=== PATIENT | female | born 1945 | race Caucasian/White ===

== ENCOUNTER 2024-11-11 01:44 | Emergency (ER) | payer MEDICARE, SELFPAY ==
[2024-11-11 01:46] VITALS: BP 103/58; PULSE 92; TEMP 37.1; O2SAT 95; BMI 33.7
--- NOTE | 2024-11-11 01:56 | ED.WOUNDLAC1 ---
HPI - Wound/Laceration General Chief Complaint: Wound/Laceration Stated Complaint: BLEEDING, LOWER EXTREMITY Time Seen by Provider: 11/11/24 01:45 Source: patient Mode of arrival: ambulance History of Present Illness HPI narrative: presents bleeding varicose vein left ankle. She is on eliquis for A. Fiv[employer]. Believes her shoes may have rubbed on the ankle resulting in the bleeding. Not able to recall any other injury. Not able to stop the bleeding at home and came via squad. no associated pain Related Data Home Medications ?Medication ?Instructions ?Recorded ?Confirmed amiodarone 200 mg tablet 200 mg PO BID 11/11/24 11/11/24 anastrozole 1 mg tablet 1 mg PO DAILY 11/11/24 11/11/24 apixaban 5 mg tablet (Eliquis) 5 mg PO BID 11/11/24 11/11/24 dapagliflozin propanediol 10 mg 10 mg PO DAILY 11/11/24 11/11/24 tablet (Farxiga) furosemide 80 mg tablet 80 mg PO QAM 11/11/24 11/11/24 losartan 25 mg tablet (Cozaar) 25 mg PO BID 11/11/24 11/11/24 metoprolol succinate 25 mg 25 mg PO BID 11/11/24 11/11/24 tablet,extended release 24 hr potassium chloride 10 mEq 10 meq PO BID 11/11/24 11/11/24 tablet,extended release (Klor-Con) Allergies Allergy/AdvReac Type Severity Reaction Status Date / Time No Known Drug Allergies Allergy Verified 11/11/24 01:51 Review of Systems ROS Status of ROS 10 or more systems reviewed and unremarkable except as noted in history and below PFSH PFSH Social History Little interest or pleasure in doing things: not at all Feeling down, depressed, or hopeless: not at all Exam Constitutional Vital Signs, click to edit/add: Last Vital Signs Temp 98.7 F 11/11/24 01:46 Pulse 92 H 11/11/24 01:46 Resp 18 11/11/24 02:42 BP 103/58 11/11/24 01:46 Pulse Ox 98 11/11/24 02:42 O2 Del Method Room Air 11/11/24 02:42 Common normals: no apparent distress, average body habitus, oriented x3, no limitations, healthy appearing, alert and well nourished [facility] Common normals: normocephalic and head/scalp atraumatic Eye Common normals: PERRL, EOMs intact bilaterally and conjunctivae normal Respiratory Common normals: normal respiratory effort, no retractions, no use of accessory muscles and clear to auscultation bilaterally Cardio Common normals: S1 normal heart sound and S2 normal heart sound Rhythm: abnormal rhythm Extremity Other: bleeding varicose vein left ankle Neuro Common normals: oriented x3, CN's II-XII intact bilaterally, moves all extremities and no focal motor deficits Psych Appearance: grossly normal Course Vital Signs Vital signs: Vital Signs Temperature 98.7 F 11/11/24 01:46 Pulse Rate 92 H 11/11/24 01:46 Respiratory Rate 16 11/11/24 01:46 Blood Pressure 103/58 11/11/24 01:46 Pulse Oximetry 95 11/11/24 01:46 Oxygen Delivery Method Room Air 11/11/24 01:46 Temperature 98.7 F 11/11/24 01:46 Pulse Rate 92 H 11/11/24 01:46 Respiratory Rate 18 11/11/24 02:42 Blood Pressure 103/58 11/11/24 01:46 Pulse Oximetry 98 11/11/24 02:42 Oxygen Delivery Method Room Air 11/11/24 02:42 MDM - Wound/Laceration MDM Narrative Medical decision making narrative: presents with bleeding varicose vein left ankle. No associated pain. pressure dressing on left ankle that was applied by squad was removed and the site was no longer bleeding. Did locate the site where she did bleed from and used silver nitrate to cauterize the site. Pressure dressing then re applied and patient monitored in the ER Discharge Plan Discharge Chief Complaint: Wound/Laceration Clinical Impression: Bleeding from varicose vein Patient Disposition: Home, Self-Care Prescriptions / Home Meds: No Action anastrozole 1 mg tablet 1 mg PO DAILY furosemide 80 mg tablet 80 mg PO QAM dapagliflozin propanediol [Farxiga] 10 mg tablet 10 mg PO DAILY Eliquis 5 mg tablet 5 mg PO BID metoprolol succinate 25 mg tablet extended release 24 hr 25 mg PO BID potassium chloride [Klor-Con 10] 10 mEq tablet extended release 10 meq PO BID losartan [Cozaar] 25 mg tablet 25 mg PO BID amiodarone 200 mg tablet 200 mg PO BID Print Language: Haitian Instructions: Bleeding Disorders (ED) Additional Instructions: keep dressing on for the next couple of days. followup with your doctor Discharge Date/Time: 11/11/24 02:53
[2024-11-11] MEDS: LIDOCAINE HCL 1%-EPINEPHRINE 1:100,000 20 ML MDV 5 ML INJ (02:26)
[2024-11-11] MEDS: SILVER NITRATE APPLICATOR STICK 10 APPLIC TOPICAL (02:26)
[2024-11-11 02:42] VITALS: O2SAT 98
--- NOTE | 2024-11-11 03:25 | PC.NURSE ---
Pt is D/C'ed, but she states that she wishes to stay in the room until she can get a hold of a ride. Salon Coordinator stated that she is d/c'ed, but allowed for her to stay in room for as long as we do not need it. She verbalized understanding and is resting on stretcher.
--- NOTE | 2024-11-11 06:05 | PC.NURSE ---
At 0555, pt was awakened and escorted out to the lobby to make phone calls for a ride home. She was D/C'ed a few hours ago. She was given a warm blanket and a soda as per her request.
== END 2024-11-11 02:53 | disposition home or self-care (01) ==
PROVIDERS: Emergency Provider Internal Medicine; PCP Internal Medicine
DX: I83.892 Varicose veins of left lower extremity with other complications (principal); Z79.01 Long term (current) use of anticoagulants; I48.91 Unspecified atrial fibrillation
CPT/HCPCS: 99284

== ENCOUNTER 2025-01-29 20:48 | Outpatient (REF) | payer MEDICARE, SELFPAY ==
--- OUTSIDE RECORDS SUMMARY | 2025-01-18 05:30 | XMS_ITS | Encounter Summary ---
Author Organization [facility] Address [address] [place] [address] Phone Care Team Providers Care Mill Worker Name Role Phone Ken Sy MD Primary Care Provider [phone] Lashanda Azar MD Unavailable Reason for Referral * Consultation (Routine) - AuthorizedSpecialtyDiagnoses / ProceduresReferred By ContactReferred To ContactNephrology Diagnoses Hypervolemia, unspecified [place] [address] [facility] Medicine-General Internal [place] [id number] Phone: tel: fax: Referral IDStatusReasonStart DateExpiration DateVisits RequestedVisits [id number] Specialty Services Required * Consultation (Routine) - AuthorizedSpecialtyDiagnoses / ProceduresReferred By ContactReferred To ContactPulmonary Disease / Pulmonology Diagnoses Requires continuous [place] [address] [address] [facility] Medicine-General Internal [place] [id number] Phone: tel: fax: Referral IDStatusReasonStart DateExpiration DateVisits RequestedVisits [id number] Specialty Services Required * Home Health (Routine) - Pending ReviewSpecialtyDiagnoses / ProceduresReferred By ContactReferred To [facility] Diagnoses Congestive heart failure, unspecified HF chronicity, unspecified heart failure type (Multi) [place] [address] [address] [facility] Department of [place] [address] Phone: tel: fax: Referral IDStatusReasonStart DateExpiration DateVisits RequestedVisits [id number] Review Specialty Services Required [id number] * Consultation (Routine) - AuthorizedSpecialtyDiagnoses / ProceduresReferred By ContactReferred To ContactCardiology Diagnoses Other fluid overload Bernabe Laura APRN-CNP [address] [address] Phone: tel: fax: Referral IDStatusReasonStart DateExpiration DateVisits RequestedVisits [id number] Specialty Services Required * Cardiovascular (Routine) - AuthorizedSpecialtyDiagnoses / ProceduresReferred By ContactReferred To ContactCardiology Diagnoses Persistent atrial fibrillation (Multi) Procedures Holter Or Event Cork Floor Installer NV EXTERNAL ECG REC>48HR<7D RECORDING NV XTRNL PT ACTIVATED ECG REC DWNLD 30 DAYS Lizzy Lynn APRN-CNP [address] [address] Phone: tel: fax: Referral IDStatusReasonVowinckel DateExpiration DateVisits RequestedVisits [id number]/ Reason for Visit * Auth/CertSpecialtyDiagnoses / ProceduresReferred By ContactReferred To Contact Diagnoses Persistent atrial fibrillation (Multi) Procedures NV COMPRE EP EVAL ABLTJ ATR FIB PULM VEIN ISOLATION Ablation A-Fib Persistant Lashanda Azar MD [address] [address] Phone: tel: fax: [address] [address] Phone: tel: fax: Referral IDStatusReasonVowinckel DateExpiration DateVisits RequestedVisits [id number] Encounter Details DateTypeDepartmentCare Team (Latest Contact Info)Wsvebylphtn30/17/2025 5:30 AM EST - 01/27/2025 3:58 PM ESTHospital Encounter [facility] Cardiac Int[facility] Care [address] [place] [phone] Lashanda Azar MD [address] [address] [place] [address] [address] [facility] Department of [place] [address] Byron Barnes MD [address] [place] [address] Nader Murrieta MD [address] [place], [place] [id number] [place] [address] [address] Department [place] [address] Persistent atrial fibrillation (Multi) (Primary Dx); Paroxysmal atrial fibrillation (Multi); Shortness of breath; Other fluid overload; Congestive heart failure, unspecified HF chronicity, unspecified heart failure type (Multi); Hypervolemia, unspecified hypervolemia type; MAR (generalized anxiety disorder); Requires continuous at home supplemental oxygen Discharge Disposition: Home Health Care - New Social History Tobacco UseTypesPacks/DayYears UsedDateSmoking Tobacco: NeverSmokeless Tobacco: NeverAlcohol UseStandard Drinks/WeekCommentsNever0 (1 standard drink = 0.6 oz pure alcohol)PHQ-2AnswerDate RecordedPatient Health Questionnaire-2 Score0 01/19/2025Humiliation, Afraid, Rape, and Kick questionnaireAnswerDate Recorded Within the last year, have you been afraid of your partner or ex-partner?No 01/19/2025Within the last year, have you been humiliated or emotionally abused in other ways by your partner or ex-partner?No01/19/2025Within the last year, have you been kicked, hit, slapped, or otherwise physically hurt by your partner or ex-partner?No01/19/2025Within the last year, have you been raped or forced to have any kind of sexual activity by your partner or ex-partner?No01/19/2025 AUDIT-CAnswerDate RecordedQ1: How often do you have a drink containing alcohol? Never01/19/2025Q2: How many drinks containing alcohol do you have on a typical day when you are drinking?Patient does not drink01/19/2025Q3: How often do you have six or more drinks on one occasion?Never01/19/2025Overall Financial Resource Strain (CARDIA)AnswerDate RecordedHow hard is it for you to pay for the very basics like food, housing, medical care, and heating?Not very hard 01/19/2025Hunger Vital SignAnswerDate RecordedWithin the past 12 months, you worried that your food would run out before you got the money to buymore.Never true01/19/2025Within the past 12 months, the food you bought just didn't last and you didn't have money to get more.Never true01/19/2025PRAPARE - TransportationAnswerDate RecordedIn the past 12 months, has lack of transportation kept you from medical appointments or from getting medications?No 01/19/2025In the past 12 months, has lack of transportation kept you from meetings, work, or from getting things needed for daily living?No01/19/2025 Housing Stability Vital SignAnswerDate RecordedIn the last 12 months, was there a time when you were not able to pay the mortgage or rent on time?No01/19/2025 Number of Times Moved in the Last YearNot on file01/19/2025t any time in the past 12 months, were you homeless or living in a half-way (including now)?No 01/19/2025HC UtilitiesAnswerDate RecordedIn the past 12 months has the [place], gas, oil, or water [employer] threatened to shut off services in your home?No01/19/2025CommentsUnknownSex and Gender InformationValueDate RecordedSex Assigned at BirthNot on fileLegal AndWrlopl15/25/2022 7:53 PM EST Gender IdentityNot on fileSexual OrientationNot on filedocumented as of this encounter Last Filed Vital Signs Vital SignReadingTime TakenCommentsBlood Xmgkeorw648/56103/29/2024 10:46 AM EST Julsd979601/27/2025 10:46 AM NPWHtqotddjdor37.7 ??C (98.1 ??F)01/27/2025 10:46 AM ESTRespiratory Rfin941803/29/2024 10:46 AM ESTOxygen Tmnegbbltc20%01/27/2025 12:08 PM ESTInhaled Oxygen Concentration--Wwoamm96 kg (191 lb 11.4 oz)01/27/2025 6:00 AM DMEFsiflw550.5 cm (5' 2 )01/18/2025 6:10 AM ESTBody Mass Index35.0601/18/2025 6:10 AM ESTdocumented in this encounter Functional Status * BPAnswerDate of IdadeyzuubGiwpwl487/56103/29/2024 10:46 AM Regina Miltonimkena Data In * PulseAnswerDate of WorhbatktvOawjcp8077/26/2025 10:46 AM ESTInterface, Masimo Data In * QuestionAnswerDate of AssessmentAuthorHistory of Falling, Immediate or Within 3 Yoaqei179/26/2025 12:00 PM Annabelle Emerson LPNMorse Fall Risk Score35 01/27/2025 12:00 PM Annabelle Emerson LPN * QuestionAnswerDate of AssessmentAuthorBraden Scale Bgict4529/26/2025 12:00 PM Annabelle Emerson LPN * AUDIT-C ScoreAnswerDate of BvvdatpzzhEnmcki074/18/2025 1:37 AM Concetta Sandoval RN * QuestionAnswerDate of AssessmentAuthorQ1: How often do you have a drink containing alcohol?Never01/19/2025 1:37 AM Concetta Sandoval RNQ2: How many drinks containing alcohol do you have on a typical day when you are drinking? Patient does not drink01/19/2025 1:37 AM Concetta Sandoval RNQ3: How often do you have six or more drinks on one occasion?Never01/19/2025 1:37 AM Concetta Sandoval RN * QuestionAnswerDate of AssessmentAuthorMalnutrition Fojep80803/21/2024 1:39 AM Concetta Sandoval RN * QuestionAnswerDate of AssessmentAuthorLittle interest or pleasure in doing thingsNot at all01/19/2025 1:37 AM Concetta Sandoval, RNFeeling down, depressed, or hopelessNot at all01/19/2025 1:37 AM Concetta Sandoval RN * Over the past 2 weeks, how often have you been bothered by any of the following problems?QuestionAnswerDate of AssessmentAuthorPatient Health Questionnaire-2 Dpqcl00103/21/2024 1:37 AM Concetta Sandoval RN * 4. Active Suicidal Ideation with Some Intent to Act, Without Specific Plan (Lifetime)AnswerDate of QcqgqzmfniCrapbeCd17/18/2025 12:19 AM Concetta Sandoval RN * 5. Active Suicidal Ideation with Specific Plan and Intent (Lifetime)AnswerDate of RikzgvounfJrgubdWm02/18/2025 12:19 AM Concetta Sandoval RN * Actual Attempt (Lifetime)AnswerDate of IscybqndvpCwgggmUu62/18/2025 12:19 AM Concetta Sandoval RN * Interrupted Attempts (Lifetime)AnswerDate of NsnjcflqjaJhonanQe08/18/2025 12:19 AM Concetta Sandoval RN * Aborted or Self-Interrupted Attempt (Lifetime)AnswerDate of AssessmentAuthorNo 01/19/2025 12:19 AM Concetta Sandoval RN * Preparatory Acts or Behavior (Lifetime)AnswerDate of AssessmentAuthorNo 01/19/2025 12:19 AM Concetta Sandoval RN * Calculated C-SSRS Risk Score (Lifetime/Recent)AnswerDate of AssessmentAuthorNo Risk Dntjtcdhc15/18/2025 12:19 AM Concetta Sandoval RN * [place] Suicide Severity Rating Scale (Screener/Recent Self-Report)Question AnswerDate of AssessmentAuthor1. Wish to be (Past 1 Month)No01/19/2025 12:19 AM Concetta Sandoval RN2. Non-Specific Active Suicidal Thoughts (Past 1 Month)No01/19/2025 12:19 AM Concetta Sandoval RN6. Suicidal Behavior (Lifetime)No01/19/2025 12:19 AM Concetta Sandoval RN * QuestionAnswerDate of AssessmentAuthorLittle interest or pleasure in doing thingsNot at all01/19/2025 1:37 AM Concetta Sandoval RNFeeling down, depressed, or hopelessNot at all01/19/2025 1:37 AM Concetta Sandoval RN documented as of this encounter Discharge Summaries * Kehinde Eli DO - 01/27/2025 3:03 PM EST Discharge Diagnosis Atrial fibrillation Acute hypoxic respiratory failure HFmrEF w Fluid overload Severe MV and tricuspid valve regurgitation Large PFO ANATOLY on CKD stage IIIb Issues Requiring Follow-Up Nephrology + Pulmonology + cardiology + structural heart follow-ups Discharge Meds Medication List START taking these medications hydrOXYzine HCL 25 mg tablet; Commonly known as: Atarax; Take 1 tablet (25 mg) by mouth every 6 hours if needed for anxiety. Klor-Con M20 20 mEq ER tablet; Generic drug: potassium chloride CR; Take 1 tablet (20 mEq) by mouth 2 times a day. Do not crush or chew.; Replaces: potassium chloride CR 10 mEq ER tablet pantoprazole 40 mg EC tablet; Commonly known as: ProtoNix; Take 1 tablet (40 mg) by mouth 2 times a day before meals. For 6 weeks after ablation then stop taking CHANGE how you take these medications * amiodarone 100 mg tablet; Commonly known as: Pacerone; Take 2 tablets (200 mg) by mouth once daily. For 2 months after ablation then discontinue; What changed: additional instructions * amiodarone 200 mg tablet; Commonly known as: Pacerone; Take 1 tablet (200 mg) by mouth once daily.; Start taking on: January 28, 2025; What changed: You were already taking a medication with the same name, and this prescription was added. Make sure you understand how and when to take each. Eliquis 2.5 mg tablet; Generic drug: apixaban; Take 1 tablet (2.5 mg) by mouth 2 times a day.; What changed: medication strength, how much to take losartan 25 mg tablet; Commonly known as: Cozaar; Take 1 tablet (25 mg) by mouth once daily.; What changed: when to take this torsemide 100 mg tablet; Commonly known as: Demadex; Take 1 tablet (100 mg) by mouth once daily.; Start taking on: January 28, 2025; What changed: medication strength, how much to take * This list has 2 medication(s) that are the same as other medications prescribed for you. Read the directions carefully, and ask your doctor or other care provider to review them with you. CONTINUE taking these medications anastrozole 1 mg tablet; Commonly known as: Arimidex dapagliflozin propanediol 10 mg tablet; Commonly known as: Farxiga; Take 1 tablet (10 mg) by mouth once every 24 hours. metoprolol succinate XL 25 mg 24 hr tablet; Commonly known as: Toprol-XL; Take 1 tablet (25 mg) by mouth once daily. Do not crush or chew. STOP taking these medications potassium chloride CR 10 mEq ER tablet; Commonly known as: Klor-Con; Replaced by: Klor-Con M20 20 mEq ER tablet Test Results Pending At Discharge Pending Labs No current pending labs. Hospital Course Carlos Escobar is a 79 y.o. female with a significant past medical history of Breast cancer s/p radiation & chemotherapy, atrial fibrillation, diastolic heart failure, WIL, HLD, GERD who was initially admitted under EP service for management of atrial fibrillation, transferred to medicine service due to ANATOLY and respiratory failure. 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 Weaned to 3L o2. Walking pulse oximetry on day of discharge revealed that she requires 3L o2 continuously at rest and with exertion. - Continue torsemide 100 mg Will need follow-up with outpatient nephrology in addition to cardiology, pulmonology, and structural heart team due to above listed medical issued addressed during this hospitalization - To continue physical therapy via her chosen [facility] agency > 30min in discharge coordination of care which includes: discharge planning, medication reconciliation, arranging appropriate follow up and discussion of discharge instructions with the patient. Pertinent Physical Exam At Time of Discharge Physical Exam Vitals and nursing note reviewed. Constitutional: General: She is not in acute distress. Appearance: Normal appearance. HENT: Head: Normocephalic and atraumatic. Mouth/Throat: Mouth: Mucous membranes are moist. Eyes: Extraocular Movements: Extraocular movements intact. Conjunctiva/sclera: Conjunctivae normal. Cardiovascular: Rate and Rhythm: Normal rate and regular rhythm. Pulses: Normal pulses. Heart sounds: Normal heart sounds. Pulmonary: Effort: Pulmonary effort is normal. Breath sounds: Normal breath sounds. Comments: On 3L o2 via NC Abdominal: General: Abdomen is flat. Bowel sounds are normal. Palpations: Abdomen is soft. Musculoskeletal: Right lower leg: Edema present. Left lower leg: Edema present. Skin: General: Skin is warm. Neurological: General: No focal deficit present. Mental Status: She is alert and oriented to person, place, and time. Mental status is at baseline. Psychiatric: Mood and Affect: Mood normal. Behavior: Behavior normal. Thought Content: Thought content normal. Outpatient Follow-Up Future Appointments Date Time Provider Department [place] 02/02/2025 2:30 PM Girish Chapman MD [id number] [place] 02/02/2025 2:30 PM Krzysztof Blankenship MD [id number] [place] 02/15/2025 2:00 PM Sarah Jesus PA-C [id number] [place] 04/19/2025 8:30 AM SHAYE [id number] ECG/HOLTER [id number] [place] 05/18/2025 10:15 AM Lashanda Azar MD [id number] [place] Kehinde Eli DO documented in this encounter Discharge Instructions * Discharge Instructions* Lizzy Lynn, BAR MACHINE OPERATOR MULTIPLE SPINDLE-DIVISION ORDER ANALYST - 01/18/2025 10:22 AM EST Images from the original note were not included. INSTRUCTIONS AFTER ATRIAL FIBRILLATION ABLATION PROCEDURE: After the procedure: You should return home and rest for the remainder of the day and evening. DO NOT drive a car, operate machinery or power tools. It is recommended a responsible adult be withyou for the first 24 hours after the procedure. DO NOT make any legal decisions for 24 hours after your procedure. DO NOT drink any alcoholic drinks or take any non-prescriptive medications that contain alcohol forthe first 24 hours. What to expect: Some minor bruising is common at each groin access site with minor soreness as if you had banged the area. Bruising may occasionally be seen to extend down the leg. This is normal as is an occasionalsmall quarter sized bump in the area. If larger swelling or more significant pain occurs at the area, please contact the office or go the nearest Emergency Room. You may have some minor chest pain for the next week or so. The pain will often worsen with a deep breath and be better when leaning forward. This is pericardial chest pain from the ablation and is generally not of concern. It should resolve within a week although it might increase for a day or so after the ablation. Low grade fevers of around 99 degrees are common in the first day or so post- ablation. If you develop unexplained fevers exceeding 100 degrees anytime within the first 3 weeks post-ablation, you needto contact the office. Atrial fibrillation (AFib) can recur in all patients who undergo this ablation for up to 4-8 weeks post-ablation. The ablation itself can cause inflammation (pericarditis) in the atria and this can cause AFib. Some patients will actually experience an increased amount of atrial arrhythmia early after ablation. Approximately 1/3 of patients will have this early recurrence of AFib. Medications should be continued and your heart rate controlled. Nothing else needs be done initially except waiting as in many cases these episodes of AFib will prove self limited. Important Medication Instructions: You will need to continue blood thinner (warfarin, Pradaxa, Xarelto or Eliquis) until instructed otherwise. It is important not to interrupt blood thinner for any reason (other than an emergency) during the first 30 days after ablation. You will be on Pantoprazole (a heartburn medicine) or related medicine for 6 weeks to protect the esophagus as it can become irritated with ablation. It is very important that you take this medication. All other medications will generally remain the same unless you are told otherwise. Resume taking your home medications today (including blood thinner) as listed on the discharge instructions. Activity and Other Restrictions: In the first week post-ablation you should take it easy. No heavy lifting or heavy exercise, no treadmill. You can use the stairs if needed but go slowly and minimize the number of times up and down. Avoid heavy lifting (over 10 pounds), strenuous activity/exercise, squatting or excessive bending for 7 days. This allows for proper healing of the groin. Avoid sexual activity for 24 hours after you arrive home. No driving for 48 hours after procedure. Call 911 if: Severe dizziness, lightheadedness, or feeling faint Severe chest pain Change in mental status or weakness in extremities. If there is a large amount of bleeding or spurting of blood. DO NOT drive yourself to the hospital. Notify Provider if: Breathing faster than normal. Fever of 100.4 F (38 C) or higher or chills. If you develop a large area of bruising or a large lump. It is normal to notice a small bruise around the puncture site and/or a small lump. If groin pain is not relieved with acetaminophen (Tylenol). If you develop tingling, numbness, pain, or coolness in the leg/arm beyond the site where the procedure was performed. If post procedure chest discomfort unrelieved with acetaminophen (Tylenol) Any new concerning symptoms Wound Care: The transparent dressing should be removed from the site 24 hours after the procedure. It is ok to shower after transparent dressing is removed. Gently cleanse the puncture site in your groin with soap and water only. No tub baths, soaking, hot tubs, or swimming for one week. If slight bleeding should occur at groin site, lie down and have someone apply firm pressure just above the puncture site for 15 minutes. If there is a large amount of bleeding or spurting of blood, DO NOT drive yourself to the hospital. Always notify your doctor if bleeding occurs. Keep site clean and dry. Let air dry or pat dry. You may use a simple bandaid. You may experience some tenderness, bruising or minimal inflammation. You may take acetaminophen (Tylenol) as directed for discomfort. If you have any concerns, you may contact Dr. Azar. Avoid lotions, ointments, or powders until fully healed. Follow-up Appointments You will be scheduled for a follow up appointment with your provider in 3-4 months. A heart monitor may be ordered prior to your provider appointment if indicated. Any necessary appointments will be scheduled and appear on your After Visit Summary. Other Instructions: If you need to speak with Dr. Azar for any reason, please call [phone] during business hours. For urgent questions after normal business hours, please call and ask for Cardiac Electrophysiology coverage for Dr. Azar to be paged. For medical emergencies, please call [phone]. documented in this encounter Medications at Time of Discharge MedicationSigDispense QuantityRefillsLast FilledStart DateEnd Date amiodarone (Pacerone) 100 mg tablet Indications:Persistent atrial fibrillation (Multi)Take 2 tablets (200 mg) by mouth once daily. For 2 months after ablation then vamcqakemdr70/17/2025 amiodarone (Pacerone) 200 mg tablet Indications:Congestive heart failure, unspecified HF chronicity, unspecified heart failure type (Multi)Take 1 tablet (200 mg) by mouth once daily. 30 tablet 01/27/2025 12:35 PM EST anastrozole (Arimidex) 1 mg tablet Take 1 tablet (1 mg total) by mouth once daily.01/22/2024 apixaban (Eliquis) 2.5 mg tablet Indications:Other fluid overloadTake 1 tablet (2.5 mg) by mouth 2 times a day. 60 tablet 12:35 PM EST dapagliflozin propanediol (Farxiga) 10 mg tablet Indications:Congestive heart failure, unspecified HF chronicity, unspecified heart failure type (Multi)Take 1 tablet (10 mg) by mouth once every 24 hours. 90 tablet hydrOXYzine HCL (Atarax) 25 mg tablet Indications:MAR (generalized anxiety disorder)Take 1 tablet (25 mg) by mouth every 6 hours if needed for anxiety. 60 tablet 12:35 PM EST01/27/2025 losartan (Cozaar) 25 mg tablet Indications:Other fluid overloadTake 1 tablet (25 mg) by mouth once daily. 30 tablet metoprolol succinate XL (Toprol-XL) 25 mg 24 hr tablet Indications:Persistent atrial fibrillation (Multi),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,High risk medication use,Essential (primary) hypertension, Nonrheumatic tricuspid valve regurgitation,Nonrheumatic mitral valve regurgitation,Nonrheumatic aortic (valve) insufficiency,LVH (left ventricular hypertrophy),Incomplete RBBB,Abnormal EKG,SOB (shortness of breath),Localized edema,Mixed hyperlipidemia,Obstructive sleep apnea,Never smoked cigarettes,BMI 34.0-34.9,adultTake 1 tablet (25 mg) by mouth once daily. Do not crush or chew. pantoprazole (ProtoNix) 40 mg EC tablet Indications:Persistent atrial fibrillation (Multi)Take 1 tablet (40 mg) by mouth 2 times a day before meals. For 6 weeks after ablation then stop taking 84 tablet 01/18/2025 12:46 PM EST potassium chloride CR (Klor-Con M20) 20 mEq ER tablet Indications:Congestive heart failure, unspecified HF chronicity, unspecified heart failure type (Multi)Take 1 tablet (20 mEq) by mouth 2 times a day. Do not crush or chew. 60 tablet 01/27/2025 12:35 PM EST torsemide (Demadex) 100 mg tablet Indications:Congestive heart failure, unspecified HF chronicity, unspecified heart failure type (Multi),Hypervolemia, unspecified hypervolemia typeTake 1 tablet (100 mg) by mouth once daily. 30 tablet 01/27/2025 12:35 PM ESTdocumented as of this encounter Progress Notes * Robinson Garcia RRT - 01/27/2025 1:59 PM EST Images from the original note were not included. Date/Time SpO2 Medical Gas Therapy Medical Gas Delivery Method Oxygen L/min Patient is on During the Study Patient Activity During Study 01/27/25 1200 86 % None (Room air) -- -- At rest 01/27/25 1205 93 % Supplemental oxygen Nasal cannula 3 L/min At rest 01/27/25 1208 90 % Supplemental oxygen Nasal cannula 3 L/min Ambulating Was a Home Oxygen Evaluation Performed? Yes Recommendations: Recommended Oxygen Dose at Rest is 3 L/min Recommended Oxygen Dose with Activity is 3 L/min * Robinson Garcia RRT - 01/27/2025 1:55 PM EST Images from the original note were not included. Date/Time SpO2 Medical Gas Therapy Medical Gas Delivery Method Oxygen L/min Patient is on During the Study Patient Activity During Study 01/27/25 1200 86 % None (Room air) -- -- At rest 01/27/25 1205 93 % Supplemental oxygen Nasal cannula 3 L/min At rest 01/27/25 1208 90 % Supplemental oxygen Nasal cannula 3 L/min Ambulating Was a Home Oxygen Evaluation Performed? Yes Recommendations: Recommended Oxygen Dose at Rest is 3 L/min Recommended Oxygen Dose with Activity is 3 L/min * Juana Borrego MD - 01/27/2025 12:35 PM EST Renal Progress Note Assessment and Plan: 79 y.o. female with history s/f persistent A.fib, breast cancer s/p radiation and chemo, HFpEF, WIL, HLD and GERD who initially presented for elective ablation however due to fluid overload and hypoxia was kept ANATOLY on ?CKD stage IIIb: ? 2/2 hypotension, ?Crs, current baseline Scr 1.4-1.6 w/ eGFR low/mid 30s however was 0.9 in 04/28 and 1.2 in 11/26 (may have non-resolved ANATOLY), now worsening, no contrast administered, has been getting loop diuretics Fluid overload Hypotensive episodes: persists Anemia/thrombocytopenia Persistent A.fib Plan: - continue torsemide 100 mg daily - ok to discharge from renal standpoint Subjective: Admit Date: 01/18/2025 Interval History: BP has been low, Scr slight uptrend, has not voided much Medications: Scheduled Meds:Scheduled Medications[1] Continuous Infusions:Continuous Medications[2] CBC: Lab Results Component Value Date HGB 9.8 (L) 01/26/2025 HGB 9.7 (L) 01/25/2025 WBC 4.3 (L) 01/26/2025 WBC 4.7 01/25/2025 PLT 85 (L) 01/26/2025 PLT 88 (L) 01/25/2025 Anemia: No results found for: FERRITIN , IRON , TIBC BMP: Lab Results Component Value Date NA 135 (L) 01/27/2025 NA 136 01/26/2025 K 4.0 01/27/2025 K 3.9 01/26/2025 CL 100 01/27/2025 CL 99 01/26/2025 CO2 30 01/27/2025 CO2 30 01/26/2025 BUN 24 (H) 01/27/2025 BUN 24 (H) 01/26/2025 CREATININE 1.47 (H) 01/27/2025 CREATININE 1.56 (H) 01/26/2025 Bone disease: Lab Results Component Value Date PHOS 3.4 01/27/2025 Urinalysis: No results found for: CHARO , PROTUR , GLUCOSEU , BLOODU , KETONESU , BILIRUBINU , NITRITEU , LEUKOCYTESU , UTPCR Objective: Vitals: BP 120/56 (BP Location: Left arm, Patient Position: Lying) Pulse 64 Temp 36.7 ??C (98.1??F) (Temporal) Resp 18 Ht 1.575 m (5' 2 ) Wt 87 kg (191 lb 11.4 oz) SpO2 90% BMI 35.06 kg/m?? Wt Readings from Last 3 Encounters: 01/27/25 87 kg (191 lb 11.4 oz) 01/05/25 89.5 kg (197 lb 6.4 oz) 12/30/24 88.5 kg (195 lb) 24HR INTAKE/OUTPUT: Intake/Output Summary (Last 24 hours) at 01/27/2025 1235 Last data filed at 01/27/2025 0936 Gross per 24 hour Intake 240 ml Output 1400 ml Net -1160 ml Admission weight: Weight: 87.5 kg (192 lb 14.4 oz) General: alert, in no apparent distress HEENT: normocephalic, atraumatic, anicteric Lungs: non-labored respirations, clear to auscultation bilaterally Heart: regular rate and rhythm, no murmurs Abdomen: soft, non-tender Ext: + peripheral edema Neuro: alert, follows commands [1] amiodarone, 200 mg, oral, Daily anastrozole, 1 mg, oral, Daily apixaban, 2.5 mg, oral, BID hydrOXYzine HCL, 25 mg, oral, Once ipratropium-albuteroL, 3 mL, nebulization, TID LORazepam, 0.5 mg, oral, Once losartan, 25 mg, oral, Daily metoprolol succinate XL, 25 mg, oral, Daily pantoprazole, 40 mg, oral, BID AC polyethylene glycol, 17 g, oral, BID potassium chloride CR, 20 mEq, oral, BID sennosides-docusate sodium, 1 tablet, oral, Nightly torsemide, 100 mg, oral, Daily [2] * Maritza Narvon, RN - 01/27/2025 12:11 PM EST Met with pt to provide [facility] list , pt chose [facility] , referral built and sent in [facility] for ar home today . [facility] has accepted patient. Orders and F2F have been sent . Pt is aware of acceptance * Nic Church MD - 01/26/2025 10:49 PM EST Images from the original note were not included. Carlos Escobar is a 79 y.o. female on day 7 of admission presenting with Atrial fibrillation (Multi). Expand All Collapse All[]Expand All by Default Carlos Escobar is a 79 y.o. female on day 7 of admission presenting with Atrial fibrillation (Multi). Subjective Reports improvement in shortness of breath Objective Last Recorded Vitals BP 99/54 Pulse 64 Temp 36.4 ??C (97.5 ??F) Resp 20 Wt 87.6 kg (193 lb 2 oz) SpO2 93% Intake/Output last 3 Shifts: Intake/Output Summary (Last 24 hours) at 01/26/2025 1524 Last data filed at 01/26/2025 1242 Gross per 24 hour Intake 540 ml Output 800 ml Net -260 ml Admission Weight Weight: 87.5 kg (192 lb 14.4 oz) (01/18/25 0610) Daily Weight 01/25/25 : 87.6 kg (193 lb 2 oz) Image Results ECG 12 Lead Sinus bradycardia Rightward axis Low voltage QRS ST & T wave abnormality, consider anterior ischemia Abnormal ECG When compared with ECG of 21-JAN-2025 06:31, (unconfirmed) Incomplete right bundle branch block is no longer Present Confirmed by Geoff Elliott ([id number]) on 01/25/2025 8:00:42 AM ECG 12 Lead Normal sinus rhythm Rightward axis ST & T wave abnormality, consider anterior ischemia Abnormal ECG When compared with ECG of 22-JAN-2025 06:40, (unconfirmed) No significant change was found Confirmed by Geoff Elliott ([id number]) on 01/25/2025 7:43:57 AM ECG 12 Lead Sinus bradycardia Incomplete right bundle branch block Right ventricular hypertrophy with repolarization abnormality Nonspecific T wave abnormality Abnormal ECG When compared with ECG of 20-JAN-2025 10:11, Premature atrial complexes are no longer Present Incomplete right bundle branch block is now Present Inverted T waves have replaced nonspecific T wave abnormality in Anterior leads QT has lengthened Confirmed by Geoff Elliott ([id number]) on 01/25/2025 7:36:58 AM Physical Exam Alert oriented x 3 Lungs diminished breath sounds bilaterally Heart regular rhythm Abdomen soft nontender Extremities bilateral leg edema 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 Relevant Results Results for orders placed or performed during the hospital encounter of 01/18/25 (from the past 24 hours) CBC and Auto Differential Result Value Ref Range WBC 4.3 (L) 4.4 - 11.3 x10*3/uL nRBC 0.0 0.0 - 0.0 /100 WBCs RBC 3.16 (L) 4.00 - 5.20 x10*6/uL Hemoglobin 9.8 (L) 12.0 - 16.0 g/dL Hematocrit 30.4 (L) 36.0 - 46.0 % MCV 96 80 - 100 fL MCH 31.0 26.0 - 34.0 pg MCHC 32.2 32.0 - 36.0 g/dL RDW 15.3 (H) 11.5 - 14.5 % Platelets 85 (L) 150 - 450 x10*3/uL Neutrophils % 56.7 40.0 - 80.0 % Immature Granulocytes %, Automated 0.5 0.0 - 0.9 % Lymphocytes % 20.5 13.0 - 44.0 % Monocytes % 16.8 2.0 - 10.0 % Eosinophils % 4.8 0.0 - 6.0 % Basophils % 0.7 0.0 - 2.0 % Neutrophils Absolute 2.46 1.60 - 5.50 x10*3/uL Immature Granulocytes Absolute, Automated 0.02 0.00 - 0.50 x10*3/uL Lymphocytes Absolute 0.89 0.80 - 3.00 x10*3/uL Monocytes Absolute 0.73 0.05 - 0.80 x10*3/uL Eosinophils Absolute 0.21 0.00 - 0.40 x10*3/uL Basophils Absolute 0.03 0.00 - 0.10 x10*3/uL Comprehensive Metabolic Panel Result Value Ref Range Glucose 86 74 - 99 mg/dL Sodium 136 136 - 145 mmol/L Potassium 3.9 3.5 - 5.3 mmol/L Chloride 99 98 - 107 mmol/L Bicarbonate 30 21 - 32 mmol/L Anion Gap 11 10 - 20 mmol/L Urea Nitrogen 24 (H) 6 - 23 mg/dL Creatinine 1.56 (H) 0.50 - 1.05 mg/dL eGFR 33 (L) >60 mL/min/1.73m*2 Calcium 8.7 8.6 - 10.3 mg/dL Albumin 3.4 3.4 - 5.0 g/dL Alkaline Phosphatase 257 (H) 33 - 136 U/L Total Protein 5.9 (L) 6.4 - 8.2 g/dL AST 16 9 - 39 U/L Bilirubin, Total 1.7 (H) 0.0 - 1.2 mg/dL ALT 12 7 - 45 U/L Magnesium Result Value Ref Range Magnesium 2.07 1.60 - 2.40 mg/dL Phosphorus Result Value Ref Range Phosphorus 3.5 2.5 - 4.9 mg/dL Plan: Acute hypoxic respiratory failure HFmrEF w Fluid overload Severe MV and tricuspid valve regurgitation ANATOLY on CKD stage III Hypertension Anemia/thrombocytopenia Persistent A.fib Large PFO Plan: - Nephrology following, continue torsemide 100 mg - Continue to wean oxygen down, currently on 3L -PT OT evaluation and treatment - DVT prophylaxis Disposition: Anticipate discharge tomorrow with home o2 Pulm comments:- OK to discharge Home in AM, if stable. Check for Home O2. F/U with me in 7 days I spent 30 minutes in the professional and overall care of this patient. Nic Church MD * Kehinde Eli DO - 01/26/2025 3:24 PM EST Carlos Escobar is a 79 y.o. female on day 7 of admission presenting with Atrial fibrillation (Multi). Subjective Reports improvement in shortness of breath Objective Last Recorded Vitals BP 99/54 Pulse 64 Temp 36.4 ??C (97.5 ??F) Resp 20 Wt 87.6 kg (193 lb 2 oz) SpO2 93% Intake/Output last 3 Shifts: Intake/Output Summary (Last 24 hours) at 01/26/2025 1524 Last data filed at 01/26/2025 1242 Gross per 24 hour Intake 540 ml Output 800 ml Net -260 ml Admission Weight Weight: 87.5 kg (192 lb 14.4 oz) (01/18/25 0610) Daily Weight 01/25/25 : 87.6 kg (193 lb 2 oz) Image Results ECG 12 Lead Sinus bradycardia Rightward axis Low voltage QRS ST & T wave abnormality, consider anterior ischemia Abnormal ECG When compared with ECG of 21-JAN-2025 06:31, (unconfirmed) Incomplete right bundle branch block is no longer Present Confirmed by Geoff Elliott ([id number]) on 01/25/2025 8:00:42 AM ECG 12 Lead Normal sinus rhythm Rightward axis ST & T wave abnormality, consider anterior ischemia Abnormal ECG When compared with ECG of 22-JAN-2025 06:40, (unconfirmed) No significant change was found Confirmed by Geoff Elliott ([id number]) on 01/25/2025 7:43:57 AM ECG 12 Lead Sinus bradycardia Incomplete right bundle branch block Right ventricular hypertrophy with repolarization abnormality Nonspecific T wave abnormality Abnormal ECG When compared with ECG of 20-JAN-2025 10:11, Premature atrial complexes are no longer Present Incomplete right bundle branch block is now Present Inverted T waves have replaced nonspecific T wave abnormality in Anterior leads QT has lengthened Confirmed by Geoff Elliott ([id number]) on 01/25/2025 7:36:58 AM Physical Exam Alert oriented x 3 Lungs diminished breath sounds bilaterally Heart regular rhythm Abdomen soft nontender Extremities bilateral leg edema 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 Relevant Results Results for orders placed or performed during the hospital encounter of 01/18/25 (from the past 24 hours) CBC and Auto Differential Result Value Ref Range WBC 4.3 (L) 4.4 - 11.3 x10*3/uL nRBC 0.0 0.0 - 0.0 /100 WBCs RBC 3.16 (L) 4.00 - 5.20 x10*6/uL Hemoglobin 9.8 (L) 12.0 - 16.0 g/dL Hematocrit 30.4 (L) 36.0 - 46.0 % MCV 96 80 - 100 fL MCH 31.0 26.0 - 34.0 pg MCHC 32.2 32.0 - 36.0 g/dL RDW 15.3 (H) 11.5 - 14.5 % Platelets 85 (L) 150 - 450 x10*3/uL Neutrophils % 56.7 40.0 - 80.0 % Immature Granulocytes %, Automated 0.5 0.0 - 0.9 % Lymphocytes % 20.5 13.0 - 44.0 % Monocytes % 16.8 2.0 - 10.0 % Eosinophils % 4.8 0.0 - 6.0 % Basophils % 0.7 0.0 - 2.0 % Neutrophils Absolute 2.46 1.60 - 5.50 x10*3/uL Immature Granulocytes Absolute, Automated 0.02 0.00 - 0.50 x10*3/uL Lymphocytes Absolute 0.89 0.80 - 3.00 x10*3/uL Monocytes Absolute 0.73 0.05 - 0.80 x10*3/uL Eosinophils Absolute 0.21 0.00 - 0.40 x10*3/uL Basophils Absolute 0.03 0.00 - 0.10 x10*3/uL Comprehensive Metabolic Panel Result Value Ref Range Glucose 86 74 - 99 mg/dL Sodium 136 136 - 145 mmol/L Potassium 3.9 3.5 - 5.3 mmol/L Chloride 99 98 - 107 mmol/L Bicarbonate 30 21 - 32 mmol/L Anion Gap 11 10 - 20 mmol/L Urea Nitrogen 24 (H) 6 - 23 mg/dL Creatinine 1.56 (H) 0.50 - 1.05 mg/dL eGFR 33 (L) >60 mL/min/1.73m*2 Calcium 8.7 8.6 - 10.3 mg/dL Albumin 3.4 3.4 - 5.0 g/dL Alkaline Phosphatase 257 (H) 33 - 136 U/L Total Protein 5.9 (L) 6.4 - 8.2 g/dL AST 16 9 - 39 U/L Bilirubin, Total 1.7 (H) 0.0 - 1.2 mg/dL ALT 12 7 - 45 U/L Magnesium Result Value Ref Range Magnesium 2.07 1.60 - 2.40 mg/dL Phosphorus Result Value Ref Range Phosphorus 3.5 2.5 - 4.9 mg/dL Plan: Acute hypoxic respiratory failure HFmrEF w Fluid overload Severe MV and tricuspid valve regurgitation ANATOLY on CKD stage III Hypertension Anemia/thrombocytopenia Persistent A.fib Large PFO Plan: - Nephrology following, continue torsemide 100 mg - Continue to wean oxygen down, currently on 3L -PT OT evaluation and treatment - DVT prophylaxis Disposition: Anticipate discharge tomorrow with home o2 Kehinde Eli DO * Diogenes Sanders, PT - 01/26/2025 1:39 PM EST Physical Therapy Physical Therapy Evaluation Patient Name: Carlos Escobar Today's Date: 01/26/2025 Time Calculation Start Time: 1040 Stop Time: 1057 Time Calculation (min): 17 min 807/807-A Assessment/Plan PT Assessment PT Assessment Results: Decreased endurance, Decreased strength, Impaired balance, Decreased mobility Rehab Prognosis: Good Barriers to Discharge Home: No anticipated barriers Evaluation/Treatment Tolerance: Patient limited by fatigue Strengths: Premorbid level of function Barriers to Participation: Comorbidities End of Session Communication: Bedside nurse Assessment Comment: pt with decreased mobility/gait strength balance endurance pt to benefit from skilled PT to address deficits and improve functional mobility . End of Session Patient Position: Up in chair, Alarm off, not on at start of session IP OR SWING BED PT PLAN Inpatient or Swing Bed: Inpatient PT Plan Treatment/Interventions: Bed mobility, Transfer training, Gait training, Stair training, Balance training, Strengthening, Endurance training, Therapeutic exercise, Therapeutic activity PT Plan: Ongoing PT PT Frequency for Current Admission: 2 times per week during this acute inpatient hospitalization PT Discharge Recommendations: Low intensity level of continued care PT Recommended Transfer Status: Assist x1, Stand by assist PT - OK to Discharge: Yes (once medically ready for discharge to next level of care.) Subjective Current Problem: 1. 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 Paroxysmal atrial fibrillation (Multi) Transthoracic Echo Complete Transthoracic Echo Complete 3. Shortness of breath Transthoracic Echo Complete 4. Other fluid overload Transthoracic Echo Complete apixaban (Eliquis) 2.5 mg tablet losartan (Cozaar) 25 mg tablet Referral to Valve and Structural Heart Program Basic metabolic panel Problem List[1] General Visit Information: General Reason for Referral: weakness/ impaired mobility Referred By: Tio OT/PT 01/25 Past Medical History Relevant to Rehab: HLD, WIL, A-fib, GERD, breast cancer s/p chemo/radiation, Rlumpectomy, L mastectomy Family/Caregiver Present: No Co-Treatment: OT Co-Treatment Reason: to maximize pt. safety Prior to Session Communication: Bedside nurse Patient Position Received: Up in chair, Alarm off, not on at start of session General Comment: Pt. is 79 y/o female to [facility] on 01/18 for scheduled ablation for management of A-fib. s/p procedure, pt. developed fluid overload and hypoxia with inability to wean 02 demands. Cardiology following. CXR: Small loculated left pleural effusion with adjacent mild basilar atelectasis. CT chest: left perihilar mass, large pericardial effusion Home Living: Home Living Home Living Comments: Pt. lives alone in split level house. Has 2+1 ROBERTO house. 6 steps up with HR to kitchen, living, bedroom/bathroom level. Has walk in shower with grab bars. Laundry in lower level, 6 steps down from entrance with HRs. Prior Level of Function: Prior Function Per Pt/Caregiver Report Prior Function Comments: No AD use, pt. owns cane and walker. Independent with all ADLs, IADLs. no falls. Drives. 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 (6 liters 02) Objective Pain: Pain Assessment Pain Assessment: 0-10 0-10 (Numeric) Pain Score: 0 - No pain Cognition: Cognition Overall Cognitive Status: Within Functional Limits Orientation Level: Oriented X4 General Assessments: Activity Tolerance Endurance: Decreased tolerance for upright activites Activity Tolerance Comments: needs standing rest break during amb Sensation Sensation Comment: intact BLEs Strength Strength Comments: BLEs 4/5 Coordination Movements are Fluid and Coordinated: Yes Coordination Comment: WFL Static Sitting Balance Static Sitting-Comment/Number of Minutes: good Dynamic Sitting Balance Dynamic Sitting-Comments: good Static Standing Balance Static Standing-Comment/Number of Minutes: fair Dynamic Standing Balance Dynamic Standing-Comments: fair Functional Assessments: Bed Mobility Bed Mobility: No (up in chair) Transfers Transfer: Yes Transfer 1 Technique 1: Sit to stand, Stand to sit Transfer Level of Assistance 1: Close supervision Trials/Comments 1: Supervision no A/D Ambulation/Gait Training Ambulation/Gait Training Performed: Yes Ambulation/Gait Training 1 Surface 1: Level tile Device 1: No device Assistance 1: Close supervision Quality of Gait 1: (slow gait speed) Comments/Distance (ft) 1: 100ft no AD SUP. standing rest break then another 100ft SUP no A/D Extremity/Trunk Assessments: RUE RUE : Within Functional Limits LUE LUE: Within Functional Limits RLE RLE : Within Functional Limits LLE LLE : Within Functional Limits Outcome Measures: [facility] Basic Mobility Turning from your back to your side while in a flat bed without using bedrails: A little Moving from lying on your back to sitting on the side of a flat bed without using bedrails: A little Moving to and from bed to chair (including a wheelchair): A little Standing up from a chair using your arms (e.g. wheelchair or bedside chair): A little To walk in hospital room: A little Climbing 3-5 steps with railing: A lot Basic Mobility - Total Score: 17 Goals: Encounter Problems Encounter Problems (Active) PT Problem Pt will demonstrate IND with bed mobility to edge of bed. (Progressing) Start: 01/26/25 Expected End: 02/09/25 Pt will demonstrate IND with sit to stand/chair transfers with no A/D . (Progressing) Start: 01/26/25 Expected End: 02/09/25 Pt will ambulate 150 feet with IND no A/D . (Progressing) Start: 01/26/25 Expected End: 02/09/25 Pt to demo 6 steps with rails with MOD I (Progressing) Start: 01/26/25 Expected End: 02/09/25 Education Documentation Mobility Training, taught by Diogenes Sanders PT at 01/26/2025 1:37 PM. Learner: Patient Readiness: Acceptance Method: Explanation Response: Verbalizes Understanding Comment: gait energy conservation. Education Comments No comments found. 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 LVH (left ventricular hypertrophy) Hyperlipidemia Irritable bowel syndrome History of malignant neoplasm of breast Anemia associated with nutritional deficiency Family history of ischemic heart disease Nonrheumatic tricuspid valve regurgitation Abnormal EKG Hyperglycemia Snoring Other fatigue Mitral valve regurgitation Tachycardia Abnormal cardiovascular function study Daytime somnolence High risk medication use SOB (shortness of breath) Edema, unspecified Essential (primary) hypertension Obstructive sleep apnea Incomplete RBBB Nonrheumatic aortic (valve) insufficiency Volume overload Paroxysmal atrial fibrillation (Multi) Persistent atrial fibrillation (Multi) * Ariela Leyva, OT - 01/26/2025 12:20 PM EST Occupational Therapy Evaluation Patient Name: Carlos Escobar Department: [facility] Room: [address] [place] [address] Today's Date: 01/26/2025 Time Calculation Start Time: 1041 Stop Time: 1102 Time Calculation (min): 21 min Assessment: OT Assessment: Pt. presents with increased 02 needs/demands, impaired endurance and balance/safety and independence with ADLs. Would benefit from continued OT to address. Prognosis: Good Barriers to Discharge Home: No anticipated barriers Evaluation/Treatment Tolerance: Patient tolerated treatment well End of Session Communication: Bedside nurse End of Session Patient Position: Up in chair, Alarm off, not on at start of session OT Assessment Results: Decreased ADL status, Decreased endurance, Decreased functional mobility, Decreased IADLs, Decreased trunk control for functional activities Prognosis: Good Evaluation/Treatment Tolerance: Patient tolerated treatment well Plan: Treatment Interventions: ADL retraining, Functional transfer training, Endurance training, Compensatory technique education OT Frequency for Current Admission: 2 times per week during this acute inpatient hospitalization OT Discharge Recommendations: Low intensity level of continued care OT - OK to Discharge: Yes (when medically stable/cleared. Refer to MD for discharge.) Subjective Current Problem: 1. 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 Paroxysmal atrial fibrillation (Multi) Transthoracic Echo Complete Transthoracic Echo Complete 3. Shortness of breath Transthoracic Echo Complete 4. Other fluid overload Transthoracic Echo Complete apixaban (Eliquis) 2.5 mg tablet losartan (Cozaar) 25 mg tablet Referral to Valve and Structural Heart Program Basic metabolic panel OT Visit Info: OT Received On: 01/26/25 General: General Reason for Referral: ADL impairment Referred By: Tio OT/PT 01/25 Past Medical History Relevant to Rehab: HLD, WIL, A-fib, GERD, breast cancer s/p chemo/radiation, Rlumpectomy, L mastectomy Family/Caregiver Present: No Co-Treatment: PT Co-Treatment Reason: to maximize pt. safety Prior to Session Communication: Bedside nurse Patient Position Received: Up in chair, Alarm off, not on at start of session General Comment: Pt. is 79 y/o female to [facility] on 01/18 for scheduled ablation for management of A-fib. s/p procedure, pt. developed fluid overload and hypoxia with inability to wean 02 demands. Cardiology following. CXR: Small loculated left pleural effusion with adjacent mild basilar atelectasis. 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 (wearing 6L nasal cannula) Pain: Pain Assessment Pain Assessment: 0-10 0-10 (Numeric) Pain Score: 0 - No pain Objective Cognition: Overall Cognitive Status: Within Functional Limits Orientation Level: Oriented X4 Home Living: Home Living Comments: Pt. lives alone in split level house. Has 2+1 ROBERTO house. 6 steps up with HR to kitchen, living, bedroom/bathroom level. Has walk in shower with grab bars. Laundry in lower level, 6 steps down from entrance with HRs. Prior Function: Prior Function Comments: No AD use, pt. owns cane and walker. Independent with all ADLs, IADLs. no falls. Drives. in 2021 ADL: Eating Assistance: Independent Grooming Assistance: Stand by Bathing Assistance: Stand by UE Dressing Assistance: Independent LE Dressing Assistance: Stand by Toileting Assistance with Device: Stand by Activity Tolerance: Endurance: Decreased tolerance for upright activites Activity Tolerance Comments: Takes rest break while walking. States she has not been able to mobilize other than in her room for the duration of her hospital stay Bed Mobility/Transfers: Bed Mobility Bed Mobility: (Did not assess as pt. was up in chair pre/post evaluation.) Transfers Transfer: (sit to stand/stand to sit, supervision from recliner chair. no AD use.) Functional Mobility: Functional Mobility Functional Mobility Performed: (No AD use, assist to manage 02 tubing. Supervision for safety) Sitting Balance: Static Sitting Balance Static Sitting-Level of Assistance: Independent Standing Balance: Static Standing Balance Static Standing-Level of Assistance: Independent Dynamic Standing Balance Dynamic Standing-Comments: Fair +/ supervision Sensation: Sensation Comment: WNL Strength: Strength Comments: BUEs grossly 4-/5 MMT Coordination: Coordination Comment: WFL Hand Function: Gross Grasp: Functional Extremities: RUE RUE : Within Functional Limits and LUE LUE: Within Functional Limits Outcome Measures:[facility] Daily Activity Putting on and taking off regular lower body clothing: A little Bathing (including washing, rinsing, drying): A little Putting on and taking off regular upper body clothing: None Toileting, which includes using toilet, bedpan or urinal: A little Taking care of personal grooming such as brushing teeth: A little Eating Meals: None Daily Activity - Total Score: 20 Education Documentation Body Mechanics, taught by Ariela Leyva OT at 01/26/2025 12:19 PM. Learner: Patient Readiness: Acceptance Method: Explanation Response: Verbalizes Understanding, Needs Reinforcement ADL Training, taught by Ariela Leyva OT at 01/26/2025 12:19 PM. Learner: Patient Readiness: Acceptance Method: Explanation Response: Verbalizes Understanding, Needs Reinforcement IP EDUCATION: Education Individual(s) Educated: Patient Education Provided: Risk and benefits of OT discussed with patient or other, Fall precautons, POC discussed and agreed upon, Symptom management Care Plan Goals: Encounter Problems Encounter Problems (Active) OT Goals Pt. will complete 10 minutes ADLs without rest break (Progressing) Start: 01/26/25 Expected End: 02/09/25 Pt. will complete simulated IADL task independently (Progressing) Start: 01/26/25 Expected End: 02/09/25 Independent for all functional transfers (Progressing) Start: 01/26/25 Expected End: 02/09/25 Independent for LB dressing tasks (Progressing) Start: 01/26/25 Expected End: 02/09/25 Independent for toileting tasks and clothing mgmt (Progressing) Start: 01/26/25 Expected End: 02/09/25 * Juana Borrego MD - 01/26/2025 11:47 AM EST Renal Progress Note Assessment and Plan: 79 y.o. female with history s/f persistent A.fib, breast cancer s/p radiation and chemo, HFpEF, WIL, HLD and GERD who initially presented for elective ablation however due to fluid overload and hypoxia was kept ANATOLY on ?CKD stage IIIb: ? 2/2 hypotension, ?Crs, current baseline Scr 1.4-1.6 w/ eGFR low/mid 30s however was 0.9 in 04/28 and 1.2 in 11/26 (may have non-resolved ANATOLY), now worsening, no contrast administered, has been getting loop diuretics Fluid overload Hypotensive episodes: persists Anemia/thrombocytopenia Persistent A.fib Plan: - continue torsemide 100 mg daily, strict I/O, ? If still voiding as much with this Subjective: Admit Date: 01/18/2025 Interval History: BP has been low, Scr slight uptrend, has not voided much Medications: Scheduled Meds:Scheduled Medications[1] Continuous Infusions:Continuous Medications[2] CBC: Lab Results Component Value Date HGB 9.8 (L) 01/26/2025 HGB 9.7 (L) 01/25/2025 WBC 4.3 (L) 01/26/2025 WBC 4.7 01/25/2025 PLT 85 (L) 01/26/2025 PLT 88 (L) 01/25/2025 Anemia: No results found for: FERRITIN , IRON , TIBC BMP: Lab Results Component Value Date NA 136 01/26/2025 NA 137 01/25/2025 K 3.9 01/26/2025 K 3.8 01/25/2025 CL 99 01/26/2025 CL 100 01/25/2025 CO2 30 01/26/2025 CO2 29 01/25/2025 BUN 24 (H) 01/26/2025 BUN 24 (H) 01/25/2025 CREATININE 1.56 (H) 01/26/2025 CREATININE 1.30 (H) 01/25/2025 Bone disease: Lab Results Component Value Date PHOS 3.5 01/26/2025 Urinalysis: No results found for: CHARO , PROTUR , GLUCOSEU , BLOODU , KETONESU , BILIRUBINU , NITRITEU , LEUKOCYTESU , UTPCR Objective: Vitals: BP 97/54 (BP Location: Right arm, Patient Position: Sitting) Pulse 58 Temp 36.8 ??C (98.2 ??F) (Temporal) Resp 20 Ht 1.575 m (5' 2 ) Wt 87.6 kg (193 lb 2 oz) SpO2 95% BMI 35.32 kg/m?? Wt Readings from Last 3 Encounters: 01/25/25 87.6 kg (193 lb 2 oz) 01/05/25 89.5 kg (197 lb 6.4 oz) 12/30/24 88.5 kg (195 lb) 24HR INTAKE/OUTPUT: Intake/Output Summary (Last 24 hours) at 01/26/2025 1147 Last data filed at 01/26/2025 1030 Gross per 24 hour Intake 900 ml Output 450 ml Net 450 ml Admission weight: Weight: 87.5 kg (192 lb 14.4 oz) General: alert, in no apparent distress HEENT: normocephalic, atraumatic, anicteric Lungs: non-labored respirations, clear to auscultation bilaterally Heart: regular rate and rhythm, no murmurs Abdomen: soft, non-tender Ext: + peripheral edema Neuro: alert, follows commands [1] amiodarone, 200 mg, oral, Daily anastrozole, 1 mg, oral, Daily apixaban, 2.5 mg, oral, BID hydrOXYzine HCL, 25 mg, oral, Once ipratropium-albuteroL, 3 mL, nebulization, TID LORazepam, 0.5 mg, oral, Once losartan, 25 mg, oral, Daily metoprolol succinate XL, 25 mg, oral, Daily pantoprazole, 40 mg, oral, BID AC polyethylene glycol, 17 g, oral, BID potassium chloride CR, 20 mEq, oral, BID sennosides-docusate sodium, 1 tablet, oral, Nightly torsemide, 100 mg, oral, Daily [2] * Yaz Stroud RDN, LD - 01/26/2025 11:01 AM EST Nutrition Follow-up Note Nutrition Assessment Patient is a 79 y.o. female referred to Nutrition Services for Follow-up. Recent Events: Met with pt who reports appetite has been fine. Pt denies GI symptoms, denies questions regardig diet. Will continue to monitor. Food and Nutrient History: Energy Intake: Fair 50-75 % (63% average intake x 5 documented meals) Pain affecting nutrition status: N/A Anthropometrics: Weight: 87.6 kg (193 lb 2 oz) Height: 1.575 m (5' 2 ) BMI: Body mass index is 35.32 kg/m??. IBW/kg (Dietitian Calculated): 50 kg Percent of IBW: 177 % Anthropometric History: Weight Change: Weight History / % Weight Change: 01/25: 87.6 kg, 01/19: 88.6 kg - 1 kg wt loss since last assessment Significant Weight Loss: No Nutrition Focused Physical Findings: Assessment Status: Defer assessment - completed on initial assessment Subcutaneous Fat Loss: Orbital Fat Pads: Well nourished (slightly bulging fat pads) Buccal Fat Pads: Well nourished (full, rounded cheeks) Muscle Wasting: Temporalis: Well nourished (well-defined muscle) Pectoralis (Clavicular Region): Well nourished (clavicle not visible) Deltoid/Trapezius: Well nourished (rounded appearance at arm, shoulder, neck) Edema: Edema: +1 trace Edema Location: BLE Physical Findings: Skin: Negative Digestive System Findings: No issues Mouth Findings: No issues Teeth Findings: No issues Nutrition Meds/I&O/Pertinent Lab Results Scheduled medications Scheduled Medications[1] Continuous medications Continuous Medications[2] PRN medications PRN Medications[3] Intake/Output Summary (Last 24 hours) at 01/26/2025 1101 Last data filed at 01/26/2025 1030 Gross per 24 hour Intake 900 ml Output 600 ml Net 300 ml Last BM Date: 01/26/25 Stool Appearance: Loose, Soft Current Nutrition/Diet: Dietary Orders (From admission, onward) Start Ordered 01/19/25 0140 May Participate in Room Service ( ROOM SERVICE MAY PARTICIPATE) Once Question: . Answer: Yes 01/19/25 0139 01/18/25 1138 Adult diet Cardiac; 70 gm fat; 2 - 3 grams Sodium Diet effective now Question Answer Comment Diet type Cardiac Fat restriction: 70 gm fat Sodium restriction: 2 - 3 grams Sodium 01/18/25 1137 BMP Trend: Results from last 7 days Lab Units 01/26/25 0546 01/25/25 0540 01/24/25 0533 01/23/25 0544 01/22/25 0607 01/21/25 0447 01/20/25 0557 GLUCOSE mg/dL 86 87 93 90 89 95 95 CALCIUM mg/dL 8.7 8.6 8.7 8.6 8.9 8.8 8.9 SODIUM mmol/L 136 137 139 138 138 136 136 POTASSIUM mmol/L 3.9 3.8 4.1 3.7 3.6 3.6 4.0 CO2 mmol/L 30 29 29 28 28 26 28 CHLORIDE mmol/L 99 100 101 103 101 100 99 BUN mg/dL 24* 24* 26* 31* 37* 46* 45* CREATININE mg/dL 1.56* 1.30* 1.37* 1.42* 1.68* 2.14* 2.25* A1C: No results found for: HGBA1C BG POCT Trend: Estimated Energy Needs: Total Energy Needs 1500 kCal/24 hrs Method for Estimating Needs: 30 kcal/kg IBW Estimated Protein Needs: Total Protein Needs 60 g/24 hrs Method for Estimating Needs: 1.2 g/kg IBW Estimated Fluid Needs: Total Fluid Needs 1500 mL/24 hrs Method for Estimating Needs: 1 ml/kcal or per MD Patient on Ordered Fluid Restriction: No Nutrition Diagnosis Malnutrition Diagnosis - No Nutrition Diagnosis - Decreased nutrient needs Status of the nutrition diagnosis is Active. Decreased nutrient needs related to cardiac dysfunction as evidenced by need for therapeutic diet. Nutrition Interventions/Recommendations Nutrition Prescription: Nutrition prescription for oral nutrition Individualized Nutrition Prescription Provided for: Continue Cardiac diet Meals & Snacks: Fat-modified diet, Mineral-modified diet Goal: Consumes 3 meals per day Education Documentation No documentation found. Pt denies questions regarding diet restrictions at this time Nutrition Monitoring and Evaluation Food & Nutrient Related History Monitoring: Estimated Energy Intake: - Energy intake greater or equal to 75% of estimated energy needs Intake/Amount of Food: - Consumes at least 75% or more of meals/snacks/supplements and Meets > 75% estimated energy needs Anthropometric Measurements Monitoring: Body Weight: - Body weight - Maintain stable weight Biochemical Data, Medical Tests & Procedures Monitoring: Electrolyte & Renal Panel: - Electrolytes within normal limits Glucose/Endocrine Profile: - Glucose within normal limits (80-180 mg/dL) Nutritional Goal Status: Some progress toward goal(s) Follow Up: Time spent this visit was 30 minutes. Yaz Stroud RDN, LD [1] amiodarone, 200 mg, oral, Daily anastrozole, 1 mg, oral, Daily apixaban, 2.5 mg, oral, BID hydrOXYzine HCL, 25 mg, oral, Once ipratropium-albuteroL, 3 mL, nebulization, TID LORazepam, 0.5 mg, oral, Once losartan, 25 mg, oral, Daily metoprolol succinate XL, 25 mg, oral, Daily pantoprazole, 40 mg, oral, BID AC polyethylene glycol, 17 g, oral, BID potassium chloride CR, 20 mEq, oral, BID sennosides-docusate sodium, 1 tablet, oral, Nightly torsemide, 100 mg, oral, Daily [2] [3] PRN medications: acetaminophen, benzocaine-menthol, hydrOXYzine HCL, ipratropium-albuteroL, ondansetron OR ondansetron, oxygen * Nic Church MD - 01/25/2025 7:50 PM EST Carlos Escobar is a 79 y.o. female on day 6 of admission presenting with Atrial fibrillation (Multi). Subjective On 5 L NC Subjective Reports improvement in shortness of breath Continues to have bilateral leg swelling, although improved Objective Last Recorded Vitals BP 109/56 (BP Location: Right arm, Patient Position: Sitting) Pulse 57 Temp 36.8 ??C (98.2 ??F)(Temporal) Resp 18 Wt 87.6 kg (193 lb 2 oz) SpO2 91% Intake/Output last 3 Shifts: Intake/Output Summary (Last 24 hours) at 01/25/2025 1159 Last data filed at 01/25/2025 1116 Gross per 24 hour Intake 120 ml Output 2200 ml Net -2080 ml Admission Weight Weight: 87.5 kg (192 lb 14.4 oz) (01/18/25 0610) Daily Weight 01/25/25 : 87.6 kg (193 lb 2 oz) Image Results ECG 12 Lead Sinus bradycardia Rightward axis Low voltage QRS ST & T wave abnormality, consider anterior ischemia Abnormal ECG When compared with ECG of 21-JAN-2025 06:31, (unconfirmed) Incomplete right bundle branch block is no longer Present Confirmed by Geoff Elliott ([id number]) on 01/25/2025 8:00:42 AM ECG 12 Lead Normal sinus rhythm Rightward axis ST & T wave abnormality, consider anterior ischemia Abnormal ECG When compared with ECG of 22-JAN-2025 06:40, (unconfirmed) No significant change was found Confirmed by Geoff Elliott ([id number]) on 01/25/2025 7:43:57 AM ECG 12 Lead Sinus bradycardia Incomplete right bundle branch block Right ventricular hypertrophy with repolarization abnormality Nonspecific T wave abnormality Abnormal ECG When compared with ECG of 20-JAN-2025 10:11, Premature atrial complexes are no longer Present Incomplete right bundle branch block is now Present Inverted T waves have replaced nonspecific T wave abnormality in Anterior leads QT has lengthened Confirmed by Geoff Elliott ([id number]) on 01/25/2025 7:36:58 AM Physical Exam Alert oriented x 3 Lungs diminished breath sounds bilaterally Heart regular rhythm Abdomen soft nontender Extremities bilateral leg edema 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 Relevant Results Results for orders placed or performed during the hospital encounter of 01/18/25 (from the past 24 hours) CBC and Auto Differential Result Value Ref Range WBC 4.7 4.4 - 11.3 x10*3/uL nRBC 0.0 0.0 - 0.0 /100 WBCs RBC 3.11 (L) 4.00 - 5.20 x10*6/uL Hemoglobin 9.7 (L) 12.0 - 16.0 g/dL Hematocrit 30.1 (L) 36.0 - 46.0 % MCV 97 80 - 100 fL MCH 31.2 26.0 - 34.0 pg MCHC 32.2 32.0 - 36.0 g/dL RDW 15.4 (H) 11.5 - 14.5 % Platelets 88 (L) 150 - 450 x10*3/uL Neutrophils % 59.7 40.0 - 80.0 % Immature Granulocytes %, Automated 0.4 0.0 - 0.9 % Lymphocytes % 17.3 13.0 - 44.0 % Monocytes % 16.3 2.0 - 10.0 % Eosinophils % 5.4 0.0 - 6.0 % Basophils % 0.9 0.0 - 2.0 % Neutrophils Absolute 2.79 1.60 - 5.50 x10*3/uL Immature Granulocytes Absolute, Automated 0.02 0.00 - 0.50 x10*3/uL Lymphocytes Absolute 0.81 0.80 - 3.00 x10*3/uL Monocytes Absolute 0.76 0.05 - 0.80 x10*3/uL Eosinophils Absolute 0.25 0.00 - 0.40 x10*3/uL Basophils Absolute 0.04 0.00 - 0.10 x10*3/uL Comprehensive Metabolic Panel Result Value Ref Range Glucose 87 74 - 99 mg/dL Sodium 137 136 - 145 mmol/L Potassium 3.8 3.5 - 5.3 mmol/L Chloride 100 98 - 107 mmol/L Bicarbonate 29 21 - 32 mmol/L Anion Gap 12 10 - 20 mmol/L Urea Nitrogen 24 (H) 6 - 23 mg/dL Creatinine 1.30 (H) 0.50 - 1.05 mg/dL eGFR 41 (L) >60 mL/min/1.73m*2 Calcium 8.6 8.6 - 10.3 mg/dL Albumin 3.4 3.4 - 5.0 g/dL Alkaline Phosphatase 250 (H) 33 - 136 U/L Total Protein 6.0 (L) 6.4 - 8.2 g/dL AST 15 9 - 39 U/L Bilirubin, Total 1.9 (H) 0.0 - 1.2 mg/dL ALT 12 7 - 45 U/L Magnesium Result Value Ref Range Magnesium 1.96 1.60 - 2.40 mg/dL Phosphorus Result Value Ref Range Phosphorus 3.3 2.5 - 4.9 mg/dL Plan: Acute hypoxic respiratory failure HFmrEF w Fluid overload Severe MV and tricuspid valve regurgitation ANATOLY on CKD stage III Hypertension Anemia/thrombocytopenia Persistent A.fib Large PFO Plan: - changed iv lasix drip to 100 mg PO torsemide. Was on 60 mg on admission - weight slightly down last couple days -Please for discharge. Nephrology - Continue to wean oxygen down, currently on 7 L -PT OT evaluation and treatment - DVT prophylaxis I spent 30 minutes in the professional and overall care of this patient. Nic Church MD * Juana Borrego MD - 01/25/2025 3:57 PM EST Renal Progress Note Assessment and Plan: 79 y.o. female with history s/f persistent A.fib, breast cancer s/p radiation and chemo, HFpEF, WIL, HLD and GERD who initially presented for elective ablation however due to fluid overload and hypoxia was kept ANATOLY on ?CKD stage IIIb: ? 2/2 hypotension, ?Crs, current baseline Scr 1.4-1.6 w/ eGFR low/mid 30s however was 0.9 in 04/28 and 1.2 in 11/26 (may have non-resolved ANATOLY), now worsening, no contrast administered, has been getting loop diuretics Fluid overload Hypotensive episodes Anemia/thrombocytopenia Persistent A.fib Plan: - continue torsemide 100 mg daily - ok for dc at any point from renal standpoint Subjective: Admit Date: 01/18/2025 Interval History: now on Po torsemide, no acute overnight events Medications: Scheduled Meds:Scheduled Medications[1] Continuous Infusions:Continuous Medications[2] CBC: Lab Results Component Value Date HGB 9.7 (L) 01/25/2025 HGB 10.4 (L) 01/24/2025 WBC 4.7 01/25/2025 WBC 5.0 01/24/2025 PLT 88 (L) 01/25/2025 PLT 86 (L) 01/24/2025 Anemia: No results found for: FERRITIN , IRON , TIBC BMP: Lab Results Component Value Date NA 137 01/25/2025 NA 139 01/24/2025 K 3.8 01/25/2025 K 4.1 01/24/2025 CL 100 01/25/2025 CL 101 01/24/2025 CO2 29 01/25/2025 CO2 29 01/24/2025 BUN 24 (H) 01/25/2025 BUN 26 (H) 01/24/2025 CREATININE 1.30 (H) 01/25/2025 CREATININE 1.37 (H) 01/24/2025 Bone disease: Lab Results Component Value Date PHOS 3.3 01/25/2025 Urinalysis: No results found for: CHARO , PROTUR , GLUCOSEU , BLOODU , KETONESU , BILIRUBINU , NITRITEU , LEUKOCYTESU , UTPCR Objective: Vitals: BP 105/55 (Patient Position: Sitting) Pulse 57 Temp 36.6 ??C (97.9 ??F) Resp 16 Ht 1.575 m (5' 2 ) Wt 87.6 kg (193 lb 2 oz) SpO2 93% BMI 35.32 kg/m?? Wt Readings from Last 3 Encounters: 01/25/25 87.6 kg (193 lb 2 oz) 01/05/25 89.5 kg (197 lb 6.4 oz) 12/30/24 88.5 kg (195 lb) 24HR INTAKE/OUTPUT: Intake/Output Summary (Last 24 hours) at 01/25/2025 1557 Last data filed at 01/25/2025 1300 Gross per 24 hour Intake 480 ml Output 1250 ml Net -770 ml Admission weight: Weight: 87.5 kg (192 lb 14.4 oz) General: alert, in no apparent distress HEENT: normocephalic, atraumatic, anicteric Lungs: non-labored respirations, clear to auscultation bilaterally Heart: regular rate and rhythm, no murmurs Abdomen: soft, non-tender Ext: + peripheral edema Neuro: alert, follows commands [1] amiodarone, 200 mg, oral, Daily anastrozole, 1 mg, oral, Daily apixaban, 2.5 mg, oral, BID hydrOXYzine HCL, 25 mg, oral, Once ipratropium-albuteroL, 3 mL, nebulization, TID LORazepam, 0.5 mg, oral, Once losartan, 25 mg, oral, Daily metoprolol succinate XL, 25 mg, oral, Daily pantoprazole, 40 mg, oral, BID AC polyethylene glycol, 17 g, oral, BID potassium chloride CR, 20 mEq, oral, BID sennosides-docusate sodium, 1 tablet, oral, Nightly torsemide, 100 mg, oral, Daily [2] * Maritza Jin RN - 01/25/2025 2:53 PM EST Care transitions follow up : Visited pt at bedside for follow up to dc planning needs. Pt O2 has been weaned this a.m. from 7 liters to 5 Liters NC. Pt does NOT have home oxygen however she is established with [facility] for her CPAP machine. Requested therapy evaluations to assist with dc planning needs. Pt is now open to [facility] ifadvised by therapy. Will continue to follow . ADOD 2-3 days * Jese Kinsey MD - 01/25/2025 11:59 AM EST Carlos Escobar is a 79 y.o. female on day 6 of admission presenting with Atrial fibrillation (Multi). Subjective Reports improvement in shortness of breath Continues to have bilateral leg swelling, although improved Objective Last Recorded Vitals BP 109/56 (BP Location: Right arm, Patient Position: Sitting) Pulse 57 Temp 36.8 ??C (98.2 ??F)(Temporal) Resp 18 Wt 87.6 kg (193 lb 2 oz) SpO2 91% Intake/Output last 3 Shifts: Intake/Output Summary (Last 24 hours) at 01/25/2025 1159 Last data filed at 01/25/2025 1116 Gross per 24 hour Intake 120 ml Output 2200 ml Net -2080 ml Admission Weight Weight: 87.5 kg (192 lb 14.4 oz) (01/18/25 0610) Daily Weight 01/25/25 : 87.6 kg (193 lb 2 oz) Image Results ECG 12 Lead Sinus bradycardia Rightward axis Low voltage QRS ST & T wave abnormality, consider anterior ischemia Abnormal ECG When compared with ECG of 21-JAN-2025 06:31, (unconfirmed) Incomplete right bundle branch block is no longer Present Confirmed by Geoff Elliott ([id number]) on 01/25/2025 8:00:42 AM ECG 12 Lead Normal sinus rhythm Rightward axis ST & T wave abnormality, consider anterior ischemia Abnormal ECG When compared with ECG of 22-JAN-2025 06:40, (unconfirmed) No significant change was found Confirmed by Geoff Elliott ([id number]) on 01/25/2025 7:43:57 AM ECG 12 Lead Sinus bradycardia Incomplete right bundle branch block Right ventricular hypertrophy with repolarization abnormality Nonspecific T wave abnormality Abnormal ECG When compared with ECG of 20-JAN-2025 10:11, Premature atrial complexes are no longer Present Incomplete right bundle branch block is now Present Inverted T waves have replaced nonspecific T wave abnormality in Anterior leads QT has lengthened Confirmed by Geoff Elliott ([id number]) on 01/25/2025 7:36:58 AM Physical Exam Alert oriented x 3 Lungs diminished breath sounds bilaterally Heart regular rhythm Abdomen soft nontender Extremities bilateral leg edema 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 Relevant Results Results for orders placed or performed during the hospital encounter of 01/18/25 (from the past 24 hours) CBC and Auto Differential Result Value Ref Range WBC 4.7 4.4 - 11.3 x10*3/uL nRBC 0.0 0.0 - 0.0 /100 WBCs RBC 3.11 (L) 4.00 - 5.20 x10*6/uL Hemoglobin 9.7 (L) 12.0 - 16.0 g/dL Hematocrit 30.1 (L) 36.0 - 46.0 % MCV 97 80 - 100 fL MCH 31.2 26.0 - 34.0 pg MCHC 32.2 32.0 - 36.0 g/dL RDW 15.4 (H) 11.5 - 14.5 % Platelets 88 (L) 150 - 450 x10*3/uL Neutrophils % 59.7 40.0 - 80.0 % Immature Granulocytes %, Automated 0.4 0.0 - 0.9 % Lymphocytes % 17.3 13.0 - 44.0 % Monocytes % 16.3 2.0 - 10.0 % Eosinophils % 5.4 0.0 - 6.0 % Basophils % 0.9 0.0 - 2.0 % Neutrophils Absolute 2.79 1.60 - 5.50 x10*3/uL Immature Granulocytes Absolute, Automated 0.02 0.00 - 0.50 x10*3/uL Lymphocytes Absolute 0.81 0.80 - 3.00 x10*3/uL Monocytes Absolute 0.76 0.05 - 0.80 x10*3/uL Eosinophils Absolute 0.25 0.00 - 0.40 x10*3/uL Basophils Absolute 0.04 0.00 - 0.10 x10*3/uL Comprehensive Metabolic Panel Result Value Ref Range Glucose 87 74 - 99 mg/dL Sodium 137 136 - 145 mmol/L Potassium 3.8 3.5 - 5.3 mmol/L Chloride 100 98 - 107 mmol/L Bicarbonate 29 21 - 32 mmol/L Anion Gap 12 10 - 20 mmol/L Urea Nitrogen 24 (H) 6 - 23 mg/dL Creatinine 1.30 (H) 0.50 - 1.05 mg/dL eGFR 41 (L) >60 mL/min/1.73m*2 Calcium 8.6 8.6 - 10.3 mg/dL Albumin 3.4 3.4 - 5.0 g/dL Alkaline Phosphatase 250 (H) 33 - 136 U/L Total Protein 6.0 (L) 6.4 - 8.2 g/dL AST 15 9 - 39 U/L Bilirubin, Total 1.9 (H) 0.0 - 1.2 mg/dL ALT 12 7 - 45 U/L Magnesium Result Value Ref Range Magnesium 1.96 1.60 - 2.40 mg/dL Phosphorus Result Value Ref Range Phosphorus 3.3 2.5 - 4.9 mg/dL Plan: Acute hypoxic respiratory failure HFmrEF w Fluid overload Severe 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 Was on 60 mg on admission - weight slightly down last couple days -Please for discharge. Nephrology - Continue to wean oxygen down, currently on 7 L -PT OT evaluation and treatment - DVT prophylaxis Jese Kinsey MD * yT Sweet MD - 01/24/2025 10:39 AM EST Renal Progress Note Assessment and Plan: 79 y.o. female with history s/f persistent A.fib, breast cancer s/p radiation and chemo, HFpEF, WIL, HLD and GERD who initially presented for elective ablation however due to fluid overload and hypoxia was kept ANATOLY on ?CKD stage IIIb: ? 2/2 hypotension, ?Crs, current baseline Scr 1.4-1.6 w/ eGFR low/mid 30s however was 0.9 in 04/28 and 1.2 in 11/26 (may have non-resolved ANATOLY), now worsening, no contrast administered, has been getting loop diuretics Fluid overload Hypotensive episodes Anemia/thrombocytopenia Persistent A.fib Plan: - changde iv lasix drip to 100 mg torsemide. Was on 60 mg on admission - weight slightly down last couple days - ok for dc at any point from renal standpoint Subjective: Admit Date: 01/18/2025 Interval History: pt still requiring oxygen. UO over 2 liters on torsemide 100 mg Medications: Scheduled Meds:Scheduled Medications[1] Continuous Infusions:Continuous Medications[2] CBC: Lab Results Component Value Date HGB 10.4 (L) 01/24/2025 HGB 10.1 (L) 01/23/2025 WBC 5.0 01/24/2025 WBC 4.7 01/23/2025 PLT 86 (L) 01/24/2025 PLT 72 (L) 01/23/2025 Anemia: No results found for: FERRITIN , IRON , TIBC BMP: Lab Results Component Value Date NA 139 01/24/2025 NA 138 01/23/2025 K 4.1 01/24/2025 K 3.7 01/23/2025 CL 101 01/24/2025 CL 103 01/23/2025 CO2 29 01/24/2025 CO2 28 01/23/2025 BUN 26 (H) 01/24/2025 BUN 31 (H) 01/23/2025 CREATININE 1.37 (H) 01/24/2025 CREATININE 1.42 (H) 01/23/2025 Bone disease: Lab Results Component Value Date PHOS 3.1 01/24/2025 Urinalysis: No results found for: CHARO , PROTUR , GLUCOSEU , BLOODU , KETONESU , BILIRUBINU , NITRITEU , LEUKOCYTESU , UTPCR Objective: Vitals: BP 109/54 (BP Location: Right arm, Patient Position: Lying) Pulse 63 Temp 36.8 ??C (98.2 ??F) (Temporal) Resp 20 Ht 1.575 m (5' 2 ) Wt 87.9 kg (193 lb 12.6 oz) SpO2 91% BMI 35.44 kg/m?? Wt Readings from Last 3 Encounters: 01/24/25 87.9 kg (193 lb 12.6 oz) 01/05/25 89.5 kg (197 lb 6.4 oz) 12/30/24 88.5 kg (195 lb) 24HR INTAKE/OUTPUT: Intake/Output Summary (Last 24 hours) at 01/24/2025 1039 Last data filed at 01/24/2025 0531 Gross per 24 hour Intake 662.58 ml Output 2024 ml Net -1362.42 ml Admission weight: Weight: 87.5 kg (192 lb 14.4 oz) Constitutional: Alert, awake, no apparent distress Skin:normal, no rash HEENT:sclera anicteric. Head atraumatic normocephalic Neck:supple with no thyromegally Cardiovascular: S1, S2 without m/r/g Respiratory: CTA B without w/r/r Abdomen: +bs, soft, nt Ext: 1+LE edema Musculoskeletal:Intact Neuro:Alert and oriented with no deficit [1] amiodarone, 200 mg, oral, Daily anastrozole, 1 mg, oral, Daily apixaban, 2.5 mg, oral, BID hydrOXYzine HCL, 25 mg, oral, Once ipratropium-albuteroL, 3 mL, nebulization, TID LORazepam, 0.5 mg, oral, Once losartan, 25 mg, oral, Daily metoprolol succinate XL, 25 mg, oral, Daily pantoprazole, 40 mg, oral, BID AC polyethylene glycol, 17 g, oral, BID potassium chloride CR, 20 mEq, oral, BID sennosides-docusate sodium, 1 tablet, oral, Nightly torsemide, 100 mg, oral, Daily [2] * Byron Barnes MD - 01/24/2025 8:44 AM EST ADMISSION DATE: 01/18/2025 HOSPITAL DAY: 5 SUBJECTIVE: Patient was seen at bedside. Uneventful night. Supplemental oxygen is at 8 L now. Yesterday it was 11 L/min. OBJECTIVE: Vitals: 01/24/25 0755 01/24/25 1119 01/24/25 1258 01/24/25 1517 BP: 109/54 106/53 109/52 BP Location: Right arm Patient Position: Lying Pulse: 63 59 57 Resp: Temp: 36.8 ??C (98.2 ??F) 36.7 ??C (98.1 ??F) (!) 29.3 ??C (84.7 ??F) TempSrc: Temporal SpO2: 91% 91% 92% 95% Weight: Height: Intake/Output Summary (Last 24 hours) at 01/24/2025 1844 Last data filed at 01/24/2025 1552 Gross per 24 hour Intake 240 ml Output 2050 ml Net -1810 ml Wt Readings from Last 10 Encounters: 01/24/25 87.9 kg (193 lb 12.6 oz) 01/05/25 89.5 kg (197 lb 6.4 oz) 12/30/24 88.5 kg (195 lb) 12/10/24 85.4 kg (188 lb 3.2 oz) 11/23/24 87.7 kg (193 lb 5.5 oz) 11/03/24 86.6 kg (191 lb) 10/29/24 86.4 kg (190 lb 6.4 oz) 10/01/24 82.1 kg (181 lb) 09/03/24 85.7 kg (189 lb) 08/06/24 85.7 kg (189 lb) PHYSICAL EXAM: Gen: Alert, awake, Oriented X 3. Not in any acute distress HEENT: Atraumatic, PERRL. Conjunctivae clear. Moist nasal mucous membranes. oropharynx non erythematous, Neck: Supple without thyromegaly or lymphadenopathy. Lungs: Decreased air entry, coarse breath sounds, prolonged expiration, scattered rhonchi. Heart: RRR, S1, S2, without M. Abdomen: Soft, non tender, no organ enlargement, bruit. Bowel sounds present . No CVA tenderness. Extremities: No edema. No calf swelling or tenderness. Skin: No rash, ecchymosis or erythema. CURRENT ACTIVE MEDS: Scheduled Medications[1] LAB RESULTS: CBC: Results from last 7 days Lab Units 01/24/25 0501/23/25 0544 01/22/25 0607 WBC AUTO x10*3/uL 5.0 4.7 5.0 RBC AUTO x10*6/uL 3.30* 3.26* 3.37* HEMOGLOBIN g/dL 10.4* 10.1* 10.6* HEMATOCRIT % 32.1* 31.4* 32.4* MCV fL 97 96 96 MCH pg 31.5 31.0 31.5 MCHC g/dL 32.4 32.2 32.7 RDW % 15.4* 15.6* 15.7* PLATELETS AUTO x10*3/uL 86* 72* 69* CMP: Results from last 7 days Lab Units 01/24/25 0501/23/25 0544 01/22/25 0607 01/19/25 0533 01/18/25 1651 SODIUM mmol/L 139 138 138 < > 135* POTASSIUM mmol/L 4.1 3.7 3.6 < > 3.7 CHLORIDE mmol/L 101 103 101 < > 98 CO2 mmol/L 29 28 28 < > 28 BUN mg/dL 26* 31* 37* < > 32* CREATININE mg/dL 1.37* 1.42* 1.68* < > 1.45* GLUCOSE mg/dL 93 90 89 < > 132* PROTEIN TOTAL g/dL 6.4 -- -- -- 7.2 CALCIUM mg/dL 8.7 8.6 8.9 < > 9.0 BILIRUBIN TOTAL mg/dL 2.0* -- -- -- 2.0* ALK PHOS U/L 265* -- -- -- 318* AST U/L 17 -- -- -- 27 ALT U/L 12 -- -- -- 17 < > = values in this interval not displayed. BMP: Results from last 7 days Lab Units 01/24/25 0501/23/25 0544 01/22/25 06 SODIUM mmol/L 139 138 138 POTASSIUM mmol/L 4.1 3.7 3.6 CHLORIDE mmol/L 101 103 101 CO2 mmol/L 29 28 28 BUN mg/dL 26* 31* 37* CREATININE mg/dL 1.37* 1.42* 1.68* CALCIUM mg/dL 8.7 8.6 8.9 GLUCOSE mg/dL 93 90 89 Magnesium: Results from last 7 days Lab Units 01/24/25 0533 01/23/25 0544 01/22/25 0607 MAGNESIUM mg/dL 2.10 2.14 2.18 Results from last 7 days Lab Units 01/21/25 0447 01/20/25 0557 BNP pg/mL 596* 380* Lab Results Component Value Date CREATININE 1.37 (H) 01/24/2025 Lab Results Component Value Date INR 1.9 (H) 01/18/2025 INR 1.9 (H) 11/23/2024 PROTIME 21.5 (H) 01/18/2025 PROTIME 20.9 (H) 11/23/2024 CULTURES & SUSCEPTIBILITIES: No results found for the last 90 days. IMAGING STUDIES: I have reviewed following imaging studies. I agree with the impression and incorporated those results into my MDM === 01/18/25 === XR CHEST 1 VIEW Stable cardiomegaly with small-moderate left and small right pleural effusions and bibasilar opacities/atelectasis, similar to prior. === 01/18/25 === CT CHEST WO IV CONTRAST CT confirms perceived left perihilar mass from radiograph earlier today was an artifact due to a normal structures; specifically, the left lower lobe pulmonary artery branch point, probably more visible compared to the other side due to the differences in the chest wall (left mastectomy). No lung nodule or mass to workup or follow. Moderate cardiomegaly with at least right atrial if not biatrial Dilation At least moderate if not large pericardial effusion. Small free-flowing bilateral pleural effusions with adjacent Atelectasis. No other acute disease in the chest, only some minimal atelectasis. No sign of active infection. No interstitial or alveolar edema. No pneumothorax or pneumomediastinum LAST EKG Encounter Date: 01/18/25 ECG 12 Lead Result Value Ventricular Rate 60 Atrial Rate 60 NV Interval 158 QRS Duration 84 QT Interval 472 QTC Calculation(Bazett) 472 P Jadwin 51 R Jadwin 99 T Jadwin 141 QRS Count 10 Q Onset 224 P Onset 145 P Offset 207 T Offset 460 QTC Fredericia 472 Transthoracic Echo Complete: 01/18/2025 1. The left ventricular systolic function is low normal with a visually estimated ejection fractionof 55%. 2. No regional wall motion abnormalities. 3. Spectral Doppler shows a Grade II (pseudonormal pattern) of left ventricular diastolic filling with an elevated left atrial pressure. 4. Right ventricular volume and pressure overload. 5. There is severely reduced right ventricular systolic function. 6. The findings are consistent with pulmonary hypertension. 7. Severely enlarged right ventricle. 8. The left atrial size is moderately dilated. 9. The right atrial size is severely dilated. 10. Small pericardial effusion. 11. There is no evidence of mitral valve stenosis. 12. Moderate to severe mitral valve regurgitation. 13. Severe tricuspid regurgitation. 14. The Doppler estimated RVSP is within normal limits at 28 mmHg. 15. Aortic valve sclerosis. The peak and mean gradients are 9 mmHg and 4 mmHg respectively. 16. Mild to moderate aortic valve regurgitation. 17. The pulmonary artery is not well visualized. 18. The inferior vena cava appears severely dilated, IVC inspiratory collapse is absent. 19. Large patent foramen ovale. 20. A bubble study using agitated saline was performed. Bubble study is positive. A large PFO (>20 bubbles) was demonstrated. 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 She has been on anticoagulation for atrial fibrillation as well as amiodarone. She does not have history of pulmonary embolism or amiodarone toxicity. She has been requiring high supplemental oxygen up to 8 L/min today. Last night she was requiring 11 L/min to maintain her SpO2 above 92%. She does have right heart failure diastolic type, with preserved ejection fraction. She has been evaluated by nephrology and up until today was on Lasix drip. She is about 1800 negative on fluid volume. She does not have any infectious etiology for shortness of br eath. At this point I am thinking of bringing daycare provider to help us guide about her shortness ofbreath, hypoxia. This probably could be some form of interstitial lung disease versus amiodarone toxicity. However before ablation patient did not require any supplemental oxygen at home. Patient will continue with physical therapy and Occupational Therapy. Rest of the medical therapy to be continued as per admission orders. P.S: This note was completed using [employer] voice recognition technology and may include unintended errors with respect to translation of words, typographical errors or grammar errors which may not have been identified while finalizing the chart. [1] amiodarone, 200 mg, oral, Daily anastrozole, 1 mg, oral, Daily apixaban, 2.5 mg, oral, BID hydrOXYzine HCL, 25 mg, oral, Once ipratropium-albuteroL, 3 mL, nebulization, TID LORazepam, 0.5 mg, oral, Once losartan, 25 mg, oral, Daily metoprolol succinate XL, 25 mg, oral, Daily pantoprazole, 40 mg, oral, BID AC polyethylene glycol, 17 g, oral, BID potassium chloride CR, 20 mEq, oral, BID sennosides-docusate sodium, 1 tablet, oral, Nightly torsemide, 100 mg, oral, Daily * Ty Sweet MD - 01/23/2025 1:15 PM EST Renal Progress Note Assessment and Plan: 79 y.o. female with history s/f persistent A.fib, breast cancer s/p radiation and chemo, HFpEF, WIL, HLD and GERD who initially presented for elective ablation however due to fluid overload and hypoxia was kept ANATOLY on ?CKD stage IIIb: ? 2/2 hypotension, ?Crs, current baseline Scr 1.4-1.6 w/ eGFR low/mid 30s however was 0.9 in 04/28 and 1.2 in 11/26 (may have non-resolved ANATOLY), now worsening, no contrast administered, has been getting loop diuretics Fluid overload Hypotensive episodes Anemia/thrombocytopenia Persistent A.fib Plan: - change iv lasix drip to 100 mg torsemide. Was on 60 mg on admission Subjective: Admit Date: 01/18/2025 Interval History: pt still requiring oxygen. Says she is sob. Has been on lasix drip. Good uo last couple days. Medications: Scheduled Meds:Scheduled Medications[1] Continuous Infusions:Continuous Medications[2] CBC: Lab Results Component Value Date HGB 10.1 (L) 01/23/2025 HGB 10.6 (L) 01/22/2025 WBC 4.7 01/23/2025 WBC 5.0 01/22/2025 PLT 72 (L) 01/23/2025 PLT 69 (L) 01/22/2025 Anemia: No results found for: FERRITIN , IRON , TIBC BMP: Lab Results Component Value Date NA 138 01/23/2025 NA 138 01/22/2025 K 3.7 01/23/2025 K 3.6 01/22/2025 CL 103 01/23/2025 CL 101 01/22/2025 CO2 28 01/23/2025 CO2 28 01/22/2025 BUN 31 (H) 01/23/2025 BUN 37 (H) 01/22/2025 CREATININE 1.42 (H) 01/23/2025 CREATININE 1.68 (H) 01/22/2025 Bone disease: Lab Results Component Value Date PHOS 3.1 01/23/2025 Urinalysis: No results found for: CHARO , PROTUR , GLUCOSEU , BLOODU , KETONESU , BILIRUBINU , NITRITEU , LEUKOCYTESU , UTPCR Objective: Vitals: BP 107/52 (BP Location: Right arm, Patient Position: Sitting) Pulse 60 Temp 36.8 ??C (98.2 ??F) (Temporal) Resp 17 Ht 1.575 m (5' 2 ) Wt 88.2 kg (194 lb 7.1 oz) SpO2 94% BMI 35.56 kg/m?? Wt Readings from Last 3 Encounters: 01/23/25 88.2 kg (194 lb 7.1 oz) 01/05/25 89.5 kg (197 lb 6.4 oz) 12/30/24 88.5 kg (195 lb) 24HR INTAKE/OUTPUT: Intake/Output Summary (Last 24 hours) at 01/23/2025 1315 Last data filed at 01/23/2025 1119 Gross per 24 hour Intake 200 ml Output 1750 ml Net -1550 ml Admission weight: Weight: 87.5 kg (192 lb 14.4 oz) Constitutional: Alert, awake, no apparent distress Skin:normal, no rash HEENT:sclera anicteric. Head atraumatic normocephalic Neck:supple with no thyromegally Cardiovascular: S1, S2 without m/r/g Respiratory: CTA B without w/r/r Abdomen: +bs, soft, nt Ext: 1+LE edema Musculoskeletal:Intact Neuro:Alert and oriented with no deficit [1] amiodarone, 200 mg, oral, Daily anastrozole, 1 mg, oral, Daily apixaban, 2.5 mg, oral, BID hydrOXYzine HCL, 25 mg, oral, Once ipratropium-albuteroL, 3 mL, nebulization, TID LORazepam, 0.5 mg, oral, Once losartan, 25 mg, oral, Daily metoprolol succinate XL, 25 mg, oral, Daily pantoprazole, 40 mg, oral, BID AC polyethylene glycol, 17 g, oral, BID potassium chloride CR, 20 mEq, oral, BID sennosides-docusate sodium, 1 tablet, oral, Nightly [2] furosemide, 5 mg/hr, Last Rate: 5 mg/hr (01/21/251754) * Byron Barnes MD - 01/23/2025 10:52 AM EST ADMISSION DATE: 01/18/2025 HOSPITAL DAY: 5 SUBJECTIVE: Patient was seen at bedside. Uneventful night. Supplemental oxygen is at 11L/min now. OBJECTIVE: Vitals: 01/24/25 0755 01/24/25 1119 01/24/25 1258 01/24/25 1517 BP: 109/54 106/53 109/52 BP Location: Right arm Patient Position: Lying Pulse: 63 59 57 Resp: Temp: 36.8 ??C (98.2 ??F) 36.7 ??C (98.1 ??F) (!) 29.3 ??C (84.7 ??F) TempSrc: Temporal SpO2: 91% 91% 92% 95% Weight: Height: Intake/Output Summary (Last 24 hours) at 01/24/2025 1852 Last data filed at 01/24/2025 1552 Gross per 24 hour Intake 240 ml Output 2050 ml Net -1810 ml Wt Readings from Last 10 Encounters: 01/24/25 87.9 kg (193 lb 12.6 oz) 01/05/25 89.5 kg (197 lb 6.4 oz) 12/30/24 88.5 kg (195 lb) 12/10/24 85.4 kg (188 lb 3.2 oz) 11/23/24 87.7 kg (193 lb 5.5 oz) 11/03/24 86.6 kg (191 lb) 10/29/24 86.4 kg (190 lb 6.4 oz) 10/01/24 82.1 kg (181 lb) 09/03/24 85.7 kg (189 lb) 08/06/24 85.7 kg (189 lb) PHYSICAL EXAM: Gen: Alert, awake, Oriented X 3. Not in any acute distress HEENT: Atraumatic, PERRL. Conjunctivae clear. Moist nasal mucous membranes. oropharynx non erythematous, Neck: Supple without thyromegaly or lymphadenopathy. Lungs: Decreased air entry, coarse breath sounds, prolonged expiration, scattered rhonchi. Heart: RRR, S1, S2, without M. Abdomen: Soft, non tender, no organ enlargement, bruit. Bowel sounds present . No CVA tenderness. Extremities: No edema. No calf swelling or tenderness. Skin: No rash, ecchymosis or erythema. CURRENT ACTIVE MEDS: Scheduled Medications[1] LAB RESULTS: CBC: Results from last 7 days Lab Units 01/24/25 0533 01/23/25 0544 01/22/25 0607 WBC AUTO x10*3/uL 5.0 4.7 5.0 RBC AUTO x10*6/uL 3.30* 3.26* 3.37* HEMOGLOBIN g/dL 10.4* 10.1* 10.6* HEMATOCRIT % 32.1* 31.4* 32.4* MCV fL 97 96 96 MCH pg 31.5 31.0 31.5 MCHC g/dL 32.4 32.2 32.7 RDW % 15.4* 15.6* 15.7* PLATELETS AUTO x10*3/uL 86* 72* 69* CMP: Results from last 7 days Lab Units 01/24/25 0533 01/23/25 0544 01/22/25 0607 01/19/25 0533 01/18/25 1651 SODIUM mmol/L 139 138 138 < > 135* POTASSIUM mmol/L 4.1 3.7 3.6 < > 3.7 CHLORIDE mmol/L 101 103 101 < > 98 CO2 mmol/L 29 28 28 < > 28 BUN mg/dL 26* 31* 37* < > 32* CREATININE mg/dL 1.37* 1.42* 1.68* < > 1.45* GLUCOSE mg/dL 93 90 89 < > 132* PROTEIN TOTAL g/dL 6.4 -- -- -- 7.2 CALCIUM mg/dL 8.7 8.6 8.9 < > 9.0 BILIRUBIN TOTAL mg/dL 2.0* -- -- -- 2.0* ALK PHOS U/L 265* -- -- -- 318* AST U/L 17 -- -- -- 27 ALT U/L 12 -- -- -- 17 < > = values in this interval not displayed. BMP: Results from last 7 days Lab Units 01/24/25 0533 01/23/25 0544 01/22/25 0607 SODIUM mmol/L 139 138 138 POTASSIUM mmol/L 4.1 3.7 3.6 CHLORIDE mmol/L 101 103 101 CO2 mmol/L 29 28 28 BUN mg/dL 26* 31* 37* CREATININE mg/dL 1.37* 1.42* 1.68* CALCIUM mg/dL 8.7 8.6 8.9 GLUCOSE mg/dL 93 90 89 Magnesium: Results from last 7 days Lab Units 01/24/25 0533 01/23/25 0544 01/22/25 0607 MAGNESIUM mg/dL 2.10 2.14 2.18 Results from last 7 days Lab Units 01/21/25 0447 01/20/25 0557 BNP pg/mL 596* 380* Lab Results Component Value Date CREATININE 1.37 (H) 01/24/2025 Lab Results Component Value Date INR 1.9 (H) 01/18/2025 INR 1.9 (H) 11/23/2024 PROTIME 21.5 (H) 01/18/2025 PROTIME 20.9 (H) 11/23/2024 CULTURES & SUSCEPTIBILITIES: No results found for the last 90 days. IMAGING STUDIES: I have reviewed following imaging studies. I agree with the impression and incorporated those results into my MDM === 01/18/25 === XR CHEST 1 VIEW Stable cardiomegaly with small-moderate left and small right pleural effusions and bibasilar opacities/atelectasis, similar to prior. === 01/18/25 === CT CHEST WO IV CONTRAST CT confirms perceived left perihilar mass from radiograph earlier today was an artifact due to a normal structures; specifically, the left lower lobe pulmonary artery branch point, probably more visible compared to the other side due to the differences in the chest wall (left mastectomy). No lung nodule or mass to workup or follow. Moderate cardiomegaly with at least right atrial if not biatrial Dilation At least moderate if not large pericardial effusion. Small free-flowing bilateral pleural effusions with adjacent Atelectasis. No other acute disease in the chest, only some minimal atelectasis. No sign of active infection. No interstitial or alveolar edema. No pneumothorax or pneumomediastinum LAST EKG Encounter Date: 01/18/25 ECG 12 Lead Result Value Ventricular Rate 60 Atrial Rate 60 NV Interval 158 QRS Duration 84 QT Interval 472 QTC Calculation(Bazett) 472 P Jadwin 51 R Jadwin 99 T Jadwin 141 QRS Count 10 Q Onset 224 P Onset 145 P Offset 207 T Offset 460 QTC Fredericia 472 Transthoracic Echo Complete: 01/18/2025 1. The left ventricular systolic function is low normal with a visually estimated ejection fractionof 55%. 2. No regional wall motion abnormalities. 3. Spectral Doppler shows a Grade II (pseudonormal pattern) of left ventricular diastolic filling with an elevated left atrial pressure. 4. Right ventricular volume and pressure overload. 5. There is severely reduced right ventricular systolic function. 6. The findings are consistent with pulmonary hypertension. 7. Severely enlarged right ventricle. 8. The left atrial size is moderately dilated. 9. The right atrial size is severely dilated. 10. Small pericardial effusion. 11. There is no evidence of mitral valve stenosis. 12. Moderate to severe mitral valve regurgitation. 13. Severe tricuspid regurgitation. 14. The Doppler estimated RVSP is within normal limits at 28 mmHg. 15. Aortic valve sclerosis. The peak and mean gradients are 9 mmHg and 4 mmHg respectively. 16. Mild to moderate aortic valve regurgitation. 17. The pulmonary artery is not well visualized. 18. The inferior vena cava appears severely dilated, IVC inspiratory collapse is absent. 19. Large patent foramen ovale. 20. A bubble study using agitated saline was performed. Bubble study is positive. A large PFO (>20 bubbles) was demonstrated. 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 She has been on anticoagulation for atrial fibrillation as well as amiodarone. She does not have history of pulmonary embolism or amiodarone toxicity. She has been requiring high supplemental oxygen up to 8 L/min today. Last night she was requiring 11 L/min to maintain her SpO2 above 92%. She does have right heart failure diastolic type, with preserved ejection fraction. She has been evaluated by nephrology and up until today was on Lasix drip. She is about 1800 negative on fluid volume. She does not have any infectious etiology for shortness of br eath. This probably could be some form of interstitial lung disease versus amiodarone toxicity. However before ablation patient did not require any supplemental oxygen at home. Patient will continue with physical therapy and Occupational Therapy. Rest of the medical therapy to be continued as per ad mission orders. P.S: This note was completed using [employer] voice recognition technology and may include unintended errors with respect to translation of words, typographical errors or grammar errors which may not have been identified while finalizing the chart. [1] amiodarone, 200 mg, oral, Daily anastrozole, 1 mg, oral, Daily apixaban, 2.5 mg, oral, BID hydrOXYzine HCL, 25 mg, oral, Once ipratropium-albuteroL, 3 mL, nebulization, TID LORazepam, 0.5 mg, oral, Once losartan, 25 mg, oral, Daily metoprolol succinate XL, 25 mg, oral, Daily pantoprazole, 40 mg, oral, BID AC polyethylene glycol, 17 g, oral, BID potassium chloride CR, 20 mEq, oral, BID sennosides-docusate sodium, 1 tablet, oral, Nightly torsemide, 100 mg, oral, Daily * Maritza Jin RN - 01/22/2025 4:20 PM EST Care transitions follow up : pt continues to require 5 liter o2 per NC. lasix drip at 5 mg/hr nephrology following. Pt still prefers home at discharge, will need therapy evaluations to assist with dcplanning. Pt likely to at least require HHC and home o2 evaluation. Will continue to follow for dc needs. * Kehinde Eli DO - 01/22/2025 3:15 PM EST Images from the original note were not included. Medical Group Progress Note ASSESSMENT & PLAN: Carlos Escobar is a 79 y.o. female admitted to [facility] for management of: HFmrEF Atrial Fibrillation pHTN, right heart failure Severe MV + Tricuspid valve regurgitation Large PFO Acute hypoxic respiratory failure 2/ above Plan: - Currently on intermittent BiPAP to help with preload and afterload reduction. She responded well and spo2 improved to >96%. Continue as tolerated and at night. - TTE 01/19/25 revealed low normal LV systolic function, EF 50-55%. Right ventricular volume & pressure overload,severely reduced RV systolic function, severely enlarged RV, bilateral atrial dilation, positive bubble study - CT chest due to concern for left perihilar mass on CXR, CT confirmed this was an artifact. Moderate cardiomegaly, moderate to large pericardial effusion - Continue Toprolol-XL, amiodarone - EP team following Acute Renal Failure: Etiology of ARF is likely prerenal azotemia, as evidenced by diuretic use.. Plan: - Avoid NSAIDS/nephrotoxic agents and renally dose medications - Monitor Ins/Outs, volume status, and electrolytes - sCr improving, now 1.68, baseline ~ 0.8 (05/01/23) - Nephrology following, losartan held. IV Lasix 20 mg q12h stopped and Lasix gtt started today Chronic Medical Conditions Breast cancer s/p radiation & chemotherapy, WIL, HLD, GERD - Resume home medications VTE Prophylaxis: Eliquis Disposition: ADOD 2-3 days Level of MDM: High Risk: High Data Reviewed and/or Analyzed: Included: Prior external notes from at least 1 unique source, Results, including laboratory findings and imaging reports, listed above, Orders and notes from all consultants involved, and Notes for this encounter. I personally reviewed the tests referenced above. The patient/family had opportunity to ask questions. All questions were answered to the best of my ability. Kehinde Eli, [facility] SUBJECTIVE Patient continues to feel short of breath. She is happy that her legs appear less swollen OBJECTIVE: Last Recorded Vitals: Vitals: 01/22/25 0738 01/22/25 0800 01/22/25 1115 01/22/25 1300 BP: 141/65 103/52 BP Location: Right arm Right arm Patient Position: Lying Sitting Pulse: 64 58 Resp: 20 20 Temp: 37.1 ??C (98.8 ??F) 36.1 ??C (97 ??F) TempSrc: Temporal Temporal SpO2: 95% 94% 90% 95% Weight: Height: Last I/O: I/O last 3 completed shifts: In: 990 (10.9 mL/kg) [P.O.:990] Out: 2600 (28.5 mL/kg) [Urine:2600 (0.8 mL/kg/hr)] Weight: 91.1 kg Physical Exam Vitals and nursing note reviewed. Constitutional: General: She is not in acute distress. HENT: Mouth/Throat: Mouth: Mucous membranes are moist. Eyes: Extraocular Movements: Extraocular movements intact. Conjunctiva/sclera: Conjunctivae normal. Cardiovascular: Rate and Rhythm: Normal rate. Rhythm irregular. Pulses: Normal pulses. Heart sounds: Normal heart sounds. Pulmonary: Effort: Pulmonary effort is normal. No tachypnea, accessory muscle usage, prolonged expiration or respiratory distress. Breath sounds: Normal breath sounds. Comments: On 5L Abdominal: General: Abdomen is flat. Bowel sounds are normal. Palpations: Abdomen is soft. Musculoskeletal: Right lower leg: Edema present. Left lower leg: Edema present. Skin: General: Skin is warm. Neurological: General: No focal deficit present. Mental Status: She is alert and oriented to person, place, and time. Mental status is at baseline. Psychiatric: Mood and Affect: Mood normal. Inpatient Medications: Scheduled Medications[1]PRN Medications PRN Medications[2] Continuous Medications: Continuous Medications[3] LABS AND IMAGING: Labs: Results from last 7 days Lab Units 01/22/2560601/21/2544601/20/25 0557 WBC AUTO x10*3/uL 5.0 5.6 6.3 RBC AUTO x10*6/uL 3.37* 3.31* 3.39* HEMOGLOBIN g/dL 10.6* 10.1* 10.4* HEMATOCRIT % 32.4* 32.1* 33.4* MCV fL 96 97 99 MCH pg 31.5 30.5 30.7 MCHC g/dL 32.7 31.5* 31.1* RDW % 15.7* 15.5* 15.5* PLATELETS AUTO x10*3/uL 69* 72* 87* Results from last 7 days Lab Units 01/22/2560601/21/2544601/20/25 0557 01/19/25 0533 01/18/25 1651 SODIUM mmol/L 138 136 136 < > 135* POTASSIUM mmol/L 3.6 3.6 4.0 < > 3.7 CHLORIDE mmol/L 101 100 99 < > 98 CO2 mmol/L 28 26 28 < > 28 BUN mg/dL 37* 46* 45* < > 32* CREATININE mg/dL 1.68* 2.14* 2.25* < > 1.45* GLUCOSE mg/dL 89 95 95 < > 132* PROTEIN TOTAL g/dL -- -- -- -- 7.2 CALCIUM mg/dL 8.9 8.8 8.9 < > 9.0 BILIRUBIN TOTAL mg/dL -- -- -- -- 2.0* ALK PHOS U/L -- -- -- -- 318* AST U/L -- -- -- -- 27 ALT U/L -- -- -- -- 17 < > = values in this interval not displayed. Results from last 7 days Lab Units 01/22/2560601/21/2544601/20/25 0557 MAGNESIUM mg/dL 2.18 2.13 2.21 Imaging: ECG 12 Lead Sinus bradycardia Rightward axis Low voltage QRS ST & T wave abnormality, consider anterior ischemia Abnormal ECG When compared with ECG of 21-JAN-2025 06:31, (unconfirmed) Incomplete right bundle branch block is no longer Present [1] amiodarone, 200 mg, oral, Daily anastrozole, 1 mg, oral, Daily apixaban, 2.5 mg, oral, BID hydrOXYzine HCL, 25 mg, oral, Once ipratropium-albuteroL, 3 mL, nebulization, TID LORazepam, 0.5 mg, oral, Once [START ON 01/23/2025] losartan, 25 mg, oral, Daily metoprolol succinate XL, 25 mg, oral, Daily pantoprazole, 40 mg, oral, BID AC polyethylene glycol, 17 g, oral, BID potassium chloride CR, 20 mEq, oral, BID sennosides-docusate sodium, 1 tablet, oral, Nightly [2] PRN medications: acetaminophen, benzocaine-menthol, hydrOXYzine HCL, ipratropium-albuteroL, ondansetron OR ondansetron, oxygen, oxygen [3] furosemide, 5 mg/hr, Last Rate: 5 mg/hr (01/21/25 1755) * Ty Sweet MD - 01/22/2025 1:11 PM EST Renal Progress Note Assessment and Plan: 79 y.o. female with history s/f persistent A.fib, breast cancer s/p radiation and chemo, HFpEF, WIL, HLD and GERD who initially presented for elective ablation however due to fluid overload and hypoxia was kept ANATOLY on ?CKD stage IIIb: ? 2/2 hypotension, ?Crs, current baseline Scr 1.4-1.6 w/ eGFR low/mid 30s however was 0.9 in 04/28 and 1.2 in 11/26 (may have non-resolved ANATOLY), now worsening, no contrast administered, has been getting loop diuretics Fluid overload Hypotensive episodes Anemia/thrombocytopenia Persistent A.fib Plan: - difficult situation. Will try lasix drip at 5 mg/hr and kdur 20 bid. Gfr is stable but is still sob with signs of fluid overload. Getting neg fluid balance on 5 mg/hr. Keep for now Subjective: Admit Date: 01/18/2025 Interval History: pt still requiring a lot of oxygen. Says she is sob. C/o sig swelling. Not urinating all that much. Medications: Scheduled Meds:Scheduled Medications[1] Continuous Infusions:Continuous Medications[2] CBC: Lab Results Component Value Date HGB 10.6 (L) 01/22/2025 HGB 10.1 (L) 01/21/2025 WBC 5.0 01/22/2025 WBC 5.6 01/21/2025 PLT 69 (L) 01/22/2025 PLT 72 (L) 01/21/2025 Anemia: No results found for: FERRITIN , IRON , TIBC BMP: Lab Results Component Value Date NA 138 01/22/2025 NA 136 01/21/2025 K 3.6 01/22/2025 K 3.6 01/21/2025 CL 101 01/22/2025 CL 100 01/21/2025 CO2 28 01/22/2025 CO2 26 01/21/2025 BUN 37 (H) 01/22/2025 BUN 46 (H) 01/21/2025 CREATININE 1.68 (H) 01/22/2025 CREATININE 2.14 (H) 01/21/2025 Bone disease: Lab Results Component Value Date PHOS 3.1 01/22/2025 Urinalysis: No results found for: CHARO , PROTUR , GLUCOSEU , BLOODU , KETONESU , BILIRUBINU , NITRITEU , LEUKOCYTESU , UTPCR Objective: Vitals: BP 103/52 (BP Location: Right arm, Patient Position: Sitting) Pulse 58 Temp 36.1 ??C (97 ??F) (Temporal) Resp 20 Ht 1.575 m (5' 2 ) Wt 91.1 kg (200 lb 13.4 oz) SpO2 95% BMI 36.73 kg/m?? Wt Readings from Last 3 Encounters: 01/21/25 91.1 kg (200 lb 13.4 oz) 01/05/25 89.5 kg (197 lb 6.4 oz) 12/30/24 88.5 kg (195 lb) 24HR INTAKE/OUTPUT: Intake/Output Summary (Last 24 hours) at 01/22/2025 1311 Last data filed at 01/22/2025 1200 Gross per 24 hour Intake 840 ml Output 2600 ml Net -1760 ml Admission weight: Weight: 87.5 kg (192 lb 14.4 oz) Constitutional: Alert, awake, no apparent distress Skin:normal, no rash HEENT:sclera anicteric. Head atraumatic normocephalic Neck:supple with no thyromegally Cardiovascular: S1, S2 without m/r/g Respiratory: CTA B without w/r/r Abdomen: +bs, soft, nt Ext: 1+LE edema Musculoskeletal:Intact Neuro:Alert and oriented with no deficit [1] amiodarone, 200 mg, oral, Daily anastrozole, 1 mg, oral, Daily apixaban, 2.5 mg, oral, BID hydrOXYzine HCL, 25 mg, oral, Once ipratropium-albuteroL, 3 mL, nebulization, TID LORazepam, 0.5 mg, oral, Once [START ON 01/23/2025] losartan, 25 mg, oral, Daily metoprolol succinate XL, 25 mg, oral, Daily pantoprazole, 40 mg, oral, BID AC polyethylene glycol, 17 g, oral, BID potassium chloride CR, 20 mEq, oral, BID sennosides-docusate sodium, 1 tablet, oral, Nightly [2] furosemide, 5 mg/hr, Last Rate: 5 mg/hr (01/21/251754) * CHANEL Lezama - 01/22/2025 8:27 AM EST [facility] Heart Progress Note Rounding DIANA/Supply Chain Program Manager: CHANEL Lezama, Dr. Pedro Giron Primary Supply Chain Program Manager: Dr. Balaji Arreola Date: 01/22/2025 Patient: Carlos Escobar Date of : 1945 Admit Date: 01/18/2025 SUBJECTIVE: 01/22/25 Patient is awake and alert resting quietly spoke to her at length today in regards to her mitral and tricuspid valve that we will refer to structural heart as an outpatient. They are still slowly weaning down her oxygen EKG sinus bradycardia 01/21/25 Patient is awake and alert currently on CPAP at this present time. Her edema is much improved she was seen by renal currently resting quietly at this time and ABG was done this morning. EKG sinus bradycardia no acute changes Strict intake and output Daily weights CONCLUSIONS: 01/19/25 echo 1. The left ventricular systolic function is low normal with a visually estimated ejection fractionof 55%. 2. No regional wall motion abnormalities. 3. Spectral Doppler shows a Grade II (pseudonormal pattern) of left ventricular diastolic filling with an elevated left atrial pressure. 4. Right ventricular volume and pressure overload. 5. There is severely reduced right ventricular systolic function. 6. The findings are consistent with pulmonary hypertension. 7. Severely enlarged right ventricle. 8. The left atrial size is moderately dilated. 9. The right atrial size is severely dilated. 10. Small pericardial effusion. 11. There is no evidence of mitral valve stenosis. 12. Moderate to severe mitral valve regurgitation. 13. Severe tricuspid regurgitation. 14. The Doppler estimated RVSP is within normal limits at 28 mmHg. 15. Aortic valve sclerosis. The peak and mean gradients are 9 mmHg and 4 mmHg respectively. 16. Mild to moderate aortic valve regurgitation. 17. The pulmonary artery is not well visualized. 18. The inferior vena cava appears severely dilated, IVC inspiratory collapse is absent. 19. Large patent foramen ovale. 20. A bubble study using agitated saline was performed. Bubble study is positive. A large PFO (>20 bubbles) was demonstrated. 07/26 stress test IMPRESSION: Negative Lexiscan Myoview cardiac perfusion stress test. No evidence of significant ischemia or myocardial infarction by perfusion imaging. Small predominantly fixed anterior apical perfusion defect only. Near normal left ventricular systolic function visually, LV ejection [id number]%. Probable LV function artificially lower % due to underlying atrial fibrillation. No significant change from previous study. Clinical correlation is advised.. VITALS: Vitals: 01/22/25 0421 01/22/25 0441 01/22/25 0658 01/22/25 0738 BP: 147/67 141/65 BP Location: Right arm Right arm Patient Position: Lying Lying Pulse: 58 64 Resp: Temp: 37.2 ??C (99 ??F) 37.1 ??C (98.8 ??F) TempSrc: Temporal Temporal SpO2: 95% 95% 92% 95% Weight: Height: Intake/Output Summary (Last 24 hours) at 01/22/2025 0827 Last data filed at 01/22/2025 0700 Gross per 24 hour Intake 400 ml Output 2000 ml Net -1600 ml Wt Readings from Last 4 Encounters: 01/21/25 91.1 kg (200 lb 13.4 oz) 01/05/25 89.5 kg (197 lb 6.4 oz) 12/30/24 88.5 kg (195 lb) 12/10/24 85.4 kg (188 lb 3.2 oz) CURRENT HOSPITAL MEDICATIONS: Scheduled Medications[1] Continuous Medications[2] Current Outpatient Medications Medication Instructions amiodarone (PACERONE) 200 mg, oral, Daily, For 2 months after ablation then discontinue anastrozole (ARIMIDEX) 1 mg, Daily apixaban (ELIQUIS) 5 mg, oral, 2 times daily dapagliflozin propanediol (FARXIGA) 10 mg, oral, Every 24 hours losartan (COZAAR) 25 mg, oral, 2 times daily metoprolol succinate XL (TOPROL-XL) 25 mg, oral, Daily, Do not crush or chew. pantoprazole (PROTONIX) 40 mg, oral, 2 times daily before meals, For 6 weeks after ablation then stop taking potassium chloride CR (Klor-Con) 10 mEq ER tablet 10 mEq, oral, 2 times daily, Do not crush, chew, or split. torsemide (DEMADEX) 60 mg, oral, Daily PHYSICAL EXAMINATION: GENERAL APPEARANCE: Well developed, well nourished, in no acute distress. CHEST: Symmetric and non-tender. INTEGUMENT: Skin warm and dry, without gross excoriationis or lesions. HEENT: No gross abnormalities of conjunctiva, teeth, gums, oral mucosa NECK: Supple, no JVD, no bruit. Thyroid not palpable. Carotid upstrokes normal. NEURO/PSHCY: Alert and oriented x3; appropriate behavior and responses and responses, grossly normal cerebellar function with normal balance and coordination LUNGS: Diminished with scattered Rales HEART: S1, S2 regular with 1 out of 6 systolic murmur ABDOMEN: Soft, nontender, no palpable hepatosplenomegaly, no mases, no bruits. Abdominal aorta not noted to be enlarged. EXTREMITIES: Warm with good color, no clubbing or cyanois. Trace edema PERIPHERAL VASCULAR: Pulses present and equally palpable; 1+ throughout. No femoral bruits. LAB DATA: CBC: Results from last 7 days Lab Units 01/22/2560601/21/2544601/20/25 0557 WBC AUTO x10*3/uL 5.0 5.6 6.3 RBC AUTO x10*6/uL 3.37* 3.31* 3.39* HEMOGLOBIN g/dL 10.6* 10.1* 10.4* HEMATOCRIT % 32.4* 32.1* 33.4* MCV fL 96 97 99 MCH pg 31.5 30.5 30.7 MCHC g/dL 32.7 31.5* 31.1* RDW % 15.7* 15.5* 15.5* PLATELETS AUTO x10*3/uL 69* 72* 87* CMP: Results from last 7 days Lab Units 01/22/2560601/21/2544601/20/25 0557 01/19/25 0533 01/18/25 1651 SODIUM mmol/L 138 136 136 < > 135* POTASSIUM mmol/L 3.6 3.6 4.0 < > 3.7 CHLORIDE mmol/L 101 100 99 < > 98 CO2 mmol/L 28 26 28 < > 28 BUN mg/dL 37* 46* 45* < > 32* CREATININE mg/dL 1.68* 2.14* 2.25* < > 1.45* GLUCOSE mg/dL 89 95 95 < > 132* PROTEIN TOTAL g/dL -- -- -- -- 7.2 CALCIUM mg/dL 8.9 8.8 8.9 < > 9.0 BILIRUBIN TOTAL mg/dL -- -- -- -- 2.0* ALK PHOS U/L -- -- -- -- 318* AST U/L -- -- -- -- 27 ALT U/L -- -- -- -- 17 < > = values in this interval not displayed. BMP: Results from last 7 days Lab Units 01/22/2560601/21/2544601/20/25 0557 SODIUM mmol/L 138 136 136 POTASSIUM mmol/L 3.6 3.6 4.0 CHLORIDE mmol/L 101 100 99 CO2 mmol/L 28 26 28 BUN mg/dL 37* 46* 45* CREATININE mg/dL 1.68* 2.14* 2.25* CALCIUM mg/dL 8.9 8.8 8.9 GLUCOSE mg/dL 89 95 95 Magnesium: Results from last 7 days Lab Units 01/22/25 0607 01/21/25 0447 01/20/25 0557 MAGNESIUM mg/dL 2.18 2.13 2.21 Troponin: BNP: Results from last 7 days Lab Units 01/21/25 0447 01/20/25 0557 BNP pg/mL 596* 380* DIAGNOSTIC TESTING: XR chest 1 view Final Result Stable cardiomegaly with small-moderate left and small right pleural effusions and bibasilar opacities/atelectasis, similar to prior. MACRO: None Signed by: Acosta Bo 01/21/2025 8:52 AM Dictation workstation: [id number] CT chest wo IV contrast Final Result CT confirms perceived left perihilar mass from radiograph earlier today was an artifact due to a normal structures; specifically, the left lower lobe pulmonary artery branch point, probably more visible compared to the other side due to the differences in the chest wall (left mastectomy). No lung nodule or mass to workup or follow Moderate cardiomegaly with at least right atrial if not biatrial dilation At least moderate if not large pericardial effusion Small free-flowing bilateral pleural effusions with adjacent atelectasis No other acute disease in the chest, only some minimal atelectasis. No sign of active infection. No interstitial or alveolar edema. No pneumothorax or pneumomediastinum MACRO: None Signed by: Cory Carrero 01/19/2025 2:34 PM Dictation workstation: [id number] Transthoracic Echo Complete Final Result CONCLUSIONS: 1. The left ventricular systolic function is low normal with a visually estimated ejection fractionof 55%. 2. No regional wall motion abnormalities. 3. Spectral Doppler shows a Grade II (pseudonormal pattern) of left ventricular diastolic filling with an elevated left atrial pressure. 4. Right ventricular volume and pressure overload. 5. There is severely reduced right ventricular systolic function. 6. The findings are consistent with pulmonary hypertension. 7. Severely enlarged right ventricle. 8. The left atrial size is moderately dilated. 9. The right atrial size is severely dilated. 10. Small pericardial effusion. 11. There is no evidence of mitral valve stenosis. 12. Moderate to severe mitral valve regurgitation. 13. Severe tricuspid regurgitation. 14. The Doppler estimated RVSP is within normal limits at 28 mmHg. 15. Aortic valve sclerosis. The peak and mean gradients are 9 mmHg and 4 mmHg respectively. 16. Mild to moderate aortic valve regurgitation. 17. The pulmonary artery is not well visualized. 18. The inferior vena cava appears severely dilated, IVC inspiratory collapse is absent. 19. Large patent foramen ovale. 20. A bubble study using agitated saline was performed. Bubble study is positive. A large PFO (>20 bubbles) was demonstrated. XR chest 2 views Final Result Small loculated left pleural effusion with adjacent mild basilar atelectasis Follow with chest CT (with IV contrast if possible) to evaluate for possible left perihilar nodule or nodules MACRO: None Signed by: Cory Carrero 01/19/2025 8:57 AM Dictation workstation: [id number] Electrophysiology procedure Final Result Holter Or Event [employer] Floor [employer] (Results Pending) RADIOLOGY: XR chest 1 view Final Result Stable cardiomegaly with small-moderate left and small right pleural effusions and bibasilar opacities/atelectasis, similar to prior. MACRO: None Signed by: Acosta Bo 01/21/2025 8:52 AM Dictation workstation: [id number] CT chest wo IV contrast Final Result CT confirms perceived left perihilar mass from radiograph earlier today was an artifact due to a normal structures; specifically, the left lower lobe pulmonary artery branch point, probably more visible compared to the other side due to the differences in the chest wall (left mastectomy). No lung nodule or mass to workup or follow Moderate cardiomegaly with at least right atrial if not biatrial dilation At least moderate if not large pericardial effusion Small free-flowing bilateral pleural effusions with adjacent atelectasis No other acute disease in the chest, only some minimal atelectasis. No sign of active infection. No interstitial or alveolar edema. No pneumothorax or pneumomediastinum MACRO: None Signed by: Cory Carrero 01/19/2025 2:34 PM Dictation workstation: [id number] Transthoracic Echo Complete Final Result CONCLUSIONS: 1. The left ventricular systolic function is low normal with a visually estimated ejection fractionof 55%. 2. No regional wall motion abnormalities. 3. Spectral Doppler shows a Grade II (pseudonormal pattern) of left ventricular diastolic filling with an elevated left atrial pressure. 4. Right ventricular volume and pressure overload. 5. There is severely reduced right ventricular systolic function. 6. The findings are consistent with pulmonary hypertension. 7. Severely enlarged right ventricle. 8. The left atrial size is moderately dilated. 9. The right atrial size is severely dilated. 10. Small pericardial effusion. 11. There is no evidence of mitral valve stenosis. 12. Moderate to severe mitral valve regurgitation. 13. Severe tricuspid regurgitation. 14. The Doppler estimated RVSP is within normal limits at 28 mmHg. 15. Aortic valve sclerosis. The peak and mean gradients are 9 mmHg and 4 mmHg respectively. 16. Mild to moderate aortic valve regurgitation. 17. The pulmonary artery is not well visualized. 18. The inferior vena cava appears severely dilated, IVC inspiratory collapse is absent. 19. Large patent foramen ovale. 20. A bubble study using agitated saline was performed. Bubble study is positive. A large PFO (>20 bubbles) was demonstrated. XR chest 2 views Final Result Small loculated left pleural effusion with adjacent mild basilar atelectasis Follow with chest CT (with IV contrast if possible) to evaluate for possible left perihilar nodule or nodules MACRO: None Signed by: Cory Carrero 01/19/2025 8:57 AM Dictation workstation: [id number] Electrophysiology procedure Final Result Holter Or Event [employer] Floor [employer] (Results Pending) PROBLEM LIST Problem List[3] ASSESSMENT: PAF status post PVI and CTI pod 4 PAF currently normal sinus rhythm Acute on chronic diastolic heart failure NYHA class II EF 55% CKD stage III Hypertension Large PFO Severe tricuspid regurg Moderate to severe mitral regurg PLAN: Tele monitoring Serial enzymes 2d echo done EF 55% Daily EKG's Renal input thank you Albumin 25 g every 12 hours for 3 doses Lasix 20 mg IV push every 12 if okay with renal Amiodarone 200 mg daily Eliquis 5 mg p.o. twice daily Cozaar on hold due to CKD Toprol XL 25 mg daily Intake and output Daily weights Keep magnesium greater than 2.0 Ki Laura CNP [facility] Of note, this documentation is completed using the [email or web address] system (voice recognition software). There may be spelling and/or grammatical errors that were not corrected prior to final submission. I have personally interviewed and examined the patient. I have personally and independently reviewed labs and diagnostic testing. I have personally verified the elements of the history and physical listed above and changes, if any, are noted. I have personally reviewed the assessment and plan as documented by Bernabe Laura, BHAVIN, KM and concur. In summary, Mrs. Carlos Escobar has a history of persistent symptomatic atrial fibrillation initially diagnosed earlier this year. No history of atherosclerotic heart or valvular heart disease. Shehas a history of severe sleep apnea for which she was recently started on CPAP. She has a history of breast carcinoma for she underwent radiation therapy and chemotherapy. A Lexiscan myocardial perfusion study July 2024 was negative for ischemia. Small fixed anteroapical perfusion defect. CalculatedLV ejection fraction 43%. Underlying atrial fibrillation likely interfered with gating. She underwent cardioversion in [place] in August 2024. She had recurrent atrial fibrillation and wasinitiated on flecainide and subsequently underwent repeat cardioversion. While in atrial fibrillation the patient noted multiple symptoms including fatigue, palpitations, shortness of breath, abdominal bloating, edema, and weight gain. She was seen in follow-up by Dr. Balaji Arreola and referralwas made to Dr. Lashanda Azar. She was seen by him on November 03, 2024 and initiated on amiodarone. She had repeat cardioversion after 1 month of amiodarone loading, however, she developed recurrentatrial fibrillation associated with similar worsening symptoms. On January 18, 2025 she underwent C TI/PVI by Dr. Azar. Following the procedure the patient complained of shortness of breath and wasnoted to have some hypoxia. It was noted that her weight was increased approximately 12 pounds frombaseline. She was noted to have increased bilateral peripheral edema. She was initiated on intravenous diuretics and admitted to telemetry. She had approxi-1 L negative fluid balance. She was subsequently changed back to her home dose of Demadex 60 mg daily. This has since been changed to furosemide 20 mg IV twice daily. She was noted this morning to have a mild increase in her creatinine. Lab studies show a hemoglobin 10.4 with WBC 6.3. Normal basic metabolic profile with exception of BUN 45 and creatinine 2.25. Baseline creatinine approximately 1.4. Echocardiogram on January 20, 2025 showed normal LV function with estimated LV ejection recta 55%.Moderate left atrial enlargement. A large PFO was demonstrated. There is severe enlargement of the right ventricle and severely impaired RV systolic function. 2+ aortic regurgitation, 3+ mitral regurgitation, and 3-4+ tricuspid regurgitation. Estimated RVSP 28 mmHg. She currently is resting comfortably. She is lying nearly flat in bed. She notes she feels somewhatless short of breath. She currently has acute on chronic diastolic failure as well as right heart failure. Exacerbated by recent atrial fibrillation. Recent 12 pound weight gain. Agree with continuedIV diuretics. Await further nephrology recommendations. Consider eventual evaluation by the structural heart team in light of significant mitral and tricuspid regurgitation. Further recommendations to follow. 01/21/25 Tele monitoring Renal input thank you Amiodarone 200 mg daily Eliquis 5 mg p.o. twice daily Lasix 20 mg IV push every 12 Cozaar 25 mg p.o. twice daily currently on hold Toprol XL 25 mg daily Will plan for outpatient structural heart referral 01/22/25 Tele monitoring Outpatient structural heart referral Amiodarone 200 mg daily Toprol xl 25 mg daily Diuretics per renal Cozaar 25 mg daily starting tomorrow No Aldactone due to CKD Poor Jardiance candidate due to urinary incontinence Cardiology will sign off case follow from a distance Ki Laura CNP [facility] Of note, this documentation is completed using the [email or web address] system (voice recognition software). There may be spelling and/or grammatical errors that were not corrected prior to final submission. Please do not hesitate to call with questions. [1] amiodarone, 200 mg, oral, Daily anastrozole, 1 mg, oral, Daily apixaban, 5 mg, oral, BID hydrOXYzine HCL, 25 mg, oral, Once ipratropium-albuteroL, 3 mL, nebulization, TID LORazepam, 0.5 mg, oral, Once [Held by provider] losartan, 25 mg, oral, Daily metoprolol succinate XL, 25 mg, oral, Daily pantoprazole, 40 mg, oral, BID AC polyethylene glycol, 17 g, oral, BID potassium chloride CR, 20 mEq, oral, BID sennosides-docusate sodium, 1 tablet, oral, Nightly [2] furosemide, 5 mg/hr, Last Rate: 5 mg/hr (01/21/25 1755) [3] Patient Active Problem List Diagnosis Never smoked cigarettes BMI 33.0-33.9,adult Hospital discharge follow-up Atrial fibrillation (Multi) care home current use of anticoagulant therapy LVH (left ventricular hypertrophy) Hyperlipidemia Irritable bowel syndrome History of malignant neoplasm of breast Anemia associated with nutritional deficiency Family history of ischemic heart disease Nonrheumatic tricuspid valve regurgitation Abnormal EKG Hyperglycemia Snoring Other fatigue Mitral valve regurgitation Tachycardia Abnormal cardiovascular function study Daytime somnolence High risk medication use SOB (shortness of breath) Edema, unspecified Essential (primary) hypertension Obstructive sleep apnea Incomplete RBBB Nonrheumatic aortic (valve) insufficiency Volume overload Paroxysmal atrial fibrillation (Multi) Persistent atrial fibrillation (Multi) * Ty Sweet MD - 01/21/2025 3:55 PM EST Renal Progress Note Assessment and Plan: 79 y.o. female with history s/f persistent A.fib, breast cancer s/p radiation and chemo, HFpEF, WIL, HLD and GERD who initially presented for elective ablation however due to fluid overload and hypoxia was kept ANATOLY on ?CKD stage IIIb: ? 2/2 hypotension, ?Crs, current baseline Scr 1.4-1.6 w/ eGFR low/mid 30s however was 0.9 in 04/28 and 1.2 in 11/26 (may have non-resolved ANATOLY), now worsening, no contrast administered, has been getting loop diuretics Fluid overload Hypotensive episodes Anemia/thrombocytopenia Persistent A.fib Plan: - difficult situation. Will try lasix drip at 5 mg/hr and kdur 20 bid. Gfr is stable but is still sob with signs of fluid overload Subjective: Admit Date: 01/18/2025 Interval History: pt still requiring a lot of oxygen. Says she is sob. C/o sig swelling. Not urinating all that much. Medications: Scheduled Meds:Scheduled Medications[1] Continuous Infusions:Continuous Medications[2] CBC: Lab Results Component Value Date HGB 10.1 (L) 01/21/2025 HGB 10.4 (L) 01/20/2025 WBC 5.6 01/21/2025 WBC 6.3 01/20/2025 PLT 72 (L) 01/21/2025 PLT 87 (L) 01/20/2025 Anemia: No results found for: FERRITIN , IRON , TIBC BMP: Lab Results Component Value Date NA 136 01/21/2025 NA 136 01/20/2025 K 3.6 01/21/2025 K 4.0 01/20/2025 CL 100 01/21/2025 CL 99 01/20/2025 CO2 26 01/21/2025 CO2 28 01/20/2025 BUN 46 (H) 01/21/2025 BUN 45 (H) 01/20/2025 CREATININE 2.14 (H) 01/21/2025 CREATININE 2.25 (H) 01/20/2025 Bone disease: Lab Results Component Value Date PHOS 3.8 01/21/2025 Urinalysis: No results found for: CHARO , PROTUR , GLUCOSEU , BLOODU , KETONESU , BILIRUBINU , NITRITEU , LEUKOCYTESU , UTPCR Objective: Vitals: BP 109/52 Pulse 60 Temp 35.6 ??C (96.1 ??F) Resp (!) 27 Ht 1.575 m (5' 2 ) Wt 91.1 kg (200 lb 13.4 oz) SpO2 94% BMI 36.73 kg/m?? Wt Readings from Last 3 Encounters: 01/21/25 91.1 kg (200 lb 13.4 oz) 01/05/25 89.5 kg (197 lb 6.4 oz) 12/30/24 88.5 kg (195 lb) 24HR INTAKE/OUTPUT: Intake/Output Summary (Last 24 hours) at 01/21/2025 1555 Last data filed at 01/21/2025 1356 Gross per 24 hour Intake 710 ml Output 1400 ml Net -690 ml Admission weight: Weight: 87.5 kg (192 lb 14.4 oz) Constitutional: Alert, awake, no apparent distress Skin:normal, no rash HEENT:sclera anicteric. Head atraumatic normocephalic Neck:supple with no thyromegally Cardiovascular: S1, S2 without m/r/g Respiratory: CTA B without w/r/r Abdomen: +bs, soft, nt Ext: 1+LE edema Musculoskeletal:Intact Neuro:Alert and oriented with no deficit [1] amiodarone, 200 mg, oral, Daily anastrozole, 1 mg, oral, Daily apixaban, 5 mg, oral, BID furosemide, 20 mg, intravenous, q12h hydrOXYzine HCL, 25 mg, oral, Once ipratropium-albuteroL, 3 mL, nebulization, TID LORazepam, 0.5 mg, oral, Once [Held by provider] losartan, 25 mg, oral, BID metoprolol succinate XL, 25 mg, oral, Daily pantoprazole, 40 mg, oral, BID AC polyethylene glycol, 17 g, oral, BID sennosides-docusate sodium, 1 tablet, oral, Nightly [2] * Kehinde Eli DO - 01/21/2025 2:44 PM EST Images from the original note were not included. Medical Group Progress Note ASSESSMENT & PLAN: Carlos Escobar is a 79 y.o. female admitted to [facility] for management of: HFmrEF Atrial Fibrillation pHTN, right heart failure Severe MV + Tricuspid valve regurgitation Large PFO Acute hypoxic respiratory failure 2/2 above Plan: - Currently on intermittent BiPAP to help with preload and afterload reduction. She responded well and spo2 improved to >96%. Continue as tolerated and at night. - TTE 01/19/25 revealed low normal LV systolic function, EF 50-55%. Right ventricular volume & pressure overload,severely reduced RV systolic function, severely enlarged RV, bilateral atrial dilation, positive bubble study - CT chest due to concern for left perihilar mass on CXR, CT confirmed this was an artifact. Moderate cardiomegaly, moderate to large pericardial effusion - Continue Toprolol-XL, amiodarone - EP team following Acute Renal Failure: Etiology of ARF is likely prerenal azotemia, as evidenced by diuretic use.. Plan: - Avoid NSAIDS/nephrotoxic agents and renally dose medications - Monitor Ins/Outs, volume status, and electrolytes - sCr 2.14, baseline ~ 0.8 (05/01/23) - Nephrology following, losartan held. IV Lasix 20 mg q12h continued Chronic Medical Conditions Breast cancer s/p radiation & chemotherapy, WIL, HLD, GERD - Resume home medications VTE Prophylaxis: Eliquis Disposition: ADOD 2-3 days Level of MDM: High Risk: High Data Reviewed and/or Analyzed: Included: Prior external notes from at least 1 unique source, Results, including laboratory findings and imaging reports, listed above, Orders and notes from all consultants involved, and Notes for this encounter. I personally reviewed the tests referenced above. The patient/family had opportunity to ask questions. All questions were answered to the best of my ability. Kehinde Eli, DO Hospital Medicine SUBJECTIVE Patient continues to feel short of breath. [place] better while on BiPAP OBJECTIVE: Last Recorded Vitals: Vitals: 01/21/25 1010 01/21/25 1112 01/21/25 1241 01/21/25 1356 BP: 114/56 BP Location: Patient Position: Pulse: 60 Resp: Temp: 36.1 ??C (97 ??F) TempSrc: SpO2: 95% 93% 96% 94% Weight: Height: Last I/O: I/O last 3 completed shifts: In: 960 (10.5 mL/kg) [P.O.:960] Out: 980 (10.8 mL/kg) [Urine:980 (0.3 mL/kg/hr)] Weight: 91.1 kg Physical Exam Vitals and nursing note reviewed. Constitutional: General: She is not in acute distress. HENT: Mouth/Throat: Mouth: Mucous membranes are moist. Eyes: Extraocular Movements: Extraocular movements intact. Conjunctiva/sclera: Conjunctivae normal. Cardiovascular: Rate and Rhythm: Normal rate. Rhythm irregular. Pulses: Normal pulses. Heart sounds: Normal heart sounds. Pulmonary: Effort: Pulmonary effort is normal. No tachypnea, accessory muscle usage, prolonged expiration or respiratory distress. Breath sounds: Normal breath sounds. Comments: On 5L Abdominal: General: Abdomen is flat. Bowel sounds are normal. Palpations: Abdomen is soft. Musculoskeletal: Right lower leg: Edema present. Left lower leg: Edema present. Skin: General: Skin is warm. Neurological: General: No focal deficit present. Mental Status: She is alert and oriented to person, place, and time. Mental status is at baseline. Psychiatric: Mood and Affect: Mood normal. Inpatient Medications: Scheduled Medications[1]PRN Medications PRN Medications[2] Continuous Medications: Continuous Medications[3] LABS AND IMAGING: Labs: Results from last 7 days Lab Units 01/21/2544601/20/25 0557 WBC AUTO x10*3/uL 5.6 6.3 RBC AUTO x10*6/uL 3.31* 3.39* HEMOGLOBIN g/dL 10.1* 10.4* HEMATOCRIT % 32.1* 33.4* MCV fL 97 99 MCH pg 30.5 30.7 MCHC g/dL 31.5* 31.1* RDW % 15.5* 15.5* PLATELETS AUTO x10*3/uL 72* 87* Results from last 7 days Lab Units 01/21/2544601/20/25 0557 01/19/25 0533 01/18/25 1651 SODIUM mmol/L 136 136 137 135* POTASSIUM mmol/L 3.6 4.0 4.0 3.7 CHLORIDE mmol/L 100 99 101 98 CO2 mmol/L 26 28 27 28 BUN mg/dL 46* 45* 34* 32* CREATININE mg/dL 2.14* 2.25* 1.56* 1.45* GLUCOSE mg/dL 95 95 118* 132* PROTEIN TOTAL g/dL -- -- -- 7.2 CALCIUM mg/dL 8.8 8.9 8.8 9.0 BILIRUBIN TOTAL mg/dL -- -- -- 2.0* ALK PHOS U/L -- -- -- 318* AST U/L -- -- -- 27 ALT U/L -- -- -- 17 Results from last 7 days Lab Units 01/21/2544601/20/25 0557 01/18/25 1651 MAGNESIUM mg/dL 2.13 2.21 2.17 Imaging: XR chest 1 view Narrative: Interpreted By: Acosta Bo, STUDY: XR CHEST 1 VIEW; 01/21/2025 8:26 am INDICATION: Signs/Symptoms:worsening respiratory failure. COMPARISON: XR chest and CT chest 01/19/2025 ACCESSION NUMBER(S): [id number] ORDERING CLINICIAN: KEHINDE ELI FINDINGS: CARDIOMEDIASTINAL SILHOUETTE: Cardiomediastinal silhouette is enlarged but unchanged, corresponding to cardiomegaly, biatrial dilatation, and moderate to large pericardial effusion visualized on recent CT chest. Calcified atherosclerosis of the thoracic aorta. LUNGS: Low lung volumes with small-moderate left and small right pleural effusions with bibasilar opacities/atelectasis, similar to prior and better characterized on recent CT chest. No new focal consolidation. No pneumothorax. ABDOMEN: No remarkable upper abdominal findings. BONES: No acute osseous changes. Impression: Stable cardiomegaly with small-moderate left and small right pleural effusions and bibasilar opacities/atelectasis, similar to prior. MACRO: None Signed by: Acosta Bo 01/21/2025 8:52 AM Dictation workstation: [id number] ECG 12 Lead Sinus bradycardia Incomplete right bundle branch block Right ventricular hypertrophy with repolarization abnormality Nonspecific T wave abnormality Abnormal ECG When compared with ECG of 20-JAN-2025 10:11, Premature atrial complexes are no longer Present Incomplete right bundle branch block is now Present Inverted T waves have replaced nonspecific T wave abnormality in Anterior leads QT has lengthened [1] amiodarone, 200 mg, oral, Daily anastrozole, 1 mg, oral, Daily apixaban, 5 mg, oral, BID furosemide, 20 mg, intravenous, q12h hydrOXYzine HCL, 25 mg, oral, Once ipratropium-albuteroL, 3 mL, nebulization, TID LORazepam, 0.5 mg, oral, Once [Held by provider] losartan, 25 mg, oral, BID metoprolol succinate XL, 25 mg, oral, Daily pantoprazole, 40 mg, oral, BID AC polyethylene glycol, 17 g, oral, BID sennosides-docusate sodium, 1 tablet, oral, Nightly [2] PRN medications: acetaminophen, benzocaine-menthol, ipratropium-albuteroL, ondansetron OR ondansetron, oxygen, oxygen [3] * Bernabe Laura APRN-KM - 01/21/2025 8:57 AM EST [facility] Heart Progress Note Rounding DIANA/Supply Chain Program Manager: Bernabe Laura, CHERY-KM, Dr. Pedro Giron Primary Supply Chain Program Manager: Dr. Balaji Arreola Date: 01/21/2025 Patient: Carlos Escobar Date of : 1945 Admit Date: 01/18/2025 SUBJECTIVE: 01/21/25 Patient is awake and alert currently on CPAP at this present time. Her edema is much improved she was seen by renal currently resting quietly at this time and ABG was done this morning. EKG sinus bradycardia no acute changes Strict intake and output Daily weights CONCLUSIONS: 01/19/25 echo 1. The left ventricular systolic function is low normal with a visually estimated ejection fractionof 55%. 2. No regional wall motion abnormalities. 3. Spectral Doppler shows a Grade II (pseudonormal pattern) of left ventricular diastolic filling with an elevated left atrial pressure. 4. Right ventricular volume and pressure overload. 5. There is severely reduced right ventricular systolic function. 6. The findings are consistent with pulmonary hypertension. 7. Severely enlarged right ventricle. 8. The left atrial size is moderately dilated. 9. The right atrial size is severely dilated. 10. Small pericardial effusion. 11. There is no evidence of mitral valve stenosis. 12. Moderate to severe mitral valve regurgitation. 13. Severe tricuspid regurgitation. 14. The Doppler estimated RVSP is within normal limits at 28 mmHg. 15. Aortic valve sclerosis. The peak and mean gradients are 9 mmHg and 4 mmHg respectively. 16. Mild to moderate aortic valve regurgitation. 17. The pulmonary artery is not well visualized. 18. The inferior vena cava appears severely dilated, IVC inspiratory collapse is absent. 19. Large patent foramen ovale. 20. A bubble study using agitated saline was performed. Bubble study is positive. A large PFO (>20 bubbles) was demonstrated. 07/26 stress test IMPRESSION: Negative Lexiscan Myoview cardiac perfusion stress test. No evidence of significant ischemia or myocardial infarction by perfusion imaging. Small predominantly fixed anterior apical perfusion defect only. Near normal left ventricular systolic function visually, LV ejection [id number]%. Probable LV function artificially lower % due to underlying atrial fibrillation. No significant change from previous study. Clinical correlation is advised.. VITALS: Vitals: 01/21/25 0717 01/21/25 0814 01/21/25 0833 01/21/25 0836 BP: 127/59 BP Location: Right arm Patient Position: Sitting Pulse: 74 Resp: 21 23 Temp: 36 ??C (96.8 ??F) TempSrc: Temporal SpO2: 90% 91% 96% 96% Weight: Height: Intake/Output Summary (Last 24 hours) at 01/21/2025 0857 Last data filed at 01/21/2025 0814 Gross per 24 hour Intake 710 ml Output 1050 ml Net -340 ml Wt Readings from Last 4 Encounters: 01/21/25 91.1 kg (200 lb 13.4 oz) 01/05/25 89.5 kg (197 lb 6.4 oz) 12/30/24 88.5 kg (195 lb) 12/10/24 85.4 kg (188 lb 3.2 oz) CURRENT HOSPITAL MEDICATIONS: Scheduled Medications[1] Continuous Medications[2] Current Outpatient Medications Medication Instructions amiodarone (PACERONE) 200 mg, oral, Daily, For 2 months after ablation then discontinue anastrozole (ARIMIDEX) 1 mg, Daily apixaban (ELIQUIS) 5 mg, oral, 2 times daily dapagliflozin propanediol (FARXIGA) 10 mg, oral, Every 24 hours losartan (COZAAR) 25 mg, oral, 2 times daily metoprolol succinate XL (TOPROL-XL) 25 mg, oral, Daily, Do not crush or chew. pantoprazole (PROTONIX) 40 mg, oral, 2 times daily before meals, For 6 weeks after ablation then stop taking potassium chloride CR (Klor-Con) 10 mEq ER tablet 10 mEq, oral, 2 times daily, Do not crush, chew, or split. torsemide (DEMADEX) 60 mg, oral, Daily PHYSICAL EXAMINATION: GENERAL APPEARANCE: Well developed, well nourished, in no acute distress. CHEST: Symmetric and non-tender. INTEGUMENT: Skin warm and dry, without gross excoriationis or lesions. HEENT: No gross abnormalities of conjunctiva, teeth, gums, oral mucosa NECK: Supple, no JVD, no bruit. Thyroid not palpable. Carotid upstrokes normal. NEURO/PSHCY: Alert and oriented x3; appropriate behavior and responses and responses, grossly normal cerebellar function with normal balance and coordination LUNGS: Diminished with scattered Rales HEART: S1, S2 regular with 1 out of 6 systolic murmur ABDOMEN: Soft, nontender, no palpable hepatosplenomegaly, no mases, no bruits. Abdominal aorta not noted to be enlarged. EXTREMITIES: Warm with good color, no clubbing or cyanois. 2+ edema PERIPHERAL VASCULAR: Pulses present and equally palpable; 1+ throughout. No femoral bruits. LAB DATA: CBC: Results from last 7 days Lab Units 01/21/2544601/20/25556 WBC AUTO x10*3/uL 5.6 6.3 RBC AUTO x10*6/uL 3.31* 3.39* HEMOGLOBIN g/dL 10.1* 10.4* HEMATOCRIT % 32.1* 33.4* MCV fL 97 99 MCH pg 30.5 30.7 MCHC g/dL 31.5* 31.1* RDW % 15.5* 15.5* PLATELETS AUTO x10*3/uL 72* 87* CMP: Results from last 7 days Lab Units 01/21/2544601/20/2555601/19/2553201/18/25 1651 SODIUM mmol/L 136 136 137 135* POTASSIUM mmol/L 3.6 4.0 4.0 3.7 CHLORIDE mmol/L 100 99 101 98 CO2 mmol/L 26 28 27 28 BUN mg/dL 46* 45* 34* 32* CREATININE mg/dL 2.14* 2.25* 1.56* 1.45* GLUCOSE mg/dL 95 95 118* 132* PROTEIN TOTAL g/dL -- -- -- 7.2 CALCIUM mg/dL 8.8 8.9 8.8 9.0 BILIRUBIN TOTAL mg/dL -- -- -- 2.0* ALK PHOS U/L -- -- -- 318* AST U/L -- -- -- 27 ALT U/L -- -- -- 17 BMP: Results from last 7 days Lab Units 01/21/2544601/20/2555601/19/25532 SODIUM mmol/L 136 136 137 POTASSIUM mmol/L 3.6 4.0 4.0 CHLORIDE mmol/L 100 99 101 CO2 mmol/L 26 28 27 BUN mg/dL 46* 45* 34* CREATININE mg/dL 2.14* 2.25* 1.56* CALCIUM mg/dL 8.8 8.9 8.8 GLUCOSE mg/dL 95 95 118* Magnesium: Results from last 7 days Lab Units 01/21/25 0447 01/20/25 0557 01/18/25 1651 MAGNESIUM mg/dL 2.13 2.21 2.17 Troponin: BNP: Results from last 7 days Lab Units 01/20/25 0557 BNP pg/mL 380* DIAGNOSTIC TESTING: CT chest wo IV contrast Final Result CT confirms perceived left perihilar mass from radiograph earlier today was an artifact due to a normal structures; specifically, the left lower lobe pulmonary artery branch point, probably more visible compared to the other side due to the differences in the chest wall (left mastectomy). No lung nodule or mass to workup or follow Moderate cardiomegaly with at least right atrial if not biatrial dilation At least moderate if not large pericardial effusion Small free-flowing bilateral pleural effusions with adjacent atelectasis No other acute disease in the chest, only some minimal atelectasis. No sign of active infection. No interstitial or alveolar edema. No pneumothorax or pneumomediastinum MACRO: None Signed by: Cory Carrero 01/19/2025 2:34 PM Dictation workstation: [id number] Transthoracic Echo Complete Final Result CONCLUSIONS: 1. The left ventricular systolic function is low normal with a visually estimated ejection fractionof 55%. 2. No regional wall motion abnormalities. 3. Spectral Doppler shows a Grade II (pseudonormal pattern) of left ventricular diastolic filling with an elevated left atrial pressure. 4. Right ventricular volume and pressure overload. 5. There is severely reduced right ventricular systolic function. 6. The findings are consistent with pulmonary hypertension. 7. Severely enlarged right ventricle. 8. The left atrial size is moderately dilated. 9. The right atrial size is severely dilated. 10. Small pericardial effusion. 11. There is no evidence of mitral valve stenosis. 12. Moderate to severe mitral valve regurgitation. 13. Severe tricuspid regurgitation. 14. The Doppler estimated RVSP is within normal limits at 28 mmHg. 15. Aortic valve sclerosis. The peak and mean gradients are 9 mmHg and 4 mmHg respectively. 16. Mild to moderate aortic valve regurgitation. 17. The pulmonary artery is not well visualized. 18. The inferior vena cava appears severely dilated, IVC inspiratory collapse is absent. 19. Large patent foramen ovale. 20. A bubble study using agitated saline was performed. Bubble study is positive. A large PFO (>20 bubbles) was demonstrated. XR chest 2 views Final Result Small loculated left pleural effusion with adjacent mild basilar atelectasis Follow with chest CT (with IV contrast if possible) to evaluate for possible left perihilar nodule or nodules MACRO: None Signed by: Cory Carrero 01/19/2025 8:57 AM Dictation workstation: [id number] Electrophysiology procedure Final Result Holter Or Event [employer] (Results Pending) XR chest 1 view (Results Pending) RADIOLOGY: CT chest wo IV contrast Final Result CT confirms perceived left perihilar mass from radiograph earlier today was an artifact due to a normal structures; specifically, the left lower lobe pulmonary artery branch point, probably more visible compared to the other side due to the differences in the chest wall (left mastectomy). No lung nodule or mass to workup or follow Moderate cardiomegaly with at least right atrial if not biatrial dilation At least moderate if not large pericardial effusion Small free-flowing bilateral pleural effusions with adjacent atelectasis No other acute disease in the chest, only some minimal atelectasis. No sign of active infection. No interstitial or alveolar edema. No pneumothorax or pneumomediastinum MACRO: None Signed by: Cory Carrero 01/19/2025 2:34 PM Dictation workstation: [id number] Transthoracic Echo Complete Final Result CONCLUSIONS: 1. The left ventricular systolic function is low normal with a visually estimated ejection fractionof 55%. 2. No regional wall motion abnormalities. 3. Spectral Doppler shows a Grade II (pseudonormal pattern) of left ventricular diastolic filling with an elevated left atrial pressure. 4. Right ventricular volume and pressure overload. 5. There is severely reduced right ventricular systolic function. 6. The findings are consistent with pulmonary hypertension. 7. Severely enlarged right ventricle. 8. The left atrial size is moderately dilated. 9. The right atrial size is severely dilated. 10. Small pericardial effusion. 11. There is no evidence of mitral valve stenosis. 12. Moderate to severe mitral valve regurgitation. 13. Severe tricuspid regurgitation. 14. The Doppler estimated RVSP is within normal limits at 28 mmHg. 15. Aortic valve sclerosis. The peak and mean gradients are 9 mmHg and 4 mmHg respectively. 16. Mild to moderate aortic valve regurgitation. 17. The pulmonary artery is not well visualized. 18. The inferior vena cava appears severely dilated, IVC inspiratory collapse is absent. 19. Large patent foramen ovale. 20. A bubble study using agitated saline was performed. Bubble study is positive. A large PFO (>20 bubbles) was demonstrated. XR chest 2 views Final Result Small loculated left pleural effusion with adjacent mild basilar atelectasis Follow with chest CT (with IV contrast if possible) to evaluate for possible left perihilar nodule or nodules MACRO: None Signed by: Cory Carrero 01/19/2025 8:57 AM Dictation workstation: [id number] Electrophysiology procedure Final Result Holter Or Event [employer] (Results Pending) XR chest 1 view (Results Pending) PROBLEM LIST Problem List[3] ASSESSMENT: PAF status post PVI and CTI pod 2 PAF currently normal sinus rhythm Acute on chronic diastolic heart failure NYHA class II EF 55% CKD stage III Hypertension Large PFO Severe tricuspid regurg Moderate to severe mitral regurg PLAN: Tele monitoring Serial enzymes 2d echo done EF 55% Daily EKG's Renal input thank you Albumin 25 g every 12 hours for 3 doses Lasix 20 mg IV push every 12 if okay with renal Amiodarone 200 mg daily Eliquis 5 mg p.o. twice daily Cozaar on hold due to CKD Toprol XL 25 mg daily Intake and output Daily weights Keep magnesium greater than 2.0 Ki Laura CNP [facility] Of note, this documentation is completed using the [email or web address] system (voice recognition software). There may be spelling and/or grammatical errors that were not corrected prior to final submission. I have personally interviewed and examined the patient. I have personally and independently reviewed labs and diagnostic testing. I have personally verified the elements of the history and physical listed above and changes, if any, are noted. I have personally reviewed the assessment and plan as documented by BHAVIN Valencia, KM and concur. In summary, Mrs. Carlos Escobar has a history of persistent symptomatic atrial fibrillation initially diagnosed earlier this year. No history of atherosclerotic heart or valvular heart disease. She has a history of severe sleep apnea for which she was recently started on CPAP. She has a history of breast carcinoma for she underwent radiation therapy and chemotherapy. A Lexiscan myocardial perfusion study July 2024 was negative for ischemia. Small fixed anteroapical perfusion defect. Calculated LV ejection fraction 43%. Underlying atrial fibrillation likely interfered with gating. She underwent cardioversion in [place] in August 2024. She had recurrent atrial fibrillation and wasinitiated on flecainide and subsequently underwent repeat cardioversion. While in atrial fibrillation the patient noted multiple symptoms including fatigue, palpitations, shortness of breath, abdominal bloating, edema, and weight gain. She was seen in follow-up by Dr. Balaji Arreola and referralwas made to Dr. Lashanda Azar. She was seen by him on November 03, 2024 and initiated on amiodarone. She had repeat cardioversion after 1 month of amiodarone loading, however, she developed recurrentatrial fibrillation associated with similar worsening symptoms. On January 18, 2025 she underwent C TI/PVI by Dr. Azar. Following the procedure the patient complained of shortness of breath and wasnoted to have some hypoxia. It was noted that her weight was increased approximately 12 pounds frombaseline. She was noted to have increased bilateral peripheral edema. She was initiated on intravenous diuretics and admitted to telemetry. She had approxi-1 L negative fluid balance. She was subsequently changed back to her home dose of Demadex 60 mg daily. This has since been changed to furosemide 20 mg IV twice daily. She was noted this morning to have a mild increase in her creatinine. Lab studies show a hemoglobin 10.4 with WBC 6.3. Normal basic metabolic profile with exception of BUN 45 and creatinine 2.25. Baseline creatinine approximately 1.4. Echocardiogram on January 20, 2025 showed normal LV function with estimated LV ejection recta 55%.Moderate left atrial enlargement. A large PFO was demonstrated. There is severe enlargement of the right ventricle and severely impaired RV systolic function. 2+ aortic regurgitation, 3+ mitral regurgitation, and 3-4+ tricuspid regurgitation. Estimated RVSP 28 mmHg. She currently is resting comfortably. She is lying nearly flat in bed. She notes she feels somewhatless short of breath. She currently has acute on chronic diastolic failure as well as right heart failure. Exacerbated by recent atrial fibrillation. Recent 12 pound weight gain. Agree with continuedIV diuretics. Await further nephrology recommendations. Consider eventual evaluation by the structural heart team in light of significant mitral and tricuspid regurgitation. Further recommendations to follow. 01/21/25 Tele monitoring Renal input thank you Amiodarone 200 mg daily Eliquis 5 mg p.o. twice daily Lasix 20 mg IV push every 12 Cozaar 25 mg p.o. twice daily currently on hold Toprol XL 25 mg daily Will plan for outpatient structural heart referral Ki Laura CNP [facility] Of note, this documentation is completed using the [email or web address] system (voice recognition software). There may be spelling and/or grammatical errors that were not corrected prior to final submission. Please do not hesitate to call with questions. [1] albumin human, 25 g, intravenous, q12h amiodarone, 200 mg, oral, Daily anastrozole, 1 mg, oral, Daily apixaban, 5 mg, oral, BID furosemide, 20 mg, intravenous, q12h hydrOXYzine HCL, 25 mg, oral, Once ipratropium-albuteroL, 3 mL, nebulization, TID LORazepam, 0.5 mg, oral, Once [Held by provider] losartan, 25 mg, oral, BID metoprolol succinate XL, 25 mg, oral, Daily pantoprazole, 40 mg, oral, BID AC polyethylene glycol, 17 g, oral, BID sennosides-docusate sodium, 1 tablet, oral, Nightly [2] [3] Patient Active Problem List Diagnosis Never smoked cigarettes BMI 33.0-33.9,adult Hospital discharge follow-up Atrial fibrillation (Multi) care home current use of anticoagulant therapy LVH (left ventricular hypertrophy) Hyperlipidemia Irritable bowel syndrome History of malignant neoplasm of breast Anemia associated with nutritional deficiency Family history of ischemic heart disease Nonrheumatic tricuspid valve regurgitation Abnormal EKG Hyperglycemia Snoring Other fatigue Mitral valve regurgitation Tachycardia Abnormal cardiovascular function study Daytime somnolence High risk medication use SOB (shortness of breath) Edema, unspecified Essential (primary) hypertension Obstructive sleep apnea Incomplete RBBB Nonrheumatic aortic (valve) insufficiency Volume overload Paroxysmal atrial fibrillation (Multi) Persistent atrial fibrillation (Multi) * Kehinde Eli DO - 01/20/2025 6:17 PM EST Images from the original note were not included. Medical Group Progress Note ASSESSMENT & PLAN: Carlos Escobar is a 79 y.o. female admitted to [facility] for management of: HFmrEF Atrial Fibrillation pHTN, right heart failure Severe MV + Tricuspid valve regurgitation Large PFO Acute hypoxic respiratory failure / above Plan: - Currently on 5L o2, wean as tolerated, prn and scheduled Duonebs ordered - TTE 01/19/25 revealed low normal LV systolic function, EF 50-55%. Right ventricular volume & pressure overload,severely reduced RV systolic function, severely enlarged RV, bilateral atrial dilation, positive bubble study - CT chest due to concern for left perihilar mass on CXR, CT confirmed this was an artifact. Moderate cardiomegaly, moderate to large pericardial effusion - Continue Toprolol-XL, amiodarone - EP team following Acute Renal Failure: Etiology of ARF is likely prerenal azotemia, as evidenced by diuretic use.. Plan: - Avoid NSAIDS/nephrotoxic agents and renally dose medications - Monitor Ins/Outs, volume status, and electrolytes - sCr 2.25, baseline ~ 0.8 (05/01/23) - Nephrology following, losartan held. IV Lasix 20 mg q12h continued Chronic Medical Conditions Breast cancer s/p radiation & chemotherapy, WIL, HLD, GERD - Resume home medications VTE Prophylaxis: Eliquis Disposition: ADOD 2-3 days Level of MDM: High Risk: High Data Reviewed and/or Analyzed: Included: Prior external notes from at least 1 unique source, Results, including laboratory findings and imaging reports, listed above, Orders and notes from all consultants involved, and Notes for this encounter. I personally reviewed the tests referenced above. The patient/family had opportunity to ask questions. All questions were answered to the best of my ability. Kehinde Eli DO Hospital Medicine SUBJECTIVE Patient continues to feel short of breath. OBJECTIVE: Last Recorded Vitals: Vitals: 01/20/25 0809 01/20/25 1106 01/20/25 1329 01/20/25 1514 BP: 119/59 98/53 (!) 92/47 BP Location: Right arm Left arm Patient Position: Lying Lying Pulse: 61 56 58 Resp: 18 18 Temp: 36.3 ??C (97.3 ??F) 36.1 ??C (97 ??F) 37 ??C (98.6 ??F) TempSrc: Temporal Temporal SpO2: (!) 84% (!) 89% 90% 90% Weight: Height: Last I/O: I/O last 3 completed shifts: In: 590 (6.7 mL/kg) [P.O.:590] Out: 1380 (15.6 mL/kg) [Urine:1380 (0.4 mL/kg/hr)] Weight: 88.6 kg Physical Exam Vitals and nursing note reviewed. Constitutional: General: She is not in acute distress. HENT: Mouth/Throat: Mouth: Mucous membranes are moist. Eyes: Extraocular Movements: Extraocular movements intact. Conjunctiva/sclera: Conjunctivae normal. Cardiovascular: Rate and Rhythm: Normal rate. Rhythm irregular. Pulses: Normal pulses. Heart sounds: Normal heart sounds. Pulmonary: Effort: Pulmonary effort is normal. No tachypnea, accessory muscle usage, prolonged expiration or respiratory distress. Breath sounds: Normal breath sounds. Comments: On 5L Abdominal: General: Abdomen is flat. Bowel sounds are normal. Palpations: Abdomen is soft. Musculoskeletal: Right lower leg: Edema present. Left lower leg: Edema present. Skin: General: Skin is warm. Neurological: General: No focal deficit present. Mental Status: She is alert and oriented to person, place, and time. Mental status is at baseline. Psychiatric: Mood and Affect: Mood normal. Inpatient Medications: Scheduled Medications[1]PRN Medications PRN Medications[2] Continuous Medications: Continuous Medications[3] LABS AND IMAGING: Labs: Results from last 7 days Lab Units 01/20/25 0557 WBC AUTO x10*3/uL 6.3 RBC AUTO x10*6/uL 3.39* HEMOGLOBIN g/dL 10.4* HEMATOCRIT % 33.4* MCV fL 99 MCH pg 30.7 MCHC g/dL 31.1* RDW % 15.5* PLATELETS AUTO x10*3/uL 87* Results from last 7 days Lab Units 01/20/25 0557 01/19/25 0533 01/18/25 1651 SODIUM mmol/L 136 137 135* POTASSIUM mmol/L 4.0 4.0 3.7 CHLORIDE mmol/L 99 101 98 CO2 mmol/L 28 27 28 BUN mg/dL 45* 34* 32* CREATININE mg/dL 2.25* 1.56* 1.45* GLUCOSE mg/dL 95 118* 132* PROTEIN TOTAL g/dL -- -- 7.2 CALCIUM mg/dL 8.9 8.8 9.0 BILIRUBIN TOTAL mg/dL -- -- 2.0* ALK PHOS U/L -- -- 318* AST U/L -- -- 27 ALT U/L -- -- 17 Results from last 7 days Lab Units 01/20/25 0557 01/18/25 1651 MAGNESIUM mg/dL 2.21 2.17 Imaging: Electrocardiogram - Post Ablation Sinus bradycardia with Premature supraventricular complexes Possible Right ventricular hypertrophy Nonspecific ST and T wave abnormality Prolonged QT Abnormal ECG When compared with ECG of 18-JAN-2025 06:40, (unconfirmed) Sinus rhythm has replaced Atrial fibrillation Nonspecific T wave abnormality, improved in Inferior leads Confirmed by Geoff Elliott ([id number]) on 01/20/2025 3:30:46 PM ECG 12 lead STAT Atrial fibrillation Rightward axis Low voltage QRS Nonspecific ST and T wave abnormality Abnormal ECG When compared with ECG of 23-NOV-2024 15:30, Atrial fibrillation has replaced Sinus rhythm QRS axis Shifted left Borderline criteria for Inferior infarct are no longer Present Nonspecific T wave abnormality, worse in Lateral leads Confirmed by Geoff Elliott ([id number]) on 01/20/2025 3:25:39 PM ECG 12 Lead Sinus bradycardia with Premature atrial complexes Rightward axis Nonspecific ST and T wave abnormality Abnormal ECG When compared with ECG of 18-JAN-2025 11:44, (unconfirmed) Nonspecific T wave abnormality, worse in Inferior leads Nonspecific T wave abnormality has replaced inverted T waves in Lateral leads QT has shortened Confirmed by Geoff Elliott ([id number]) on 01/20/2025 3:21:41 PM [1] albumin human, 25 g, intravenous, q12h amiodarone, 200 mg, oral, Daily anastrozole, 1 mg, oral, Daily apixaban, 5 mg, oral, BID furosemide, 20 mg, intravenous, q12h hydrOXYzine HCL, 25 mg, oral, Once ipratropium-albuteroL, 3 mL, nebulization, TID LORazepam, 0.5 mg, oral, Once [Held by provider] losartan, 25 mg, oral, BID metoprolol succinate XL, 25 mg, oral, Daily pantoprazole, 40 mg, oral, BID AC polyethylene glycol, 17 g, oral, BID sennosides-docusate sodium, 1 tablet, oral, Nightly [2] PRN medications: acetaminophen, benzocaine-menthol, ipratropium-albuteroL, ondansetron OR ondansetron, oxygen [3] * CHANEL Cameron - 01/20/2025 2:50 PM EST [facility]iology [facility] Date of : 1945 Acct: [id number] Admitting Diagnosis: Persistent atrial fibrillation (Multi) [I48.19] Paroxysmal atrial fibrillation (Multi) [I48.0] Date: 01/18/2025 Hospital Day: 1 Attending: Kehinde Eli DO Rounding DIANA/Supply Chain Program Manager: CHANEL Cameron, Primary Supply Chain Program Manager: Dr Azar Complaint: No chief complaint on file. SUBJECTIVE Patient sitting up in chair. Still with c/o shortness of breath Telemetry shows SB/SR with HR 50-60's VITALS Visit Vitals BP 98/53 (BP Location: Left arm, Patient Position: Lying) Pulse 56 Temp 36.1 ??C (97 ??F) (Temporal) Resp 18 I/O: Intake/Output Summary (Last 24 hours) at 01/20/2025 1450 Last data filed at 01/20/2025 0809 Gross per 24 hour Intake 490 ml Output 780 ml Net -290 ml Allergies: RX Allergies[1] PHYSICAL EXAM Physical Exam Constitutional: Appearance: Normal appearance. HENT: Head: Normocephalic. Eyes: Conjunctiva/sclera: Conjunctivae normal. Cardiovascular: Rate and Rhythm: Normal rate and regular rhythm. Pulses: Normal pulses. Heart sounds: Normal heart sounds. Pulmonary: Effort: Pulmonary effort is normal. Breath sounds: Normal breath sounds. Musculoskeletal: General: Normal range of motion. Right lower leg: Edema present. Left lower leg: Edema present. Skin: General: Skin is warm and dry. Neurological: General: No focal deficit present. Mental Status: She is alert and oriented to person, place, and time. Psychiatric: Mood and Affect: Mood normal. Behavior: Behavior normal. LABS Results for orders placed or performed during the hospital encounter of 01/18/25 (from the past 24 hours) CBC Result Value Ref Range WBC 6.3 4.4 - 11.3 x10*3/uL nRBC 0.0 0.0 - 0.0 /100 WBCs RBC 3.39 (L) 4.00 - 5.20 x10*6/uL Hemoglobin 10.4 (L) 12.0 - 16.0 g/dL Hematocrit 33.4 (L) 36.0 - 46.0 % MCV 99 80 - 100 fL MCH 30.7 26.0 - 34.0 pg MCHC 31.1 (L) 32.0 - 36.0 g/dL RDW 15.5 (H) 11.5 - 14.5 % Platelets 87 (L) 150 - 450 x10*3/uL Renal Function Panel Result Value Ref Range Glucose 95 74 - 99 mg/dL Sodium 136 136 - 145 mmol/L Potassium 4.0 3.5 - 5.3 mmol/L Chloride 99 98 - 107 mmol/L Bicarbonate 28 21 - 32 mmol/L Anion Gap 13 10 - 20 mmol/L Urea Nitrogen 45 (H) 6 - 23 mg/dL Creatinine 2.25 (H) 0.50 - 1.05 mg/dL eGFR 21 (L) >60 mL/min/1.73m*2 Calcium 8.9 8.6 - 10.3 mg/dL Phosphorus 4.1 2.5 - 4.9 mg/dL Albumin 3.4 3.4 - 5.0 g/dL Magnesium Result Value Ref Range Magnesium 2.21 1.60 - 2.40 mg/dL B-type natriuretic peptide Result Value Ref Range BNP 380 (H) 0 - 99 pg/mL ECG 12 Lead Result Value Ref Range Ventricular Rate 59 BPM Atrial Rate 59 BPM NV Interval 168 ms QRS Duration 96 ms QT Interval 208 ms QTC Calculation(Bazett) 205 ms P Jadwin 54 degrees R Jadwin 92 degrees T Jadwin 0 degrees QRS Count 10 beats Q Onset 222 ms P Onset 138 ms P Offset 200 ms T Offset 326 ms QTC Fredericia 206 ms Scheduled medications Scheduled Medications[2] Continuous medications Continuous Medications[3] PRN medications PRN Medications[4] Imaging Transthoracic Echo Complete Result Date: 01/19/2025 CONCLUSIONS: 1. The left ventricular systolic function is low normal with a visually estimated ejection fraction of 55%. 2. No regional wall motion abnormalities. 3. Spectral Doppler shows a Grade II(pseudonormal pattern) of left ventricular diastolic filling with an elevated left atrial pressure.4. Right ventricular volume and pressure overload. 5. There is severely reduced right ventricular systolic function. 6. The findings are consistent with pulmonary hypertension. 7. Severely enlarged right ventricle. 8. The left atrial size is moderately dilated. 9. The right atrial size is severely dilated. 10. Small pericardial effusion. 11. There is no evidence of mitral valve stenosis. 12. Moderate to severe mitral valve regurgitation. 13. Severe tricuspid regurgitation. 14. The Doppler estimated RVSP is within normal limits at 28 mmHg. 15. Aortic valve sclerosis. The peak and mean gradients are 9 mmHg and 4 mmHg respectively. 16. Mild to moderate aortic valve regurgitation. 17. The pulmonary artery is not well visualized. 18. The inferior vena cava appears severely dilated, IVC inspiratory collapse is absent. 19. Large patent foramen ovale. 20. A bubble study using agitated saline was performed. Bubble study is positive. A large PFO (> 20 bubbles) was demonstrated. CT chest wo IV contrast Result Date: 01/19/2025 CT confirms perceived left perihilar mass from radiograph earlier today was an artifact due to a normal structures; specifically, the left lower lobe pulmonary artery branch point, probably more visible compared to the other side due to the differences in the chest wall (left mastectomy). No lung nodule or mass to workup or follow Moderate cardiomegaly with at least right atrial if not biatrial dilation At least moderate if not large pericardial effusion Small free-flowing bilateral pleural effusions with adjacent atelectasis No other acute disease in the chest, only some minimal atelectasis.No sign of active infection. No interstitial or alveolar edema. No pneumothorax or pneumomediastinum MACRO: None Signed by: Cory Carrero 01/19/2025 2:34 PM Dictation workstation: [id number] XR chest 2 views Result Date: 01/19/2025 Small loculated left pleural effusion with adjacent mild basilar atelectasis Follow with chest CT (with IV contrast if possible) to evaluate for possible left perihilar nodule or nodules MACRO: None Signed by: Cory Carrero 01/19/2025 8:57 AM Dictation workstation: [id number] Electrophysiology procedure Addendum Date: 01/18/2025 Successful pulmonary vein isolation by radiofrequency ablation with demonstrated entrance block andexit block. Successful cavotricuspid isthmus ablation (aka CTI line) via RF ablation with block across the CTI. Successful DCCV back to NSR Persistent Atrial Fibrillation Ablation Procedures Pulmonary Vein Isolation (57805), LA Pacing and recording (79578), 3D Mapping (56405), Transeptal Catheterization (61118), His Bundle Recording (98559), Ultrasound Guided vascular access (08288), IntracardiacEchocardiogram (38168), Additional SVT Ablation (88080) and Direct current cardioversion (18297) Patient history: Please see attached H&P Procedure narrative: The risks, benefits, and alternatives to the procedure were explained to the patient and informed consent was obtained. After informed written consent was obtained the patient was transported to the electrophysiology laboratory in the post absorptive, non- sedated state. The team verification process was completed prior to the start of the procedure. Written consent and a completed procedural sedation form were confirmed. Allergies/Adverse reactions were noted and patient teaching was performed. The patient was positioned on table and bilateral arm supports with soft cushions and all pressure points were padded. A large diameter grounding pad was applied to the patient's thigh. ECG electrodes and a set of hands-free defibrillator pads were applied to the patient. A MCL/12 lead ECG was continuously monitored throughout the procedure. Noninvasive blood pressure, oxygen saturation, and capnography were monitored throughout theprocedure. Supplemental oxygen was delivered via nasal cannula or facemask. General anesthesia was administered throughout the procedure by our staff anesthesiology service. Please see their notations for intubation and sedation. Throughout the procedure the patient's comfort (pain scale) and levelof sedation (sedation scale) were noted every 5 minutes. VENOUS ACCESS: After general anesthesia, fe moral access was achieved utilizing the Seldinger technique with a cook needle under ultrasound guidance. One 8 FR sheath and one 9Fr sheath were placed in the right femoral veins. Via the right femoral vein 9Fr short sheath an ICE catheter was advanced into the mid RA for continuous ultrasound guidance and into the RVOT to evaluate for an effusion (upimm-ps-fwetoify circumferential effusion). After access was obtained, a bolus injection of weight based heparin 150 units/kg was administered. The Activated Clotting Time maintained between 350-400 secs with additional boluses q 30 minutes as necessary. TRANSSEPTAL ACCESS: A transseptal atrial puncture was performed using intracardiac ultrasoun d guidance. A long J-tip wire was passed through the superior right femoral vein 8 Fr sheath into the SVC, the 8Fr sheath was subsequently removed. A Vizigo sheath was advanced over wire into the SVC. The wire was removed and the BRK needle was advanced into the sheath. The Vizigo with the BRK needle were dragged from the SVC along the septum until engagement of the Fossa Ovalis was confirmed by interatrial tenting seen under intracardiac ultrasound guidance. The BRK needle was advanced into the left atrium the needle position confirmed with ICE. A SafeSept wire was advanced into the LSPV. The sheath with dilator were advanced carefully over the needle into the body of the left atrium. Once the Vizigo sheath was confirmed in the left atrium via intracardiac ultrasound, the wire and dilator were removed. The sheath was attached to pressure tubing and a 25cc/hr drip of heparinized saline maintained. The ICE catheter was exchanged for a decapolar CS catheter if needed for pacing during the case. MAPPING: Prior to transseptal, a right atrial shell was reconstructed using ablation catheter FAM. The His, phrenic nerve, and CS were identified using the ablation catheter on FAM. The ICE catheter was advanced into the RVOT. The epicardial space of the heart, including around the RV and LV, was evaluated and no effusion was noted. After transseptal access, an Octaray catheter was advanced into the left atrium through the Vizigo sheath. Patient was cardioverted to NSR with a 360J synchronized shock. A 3-D shell representing the left atrium and pulmonary veins was constructed by use of the [employer] Sound mapping system and catheter manipulation in the LA. The electroanatomic map revealed predominantly normal voltage indicating normal healthy myocardium in the left atrium. The mappingsystem was utilized to facilitate fluoroless manipulation of all catheters. PULMONARY VEIN ISOLATION: Left atrial ablation was performed in the pulmonary vein antrum to encircle the right and left sided PVs. Wide area encirclement was performed. After the PVI ablation was completed, both pulmonary veins were assessed for block with the ablation catheter. Both right and left pulmonary veins were found to have entrance and exit block. Radiofrequency energy was applied with maximal power of 50W and target force of 10 grams or greater. Over the posterior wall radiofrequency energy was applied with maximal power of 50W with target force of 10 grams. Ablation was continued until a CARTO SurePointindex between 400-500 was achieved. Along the posterior wall a Carto SurePoint index between 300-350 was targeted. Esophageal temperature probe was taped to a quad catheter (4Fr [employer]) so it could be visualized on CARTO, and it was maintained as close as possible to the lesion sites on the posterior wall and RF was terminated for any temperature rise greater than 1??C. Baseline temperature was 36.4C at the start of the case and increased to a peak temperature of 37.7C . In addition, phrenicnerve location (using high output pacing) was tagged and localized on Carto over the right and leftatrium (RSPV). No ablation was performed at the vicinity of the phrenic nerve. First pass isolationwas achieved in both sets of veins. Both entrance and exit block were demonstrated in the PV's. PROVOCATION POST-PULMONARY VEIN ISOLATION: After re-confirming entrance and exit block from both pulmonary veins, rapid atrial pacing was performed from the left atrial posterior wall. No sustained atrial arrhythmia was induced. CAVOTRICUSPID ISTHMUS ABLATION: The ablation catheter and Vizigo sheath were pulled back into the right atrium. Using the Carto Mapping System the cavotricsupid isthmus (CTI)was identified and a line of RF lesions were placed from the earliest atrial signal on the tricuspid annulus to the inferior vena cava. Radiofrequency energy was applied with target power of up to 40W as well as a contact force > 10 grams if possible. Local sites were targeted until the local electrograms displayed morphology characteristics of a transmural lesion and were associated with a 10 ohms or more impedance decrease. Bidirectional block across the CTI was proven through differential pacing between proximal CS and the mapping catheter, which was lateral to CTI line. Differential pacing between the proximal CS to the mapping catheter, placed on the RA lateral wall, showed a shorter stim to mapping catheter time than at the CTI line. Pacing from the ablation catheter showed longer conduction times to the proximal CS close to the CTI than the lateral RA wall, further illustrating block across the CTI. POST-ABLATION: The ICE catheter was maneuvered into the RVOT. The epicardial space of the heart, including around the RV and LV, was evaluated and a stable [id number]-ip-[id number] ci rcumferential effusion was visualized. Sheaths were removed and hemostasis was obtained at the right femoral venous access sites with Perclose. Five minutes of manual compression was applied to maintain hemostasis. Complications: No complications occurred Summary: - Successful pulmonary vein isolation by radiofrequency ablation with demonstrated entrance block and exit block. - Successful cavotricuspid isthmus ablation (aka CTI line) via RF ablation with block across the CTI. - Successful DCCV back to NSR Discharge: The patient left the EP laboratory in stable condition. If pt doing well, groin access sites without issues pt can be discharged later today Follow up: Resume AC Apixaban 5mg BID, Please DO NOT hold blood thinner unless emergency without asking your doctor. PPI BID x 6 weeks Bedrest for 2 hours post sheath removal No driving, alcohol or making legal decisions for 24 hours. Remove band-aid/tegaderm in 1 day. No heavy lifting, strenuous exercise for 1 week Please call our office if you notice any groin discharge or swelling or fever. For cardiology electrophysiology emergencies (such as severe heart racing, bleeding, severe groin pain/swelling, high fever, wound discharge, stroke symptoms, or recent severe chest pain) call the office See complete procedural log and parameters. ATTESTATION As the responsible attending physician, I was present and directly participating in all critical portions of the procedure and immediately available during the non-critical portions. Cardiology, Vascular, and Other Imaging ECG 12 Lead Result Date: 01/20/2025 Sinus bradycardia with Premature atrial complexes Rightward axis Nonspecific ST and T wave abnormality Abnormal ECG When compared with ECG of 18-JAN-2025 11:44, (unconfirmed) Nonspecific T wave abnormality, worse in Inferior leads Nonspecific T wave abnormality has replaced inverted T waves in Lateral leads QT has shortened Transthoracic Echo Complete Result Date: 01/19/2025 [place] [address] TRANSTHORACIC ECHOCARDIOGRAM REPORT Patient Name: CARLOS ESCOBAR Reading Physician: [id number] Geoff Elliott DO Study Date: 01/19/2025 Ordering Provider: [id number] LYNN MRN/PID: [id number] Fellow: Nurse: Date of /Age: 7 1945 Case Assembler: Asia hillman GAVI Gender Assigned at F Additional Staff: : Height: 157.48 cm Admit Date: 01/18/2025 Weight: 88.45 kg Admission Status: Inpatient - Routine BSA / BMI: 1.89 m2 / 35.67 Department Location: [place] [address] Echo Lab Blood Pressure: 100 /52 mmHg Study Type: TRANSTHORACIC ECHO (TTE) COMPLETE Diagnosis /ICD: Shortness of breath-R06.02; Other fluid overload-E87.79 Indication: Shortness of Breath, Fluid Overload CPT Codes: Echo Complete w Full Doppler- 00428 Patient History: Pertinent History: Cardiomyopathy and Lung Nodule, A.Fib, Heart Failure - unspecified, Dyspnea, LE Edema. Study Detail: The following Echo studies were performed: 2D, M-Mode, Doppler and color flow. Technically challenging study due to patient lying in supine position. Agitated saline used as a contrast agent for intraseptalflow evaluation. PHYSICIAN INTERPRETATION: Left Ventricle: The left ventricular systolic function is low normal with a visually estimated ejection fraction of 55%. There are no regional wall motion abnormalities. The left ventricular cavity size is normal. There is normal septal and mildly increased posterior left ventricular wall thickness. The interventricular septum is flattened in systole anddiastole, consistent with right ventricular pressure and volume overload. Spectral Doppler shows a Grade II (pseudonormal pattern) of left ventricular diastolic filling with an elevated left atrial pressure. Left Atrium: The left atrial size is moderately dilated. There is a large patent foramen ovale. The patent foramen ovale was visualized using color doppler and agitated saline contrast. A bubble study using agitated saline was performed. Bubble study is positive. A large PFO (> 20 bubbles) was demonstrated. Right Ventricle: The right ventricle is severely enlarged. There is severely reduced right ventricular systolic function. The findings are consistent with pulmonary hypertension. Right Atrium: The right atrial size is severely dilated. Aortic Valve: The aortic valve is trileaflet. The aortic valve area by VTI is 1.86 cm? with a peak velocity of 1.49 m/s. The peak and mean gradients are 9 mmHg and 4 mmHg, respectively, with a dimensionless index of 0.59. There is mild to moderate aortic valve cusp calcification. There is evidence of mildly elevated transaortic gradients consistent with sclerosis of the aortic valve. There is mild to moderate aortic valve regurgitation.Mitral Valve: The mitral valve is normal in structure. There is no evidence of mitral valve stenosis. There is mild mitral annular calcification. There is moderate to severe mitral valve regurgitation. The E Vmax is 0.80 m/s. The mitral regurgitant orifice area is 31 mm2. The mitral regurgitant volume is 43.01 ml. Tricuspid Valve: The tricuspid valve is abnormal. There is severe tricuspid regurgitation. The Doppler estimated right ventricular systolic pressure (RVSP) is within normal limits at 28 mmHg. Pulmonic Valve: The pulmonic valve is not well visualized. There is no indication of pulmonic valve regurgitation. Pericardium: Small pericardial effusion. The effusion is circumferential. Aorta: The aortic root is normal. Pulmonary Artery: The pulmonary artery is not well visualized. Systemic Veins: The inferior vena cava appears severely dilated, IVC inspiratory collapse is absent. In comparison to the previous echocardiogram(s): There are no prior studies on this patient for comparison purposes. CONCLUSIONS: 1. The left ventricular systolic function is low normal with a visually estimated ejection fraction of 55%. 2. No regional wall motion abnormalities. 3. Spectral Doppler shows a Grade II (pseudonormal pattern) of left ventricular diastolic filling with an elevated left atrial pressure. 4. Right ventricular volume and pressure overload. 5. There is severely reduced right ventricular systolic function. 6. The findings are consistent with pulmonary hypertension. 7. Severely enlarged right ventricle. 8. The left atrial size is moderately dilated. 9. The right atrial sizeis severely dilated. 10. Small pericardial effusion. 11. There is no evidence of mitral valve stenosis. 12. Moderate to severe mitral valve regurgitation. 13. Severe tricuspid regurgitation. 14. The Doppler estimated RVSP is within normal limits at 28 mmHg. 15. Aortic valve sclerosis. The peak and mean gradients are 9 mmHg and 4 mmHg respectively. 16. Mild to moderate aortic valve regurgitation. 17. The pulmonary artery is not well visualized. 18. The inferior vena cava appears severely dilated, IVC inspiratory collapse is absent. 19. Large patent foramen ovale. 20. A bubble study using agitated saline was performed. Bubble study is positive. A large PFO (> 20 bubbles) was demonstrated. QUANTITATIVE DATA SUMMARY: 2D MEASUREMENTS: Normal Ranges: Ao Root d: 2.60 cm (2.0-3.7cm) LAs: 4.80 cm (2.7-4.0cm) IVSd: 0.90 cm (0.6-1.1cm) LVPWd: 1.00 cm (0.6-1.1cm) LVIDd: 4.80 cm (3.9-5.9cm) LVIDs: 2.80 cm LV Mass Index: 84.0 g/m2 LVEDV Index: 38.16 ml/m2 LV % FS 41.7 % AORTA MEASUREMENTS: Normal Ranges: Asc Ao, d: 3.10 cm (2.1- 3.4cm) LV SYSTOLIC FUNCTION: Normal Ranges: EF-A4C View: 59 % (>=55%) EF-A2C View: 63 % EF-Biplane: 61 % EF-Visual: 55 % LV EF Reported: 55 % LV DIASTOLIC FUNCTION: Normal Ranges: MV Peak E: 0.80 m/s (0.7-1.2 m/s) MV Peak A: 0.37 m/s (0.42-0.7 m/s) E/A Ratio: 2.17 (1.0-2.2) MV e' 0.116 m/s (>8.0) MV lateral e' 0.16 m/s MV medial e' 0.08 m/s E/e' Ratio: 6.85 (<8.0) MITRAL VALVE: Normal Ranges: MV DT: 222 msec (150-240msec) MITRAL INSUFFICIENCY: Normal Ranges: PISA Radius: 0.8 cm MR VTI: 140.00 cm MR Vmax: 459.00 cm/s MR Alias Pollo: 39.9 cm/s MR Volume: 43.01 ml MR Flow Rt: 141.02 ml/s MR EROA: 31 mm2 AORTIC VALVE: Normal Ranges: AoV Vmax: 1.49 m/s (<=1.7m/s) AoV Peak P.9 mmHg (<20mmHg) AoV Mean P.0 mmHg (1.7-11.5mmHg) LVOT Max Pollo: 0.85 m/s (<=1.1m/s) AoV VTI: 27.30 cm (18-25cm) LVOT VTI: 16.20 cm LVOT Diameter: 2.00 cm (1.8-2.4cm) AoV Area, VTI: 1.86 cm2 (2.5-5.5cm2) AoV Area,Vmax: 1.79 cm2 (2.5-4.5cm2) AoV Dimensionless Index:0.59 AORTIC INSUFFICIENCY: AI Vmax: 3.48 m/s AI Half-time: 524 msec AI Decel Rate: 195.00 cm/s2 RIGHT VENTRICLE: RV Basal 4.50 cm RV Mid 3.40 cm RV Major 5.1 cm TAPSE: 11.9 mm RV s' 0.08 m/s TRICUSPID VALVE/RVSP: Normal Ranges: Peak TR Velocity: 1.81 m/s Est. RA Pressure: 15 mmHg RV Syst Pressure: 28 mmHg (< 30mmHg) IVC Diam: 3.70 cm PULMONIC VALVE: Normal Ranges: PV Accel Time: 151 msec (>120ms) PV Max Pollo: 0.7 m/s (0.6-0.9m/s) PV Max P.9 mmHg Latha Elliott DO Electronically signed on 01/19/2025 at 2:38:31 PM Final CONCLUSIONS: 1. The left ventricular systolic function is low normal with a visually estimated ejection fraction of 55%. 2. No regional wall motion abnormalities. 3. Spectral Doppler shows a Grade II(pseudonormal pattern) of left ventricular diastolic filling with an elevated left atrial pressure.4. Right ventricular volume and pressure overload. 5. There is severely reduced right ventricular systolic function. 6. The findings are consistent with pulmonary hypertension. 7. Severely enlarged right ventricle. 8. The left atrial size is moderately dilated. 9. The right atrial size is severely dilated. 10. Small pericardial effusion. 11. There is no evidence of mitral valve stenosis. 12. Moderate to severe mitral valve regurgitation. 13. Severe tricuspid regurgitation. 14. The Doppler estimated RVSP is within normal limits at 28 mmHg. 15. Aortic valve sclerosis. The peak and mean gradients are 9 mmHg and 4 mmHg respectively. 16. Mild to moderate aortic valve regurgitation. 17. The pulmonary artery is not well visualized. 18. The inferior vena cava appears severely dilated, IVC inspiratory collapse is absent. 19. Large patent foramen ovale. 20. A bubble study using agitated saline was performed. Bubble study is positive. A large PFO (> 20 bubbles) was demonstrated. Electrocardiogram - Post Ablation Result Date: 01/18/2025 Sinus bradycardia with Premature supraventricular complexes Possible Right ventricular hypertrophy Nonspecific ST and T wave abnormality Prolonged QT Abnormal ECG When compared with ECG of 18-JAN-2025 06:40, (unconfirmed) Sinus rhythm has replaced Atrial fibrillation Nonspecific T wave abnormality,improved in Inferior leads ECG 12 lead STAT Result Date: 01/18/2025 Atrial fibrillation Rightward axis Low voltage QRS Nonspecific ST and T wave abnormality Abnormal ECG When compared with ECG of 23-NOV-2024 15:30, Atrial fibrillation has replaced Sinus rhythm QRS axis Shifted left Borderline criteria for Inferior infarct are no longer Present Nonspecific T wave abnormality, worse in Lateral leads Encounter Date: 01/18/25 ECG 12 Lead Result Value Ventricular Rate 59 Atrial Rate 59 NV Interval 168 QRS Duration 96 QT Interval 208 QTC Calculation(Bazett) 205 P Jadwin 54 R Jadwin 92 T Jadwin 0 QRS Count 10 Q Onset 222 P Onset 138 P Offset 200 T Offset 326 QTC Fredericia 206 Narrative Sinus bradycardia with Premature atrial complexes Rightward axis Nonspecific ST and T wave abnormality Abnormal ECG When compared with ECG of 18-JAN-2025 11:44, (unconfirmed) Nonspecific T wave abnormality, worse in Inferior leads Nonspecific T wave abnormality has replaced inverted T waves in Lateral leads QT has shortened Tele Monitoring: Sinus bradycardia/sinus rhythm with heart rate 50s to 60s Assessment Problem List[5] Clinical impression: Clinical impression: 1. Shortness of breath with hypoxemia 2. Acute on chronic diastolic heart failure 3. Paroxysmal atrial fibrillation s/p PVI and CTI 4. LVEF 55% by echocardiogram 01/19/2025 5. Biatrial enlargement, RV volume and pressure overload, severely reduced RV systolic function, severely enlarged RV, moderate to severe MR, severe TR, mild to moderate AR, large patent foramen ovale, pulmonary artery hypertension and small pericardial effusion per echocardiogram performed 01/19/2025 6. Negative Lexiscan Myoview stress test with no ischemia 07/23/2024 7. Obesity type II 8. ANATOLY 9. History of breast cancer with left breast mastectomy and right breast lumpectomy and ductal carcinoma -as seen on chest x-ray and left lung was noted to be artifact on CT scan of the chest Plan: Discussed with Dr. Azar Will consult general cardiology regarding abnormal echocardiogram results with severe TR and right ventricular volume overload, large patent foramen ovale - appreciate input Continue metoprolol and amiodarone as ordered Outpatient follow up with EP as scheduled. Call if any further EP issues. [1] No Known Allergies [2] albumin human, 25 g, intravenous, q12h amiodarone, 200 mg, oral, Daily anastrozole, 1 mg, oral, Daily apixaban, 5 mg, oral, BID furosemide, 20 mg, intravenous, q12h hydrOXYzine HCL, 25 mg, oral, Once ipratropium-albuteroL, 3 mL, nebulization, TID LORazepam, 0.5 mg, oral, Once [Held by provider] losartan, 25 mg, oral, BID metoprolol succinate XL, 25 mg, oral, Daily pantoprazole, 40 mg, oral, BID AC polyethylene glycol, 17 g, oral, BID sennosides-docusate sodium, 1 tablet, oral, Nightly [3] [4] PRN medications: acetaminophen, benzocaine-menthol, ipratropium-albuteroL, ondansetron OR ondansetron, oxygen [5] Patient Active Problem List Diagnosis Never smoked cigarettes BMI 33.0-33.9,adult Hospital discharge follow-up 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 LVH (left ventricular hypertrophy) Hyperlipidemia Irritable bowel syndrome History of malignant neoplasm of breast Anemia associated with nutritional deficiency Family history of ischemic heart disease Nonrheumatic tricuspid valve regurgitation Abnormal EKG Hyperglycemia Snoring Other fatigue Mitral valve regurgitation Tachycardia Abnormal cardiovascular function study Daytime somnolence High risk medication use SOB (shortness of breath) Edema, unspecified Essential (primary) hypertension Obstructive sleep apnea Incomplete RBBB Nonrheumatic aortic (valve) insufficiency Volume overload Paroxysmal atrial fibrillation (Multi) Persistent atrial fibrillation (Multi) * Maritza Jin RN - 01/19/2025 3:05 PM EST 01/19/25 1504 Discharge Planning Living Arrangements Alone Support Systems Family members;Children Assistance Needed TBD Type of Residence Private residence Number of Stairs to Enter Residence 3 Number of Stairs Within Residence 5 (pt resides in a split level home.) Do you have animals or pets at home? No Who is requesting discharge planning? Provider Home or Post Acute Services In home services Type of Home Care Services DME or oxygen Expected Discharge Disposition Home Does the patient need discharge transport arranged? No Financial Resource Strain How hard is it for you to pay for the very basics like food, housing, medical care, and heating? Not very Housing Stability In the last 12 months, was there a time when you were not able to pay the mortgage or rent on time?N At any time in the past 12 months, were you homeless or living in a half-way (including now)? N Transportation Needs In the past 12 months, has lack of transportation kept you from medical appointments or from getting medications? no In the past 12 months, has lack of transportation kept you from meetings, work, or from getting things needed for daily living? No Patient Choice Patient / Family choosing to utilize agency / facility established prior to hospitalization No Stroke Family Assessment Stroke Family Assessment Needed No Intensity of Service Intensity of Service 0-30 min Pt admitted from home, currently under extended recovery status. Introduced self and role to discuss dc planning needs and concerns. Pt resides at home alone. Her daughter resides in [place] and hasown current health issues. Pt has multiple siblings that reside in area to which she states she cancall if needed. Pt states she resides home alone, is independent. Uses no home o2 - currently requiring O2 per [place]. Denies needs for assistive devices, drives. Pt follows with PCP Dr Ken Gomes. She recently started wearing CPAP at home and states she is worried she may need home o2.Pt to have CT chest today. Plan is home at time of discharge. Will continue to follow if needs arise. * CHANEL Cameron - 01/19/2025 1:28 PM EST Cardiology Progress Note Patient: Carlos Escobar Unit/Bed: 807/807-A Date of : 1945 Acct: [id number] Admitting Diagnosis: Persistent atrial fibrillation (Multi) [I48.19] Paroxysmal atrial fibrillation (Multi) [I48.0] Date: 01/18/2025 Hospital Day: 0 Attending: Kehinde Eli DO Rounding DIANA/Supply Chain Program Manager: Lizzy Lynn, CHANEL, Primary Supply Chain Program Manager: Dr Ca Azar Complaint: No chief complaint on file. SUBJECTIVE Still with complaints of shortness of breath. Episodes of hypoxia overnight Telemetry shows patient in sinus rhythm heart rate 60s to 70s. VITALS Visit Vitals BP 109/58 Pulse 63 Temp 36.6 ??C (97.9 ??F) Resp 20 I/O: Intake/Output Summary (Last 24 hours) at 01/19/2025 1328 Last data filed at 01/19/2025 0830 Gross per 24 hour Intake 540 ml Output 1750 ml Net -1210 ml Allergies: RX Allergies[1] PHYSICAL EXAM Physical Exam Constitutional: Appearance: Normal appearance. HENT: Head: Normocephalic. Eyes: Conjunctiva/sclera: Conjunctivae normal. Cardiovascular: Rate and Rhythm: Normal rate and regular rhythm. Pulses: Normal pulses. Heart sounds: Normal heart sounds. Comments: Right femoral vein site dressing dry and intact without hematoma or bleeding Pulmonary: Effort: Pulmonary effort is normal. Breath sounds: Normal breath sounds. Musculoskeletal: General: Normal range of motion. Skin: General: Skin is warm and dry. Neurological: General: No focal deficit present. Mental Status: She is alert and oriented to person, place, and time. Psychiatric: Mood and Affect: Mood normal. Behavior: Behavior normal. LABS Results for orders placed or performed during the hospital encounter of 01/18/25 (from the past 24 hours) Comprehensive Metabolic Panel Result Value Ref Range Glucose 132 (H) 74 - 99 mg/dL Sodium 135 (L) 136 - 145 mmol/L Potassium 3.7 3.5 - 5.3 mmol/L Chloride 98 98 - 107 mmol/L Bicarbonate 28 21 - 32 mmol/L Anion Gap 13 10 - 20 mmol/L Urea Nitrogen 32 (H) 6 - 23 mg/dL Creatinine 1.45 (H) 0.50 - 1.05 mg/dL eGFR 36 (L) >60 mL/min/1.73m*2 Calcium 9.0 8.6 - 10.3 mg/dL Albumin 3.9 3.4 - 5.0 g/dL Alkaline Phosphatase 318 (H) 33 - 136 U/L Total Protein 7.2 6.4 - 8.2 g/dL AST 27 9 - 39 U/L Bilirubin, Total 2.0 (H) 0.0 - 1.2 mg/dL ALT 17 7 - 45 U/L Magnesium Result Value Ref Range Magnesium 2.17 1.60 - 2.40 mg/dL Basic Metabolic Panel Result Value Ref Range Glucose 118 (H) 74 - 99 mg/dL Sodium 137 136 - 145 mmol/L Potassium 4.0 3.5 - 5.3 mmol/L Chloride 101 98 - 107 mmol/L Bicarbonate 27 21 - 32 mmol/L Anion Gap 13 10 - 20 mmol/L Urea Nitrogen 34 (H) 6 - 23 mg/dL Creatinine 1.56 (H) 0.50 - 1.05 mg/dL eGFR 33 (L) >60 mL/min/1.73m*2 Calcium 8.8 8.6 - 10.3 mg/dL Lavender Top Result Value Ref Range Extra Tube Hold for add-ons. Transthoracic Echo Complete Result Value Ref Range BSA 1.97 m2 Scheduled medications Scheduled Medications[2] Continuous medications Continuous Medications[3] PRN medications PRN Medications[4] Imaging XR chest 2 views Result Date: 01/19/2025 Small loculated left pleural effusion with adjacent mild basilar atelectasis Follow with chest CT (with IV contrast if possible) to evaluate for possible left perihilar nodule or nodules MACRO: None Signed by: Cory Carrero 01/19/2025 8:57 AM Dictation workstation: [id number] Electrophysiology procedure Addendum Date: 01/18/2025 Successful pulmonary vein isolation by radiofrequency ablation with demonstrated entrance block andexit block. Successful cavotricuspid isthmus ablation (aka CTI line) via RF ablation with block across the CTI. Successful DCCV back to NSR Persistent Atrial Fibrillation Ablation Procedures Pulmonary Vein Isolation (37229), LA Pacing and recording (43860), 3D Mapping (46873), Transeptal Catheterization (31818), His Bundle Recording (66066), Ultrasound Guided vascular access (15699), IntracardiacEchocardiogram (80766), Additional SVT Ablation (47747) and Direct current cardioversion (20499) Patient history: Please see attached H&P Procedure narrative: The risks, benefits, and alternatives to the procedure were explained to the patient and informed consent was obtained. After informed written consent was obtained the patient was transported to the electrophysiology laboratory in the post absorptive, non- sedated state. The team verification process was completed prior to the start of the procedure. Written consent and a completed procedural sedation form were confirmed. Allergies/Adverse reactions were noted and patient teaching was performed. The patient was positioned on table and bilateral arm supports with soft cushions and all pressure points were padded. A large diameter grounding pad was applied to the patient's thigh. ECG electrodes and a set of hands-free defibrillator pads were applied to the patient. A MCL/12 lead ECG was continuously monitored throughout the procedure. Noninvasive blood pressure, oxygen saturation, and capnography were monitored throughout theprocedure. Supplemental oxygen was delivered via nasal cannula or facemask. General anesthesia was administered throughout the procedure by our staff anesthesiology service. Please see their notations for intubation and sedation. Throughout the procedure the patient's comfort (pain scale) and levelof sedation (sedation scale) were noted every 5 minutes. VENOUS ACCESS: After general anesthesia, fe moral access was achieved utilizing the Seldinger technique with a cook needle under ultrasound guidance. One 8 FR sheath and one 9Fr sheath were placed in the right femoral veins. Via the right femoral vein 9Fr short sheath an ICE catheter was advanced into the mid RA for continuous ultrasound guidance and into the RVOT to evaluate for an effusion ([id number]-esamalkl circumferential effusion). After access was obtained, a bolus injection of weight based heparin 150 units/kg was administered. The Activated Clotting Time maintained between 350-400 secs with additional boluses q 30 minutes as necessary. TRANSSEPTAL ACCESS: A transseptal atrial puncture was performed using intracardiac ultrasoun d guidance. A long J-tip wire was passed through the superior right femoral vein 8 Fr sheath into the SVC, the 8Fr sheath was subsequently removed. A Vizigo sheath was advanced over wire into the SVC. The wire was removed and the BRK needle was advanced into the sheath. The Vizigo with the BRK needle were dragged from the SVC along the septum until engagement of the Fossa Ovalis was confirmed by interatrial tenting seen under intracardiac ultrasound guidance. The BRK needle was advanced into the left atrium the needle position confirmed with ICE. A SafeSept wire was advanced into the LSPV. The sheath with dilator were advanced carefully over the needle into the body of the left atrium. Once the Vizigo sheath was confirmed in the left atrium via intracardiac ultrasound, the wire and dilator were removed. The sheath was attached to pressure tubing and a 25cc/hr drip of heparinized saline maintained. The ICE catheter was exchanged for a decapolar CS catheter if needed for pacing during the case. MAPPING: Prior to transseptal, a right atrial shell was reconstructed using ablation catheter FAM. The His, phrenic nerve, and CS were identified using the ablation catheter on FAM. The ICE catheter was advanced into the RVOT. The epicardial space of the heart, including around the RV and LV, was evaluated and no effusion was noted. After transseptal access, an Octaray catheter was advanced into the left atrium through the Vizigo sheath. Patient was cardioverted to NSR with a 360J synchronized shock. A 3-D shell representing the left atrium and pulmonary veins was constructed by use of the Cloud[employer] Sound mapping system and catheter manipulation in the LA. The electroanatomic map revealed predominantly normal voltage indicating normal healthy myocardium in the left atrium. The mappingsystem was utilized to facilitate fluoroless manipulation of all catheters. PULMONARY VEIN ISOLATION: Left atrial ablation was performed in the pulmonary vein antrum to encircle the right and left sided PVs. Wide area encirclement was performed. After the PVI ablation was completed, both pulmonary veins were assessed for block with the ablation catheter. Both right and left pulmonary veins were found to have entrance and exit block. Radiofrequency energy was applied with maximal power of 50W and target force of 10 grams or greater. Over the posterior wall radiofrequency energy was applied with maximal power of 50W with target force of 10 grams. Ablation was continued until a CARTO SurePointindex between 400-500 was achieved. Along the posterior wall a Carto SurePoint index between 300-350 was targeted. Esophageal temperature probe was taped to a quad catheter (4Fr Maciej) so it could be visualized on CARTO, and it was maintained as close as possible to the lesion sites on the posterior wall and RF was terminated for any temperature rise greater than 1??C. Baseline temperature was 36.4C at the start of the case and increased to a peak temperature of 37.7C . In addition, phrenicnerve location (using high output pacing) was tagged and localized on Carto over the right and leftatrium (RSPV). No ablation was performed at the vicinity of the phrenic nerve. First pass isolationwas achieved in both sets of veins. Both entrance and exit block were demonstrated in the PV's. PROV[employer]ATION POST-PULMONARY VEIN ISOLATION: After re-confirming entrance and exit block from both pulmonary veins, rapid atrial pacing was performed from the left atrial posterior wall. No sustained atrial arrhythmia was induced. CAVOTRICUSPID ISTHMUS ABLATION: The ablation catheter and Vizigo sheath were pulled back into the right atrium. Using the Carto Mapping System the cavotricsupid isthmus (CTI)was identified and a line of RF lesions were placed from the earliest atrial signal on the tricuspid annulus to the inferior vena cava. Radiofrequency energy was applied with target power of up to 40W as well as a contact force > 10 grams if possible. Local sites were targeted until the local electrograms displayed morphology characteristics of a transmural lesion and were associated with a 10 ohms or more impedance decrease. Bidirectional block across the CTI was proven through differential pacing between proximal CS and the mapping catheter, which was lateral to CTI line. Differential pacing between the proximal CS to the mapping catheter, placed on the RA lateral wall, showed a shorter stim to mapping catheter time than at the CTI line. Pacing from the ablation catheter showed longer conduction times to the proximal CS close to the CTI than the lateral RA wall, further illustrating block across the CTI. POST-ABLATION: The ICE catheter was maneuvered into the RVOT. The epicardial space of the heart, including around the RV and LV, was evaluated and a stable [id number] ci rcumferential effusion was visualized. Sheaths were removed and hemostasis was obtained at the right femoral venous access sites with Perclose. Five minutes of manual compression was applied to maintain hemostasis. Complications: No complications occurred Summary: - Successful pulmonary vein isolation by radiofrequency ablation with demonstrated entrance block and exit block. - Successful cavotricuspid isthmus ablation (aka CTI line) via RF ablation with block across the CTI. - Successful DCCV back to NSR Discharge: The patient left the EP laboratory in stable condition. If pt doing well, groin access sites without issues pt can be discharged later today Follow up: Resume AC Apixaban 5mg BID, Please DO NOT hold blood thinner unless emergency without asking your doctor. PPI BID x 6 weeks Bedrest for 2 hours post sheath removal No driving, alcohol or making legal decisions for 24 hours. Remove band-aid/tegaderm in 1 day. No heavy lifting, strenuous exercise for 1 week Please call our office if you notice any groin discharge or swelling or fever. For cardiology electrophysiology emergencies (such as severe heart racing, bleeding, severe groin pain/swelling, high fever, wound discharge, stroke symptoms, or recent severe chest pain) call the office See complete procedural log and parameters. ATTESTATION As the responsible attending physician, I was present and directly participating in all critical portions of the procedure and immediately available during the non-critical portions. Cardiology, Vascular, and Other Imaging Electrocardiogram - Post Ablation Result Date: 01/18/2025 Sinus bradycardia with Premature supraventricular complexes Possible Right ventricular hypertrophy Nonspecific ST and T wave abnormality Prolonged QT Abnormal ECG When compared with ECG of 18-JAN-2025 06:40, (unconfirmed) Sinus rhythm has replaced Atrial fibrillation Nonspecific T wave abnormality,improved in Inferior leads ECG 12 lead STAT Result Date: 01/18/2025 Atrial fibrillation Rightward axis Low voltage QRS Nonspecific ST and T wave abnormality Abnormal ECG When compared with ECG of 23-NOV-2024 15:30, Atrial fibrillation has replaced Sinus rhythm QRS axis Shifted left Borderline criteria for Inferior infarct are no longer Present Nonspecific T wave abnormality, worse in Lateral leads Encounter Date: 01/18/25 Electrocardiogram - Post Ablation Result Value Ventricular Rate 59 Atrial Rate 59 NV Interval 150 QRS Duration 88 QT Interval 510 QTC Calculation(Bazett) 504 P Jadwin 49 R Jadwin 117 T Jadwin 124 QRS Count 10 Q Onset 222 P Onset 147 P Offset 199 T Offset 477 QTC Fredericia 507 Narrative Sinus bradycardia with Premature supraventricular complexes Possible Right ventricular hypertrophy Nonspecific ST and T wave abnormality Prolonged QT Abnormal ECG When compared with ECG of 18-JAN-2025 06:40, (unconfirmed) Sinus rhythm has replaced Atrial fibrillation Nonspecific T wave abnormality, improved in Inferior leads Tele Monitoring: Sinus rhythm 60s to 70s Assessment Problem List[5] Clinical impression: 1. Shortness of breath with hypoxemia 2. Acute on chronic diastolic heart failure 3. Paroxysmal atrial fibrillation s/p PVI and CTI 4. LVEF 50 to 55% per echocardiogram 06/28/2024 5. Biatrial enlargement and valvular heart disease with mild AR, mild MR, moderate-severe TR and elevated right ventricular systolic pressure 30 to 40 mmHg. 6. Negative Lexiscan Myoview stress test with no ischemia 07/23/2024 7. Obesity type II 8. ANATOLY 9. History of breast cancer with left breast mastectomy and right breast lumpectomy and ductal carcinoma Plan: Continue current medications Obtain 2 view CXR Transfer service for admission to hospitalist Echocardiogram Discussed case with Dr Eli [1] No Known Allergies [2] amiodarone, 200 mg, oral, Daily anastrozole, 1 mg, oral, Daily apixaban, 5 mg, oral, BID hydrOXYzine HCL, 25 mg, oral, Once losartan, 25 mg, oral, BID metoprolol succinate XL, 25 mg, oral, Daily pantoprazole, 40 mg, oral, BID AC torsemide, 60 mg, oral, Daily [3] [4] PRN medications: acetaminophen, benzocaine-menthol, ondansetron OR ondansetron [5] Patient Active Problem List Diagnosis Never smoked cigarettes BMI 33.0-33.9,adult Hospital discharge follow-up Atrial fibrillation (Multi) care home current use of anticoagulant therapy LVH (left ventricular hypertrophy) Hyperlipidemia Irritable bowel syndrome History of malignant neoplasm of breast Anemia associated with nutritional deficiency Family history of ischemic heart disease Nonrheumatic tricuspid valve regurgitation Abnormal EKG Hyperglycemia Snoring Other fatigue Mitral valve regurgitation Tachycardia Abnormal cardiovascular function study Daytime somnolence High risk medication use SOB (shortness of breath) Edema, unspecified Essential (primary) hypertension Obstructive sleep apnea Incomplete RBBB Nonrheumatic aortic (valve) insufficiency Volume overload Paroxysmal atrial fibrillation (Multi) documented in this encounter H&P Notes * Kehinde Eli, - 01/19/2025 3:19 PM EST Images from the original note were not included. Medical Group History and Physical ASSESSMENT & PLAN: Carlos Escobar is a 79 y.o. female admitted to [facility] for management of: HFmrEF Atrial Fibrillation pHTN, right heart failure Severe MV + Tricuspid valve regurgitation Large PFO Acute hypoxic respiratory failure / above Plan: - Currently on 5L o2, wean as tolerated, prn and scheduled Duonebs ordered - TTE 01/19/25 revealed low normal LV systolic function, EF 50-55%. Right ventricular volume & pressure overload,severely reduced RV systolic function, severely enlarged RV, bilateral atrial dilation, positive bubble study - CT chest due to concern for left perihilar mass on CXR, CT confirmed this was an artifact. Moderate cardiomegaly, moderate to large pericardial effusion - Continue Toprolol-XL, amiodarone - EP team following Acute Renal Failure: Etiology of ARF is likely prerenal azotemia, as evidenced by diuretic use.. Plan: - Avoid NSAIDS/nephrotoxic agents and renally dose medications - Monitor Ins/Outs, volume status, and electrolytes - sCr 1.56, baseline ~ 0.8 (05/01/23) - Consider holding losartan and torsemide if renal function declines further - Nephrology consulted, appreciate recommendations Chronic Medical Conditions Breast cancer s/p radiation & chemotherapy, WIL, HLD, GERD - Resume home medications VTE Prophylaxis: Eliquis Disposition: Anticipate LOS > 2 midnights Level of MDM: High Risk: High Data Reviewed and/or Analyzed: Included: Prior external notes from at least 1 unique source, Results, including laboratory findings and imaging reports, listed above, Orders and notes from all consultants involved, and Notes for this encounter. I personally reviewed the tests referenced above. The patient/family had opportunity to ask questions. All questions were answered to the best of my ability. Kehinde Eli, [facility] HISTORY OF PRESENT ILLNESS: History Of Present Illness: Carlos Escobar is a 79 y.o. female with a significant past medical history of Breast cancer s/p radiation & chemotherapy, atrial fibrillation, diastolic heart failure, WIL, HLD, GERD who was initially admitted under EP service for management of atrial fibrillation, transferred to medicine service due to ANATOLY and respiratory failure. Patient has persistent a-fib despite DCCV x2 and flecainide. Flecainide was stopped and she was started on amiodarone. Patient developed worsening heart failure symptoms (SOB, fatigue, leg edema, weight gain), all of which did not improve despite diuretics. Patient reports she continues to feel extremely short of breath and unimproved. She has not had issues with chest pain and denies palpitations. SOB worsens when she attempts to sleep flat on her back.She states to be very compliant with all of her medication regimens. Review of systems: 10 point review of systems is otherwise negative except as mentioned above. PAST HISTORIES: Past Medical History: She has a past medical history of Arrhythmia (June 28 2024), Atrial fibrillation (Multi), Cancer (Multi) (1994 L. mastectomy; May 2023 lumpectomy), Chronic kidney disease, GERD (gastroesophageal reflux disease), Hyperlipidemia (Not sure; good lipid values cancelled out other values.), Hypertension, and Sleep apnea. Past Surgical History: She has a past surgical history that includes Breast lumpectomy (Right); Mastectomy (Left); Colonoscopy; Esophagogastroduodenoscopy; Cardioversion (08/28/2024); Cardioversion (11/23/2024); and Cardiac electrophysiology procedure (N/A, 01/18/2025). Social History: She reports that she has never smoked. She has never used smokeless tobacco. She reports that she does not drink alcohol and does not use drugs. Family History: Family History[1] Allergies: Patient has no known allergies. OBJECTIVE: Last Recorded Vitals: Vitals: 01/19/25 0745 01/19/25 0811 01/19/25 1216 01/19/25 1426 BP: 100/52 109/58 110/56 BP Location: Patient Position: Pulse: 63 61 Resp: Temp: 36.7 ??C (98.1 ??F) 36.6 ??C (97.9 ??F) 36 ??C (96.8 ??F) TempSrc: SpO2: 92% 92% 92% Weight: 88.6 kg (195 lb 6.4 oz) Height: Last I/O: I/O last 3 completed shifts: In: 3240 (37 mL/kg) [P.O.:740; I.V.:1800 (20.6 mL/kg); IV Piggyback:700] Out: 1150 (13.1 mL/kg) [Urine:1150 (0.4 mL/kg/hr)] Weight: 87.5 kg Physical Exam Vitals and nursing note reviewed. Constitutional: General: She is not in acute distress. HENT: Mouth/Throat: Mouth: Mucous membranes are moist. Eyes: Extraocular Movements: Extraocular movements intact. Conjunctiva/sclera: Conjunctivae normal. Cardiovascular: Rate and Rhythm: Normal rate. Rhythm irregular. Pulses: Normal pulses. Heart sounds: Normal heart sounds. Pulmonary: Effort: Pulmonary effort is normal. No tachypnea, accessory muscle usage, prolonged expiration or respiratory distress. Breath sounds: Normal breath sounds. Comments: On 5L Abdominal: General: Abdomen is flat. Bowel sounds are normal. Palpations: Abdomen is soft. Musculoskeletal: Right lower leg: Edema present. Left lower leg: Edema present. Skin: General: Skin is warm. Neurological: General: No focal deficit present. Mental Status: She is alert and oriented to person, place, and time. Mental status is at baseline. Psychiatric: Mood and Affect: Mood normal. Scheduled Medications Scheduled Medications[2] PRN Medications PRN Medications[3] Continuous Medications Continuous Medications[4] Outpatient Medications: Prior to Admission medications Medication Sig Start Date End Date Taking? Authorizing Provider anastrozole (Arimidex) 1 mg tablet Take 1 tablet (1 mg total) by mouth once daily. 01/22/24 Yes Historical Provider, apixaban (Eliquis) 5 mg tablet Take 1 tablet (5 mg) by mouth 2 times a day. 07/23/24 07/23/25 Yes Balaji Arreola MD losartan (Cozaar) 25 mg tablet Take 1 tablet (25 mg) by mouth 2 times a day. 09/03/24 09/03/25 Yes Balaji Arreola MD metoprolol succinate XL (Toprol-XL) 25 mg 24 hr tablet Take 1 tablet (25 mg) by mouth once daily. Do not crush or chew. 12/10/24 12/10/25 Yes Balaji Arreola MD potassium chloride CR (Klor-Con) 10 mEq ER tablet Take 1 tablet (10 mEq) by mouth 2 times a day. Donot crush, chew, or split. 07/30/24 07/30/25 Yes CHANEL Ballard torsemide (Demadex) 20 mg tablet Take 3 tablets (60 mg) by mouth once daily. 01/05/25 Yes CHANEL Ballard amiodarone (Pacerone) 100 mg tablet Take 2 tablets (200 mg) by mouth once daily. 01/18/25 Yes Theresa Samano MD amiodarone (Pacerone) 100 mg tablet Take 2 tablets (200 mg) by mouth once daily. For 2 months afterablation then discontinue 01/18/25 CHANEL Cameron dapagliflozin propanediol (Farxiga) 10 mg tablet Take 1 tablet (10 mg) by mouth once every 24 hours. 07/23/24 07/23/25 Balaji Arreola MD pantoprazole (ProtoNix) 40 mg EC tablet Take 1 tablet (40 mg) by mouth 2 times a day before meals. For 6 weeks after ablation then stop taking 01/18/25 03/01/25 CHANEL Cameron LABS AND IMAGING: Labs: Results from last 7 days Lab Units 01/13/25 1325 WBC AUTO x10*3/uL 4.0* RBC AUTO x10*6/uL 3.81* HEMOGLOBIN g/dL 11.9* HEMATOCRIT % 37.3 MCV fL 98 MCH pg 31.2 MCHC g/dL 31.9* RDW % 15.2* PLATELETS AUTO x10*3/uL 133* Results from last 7 days Lab Units 01/19/25 0533 01/18/25 1651 01/18/25 0557 01/13/25 1325 SODIUM mmol/L 137 135* 137 139 POTASSIUM mmol/L 4.0 3.7 4.2 3.6 CHLORIDE mmol/L 101 98 99 99 CO2 mmol/L 27 28 30 31 BUN mg/dL 34* 32* 35* 26* CREATININE mg/dL 1.56* 1.45* 1.65* 1.51* GLUCOSE mg/dL 118* 132* 92 86 PROTEIN TOTAL g/dL -- 7.2 -- 6.7 CALCIUM mg/dL 8.8 9.0 9.3 8.9 BILIRUBIN TOTAL mg/dL -- 2.0* -- 1.6* ALK PHOS U/L -- 318* -- 290* AST U/L -- 27 -- 22 ALT U/L -- 17 -- 16 Results from last 7 days Lab Units 01/18/25 1651 MAGNESIUM mg/dL 2.17 Imaging: Transthoracic Echo Complete Narrative: [place] [address] TRANSTHORACIC ECHOCARDIOGRAM REPORT Patient Name: CARLOS Aparicio CLIFTON Reading Physician: [id number] Geoff Elliott DO Study Date: 01/19/2025 Ordering Provider: [id number] LYNN MRN/PID: [id number] Fellow: Nurse: Date of /Age: 9 1945 Case Assembler: Asia hillman RDCS Gender Assigned at F Additional Staff: : Height: 157.48 cm Admit Date: 01/18/2025 Weight: 88.45 kg Admission Status: Inpatient - Routine BSA / BMI: 1.89 m2 / 35.67 Department Location: [place] [address] Echo Lab Blood Pressure: 100 /52 mmHg Study Type: TRANSTHORACIC ECHO (TTE) COMPLETE Diagnosis/ICD: Shortness of breath-R06.02; Other fluid overload-E87.79 Indication: Shortness of Breath, Fluid Overload CPT Codes: Echo Complete w Full Doppler-21380 Patient History: Pertinent History: Cardiomyopathy and Lung Nodule, A.Fib, Heart Failure - unspecified, Dyspnea, LE Edema. Study Detail: The following Echo studies were performed: 2D, M-Mode, Doppler and color flow. Technically challenging study due to patient lying in supine position. Agitated saline used as a contrast agent for intraseptal flow evaluation. PHYSICIAN INTERPRETATION: Left Ventricle: The left ventricular systolic function is low normal with a visually estimated ejection fraction of 55%. There are no regional wall motion abnormalities. The left ventricular cavity size is normal. There is normal septal and mildly increased posterior left ventricular wall thickness. The interventricular septum is flattened in systole and diastole, consistent with right ventricular pressure and volume overload. Spectral Doppler shows a Grade II (pseudonormal pattern) of left ventricular diastolic filling with an elevated left atrial pressure. Left Atrium: The left atrial size is moderately dilated. There is a large patent foramen ovale. Thepatent foramen ovale was visualized using color doppler and agitated saline contrast. A bubble study using agitated saline was performed. Bubble study is positive. A large PFO (> 20 bubbles) was demonstrated. Right Ventricle: The right ventricle is severely enlarged. There is severely reduced right ventricular systolic function. The findings are consistent with pulmonary hypertension. Right Atrium: The right atrial size is severely dilated. Aortic Valve: The aortic valve is trileaflet. The aortic valve area by VTI is 1.86 cm? with a peak velocity of 1.49 m/s. The peak and mean gradients are 9 mmHg and 4 mmHg, respectively, with a dimensionless index of 0.59. There is mild to moderate aortic valve cusp calcification. There is evidence of mildly elevated transaortic gradients consistent with sclerosis of the aortic valve. There is mild to moderate aortic valve regurgitation. Mitral Valve: The mitral valve is normal in structure. There is no evidence of mitral valve stenosis. There is mild mitral annular calcification. There is moderate to severe mitral valve regurgitation. The E Vmax is 0.80 m/s. The mitral regurgitant orifice area is 31 mm2. The mitral regurgitant volume is 43.01 ml. Tricuspid Valve: The tricuspid valve is abnormal. There is severe tricuspid regurgitation. The Doppler estimated right ventricular systolic pressure (RVSP) is within normal limits at 28 mmHg. Pulmonic Valve: The pulmonic valve is not well visualized. There is no indication of pulmonic valveregurgitation. Pericardium: Small pericardial effusion. The effusion is circumferential. Aorta: The aortic root is normal. Pulmonary Artery: The pulmonary artery is not well visualized. Systemic Veins: The inferior vena cava appears severely dilated, IVC inspiratory collapse is absent. In comparison to the previous echocardiogram(s): There are no prior studies on this patient for comparison purposes. CONCLUSIONS: 1. The left ventricular systolic function is low normal with a visually estimated ejection fractionof 55%. 2. No regional wall motion abnormalities. 3. Spectral Doppler shows a Grade II (pseudonormal pattern) of left ventricular diastolic filling with an elevated left atrial pressure. 4. Right ventricular volume and pressure overload. 5. There is severely reduced right ventricular systolic function. 6. The findings are consistent with pulmonary hypertension. 7. Severely enlarged right ventricle. 8. The left atrial size is moderately dilated. 9. The right atrial size is severely dilated. 10. Small pericardial effusion. 11. There is no evidence of mitral valve stenosis. 12. Moderate to severe mitral valve regurgitation. 13. Severe tricuspid regurgitation. 14. The Doppler estimated RVSP is within normal limits at 28 mmHg. 15. Aortic valve sclerosis. The peak and mean gradients are 9 mmHg and 4 mmHg respectively. 16. Mild to moderate aortic valve regurgitation. 17. The pulmonary artery is not well visualized. 18. The inferior vena cava appears severely dilated, IVC inspiratory collapse is absent. 19. Large patent foramen ovale. 20. A bubble study using agitated saline was performed. Bubble study is positive. A large PFO (>20 bubbles) was demonstrated. QUANTITATIVE DATA SUMMARY: 2D MEASUREMENTS: Normal Ranges: Ao Root d: 2.60 cm (2.0-3.7cm) LAs: 4.80 cm (2.7-4.0cm) IVSd: 0.90 cm (0.6-1.1cm) LVPWd: 1.00 cm (0.6-1.1cm) LVIDd: 4.80 cm (3.9-5.9cm) LVIDs: 2.80 cm LV Mass Index: 84.0 g/m2 LVEDV Index: 38.16 ml/m2 LV % FS 41.7 % AORTA MEASUREMENTS: Normal Ranges: Asc Ao, d: 3.10 cm (2.1-3.4cm) LV SYSTOLIC FUNCTION: Normal Ranges: EF-A4C View: 59 % (>=55%) EF-A2C View: 63 % EF-Biplane: 61 % EF-Visual: 55 % LV EF Reported: 55 % LV DIASTOLIC FUNCTION: Normal Ranges: MV Peak E: 0.80 m/s (0.7-1.2 m/s) MV Peak A: 0.37 m/s (0.42-0.7 m/s) E/A Ratio: 2.17 (1.0-2.2) MV e' 0.116 m/s (>8.0) MV lateral e' 0.16 m/s MV medial e' 0.08 m/s E/e' Ratio: 6.85 (<8.0) MITRAL VALVE: Normal Ranges: MV DT: 222 msec (150-240msec) MITRAL INSUFFICIENCY: Normal Ranges: PISA Radius: 0.8 cm MR VTI: 140.00 cm MR Vmax: 459.00 cm/s MR Alias Pollo: 39.9 cm/s MR Volume: 43.01 ml MR Flow Rt: 141.02 ml/s MR EROA: 31 mm2 AORTIC VALVE: Normal Ranges: AoV Vmax: 1.49 m/s (<=1.7m/s) AoV Peak P.9 mmHg (<20mmHg) AoV Mean P.0 mmHg (1.7-11.5mmHg) LVOT Max Pollo: 0.85 m/s (<=1.1m/s) AoV VTI: 27.30 cm (18-25cm) LVOT VTI: 16.20 cm LVOT Diameter: 2.00 cm (1.8-2.4cm) AoV Area, VTI: 1.86 cm2 (2.5-5.5cm2) AoV Area,Vmax: 1.79 cm2 (2.5-4.5cm2) AoV Dimensionless Index: 0.59 AORTIC INSUFFICIENCY: AI Vmax: 3.48 m/s AI Half-time: 524 msec AI Decel Rate: 195.00 cm/s2 RIGHT VENTRICLE: RV Basal 4.50 cm RV Mid 3.40 cm RV Major 5.1 cm TAPSE: 11.9 mm RV s' 0.08 m/s TRICUSPID VALVE/RVSP: Normal Ranges: Peak TR Velocity: 1.81 m/s Est. RA Pressure: 15 mmHg RV Syst Pressure: 28 mmHg (< 30mmHg) IVC Diam: 3.70 cm PULMONIC VALVE: Normal Ranges: PV Accel Time: 151 msec (>120ms) PV Max Pollo: 0.7 m/s (0.6-0.9m/s) PV Max P.9 mmHg [id number] Geoff Elilott DO Electronically signed on 01/19/2025 at 2:38:31 PM Final Impression: CONCLUSIONS: 1. The left ventricular systolic function is low normal with a visually estimated ejection fractionof 55%. 2. No regional wall motion abnormalities. 3. Spectral Doppler shows a Grade II (pseudonormal pattern) of left ventricular diastolic filling with an elevated left atrial pressure. 4. Right ventricular volume and pressure overload. 5. There is severely reduced right ventricular systolic function. 6. The findings are consistent with pulmonary hypertension. 7. Severely enlarged right ventricle. 8. The left atrial size is moderately dilated. 9. The right atrial size is severely dilated. 10. Small pericardial effusion. 11. There is no evidence of mitral valve stenosis. 12. Moderate to severe mitral valve regurgitation. 13. Severe tricuspid regurgitation. 14. The Doppler estimated RVSP is within normal limits at 28 mmHg. 15. Aortic valve sclerosis. The peak and mean gradients are 9 mmHg and 4 mmHg respectively. 16. Mild to moderate aortic valve regurgitation. 17. The pulmonary artery is not well visualized. 18. The inferior vena cava appears severely dilated, IVC inspiratory collapse is absent. 19. Large patent foramen ovale. 20. A bubble study using agitated saline was performed. Bubble study is positive. A large PFO (>20 bubbles) was demonstrated. CT chest wo IV contrast Narrative: Interpreted By: Cory Carrero, STUDY: CT CHEST WO IV CONTRAST; 01/19/2025 1:50 pm INDICATION: Signs/Symptoms:chest mass on cxr. COMPARISON: Two views of the chest, earlier same day 19 January 2025 ACCESSION NUMBER(S): [id number] ORDERING CLINICIAN: KEHINDE ELI TECHNIQUE: Helical CT chest from thoracic inlet through the hemidiaphragms without intravenous contrast FINDINGS: LUNGS / AIRSPACES / AIRWAYS: LARGE AIRWAYS Filling defect: Negative Wall thickening: Negative Bronchiectasis: Negative Other: N/A AIRSPACES Fibrosis: Negative Emphysema: Negative Consolidation: Negative Ground glass airspace disease: Negative Edema: Negative Nodule / Mass: Negative. It is the branch point of the left lower lobe pulmonary artery counting for the lobular masslike appearance on radiograph earlier today. No true nodule Other: Atelectasis dependently and in the medial basal segment right lower lobe PLEURA: Effusion: Small free-flowing bilateral Pneumothorax: Both sides negative Other: n/a CARDIOVASCULAR: Heart size: Mildly enlarged Pericardial effusion: Moderate Thoracic aortic aneurysm: Negative Pulmonary arteries: No ectasia Heart failure change: Negative. No sign of interstitial or alveolar edema. Other: n/a NONVASCULAR MEDIASTINUM: Esophagus: Grossly normal by CT Mediastinal Mass: Negative Hiatal hernia: None Other: n/a LYMPH NODES: No thoracic adenopathy CHEST WALL: Soft tissues of the chest wall are unremarkable SKELETON: No acute or contributory abnormality UPPER ABDOMEN: Included subdiaphragmatic structures have no acute or contributory abnormality Impression: CT confirms perceived left perihilar mass from radiograph earlier today was an artifact due to a normal structures; specifically, the left lower lobe pulmonary artery branch point, probably more visible compared to the other side due to the differences in the chest wall (left mastectomy). No lung nodule or mass to workup or follow Moderate cardiomegaly with at least right atrial if not biatrial dilation At least moderate if not large pericardial effusion Small free-flowing bilateral pleural effusions with adjacent atelectasis No other acute disease in the chest, only some minimal atelectasis. No sign of active infection. No interstitial or alveolar edema. No pneumothorax or pneumomediastinum MACRO: None Signed by: Cory Carrero 01/19/2025 2:34 PM Dictation workstation: [id number] Electrophysiology procedure Addendum: Successful pulmonary vein isolation by radiofrequency ablation with demonstrated entranceblock and exit block. Successful cavotricuspid isthmus ablation (aka CTI line) via RF ablation with block across the CTI. Successful DCCV back to NSR Persistent Atrial Fibrillation Ablation Procedures Pulmonary Vein Isolation (85437), LA Pacing and recording (01479), 3D Mapping (45414), Transeptal Catheterization (28102), His Bundle Recording (12640), Ultrasound Guided vascular access (39121), Intracardiac Echocardiogram (54745), Additional SVT Ablation (36107) and Direct current cardioversion (95984) Patient history: Please see attached H&P Procedure narrative: The risks, benefits, and alternatives to the procedure were explained to the patient and informed consent was obtained. After informed written consent was obtained the patient was transported to the electrophysiology laboratory in the post absorptive, non-sedated state. The team verification process was completed prior to the start of the procedure. Written consent and a completed procedural sedation form were confirmed. Allergies/Adverse reactions were noted and patient teaching was performed.The patient was positioned on table and bilateral arm supports with soft cushions and all pressure points were padded. A large diameter grounding pad was applied to the patient's thigh. ECG electrodes and a set of hands-free defibrillator pads were applied to the patient. A MCL/12 lead ECG was continuously monitored throughout the procedure. Noninvasive blood pressure, oxygen saturation, and capnography were monitored throughout the procedure. Supplemental oxygen was delivered via nasal cannulaor facemask. General anesthesia was administered throughout the procedure by our staff anesthesiology service. Please see their notations for intubation and sedation. Throughout the procedure the patient's comfort (pain scale) and level of sedation (sedation scale) were noted every 5 minutes. VENOUS ACCESS: After general anesthesia, femoral access was achieved utilizing the Seldinger technique with a cook needle under ultrasound guidance. One 8 FR sheath and one 9Fr sheath were placed in the right femoral veins. Via the right femoral vein 9Fr short sheath an ICE catheter was advanced into the mid RA for continuous ultrasound guidance and into the RVOT to evaluate for an effusion (heygd-jo-ayrvinln circumferential effusion). After access was obtained, a bolus injection of weight based heparin 150 units/kg was administered. The Activated Clotting Time maintained between 350-400 secswith additional boluses q 30 minutes as necessary. TRANSSEPTAL ACCESS: A transseptal atrial puncture was performed using intracardiac ultrasound guidance. A long J-tip wire was passed through the superior right femoral vein 8 Fr sheath into the SVC, the 8Fr sheath was subsequently removed. A Vizigo sheath was advanced over wire into the SVC. The wire was removed and the BRK needle was advanced into the sheath. The Vizigo with the BRK needle were dragged from the SVC along the septum until engagement of the Fossa Ovalis was confirmed by interatrial tenting seen under intracardiac ultrasound guidance. The BRK needle was advanced into the left atrium the needle position confirmed with ICE. A SafeSept wire was advanced into the LSPV. The sheathwith dilator were advanced carefully over the needle into the body of the left atrium. Once the Vizigo sheath was confirmed in the left atrium via intracardiac ultrasound, the wire and dilator were removed. The sheath was attached to pressure tubing and a 25cc/hr drip of heparinized saline maintained. The ICE catheter was exchanged for a decapolar CS catheter if needed for pacing during the case. MAPPING: Prior to transseptal, a right atrial shell was reconstructed using ablation catheter FAM. The His, phrenic nerve, and CS were identified using the ablation catheter on FAM. The ICE catheter was advanced into the RVOT. The epicardial space of the heart, including around the RV and LV, was evaluated and no effusion was noted. After transseptal access, an Octaray catheter was advanced into the left atrium through the Vizigo sheath. Patient was cardioverted to NSR with a 360J synchronized shock. A 3-D shell representing the left atrium and pulmonary veins was constructed by use of the CARTO Sound mapping system and catheter manipulation in the LA. The electroanatomic map revealed predominantly normal voltage indicating normal healthy myocardium in the left atrium. The mapping system was utilized to facilitate fluoroless manipulation of all catheters. PULMONARY VEIN ISOLATION: Left atrial ablation was performed in the pulmonary vein antrum to encircle the right and left sided PVs. Wide area encirclement was performed. After the PVI ablation was completed, both pulmonary veins were assessed for block with the ablation catheter. Both right and left pulmonary veins were found to have entrance and exit block. Radiofrequency energy was applied withmaximal power of 50W and target force of 10 grams or greater. Over the posterior wall radiofrequency energy was applied with maximal power of 50W with target force of 10 grams. Ablation was continueduntil a CARTO SurePoint index between 400-500 was achieved. Along the posterior wall a Carto SurePoint index between 300-350 was targeted. Esophageal temperature probe was taped to a quad catheter (4Fr Maciej) so it could be visualized on CARTO, and it was maintained as close as possible to the lesion sites on the posterior wall and RF was terminated for any temperature rise greater than 1??C.Baseline temperature was 36.4C at the start of the case and increased to a peak temperature of 37.7C . In addition, phrenic nerve location (using high output pacing) was tagged and localized on Cartoover the right and left atrium (RSPV). No ablation was performed at the vicinity of the phrenic nerve. First pass isolation was achieved in both sets of veins. Both entrance and exit block were demonstrated in the PV's. PROVOCATION POST-PULMONARY VEIN ISOLATION: After re-confirming entrance and exit block from both pulmonary veins, rapid atrial pacing was performed from the left atrial posterior wall. No sustained atrial arrhythmia was induced. CAVOTRICUSPID ISTHMUS ABLATION: The ablation catheter and Vizigo sheath were pulled back into the right atrium. Using the Carto Mapping System the cavotricsupid isthmus (CTI) was identified and a line of RF lesions were placed from the earliest atrial signal on the tricuspid annulus to the inferiorvena cava. Radiofrequency energy was applied with target power of up to 40 W as well as a contact force > 10 grams if possible. Local sites were targeted until the local electrograms displayed morphology characteristics of a transmural lesion and were associated with a 10 ohms or more impedance decrease. Bidirectional block across the CTI was proven through differential pacing between proximalCS and the mapping catheter, which was lateral to CTI line. Differential pacing between the proximal CS to the mapping catheter, placed on the RA lateral wall, showed a shorter stim to mapping catheter time than at the CTI line. Pacing from the ablation catheter showed longer conduction times to the proximal CS close to the CTI than the lateral RA wall, further illustrating block across the CTI. POST-ABLATION: The ICE catheter was maneuvered into the RVOT. The epicardial space of the heart, including around the RV and LV, was evaluated and a stable lpnhp-gb-zcivrloh circumferential effusion was visualized. Sheaths were removed and hemostasis was obtained at the right femoral venous access sites with Perclose. Five minutes of manual compression was applied to maintain hemostasis. Complications: No complications occurred Summary: - Successful pulmonary vein isolation by radiofrequency ablation with demonstrated entrance block and exit block. - Successful cavotricuspid isthmus ablation (aka CTI line) via RF ablation with block across the CTI. - Successful DCCV back to NSR Discharge: The patient left the EP laboratory in stable condition. If pt doing well, groin access sites without issues pt can be discharged later today Follow up: Resume AC Apixaban 5mg BID, Please DO NOT hold blood thinner unless emergency without asking your doctor. PPI BID x 6 weeks Bedrest for 2 hours post sheath removal No driving, alcohol or making legal decisions for 24 hours. Remove band-aid/tegaderm in 1 day. No heavy lifting, strenuous exercise for 1 week Please call our office if you notice any groin discharge or swelling or fever. For cardiology electrophysiology emergencies (such as severe heart racing, bleeding, severe groin pain/swelling, high fever, wound discharge, stroke symptoms, or recent severe chest pain) call the office See complete procedural log and parameters. ATTESTATION As the responsible attending physician, I was present and directly participating in all critical portions of the procedure and immediately available during the non-critical portions. Narrative: Images from the original result were not included. Successful pulmonary vein isolation by radiofrequency ablation with demonstrated entrance block and exit block. Successful cavotricuspid isthmus ablation (aka CTI line) via RF ablation with block across the CTI. Successful DCCV back to NSR Persistent Atrial Fibrillation Ablation Procedures Pulmonary Vein Isolation (63441), LA Pacing and recording (05233), 3D Mapping (47283), Transeptal Catheterization (90384), His Bundle Recording (67929), Ultrasound Guided vascular access (80622), Intracardiac Echocardiogram (78414), Additional SVT Ablation (11078) and Direct current cardioversion (13390) Patient history: Please see attached H&P Procedure narrative: The risks, benefits, and alternatives to the procedure were explained to the patient and informed consent was obtained. After informed written consent was obtained the patient was transported to the electrophysiology laboratory in the post absorptive, non-sedated state. The team verification process was completed prior to the start of the procedure. Written consent and a completed procedural sedation form were confirmed. Allergies/Adverse reactions were noted and patient teaching was performed. The patient was positioned on table and bilateral arm supports with soft cushions and all pressure points were padded. A large diameter grounding pad was applied to the patient's thigh. ECG electrodes and a set of hands-free defibrillator pads were applied to the patient. A MCL/12 lead ECG was continuously monitored throughout the procedure. Noninvasive blood pressure, oxygen saturation, and capnography were monitored throughout the procedure. Supplemental oxygen was delivered via nasal cannula or facemask. General anesthesia was administered throughout the procedure by our staff anesthesiology service. Please see their notations for intubation and sedation. Throughout the procedure the patient's comfort (pain scale) and level of sedation (sedation scale) were noted every 5 minutes. VENOUS ACCESS: After general anesthesia, femoral access was achieved utilizing the Seldinger technique with a cook needle under ultrasound guidance. One 8 FR sheath and one 9Fr sheath were placed in the right femoral veins. Via the right femoral vein 9Fr short sheath an ICE catheter was advanced into the mid RA for continuous ultrasound guidance and into the RVOT to evaluate for an effusion. After access was obtained, a bolus injection of weight based heparin 150 units/kg was administered. The Activated Clotting Time maintained between 350-400 secs with additional boluses q 30 minutes as necessary. TRANSSEPTAL ACCESS: A transseptal atrial puncture was performed using intracardiac ultrasound guidance. A long J-tip wire was passed through the superior right femoral vein 8 Fr sheath into the SVC, the 8Fr sheath was subsequently removed. A Vizigo sheath was advanced over wire into the SVC. The wire was removed and the BRK needle was advanced into the sheath. The Vizigo with the BRK needle were dragged from the SVC along the septum until engagement of the Fossa Ovalis was confirmed by interatrial tenting seen under intracardiac ultrasound guidance. The BRK needle was advanced into the left atrium the needle position confirmed with ICE. A SafeSept wire was advanced into the LSPV. The sheath with dilator were advanced carefully over the needle into the body of the left atrium. Once the Vizigo sheath was confirmed in the left atrium via intracardiac ultrasound, the wire and dilator were removed. The sheath was attached to pressure tubing and a 25cc/hr drip of heparinized saline maintained. The ICE catheter was exchanged for a decapolar CS catheter if needed for pacing during the case. MAPPING: Prior to transseptal, a right atrial shell was reconstructed using ablation catheter FAM. The His, phrenic nerve, and CS were identified using the ablation catheter on FAM. The ICE catheter was advanced into the RVOT. The epicardial space of the heart, including around the RV and LV, was evaluated and no effusion was noted. After transseptal access, an Octaray catheter was advanced into the left atrium through the Vizigo sheath. Patient was cardioverted to NSR with a 360J synchronized shock. A 3-D shell representing the left atrium and pulmonary veins was constructed by use of the [employer] Sound mapping system and catheter manipulation in the LA. The electroanatomic map revealed predominantly normal voltage indicating normal healthy myocardium in the left atrium. The mapping system was utilized to facilitate fluoroless manipulation of all catheters. PULMONARY VEIN ISOLATION: Left atrial ablation was performed in the pulmonary vein antrum to encircle the right and left sided PVs. Wide area encirclement was performed. After the PVI ablation was completed, both pulmonary veins were assessed for block with the ablation catheter. Both right and left pulmonary veins were found to have entrance and exit block. Radiofrequency energy was applied with maximal power of 50W and target force of 10 grams or greater. Over the posterior wall radiofrequency energy was applied with maximal power of 50W with target force of 10 grams. Ablation was continued until a CARTO SurePoint index between 400-500 was achieved. Along the posterior wall a Carto SurePoint index between 300-350 was targeted. Esophageal temperature probe was taped to a quad catheter (4Fr Maciej) so it could be visualized on CARTO, and it was maintained as close as possible to the lesion sites on the posterior wall and RF was terminated for any temperature rise greater than 1??C. Baseline temperature was 36.4C at the start of the case and increased to a peak temperature of 37.7C . In addition, phrenic nerve location (using high output pacing) was tagged and localized on Carto over the right and left atrium (RSPV). No ablation was performed at the vicinity of the phrenic nerve. First pass isolation was achieved in both sets of veins. Both entrance and exit block were demonstrated in the PV's. PROVOCATION POST-PULMONARY VEIN ISOLATION: After re-confirming entrance and exit block from both pulmonary veins, rapid atrial pacing was performed from the left atrial posterior wall. No sustained atrial arrhythmia was induced. CAVOTRICUSPID ISTHMUS ABLATION: The ablation catheter and Vizigo sheath were pulled back into the right atrium. Using the Carto Mapping System the cavotricsupid isthmus (CTI) was identified and a line of RF lesions were placed from the earliest atrial signal on the tricuspid annulus to the inferior vena cava. Radiofrequency energy was applied with target power of up to 40 W as well as a contact force > 10 grams if possible. Local sites were targeted until the local electrograms displayed morphology characteristics of a transmural lesion and were associated with a 10 ohms or more impedance decrease. Bidirectional block across the CTI was proven through differential pacing between proximal CS and the mapping catheter, which was lateral to CTI line. Differential pacing between the proximal CS to the mapping catheter, placed on the RA lateral wall, showed a shorter stim to mapping catheter time than at the CTI line. Pacing from the ablation catheter showed longer conduction times to the proximal CS close to the CTI than the lateral RA wall, further illustrating block across the CTI. POST-ABLATION: The ICE catheter was maneuvered into the RVOT. The epicardial space of the heart, including around the RV and LV, was evaluated and no effusion was visualized. Sheaths were removed and hemostasis was obtained at the right femoral venous access sites with Perclose. Five minutes of manual compression was applied to maintain hemostasis. Complications: No complications occurred Summary: - Successful pulmonary vein isolation by radiofrequency ablation with demonstrated entrance block and exit block. - Successful cavotricuspid isthmus ablation (aka CTI line) via RF ablation with block across the CTI. - Successful DCCV back to NSR Discharge: The patient left the EP laboratory in stable condition. If pt doing well, groin access sites without issues pt can be discharged later today Follow up: Resume AC Apixaban 5mg BID, Please DO NOT hold blood thinner unless emergency without asking your doctor. PPI BID x 6 weeks Bedrest for 2 hours post sheath removal No driving, alcohol or making legal decisions for 24 hours. Remove band-aid/tegaderm in 1 day. No heavy lifting, strenuous exercise for 1 week Please call our office if you notice any groin discharge or swelling or fever. For cardiology electrophysiology emergencies (such as severe heart racing, bleeding, severe groin pain/swelling, high fever, wound discharge, stroke symptoms, or recent severe chest pain) call the office See complete procedural log and parameters. ATTESTATION As the responsible attending physician, I was present and directly participating in all critical portions of the procedure and immediately available during the non-critical portions. XR chest 2 views Narrative: Interpreted By: Cory Carrero, STUDY: XR CHEST 2 VIEWS; 01/19/2025 8:43 am INDICATION: Signs/Symptoms:shortness of breath. COMPARISON: None ACCESSION NUMBER(S): [id number] ORDERING CLINICIAN: LIZZY LYNN TECHNIQUE: Frontal and lateral views of the chest FINDINGS: LINES AND TUBES: n/a HEART AND MEDIASTINUM: Cardiac silhouette size: Moderate cardiomegaly Thoracic aorta: Calcified at the arch and perhaps mildly ectatic but no acute findings [place] and nonvascular: within normal limits Other: n/a PULMONARY VESSELS: Within normal limits; no sign of edema LUNGS AND AIRWAYS: Left basilar atelectasis. Substantial size left perihilar nodule or nodules PLEURA: Effusion: Small loculated left; right negative Pneumothorax: Both sides negative Other: n/a BONES: No acute findings Impression: Small loculated left pleural effusion with adjacent mild basilar atelectasis Follow with chest CT (with IV contrast if possible) to evaluate for possible left perihilar nodule or nodules MACRO: None Signed by: Cory Carrero 01/19/2025 8:57 AM Dictation workstation: [id number] [1] Family History Problem Relation Name Age of Onset Melanoma Father Skin cancer Sister Diabetes Sister Heart attack Brother Coronary artery disease Brother Other (PTCA) Brother Cancer Brother [2] amiodarone, 200 mg, oral, Daily anastrozole, 1 mg, oral, Daily apixaban, 5 mg, oral, BID hydrOXYzine HCL, 25 mg, oral, Once losartan, 25 mg, oral, BID metoprolol succinate XL, 25 mg, oral, Daily pantoprazole, 40 mg, oral, BID AC torsemide, 60 mg, oral, Daily [3] PRN medications: acetaminophen, benzocaine-menthol, ondansetron OR ondansetron [4] * Lashanda Azar MD - 01/18/2025 7:52 AM EST H&P reviewed. The patient was examined and there are no changes to the H&P. Source Note - Lashanda Azar MD - 12/30/2024 9:15 AM EDT Images from the original note were not included. Referring Provider: No ref. provider found Reason for Consult: Atrial fibrillation History of Present Illness: Carlos Escobar is a 79 y.o. year old female patient with a history significant for persistent atrial fibrillation on flecainide and Eliquis, incomplete right bundle branch block, obstructive sleepapnea severe, hyperlipidemia, GERD, breast cancer status post radiation and chemotherapy who is referred by Dr. Randhawa for atrial fibrillation management. Patient was diagnosed with atrial fibrillation earlier this year. She had a cardioversion done in August 2024. She then had had recurrence of atrial fibrillation within a week. She was started on flecainide, but has had recurrence of atrial fibrillation despite the flecainide. She has also noted weight gain, which she thinks may be related to fluid overload, since she has been in atrial fibrillation. She endorses dyspnea on exertion, fatigue, lightheadedness, palpitations as symptoms of her atrial fibrillation. Since last visit, we stopped flecainide, started her on amiodarone, and then proceeded with cardioversion after 1 month of amiodarone loading. After this, she unfortunately went back into atrial fibrillation. Once in atrial fibrillation, she has had worsening heart failure symptoms, leg swelling. Her diuretics have been increased as an outpatient. She feels much worse in atrial fibrillation due to the heart failure symptoms. Her shortness of breath is with exertion. She also feels very fatigued. She is also complaining of lower extremity swelling. Focused Cardiovascular Problem List: Persistent atrial fibrillation on amiodarone and Eliquis, status post DCCV x 2 with early recurrence of atrial fibrillation Obstructive sleep apnea, severe Hyperlipidemia GERD Breast cancer status post radiation and chemotherapy Past Medical and Surgical History: Ms. Escobar has a past medical history of Arrhythmia, Atrial fibrillation (Multi), Cancer (Multi), GERD (gastroesophageal reflux disease), Hyperlipidemia, and Sleep apnea. has a past surgical history that includes Breast lumpectomy (Right); Mastectomy (Left); Colonoscopy; Esophagogastroduodenoscopy; Cardioversion (08/28/2024); and Cardioversion (11/23/2024). Social History: Social History Tobacco Use Smoking status: Never Smokeless tobacco: Never Substance Use Topics Alcohol use: Never Relevant Family History: Family History[1] No relevant family history Allergies: RX Allergies[2] Medications: Current Outpatient Medications Medication Instructions amiodarone (Pacerone) 200 mg tablet Take 1 tablet (200 mg) by mouth 2 times a day for 30 days, THEN1 tablet (200 mg) once daily. anastrozole (ARIMIDEX) 1 mg, Daily apixaban (ELIQUIS) 5 mg, oral, 2 times daily dapagliflozin propanediol (FARXIGA) 10 mg, oral, Every 24 hours furosemide (LASIX) 80 mg, oral, See admin instructions, Take 1 tablet in the morning and extra halfa tablet in the afternoon on Saturday, Saturday, and Saturday furosemide (LASIX) 80 mg, Daily furosemide (LASIX) 20 mg, Daily losartan (COZAAR) 25 mg, oral, 2 times daily metoprolol succinate XL (TOPROL-XL) 25 mg, oral, Daily, Do not crush or chew. potassium chloride CR (Klor-Con) 10 mEq ER tablet 10 mEq, oral, 2 times daily, Do not crush, chew, or split. Objective Physical Exam: Last Recorded Vitals: 09/03/2024 10:18 AM 10/01/2024 9:28 AM 10/29/2024 9:29 AM 11/03/2024 3:07 PM 11/23/2024 10:40 AM 11/23/2024 2:45 PM 12/10/2024 2:55 PM Vitals Systolic 146 100 110 110 108 116 104 Diastolic 84 58 70 62 66 67 70 BP Location Left arm Left arm Left arm Right arm Right arm Heart Rate 93 88 107 70 58 84 Temp 36.6 ??C (97.9 ??F) Resp 18 18 Height 1.575 m (5' 2 ) 1.575 m (5' 2 ) 1.575 m (5' 2 ) 1.575 m (5' 2 ) Weight (lb) 181 190.4 191 193.34 188.2 BMI 33.11 kg/m2 34.82 kg/m2 34.93 kg/m2 35.36 kg/m2 34.42 kg/m2 BSA (m2) 1.9 m2 1.94 m2 1.95 m2 1.96 m2 1.93 m2 Visit Report Report Report Report Report Report Visit Vitals Smoking Status Never Gen: NAD, sitting comfortably HEENT: NC/AT Card: Irregularly irregular Pulm: Clear to auscultation bilaterally Ext: No LE edema Neuro: No focal deficits Diagnostic Results My Independent nterpretation of Reviewed Study(s): Prior ECGs (reviewed and my interpretation): 12/30/2024: Atrial fibrillation with controlled ventricular response, incomplete right bundle branch block, heart rate 92 bpm 10/29/2024: Atrial fibrillation, incomplete right bundle branch block, ST and T wave abnormalities, heart rate 88 bpm Echocardiography: 06/28/2024: LVEF 50 to 55%, severely dilated left atrium, severely dilated right atrium, moderate tosevere tricuspid regurgitation Stress Test: 07/23/2024: Negative cardiac perfusion test, no ischemia Relevant Labs: Lab Results Component Value Date CREATININE 1.43 (H) 11/23/2024 K 3.7 11/23/2024 INR 1.9 (H) 11/23/2024 Assessment/Plan Assessment and Plan: Carlos Escobar is a 79 y.o. year old female patient who is referred for management and evaluation of persistent atrial fibrillation. Unfortunately she has had a early recurrence of atrial fibrillation twice now after cardioversion, with the most recent time happening while on amiodarone. Given recurrent symptomatic atrial fibrillation while on amiodarone, would recommend moving forward with catheter ablation. Given the severe dilation in both atrial chambers, I do suspect she will likely still need to be on long-term antiarrhythmic drug therapy, possibly with amiodarone, to maintain normal sinus rhythm. We discussed the potential benefits of AF ablation including freedom from AF without any medical therapy or, in some cases, a significant improvement in AF burden on medical therapy. We also discussed that AF ablation has been shown to be the most effective way to maintain a normal rhythm. Normal rhythm is associated with less heart failure hospitalizations, development of congestive heart failure, major adverse cardiac events, and cognitive dysfunction. We also discussed that ablation procedure is not indicated for the purpose of discontinuing oral anticoagulation, and the success rate for catheter ablation for AF, meaning no recurrence of any atrial fibrillation, is currently approximately 60-70% for persistent atrial fibrillation. A minority of patients may require an additional touch-up procedure. However, it is highly successful at reducing overall A-fib burden as well as symptomatic recurrences. The risks of the procedure were also extensively discussed, including but not limited to infection, blood vessel damage, heart injury or perforation necessitating emergency cardiac surgery, heart attack or stroke, atrial-esophageal fistula, pulmonary vein stenosis, phrenic nerve injury, even . Finally, the risk of stroke associated with atrial fibrillation was discussed - as the patient has a [id number] score of 3, the patient will be maintained on apixaban for CVA prevention. After extensive discussion, Ms. Escobar wishes to proceed with atrial fibrillation ablation. I wouldlike to do it with pulsed field ablation. # Persistent atrial fibrillation - Stop flecainide 50 mg twice daily - Start amiodarone 200 mg twice daily for 1 month, followed by 200 mg daily - Continue apixaban 5 mg twice daily - If recurrent atrial fibrillation despite amiodarone, or side effects of amiodarone, consider catheter ablation for atrial fibrillation Name: Carlos Escobar Attending: Lashanda Azar MD Procedure: Atrial fibrillation ablation Date desired: 01/18/2025 Diagnosis: Persistent atrial fibrillation Vendor if applicable: Kandace Gasca pulse Expected anesthesia: General Isolation/precautions?: None Other comments/med instructions: Hold Farxiga for 3 days prior to the procedure. Continue apixaban uninterrupted including on the morning of the procedure. Hold all other medications on the morning of the procedure. Return to Clinic: Patient should return to the EP Clinic after ablation Thank you very much for allowing me to participate in the care of this patient. Please do not hesitate to contact me with any further questions or concerns. Lashanda Azar MD Clinical Cardiac Social Media Strategist, [facility] [place] Information Writerlicensed insurance sales agent, [facility] Director of Atrial Fibrillation Ablation, [facility] Consultant of Ventricular Arrhythmias Research, [facility] Office [1] Family History Problem Relation Name Age of Onset Melanoma Father Skin cancer Sister Diabetes Sister Heart attack Brother Coronary artery disease Brother Other (PTCA) Brother Cancer Brother [2] No Known Allergies documented in this encounter Consult Notes * Nic Church MD - 01/24/2025 4:47 PM ESTAssociated Order(s): IP CONSULT TO PULMONOLOGY Reason For Consult Evaluation of persistent hypoxia acute respiratory failure pleural effusion and sleep apnea Consulting daycare provider-Dr. Nic Church Referring hospitalist:-Dr. Barnes Primary Supply Chain Program Manager: Dr. Balaji Azar Atrial fibrillation (Multi) Admitting reason:-Atrial fibrillation ablation [place]:- Carlos Escobar is a 79 y.o. female patient who is being at the request of Dr. Barnes for inpatient consultation of Acute hypoxemic respiratory failure, pleural effusion, sleep apnea andother pulmonary/sleep related issues. She was admitted on 01/18/2025. Previous [facility] recordshave been reviewed in detail. Patient with a history of PAF, hypertension, CKD, moderate mitral regurg, moderate to severe tricuspid regurg, LVH negative stress test in 07/26, moderate pulmonary hypertension, PAF status post PVI and CTI Has no prior history of smoking cigarettes, bronchial asthma or COPD. She has history of severe sleep apnea for which she has been on CPAP through a sleep clinic in [facility]. She has been battling atrial fibrillation for a while and previously appeared to have undergone treatment with flecainide, cardioversion. She was evaluated by Dr. Azar and electric motor fitter in early November and put on amiodarone 200 p.o. twice daily for a month and then reduce to 200 daily. Since amiodarone did not work, patient was electively admitted here for atrial fibrillation ablation. After the above said ablation, patient was requiring a lot of oxygen which is new for her. However patient was also noted to have fluid overloaded last couple of months and her weight recently had been 12 pounds above her baseline weight of 185 pounds. Patient was put back on diuretics which created a bump in her creatinine hence nephrology service was consulted. Patient had extensive workup by cardiology service onthis admission which has been reviewed. She did have moderate to severe mitral and tricuspid valve regurgitation along with reduced LV ejection fraction of 40%. She was also noted to have increasing shortness of breath peripheral edema and felt to be fluid overloaded. An echocardiogram on 1117 which is reported below was reviewed which was remarkable for severely enlarged right ventricle RVSP 28 mm LVEF of 55% and a large patent foramen ovale with bubble study being positive. CT chest with PE protocol done on 1117 did show a small left pleural effusion and no evidence of underlying COPD and no evidence of pulmonary embolism. CONCLUSIONS: 01/19/25 echo 1. The left ventricular systolic function is low normal with a visually estimated ejection fractionof 55%. 2. No regional wall motion abnormalities. 3. Spectral Doppler shows a Grade II (pseudonormal pattern) of left ventricular diastolic filling with an elevated left atrial pressure. 4. Right ventricular volume and pressure overload. 5. There is severely reduced right ventricular systolic function. 6. The findings are consistent with pulmonary hypertension. 7. Severely enlarged right ventricle. 8. The left atrial size is moderately dilated. 9. The right atrial size is severely dilated. 10. Small pericardial effusion. 11. There is no evidence of mitral valve stenosis. 12. Moderate to severe mitral valve regurgitation. 13. Severe tricuspid regurgitation. 14. The Doppler estimated RVSP is within normal limits at 28 mmHg. 15. Aortic valve sclerosis. The peak and mean gradients are 9 mmHg and 4 mmHg respectively. 16. Mild to moderate aortic valve regurgitation. 17. The pulmonary artery is not well visualized. 18. The inferior vena cava appears severely dilated, IVC inspiratory collapse is absent. 19. Large patent foramen ovale. 20. A bubble study using agitated saline was performed. Bubble study is positive. A large PFO (>20 bubbles) was demonstrated. 07/26 stress test IMPRESSION: Negative Lexiscan Myoview cardiac perfusion stress test. No evidence of significant ischemia or myocardial infarction by perfusion imaging. Small predominantly fixed anterior apical perfusion defect only. Near normal left ventricular systolic function visually, LV ejection [id number]%. Probable LV function artificially lower % due to underlying atrial fibrillation. No significant change from previous study. Clinical correlation is advised.. Allergies No Known Allergies [Medical History] Past Medical History Diagnosis Date Arrhythmia June 28 2024 Atrial fibrillation (Multi) Cancer (Multi) 1994 L. mastectomy; May 2023 lumpectomy Chronic kidney disease GERD (gastroesophageal reflux disease) Hyperlipidemia Not sure; good lipid values cancelled out other values. Hypertension Sleep apnea Past surgical history Procedure Laterality Date BREAST LUMPECTOMY Right CARDIAC ELECTROPHYSIOLOGY PROCEDURE N/A 01/18/2025 Procedure: Ablation A-Fib Persistant; Surgeon: Lashanda Azar MD; Location: [facility] Cardiac Watch Case Polisher; Service: Electrophysiology; Laterality: N/A; Hold Farxiga for 3 days prior to the procedure. CARDIOVERSION 08/28/2024 CARDIOVERSION 11/23/2024 COLONOSCOPY ESOPHAGOGASTRODUODENOSCOPY MASTECTOMY Left Family History Problem Relation Name Age of Onset Melanoma Father Skin cancer Sister Diabetes Sister Heart attack Brother Coronary artery disease Brother Other (PTCA) Brother Cancer Brother social history Tobacco Use Smoking status: Never Smokeless tobacco: Never Vaping Use Vaping status: Never Used Substance Use Topics Alcohol use: Never Drug use: Never [Scheduled Medications] amiodarone, 200 mg, oral, Daily anastrozole, 1 mg, oral, Daily apixaban, 5 mg, oral, BID hydrOXYzine HCL, 25 mg, oral, Once ipratropium-albuteroL, 3 mL, nebulization, TID LORazepam, 0.5 mg, oral, Once losartan, 25 mg, oral, BID metoprolol succinate XL, 25 mg, oral, Daily pantoprazole, 40 mg, oral, BID AC polyethylene glycol, 17 g, oral, BID sennosides-docusate sodium, 1 tablet, oral, Nightly torsemide, 60 mg, oral, Daily [Continuous Medications] [Continuous Medications] Current Outpatient Medications Medication Instructions amiodarone (PACERONE) 200 mg, oral, Daily, For 2 months after ablation then discontinue anastrozole (ARIMIDEX) 1 mg, Daily apixaban (ELIQUIS) 5 mg, oral, 2 times daily dapagliflozin propanediol (FARXIGA) 10 mg, oral, Every 24 hours losartan (COZAAR) 25 mg, oral, 2 times daily metoprolol succinate XL (TOPROL-XL) 25 mg, oral, Daily, Do not crush or chew. pantoprazole (PROTONIX) 40 mg, oral, 2 times daily before meals, For 6 weeks after ablation then stop taking potassium chloride CR (Klor-Con) 10 mEq ER tablet 10 mEq, oral, 2 times daily, Do not crush, chew, or split. torsemide (DEMADEX) 60 mg, oral, Daily ROS 12 point review of systems was obtained in detail and is negative other than that detailed above. Vitals: 01/20/25 0439 01/20/25 0701 01/20/25 0731 01/20/25 0809 BP: 110/52 119/59 BP Location: Right arm Right arm Patient Position: Lying Lying Pulse: 56 61 Resp: 20 18 Temp: 35.9 ??C (96.6 ??F) 36.3 ??C (97.3 ??F) TempSrc: Temporal Temporal SpO2: (!) 89% 90% (!) 84% Weight: 89.4 kg (197 lb 1.5 oz) Height: Intake/Output Summary (Last 24 hours) at 01/20/2025 0939 Last data filed at 01/20/2025 0809 Gross per 24 hour Intake 490 ml Output 880 ml Net -390 ml Wt Readings from Last 4 Encounters: 01/20/25 89.4 kg (197 lb 1.5 oz) 01/05/25 89.5 kg (197 lb 6.4 oz) 12/30/24 88.5 kg (195 lb) 12/10/24 85.4 kg (188 lb 3.2 oz) EXAM: GENERAL APPEARANCE: Well developed, well nourished, in no acute distress. CHEST: Symmetric and non-tender. INTEGUMENT: Skin warm and dry, without gross excoriationis or lesions. HEENT: No gross abnormalities of conjunctiva, teeth, gums, oral mucosa NECK: Supple, no JVD, no bruit. Thyroid not palpable. Carotid upstrokes normal. NEURO/PSHCY: Alert and oriented x3; appropriate behavior and responses and responses, grossly normal cerebellar function with normal balance and coordination LUNGS: Diminished with scattered Rales HEART: S1, S2 regular with 1 out of 6 systolic murmur ABDOMEN: Soft, nontender, no palpable hepatosplenomegaly, no mases, no bruits. Abdominal aorta not noted to be enlarged. EXTREMITIES: Warm with good color, no clubbing or cyanois. 2+ edema PERIPHERAL VASCULAR: Pulses present and equally palpable; 1+ throughout. No femoral bruits. LAB CBC: Results from last 7 days Lab Units 01/20/25 0557 01/13/25 1325 WBC AUTO x10*3/uL 6.3 4.0* RBC AUTO x10*6/uL 3.39* 3.81* HEMOGLOBIN g/dL 10.4* 11.9* HEMATOCRIT % 33.4* 37.3 MCV fL 99 98 MCH pg 30.7 31.2 MCHC g/dL 31.1* 31.9* RDW % 15.5* 15.2* PLATELETS AUTO x10*3/uL 87* 133* CMP: Results from last 7 days Lab Units 01/20/25 0557 01/19/25 0533 01/18/25 1651 01/18/25 0557 01/13/25 1325 SODIUM mmol/L 136 137 135* < > 139 POTASSIUM mmol/L 4.0 4.0 3.7 < > 3.6 CHLORIDE mmol/L 99 101 98 < > 99 CO2 mmol/L 28 27 28 < > 31 BUN mg/dL 45* 34* 32* < > 26* CREATININE mg/dL 2.25* 1.56* 1.45* < > 1.51* GLUCOSE mg/dL 95 118* 132* < > 86 PROTEIN TOTAL g/dL -- -- 7.2 -- 6.7 CALCIUM mg/dL 8.9 8.8 9.0 < > 8.9 BILIRUBIN TOTAL mg/dL -- -- 2.0* -- 1.6* ALK PHOS U/L -- -- 318* -- 290* AST U/L -- -- 27 -- 22 ALT U/L -- -- 17 -- 16 < > = values in this interval not displayed. BMP: Results from last 7 days Lab Units 01/20/25 0557 01/19/25 0533 01/18/25 1651 SODIUM mmol/L 136 137 135* POTASSIUM mmol/L 4.0 4.0 3.7 CHLORIDE mmol/L 99 101 98 CO2 mmol/L 28 27 28 BUN mg/dL 45* 34* 32* CREATININE mg/dL 2.25* 1.56* 1.45* CALCIUM mg/dL 8.9 8.8 9.0 GLUCOSE mg/dL 95 118* 132* Magnesium: Results from last 7 days Lab Units 01/20/25 0557 01/18/25 1651 MAGNESIUM mg/dL 2.21 2.17 Troponin: BNP: Results from last 7 days Lab Units 01/20/25 0557 BNP pg/mL 380* Radiology CT chest wo IV contrast Final Result CT confirms perceived left perihilar mass from radiograph earlier today was an artifact due to a normal structures; specifically, the left lower lobe pulmonary artery branch point, probably more visible compared to the other side due to the differences in the chest wall (left mastectomy). No lung nodule or mass to workup or follow Moderate cardiomegaly with at least right atrial if not biatrial dilation At least moderate if not large pericardial effusion Small free-flowing bilateral pleural effusions with adjacent atelectasis No other acute disease in the chest, only some minimal atelectasis. No sign of active infection. No interstitial or alveolar edema. No pneumothorax or pneumomediastinum MACRO: None Signed by: Cory Carrero 01/19/2025 2:34 PM Dictation workstation: [id number] Transthoracic Echo Complete Final Result CONCLUSIONS: 1. The left ventricular systolic function is low normal with a visually estimated ejection fractionof 55%. 2. No regional wall motion abnormalities. 3. Spectral Doppler shows a Grade II (pseudonormal pattern) of left ventricular diastolic filling with an elevated left atrial pressure. 4. Right ventricular volume and pressure overload. 5. There is severely reduced right ventricular systolic function. 6. The findings are consistent with pulmonary hypertension. 7. Severely enlarged right ventricle. 8. The left atrial size is moderately dilated. 9. The right atrial size is severely dilated. 10. Small pericardial effusion. 11. There is no evidence of mitral valve stenosis. 12. Moderate to severe mitral valve regurgitation. 13. Severe tricuspid regurgitation. 14. The Doppler estimated RVSP is within normal limits at 28 mmHg. 15. Aortic valve sclerosis. The peak and mean gradients are 9 mmHg and 4 mmHg respectively. 16. Mild to moderate aortic valve regurgitation. 17. The pulmonary artery is not well visualized. 18. The inferior vena cava appears severely dilated, IVC inspiratory collapse is absent. 19. Large patent foramen ovale. 20. A bubble study using agitated saline was performed. Bubble study is positive. A large PFO (>20 bubbles) was demonstrated. 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 Pending) Problem List: [P Diagnosis Never smoked cigarettes BMI 33.0-33.9,adult Hospital discharge follow-up Atrial fibrillation (Multi) care home current use of anticoagulant therapy LVH (left ventricular hypertrophy) Hyperlipidemia Irritable bowel syndrome History of malignant neoplasm of breast Anemia associated with nutritional deficiency Family history of ischemic heart disease Nonrheumatic tricuspid valve regurgitation Abnormal EKG Hyperglycemia Snoring Other fatigue Mitral valve regurgitation Tachycardia Abnormal cardiovascular function study Daytime somnolence High risk medication use SOB (shortness of breath) Edema, unspecified Essential (primary) hypertension Obstructive sleep apnea Incomplete RBBB Nonrheumatic aortic (valve) insufficiency Volume overload Paroxysmal atrial fibrillation (Multi) Persistent atrial fibrillation (Multi) Assessment: Acute hypoxemic respiratory failure PAF status post PVI and CTI pod 2 PAF currently normal sinus rhythm Acute on chronic diastolic heart failure NYHA class II EF 55% CKD stage III Hypertension Large PFO Severe tricuspid regurg Moderate to severe mitral regurg Pulmonary comments:-Patient with no known background lung disease, no history of prior smoking, history of normal pulse ox of during previous recent procedures who undergoes atrial fibrillation ablation about a week ago and has been hypoxic ever since. She has been chronically anticoagulated for her atrial fibrillation and there was no evidence of pulmonary embolism by CT chest on 01/19/2025. She had a small left pleural effusion and no evidence of pneumonia or any other underlying lung diseasesuch as ILD. She has no evidence of amiodarone lung toxicity. I believe her hypoxia is mainly driven by fluid overload which is being corrected. She does have a large PFO which should not cause hypoxia unless there is a reversal in shunting. There is no evidence of pulmonary hypertension. At this point she continues to be hypoxic requiring O2 8 L by Oxymizer. I doubt that left pleural effusion contributing significantly to hypoxia and in any case it is too small to tap. Would continue with generic DuoNebs every 4 as needed for presumptive reactive airways. Continue aggressive diuresis as being done by renal service. At this point patient is on too much oxygen to be discharged either to homeor to a rehab facility. She will be continued on BiPAP 16/ with back up rate 16 nightly as ordered. Will continue to monitor this patient on a regular basis while here. Plan of care discussed extensively with patient and her daughter and son-in-law okay to continue amiodarone at this point. Will eventually need a outpatient PFT to evaluate lung results I shall continue to monitor this patient with you and I thank you for the referral. I spent 55 minutes in the professional and overall care of this patient. Nic Church MD * Juana Borrego MD - 01/20/2025 11:24 AM ESTAssociated Order(s): IP CONSULT TO NEPHROLOGY [facility] Nephrology Consult Note Reason for Consult: ANATOLY, volume overload Requesting Physician: Dr. Eli Chief Complaint: elective ablation History Obtained From: patient, electronic medical record History of Present Ilness: 79 y.o. female with history s/f persistent A.fib, breast cancer s/p radiation and chemo, HFpEF, WIL, HLD and GERD who initially presented for elective ablation however due to fluid overload and hypoxia was kept overnight and given multiple doses of loop diuretics including lasix, torsemide and bumex. Note that the A.fib persisted even w/ DCCV x2 and flecainide. Transitioned to amiodarone. ? Baseline Scr ~1.4-1.6 w/ eGFR low/mid 30s, notably Scr 0.9 in 04/28 and up to 1.2 in 11/26 (up to 1.4 same month). Scr was at baseline on presentation however now w/ worsening function, currently up to 2.2 this AM. Was getting torsemide 60 mg daily now changed to lasix 20 mg IV BID Past Medical History: Past Medical History: Diagnosis Date Arrhythmia June 28 2024 Atrial fibrillation (Multi) Cancer (Multi) 1994 L. mastectomy; May 2023 lumpectomy Chronic kidney disease GERD (gastroesophageal reflux disease) Hyperlipidemia Not sure; good lipid values cancelled out other values. Hypertension Sleep apnea Past Surgical History: Past Surgical History: Procedure Laterality Date BREAST LUMPECTOMY Right CARDIAC ELECTROPHYSIOLOGY PROCEDURE N/A 01/18/2025 Procedure: Ablation A-Fib Persistant; Surgeon: Lashanda Azar MD; Location: [facility] Cardiac Watch Case Polisher; Service: Electrophysiology; Laterality: N/A; Hold Farxiga for 3 days prior to the procedure. CARDIOVERSION 08/28/2024 CARDIOVERSION 11/23/2024 COLONOSCOPY ESOPHAGOGASTRODUODENOSCOPY MASTECTOMY Left Home Medications: Medications Ordered Prior to Encounter[1] Allergies: Patient has no known allergies. Social History: Social History Socioeconomic History Marital status: Spouse name: Not on file Number of children: Not on file Years of education: Not on file Highest education level: Not on file Occupational History Not on file Tobacco Use Smoking status: Never Smokeless tobacco: Never Vaping Use Vaping status: Never Used Substance and Sexual Activity Alcohol use: Never Drug use: Never Sexual activity: Not Currently Partners: Choose not to disclose control/protection: None, Post-menopausal Comment: Prefer not to answer Other Topics Concern Not on file Social History Narrative Not on file Social Drivers of Health Financial Resource Strain: Low Risk (01/19/2025) Overall Financial Resource Strain (CARDIA) Difficulty of Paying Living Expenses: Not very hard Food Insecurity: No Food Insecurity (01/19/2025) Hunger Vital Sign Worried About Running Out of Food in the Last Year: Never true Ran Out of Food in the Last Year: Never true Transportation Needs: No Transportation Needs (01/19/2025) PRAPARE - Transportation Lack of Transportation (Medical): No Lack of Transportation (Non-Medical): No Physical Activity: Not on file Stress: Not on file Social Connections: Not on file Intimate Partner Violence: Not At Risk (01/19/2025) Humiliation, Afraid, Rape, and Kick questionnaire Fear of Current or Ex-Partner: No Emotionally Abused: No Physically Abused: No Sexually Abused: No Housing Stability: Unknown (01/19/2025) Housing Stability Vital Sign Unable to Pay for Housing in the Last Year: No Number of Times Moved in the Last Year: Not on file Homeless in the Last Year: No Family History: Family History[2] Review of Systems: Positives in bold Constitutional: fever, chills, fatigue, malaise, weight gain HENT: rhinorrhea, sinus pain, sore throat, epistaxis Eyes: photophobia, visual disturbance, eye redness Respiratory: shortness of breath, cough, hemoptysis Cardiovascular: chest pain, palpitations, orthopnea, leg swelling Gastrointestinal: abdominal pain, nausea, vomiting, diarrhea, constipation Endocrine: polydipsia, polyphagia, cold intolerance, heat intolerance Genitourinary: dysuria, flank pain, frequency, urgency Hematologic: easy bruising, easy bleeding Musculoskeletal: back pain, neck pain, myalgias, arthalgias Neurological: syncope, lightheadedness, dizziness, seizures, tremors, weakness Psychiatric/Behavioral: anxiety, depression, hallucinations Skin: rash, itching Physical exam: Constitutional: VITALS: BP 98/53 Pulse 56 Temp 36.1 ??C (97 ??F) Resp 18 Ht 1.575 m (5' 2 ) Wt 89.4 kg (197 lb 1.5 oz) SpO2 (!) 89% BMI 36.05 kg/m?? General: alert, in no apparent distress HEENT: normocephalic, atraumatic, anicteric Lungs: non-labored respirations, clear to auscultation bilaterally Heart: irregular rhythm, no murmurs Abdomen: soft, non-tender Ext: no peripheral edema Neuro: alert, follows commands Data/ CBC: Lab Results Component Value Date WBC 6.3 01/20/2025 RBC 3.39 (L) 01/20/2025 HGB 10.4 (L) 01/20/2025 HCT 33.4 (L) 01/20/2025 MCV 99 01/20/2025 MCH 30.7 01/20/2025 MCHC 31.1 (L) 01/20/2025 RDW 15.5 (H) 01/20/2025 PLT 87 (L) 01/20/2025 BMP: Lab Results Component Value Date NA 136 01/20/2025 K 4.0 01/20/2025 CL 99 01/20/2025 CO2 28 01/20/2025 BUN 45 (H) 01/20/2025 CREATININE 2.25 (H) 01/20/2025 CALCIUM 8.9 01/20/2025 GLUCOSE 95 01/20/2025 Assessment: 79 y.o. female with history s/f persistent A.fib, breast cancer s/p radiation and chemo, HFpEF, WIL, HLD and GERD who initially presented for elective ablation however due to fluid overload and hypoxia was kept ANATOLY on ?CKD stage IIIb: ? 2/2 hypotension, ?Crs, current baseline Scr 1.4-1.6 w/ eGFR low/mid 30s however was 0.9 in 04/28 and 1.2 in 11/26 (may have non-resolved ANATOLY), now worsening, no contrast administered, has been getting loop diuretics Fluid overload Hypotensive episodes Anemia/thrombocytopenia Persistent A.fib Plan: - continue lasix 20 mg IV BID for now - monitor BP, may need to hold anti-hypertensives - strict I/O - advised PO hydration Thank you for the consultation. Will continue to follow Please do not hesitate to call with questions. Juana Borrego MD [1] No current facility-administered medications on file prior to encounter. Current Outpatient Medications on File Prior to Encounter Medication Sig Dispense Refill anastrozole (Arimidex) 1 mg tablet Take 1 tablet (1 mg total) by mouth once daily. apixaban (Eliquis) 5 mg tablet Take 1 tablet (5 mg) by mouth 2 times a day. 180 tablet 3 losartan (Cozaar) 25 mg tablet Take 1 tablet (25 mg) by mouth 2 times a day. 180 tablet 3 metoprolol succinate XL (Toprol-XL) 25 mg 24 hr tablet Take 1 tablet (25 mg) by mouth once daily. Do not crush or chew. potassium chloride CR (Klor-Con) 10 mEq ER tablet Take 1 tablet (10 mEq) by mouth 2 times a day. Donot crush, chew, or split. 60 tablet 11 dapagliflozin propanediol (Farxiga) 10 mg tablet Take 1 tablet (10 mg) by mouth once every 24 hours. 90 tablet 3 [2] Family History Problem Relation Name Age of Onset Melanoma Father Skin cancer Sister Diabetes Sister Heart attack Brother Coronary artery disease Brother Other (PTCA) Brother Cancer Brother * Pedro Giron MD - 01/20/2025 9:39 AM ESTAssociated Order(s): IP CONSULT TO CARDIOLOGY Cardiology Consult Note Date: 01/20/2025 Patient name: Carlos Escobar Date of admission: 01/18/2025 5:30 AM Date of : 1945 Time of Consult: 9:39 AM Consulting Supply Chain Program Manager: Dr. Pedro Laura, CHERY, DIVISION ORDER ANALYST Primary Supply Chain Program Manager: Dr. Balaji Azar Referring Provider: Dr Eli Admission Diagnosis: Atrial fibrillation (Multi) History of Present Illness: Carlos Escobar is a 79 y.o. female patient who is being at the request of Dr. Eli for inpatient consultation of CHF. She was admitted on 01/18/2025. Previous [facility] and [facility] records have been reviewed in detail. Patient with a history of PAF, hypertension, CKD, moderate mitral regurg, moderate to severe tricuspid regurg, LVH negative stress test in 07/26, moderate pulmonary hypertension, PAF status post PVI and CTI Patient came in on Saturday for an ablation by Dr. Azar. After the procedure she was requiring oxygen which is very different for her normally at home she does not require any oxygen. She states thatshe has been having more times with her legs being swollen she is in the last couple months she states that that she normally weighs about 185 pounds and she is 12 pounds over her normal weight. She states that she sees Dr. Randhawa as an outpatient normally she has been doing pretty well but lately since all this came on with this PAF going in and out of sinus rhythm and with the A-fib she came in and had this ablation done and cardioversion she is currently in normal sinus rhythm she did have an elevation in her creatinine. They put her back on her home medications include Demadex 60 mg daily she had a bump in her creatinine so they are we are waiting for renal to stop by and see the patient. I spoke to her at length I did answer all of her questions regarding her moderate to severe mitral and tricuspid regurg. Positive for shortness of breath, fatigue, peripheral edema Denies chest pain, fever, chills, orthopnea Telemetry is normal sinus rhythm BNP 380 Magnesium 2.21 Sodium 136 Potassium 4.0 BUN 45 Creatinine 2.25 Albumin 3.4 CONCLUSIONS: 01/19/25 echo 1. The left ventricular systolic function is low normal with a visually estimated ejection fractionof 55%. 2. No regional wall motion abnormalities. 3. Spectral Doppler shows a Grade II (pseudonormal pattern) of left ventricular diastolic filling with an elevated left atrial pressure. 4. Right ventricular volume and pressure overload. 5. There is severely reduced right ventricular systolic function. 6. The findings are consistent with pulmonary hypertension. 7. Severely enlarged right ventricle. 8. The left atrial size is moderately dilated. 9. The right atrial size is severely dilated. 10. Small pericardial effusion. 11. There is no evidence of mitral valve stenosis. 12. Moderate to severe mitral valve regurgitation. 13. Severe tricuspid regurgitation. 14. The Doppler estimated RVSP is within normal limits at 28 mmHg. 15. Aortic valve sclerosis. The peak and mean gradients are 9 mmHg and 4 mmHg respectively. 16. Mild to moderate aortic valve regurgitation. 17. The pulmonary artery is not well visualized. 18. The inferior vena cava appears severely dilated, IVC inspiratory collapse is absent. 19. Large patent foramen ovale. 20. A bubble study using agitated saline was performed. Bubble study is positive. A large PFO (>20 bubbles) was demonstrated. 07/26 stress test IMPRESSION: Negative Lexiscan Myoview cardiac perfusion stress test. No evidence of significant ischemia or myocardial infarction by perfusion imaging. Small predominantly fixed anterior apical perfusion defect only. Near normal left ventricular systolic function visually, LV ejection [id number]%. Probable LV function artificially lower % due to underlying atrial fibrillation. No significant change from previous study. Clinical correlation is advised.. Allergies: Allergies[1] Past Medical History: Medical History[2] Past Surgical History: Surgical History[3] Family History: Family History[4] Social History: Social History[5] CURRENT INPATIENT MEDICATIONS Scheduled Medications[6] Continuous Medications[7] Current Outpatient Medications Medication Instructions amiodarone (PACERONE) 200 mg, oral, Daily, For 2 months after ablation then discontinue anastrozole (ARIMIDEX) 1 mg, Daily apixaban (ELIQUIS) 5 mg, oral, 2 times daily dapagliflozin propanediol (FARXIGA) 10 mg, oral, Every 24 hours losartan (COZAAR) 25 mg, oral, 2 times daily metoprolol succinate XL (TOPROL-XL) 25 mg, oral, Daily, Do not crush or chew. pantoprazole (PROTONIX) 40 mg, oral, 2 times daily before meals, For 6 weeks after ablation then stop taking potassium chloride CR (Klor-Con) 10 mEq ER tablet 10 mEq, oral, 2 times daily, Do not crush, chew, or split. torsemide (DEMADEX) 60 mg, oral, Daily Review of Systems: 12 point review of systems was obtained in detail and is negative other than that detailed above. Vital Signs: Vitals: 01/20/25 0439 01/20/25 0701 01/20/25 0731 01/20/25 0809 BP: 110/52 119/59 BP Location: Right arm Right arm Patient Position: Lying Lying Pulse: 56 61 Resp: 20 18 Temp: 35.9 ??C (96.6 ??F) 36.3 ??C (97.3 ??F) TempSrc: Temporal Temporal SpO2: (!) 89% 90% (!) 84% Weight: 89.4 kg (197 lb 1.5 oz) Height: Intake/Output Summary (Last 24 hours) at 01/20/2025 0939 Last data filed at 01/20/2025 0809 Gross per 24 hour Intake 490 ml Output 880 ml Net -390 ml Wt Readings from Last 4 Encounters: 01/20/25 89.4 kg (197 lb 1.5 oz) 01/05/25 89.5 kg (197 lb 6.4 oz) 12/30/24 88.5 kg (195 lb) 12/10/24 85.4 kg (188 lb 3.2 oz) Physical Examination: GENERAL APPEARANCE: Well developed, well nourished, in no acute distress. CHEST: Symmetric and non-tender. INTEGUMENT: Skin warm and dry, without gross excoriationis or lesions. HEENT: No gross abnormalities of conjunctiva, teeth, gums, oral mucosa NECK: Supple, no JVD, no bruit. Thyroid not palpable. Carotid upstrokes normal. NEURO/PSHCY: Alert and oriented x3; appropriate behavior and responses and responses, grossly normal cerebellar function with normal balance and coordination LUNGS: Diminished with scattered Rales HEART: S1, S2 regular with 1 out of 6 systolic murmur ABDOMEN: Soft, nontender, no palpable hepatosplenomegaly, no mases, no bruits. Abdominal aorta not noted to be enlarged. EXTREMITIES: Warm with good color, no clubbing or cyanois. 2+ edema PERIPHERAL VASCULAR: Pulses present and equally palpable; 1+ throughout. No femoral bruits. Lab: CBC: Results from last 7 days Lab Units 01/20/25 0557 01/13/25 1325 WBC AUTO x10*3/uL 6.3 4.0* RBC AUTO x10*6/uL 3.39* 3.81* HEMOGLOBIN g/dL 10.4* 11.9* HEMATOCRIT % 33.4* 37.3 MCV fL 99 98 MCH pg 30.7 31.2 MCHC g/dL 31.1* 31.9* RDW % 15.5* 15.2* PLATELETS AUTO x10*3/uL 87* 133* CMP: Results from last 7 days Lab Units 01/20/25 0557 01/19/25 0533 01/18/25 1651 01/18/25 0557 01/13/25 1325 SODIUM mmol/L 136 137 135* < > 139 POTASSIUM mmol/L 4.0 4.0 3.7 < > 3.6 CHLORIDE mmol/L 99 101 98 < > 99 CO2 mmol/L 28 27 28 < > 31 BUN mg/dL 45* 34* 32* < > 26* CREATININE mg/dL 2.25* 1.56* 1.45* < > 1.51* GLUCOSE mg/dL 95 118* 132* < > 86 PROTEIN TOTAL g/dL -- -- 7.2 -- 6.7 CALCIUM mg/dL 8.9 8.8 9.0 < > 8.9 BILIRUBIN TOTAL mg/dL -- -- 2.0* -- 1.6* ALK PHOS U/L -- -- 318* -- 290* AST U/L -- -- 27 -- 22 ALT U/L -- -- 17 -- 16 < > = values in this interval not displayed. BMP: Results from last 7 days Lab Units 01/20/25 0557 01/19/25 0533 01/18/25 1651 SODIUM mmol/L 136 137 135* POTASSIUM mmol/L 4.0 4.0 3.7 CHLORIDE mmol/L 99 101 98 CO2 mmol/L 28 27 28 BUN mg/dL 45* 34* 32* CREATININE mg/dL 2.25* 1.56* 1.45* CALCIUM mg/dL 8.9 8.8 9.0 GLUCOSE mg/dL 95 118* 132* Magnesium: Results from last 7 days Lab Units 01/20/25 0557 01/18/25 1651 MAGNESIUM mg/dL 2.21 2.17 Troponin: BNP: Results from last 7 days Lab Units 01/20/25 0557 BNP pg/mL 380* Radiology: CT chest wo IV contrast Final Result CT confirms perceived left perihilar mass from radiograph earlier today was an artifact due to a normal structures; specifically, the left lower lobe pulmonary artery branch point, probably more visible compared to the other side due to the differences in the chest wall (left mastectomy). No lung nodule or mass to workup or follow Moderate cardiomegaly with at least right atrial if not biatrial dilation At least moderate if not large pericardial effusion Small free-flowing bilateral pleural effusions with adjacent atelectasis No other acute disease in the chest, only some minimal atelectasis. No sign of active infection. No interstitial or alveolar edema. No pneumothorax or pneumomediastinum MACRO: None Signed by: Cory Carrero 01/19/2025 2:34 PM Dictation workstation: [id number] Transthoracic Echo Complete Final Result CONCLUSIONS: 1. The left ventricular systolic function is low normal with a visually estimated ejection fractionof 55%. 2. No regional wall motion abnormalities. 3. Spectral Doppler shows a Grade II (pseudonormal pattern) of left ventricular diastolic filling with an elevated left atrial pressure. 4. Right ventricular volume and pressure overload. 5. There is severely reduced right ventricular systolic function. 6. The findings are consistent with pulmonary hypertension. 7. Severely enlarged right ventricle. 8. The left atrial size is moderately dilated. 9. The right atrial size is severely dilated. 10. Small pericardial effusion. 11. There is no evidence of mitral valve stenosis. 12. Moderate to severe mitral valve regurgitation. 13. Severe tricuspid regurgitation. 14. The Doppler estimated RVSP is within normal limits at 28 mmHg. 15. Aortic valve sclerosis. The peak and mean gradients are 9 mmHg and 4 mmHg respectively. 16. Mild to moderate aortic valve regurgitation. 17. The pulmonary artery is not well visualized. 18. The inferior vena cava appears severely dilated, IVC inspiratory collapse is absent. 19. Large patent foramen ovale. 20. A bubble study using agitated saline was performed. Bubble study is positive. A large PFO (>20 bubbles) was demonstrated. 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 twice daily Cozaar on hold due to CKD Toprol XL 25 mg daily Intake and output Daily weights Keep magnesium greater than 2.0 Ki Laura CNP [facility] Of note, this documentation is completed using the [email or web address] system (voice recognition software). There may be spelling and/or grammatical errors that were not corrected prior to final submission. I have personally interviewed and examined the patient. I have personally and independently reviewed labs and diagnostic testing. I have personally verified the elements of the history and physical listed above and changes, if any, are noted. I have personally reviewed the assessment and plan as documented by BHAVIN Valencia, KM and concur. In summary, Mrs. Carlos Escobar has a history of persistent symptomatic atrial fibrillation initially diagnosed earlier this year. No history of atherosclerotic heart or valvular heart disease. She has a history of severe sleep apnea for which she was recently started on CPAP. She has a history of breast carcinoma for she underwent radiation therapy and chemotherapy. A Lexiscan myocardial perfusion study July 2024 was negative for ischemia. Small fixed anteroapical perfusion defect. Calculated LV ejection fraction 43%. Underlying atrial fibrillation likely interfered with gating. She underwent cardioversion in [place] in August 2024. She had recurrent atrial fibrillation and wasinitiated on flecainide and subsequently underwent repeat cardioversion. While in atrial fibrillation the patient noted multiple symptoms including fatigue, palpitations, shortness of breath, abdominal bloating, edema, and weight gain. She was seen in follow-up by Dr. Balaji Arreola and referralwas made to Dr. Lashanda Azar. She was seen by him on November 03, 2024 and initiated on amiodarone. She had repeat cardioversion after 1 month of amiodarone loading, however, she developed recurrentatrial fibrillation associated with similar worsening symptoms. On January 18, 2025 she underwent C TI/PVI by Dr. Azar. Following the procedure the patient complained of shortness of breath and wasnoted to have some hypoxia. It was noted that her weight was increased approximately 12 pounds frombaseline. She was noted to have increased bilateral peripheral edema. She was initiated on intravenous diuretics and admitted to telemetry. She had approxi-1 L negative fluid balance. She was subsequently changed back to her home dose of Demadex 60 mg daily. This has since been changed to furosemide 20 mg IV twice daily. She was noted this morning to have a mild increase in her creatinine. Lab studies show a hemoglobin 10.4 with WBC 6.3. Normal basic metabolic profile with exception of BUN 45 and creatinine 2.25. Baseline creatinine approximately 1.4. Echocardiogram on January 20, 2025 showed normal LV function with estimated LV ejection recta 55%.Moderate left atrial enlargement. A large PFO was demonstrated. There is severe enlargement of the right ventricle and severely impaired RV systolic function. 2+ aortic regurgitation, 3+ mitral regurgitation, and 3-4+ tricuspid regurgitation. Estimated RVSP 28 mmHg. She currently is resting comfortably. She is lying nearly flat in bed. She notes she feels somewhatless short of breath. She currently has acute on chronic diastolic failure as well as right heart failure. Exacerbated by recent atrial fibrillation. Recent 12 pound weight gain. Agree with continuedIV diuretics. Await further nephrology recommendations. Consider eventual evaluation by the structural heart team in light of significant mitral and tricuspid regurgitation. Further recommendations to follow. [1] No Known Allergies [2] Past Medical History: Diagnosis Date Arrhythmia June 28 2024 Atrial fibrillation (Multi) Cancer (Multi) 1994 L. mastectomy; May 2023 lumpectomy Chronic kidney disease GERD (gastroesophageal reflux disease) Hyperlipidemia Not sure; good lipid values cancelled out other values. Hypertension Sleep apnea [3] Past Surgical History: Procedure Laterality Date BREAST LUMPECTOMY Right CARDIAC ELECTROPHYSIOLOGY PROCEDURE N/A 01/18/2025 Procedure: Ablation A-Fib Persistant; Surgeon: Lashanda Azar MD; Location: [facility]; Service: Electrophysiology; Laterality: N/A; Hold Farxiga for 3 days prior to the procedure. CARDIOVERSION 08/28/2024 CARDIOVERSION 11/23/2024 COLONOSCOPY ESOPHAGOGASTRODUODENOSCOPY MASTECTOMY Left [4] Family History Problem Relation Name Age of Onset Melanoma Father Skin cancer Sister Diabetes Sister Heart attack Brother Coronary artery disease Brother Other (PTCA) Brother Cancer Brother [5] Social History Tobacco Use Smoking status: Never Smokeless tobacco: Never Vaping Use Vaping status: Never Used Substance Use Topics Alcohol use: Never Drug use: Never [6] amiodarone, 200 mg, oral, Daily anastrozole, 1 mg, oral, Daily apixaban, 5 mg, oral, BID hydrOXYzine HCL, 25 mg, oral, Once ipratropium-albuteroL, 3 mL, nebulization, TID LORazepam, 0.5 mg, oral, Once losartan, 25 mg, oral, BID metoprolol succinate XL, 25 mg, oral, Daily pantoprazole, 40 mg, oral, BID AC polyethylene glycol, 17 g, oral, BID sennosides-docusate sodium, 1 tablet, oral, Nightly torsemide, 60 mg, oral, Daily [7] [8] Patient Active Problem List Diagnosis Never smoked cigarettes BMI 33.0-33.9,adult Hospital discharge follow-up Atrial fibrillation (Multi) care home current use of anticoagulant therapy LVH (left ventricular hypertrophy) Hyperlipidemia Irritable bowel syndrome History of malignant neoplasm of breast Anemia associated with nutritional deficiency Family history of ischemic heart disease Nonrheumatic tricuspid valve regurgitation Abnormal EKG Hyperglycemia Snoring Other fatigue Mitral valve regurgitation Tachycardia Abnormal cardiovascular function study Daytime somnolence High risk medication use SOB (shortness of breath) Edema, unspecified Essential (primary) hypertension Obstructive sleep apnea Incomplete RBBB Nonrheumatic aortic (valve) insufficiency Volume overload Paroxysmal atrial fibrillation (Multi) Persistent atrial fibrillation (Multi) * Yaz Stroud RDN, LD - 01/19/2025 1:43 PM ESTAssociated Order(s): IP CONSULT TO NUTRITION SERVICES Nutrition Initial Assessment Note Nutrition Assessment Patient is a 79 y.o. female referred to Nutrition Services for Admission nursing screening (MST score of 2). Recent Events: Pt with past medical history of persistent atrial fibrillation on flecainide and Eliquis, incomplete right bundle branch block, obstructive sleep apnea severe, hyperlipidemia, GERD, breast cancer status post radiation and chemotherapy. Food and Nutrient History: Energy Intake: (no meal intakes recorded at this time) Pain affecting nutrition status: N/A Food and Nutrient History: Met with pt who reports wt gain in the past 3 months due to fluid retention, states UBW 185 lbs. Pt states appetite has been low for the past 1-2 weeks due to feeling full quickly. Pt denies following diet restrictions at home, denies use of ONS. Pt denies GI symptoms, nochewing or swallowing difficulty. Pt states she does not feel appetite is low enough to need ONS. Discussed rational for Cardiac diet. Will continue to monitor. Vitamin/Herbal Supplement Use: klor-con per home med list Anthropometrics: Weight: 88.6 kg (195 lb 6.4 oz) Height: 1.575 m (5' 2 ) BMI: Body mass index is 35.74 kg/m??. IBW/kg (Dietitian Calculated): 50 kg Percent of IBW: 177 % Anthropometric History: Weight Change: Weight History / % Weight Change: 01/19: 88.6 kg - 3.2 kg wt gain in 1 month; 2.9 kg wt gain in 6 months Significant Weight Loss: No Wt Readings from Last 10 Encounters: 01/19/25 88.6 kg (195 lb 6.4 oz) 01/05/25 89.5 kg (197 lb 6.4 oz) 12/30/24 88.5 kg (195 lb) 12/10/24 85.4 kg (188 lb 3.2 oz) 11/23/24 87.7 kg (193 lb 5.5 oz) 11/03/24 86.6 kg (191 lb) 10/29/24 86.4 kg (190 lb 6.4 oz) 10/01/24 82.1 kg (181 lb) 09/03/24 85.7 kg (189 lb) 08/06/24 85.7 kg (189 lb) Nutrition Focused Physical Findings: Assessment Status: Initial assessment Subcutaneous Fat Loss: Orbital Fat Pads: Well nourished (slightly bulging fat pads) Buccal Fat Pads: Well nourished (full, rounded cheeks) Muscle Wasting: Temporalis: Well nourished (well-defined muscle) Pectoralis (Clavicular Region): Well nourished (clavicle not visible) Deltoid/Trapezius: Well nourished (rounded appearance at arm, shoulder, neck) Edema: Edema: +1 trace Edema Location: BLE Physical Findings: Skin: Negative (for PI) Digestive System Findings: No issues Mouth Findings: No issues Teeth Findings: No issues Nutrition Meds/I&O/Pertinent Lab Results Scheduled medications Scheduled Medications[1] Continuous medications Continuous Medications[2] PRN medications PRN Medications[3] Intake/Output Summary (Last 24 hours) at 01/19/2025 1343 Last data filed at 01/19/2025 0830 Gross per 24 hour Intake 540 ml Output 1750 ml Net -1210 ml Stool Appearance: Formed Current Nutrition/Diet: Dietary Orders (From admission, onward) Start Ordered 01/19/25 0140 May Participate in Room Service ( ROOM SERVICE MAY PARTICIPATE) Once Question: . Answer: Yes 01/19/25 0139 01/18/25 1138 Adult diet Cardiac; 70 gm fat; 2 - 3 grams Sodium Diet effective now Question Answer Comment Diet type Cardiac Fat restriction: 70 gm fat Sodium restriction: 2 - 3 grams Sodium 01/18/25 1137 BMP Trend: Results from last 7 days Lab Units 01/19/25 0533 01/18/25 1651 01/18/25 0557 01/13/25 1325 GLUCOSE mg/dL 118* 132* 92 86 CALCIUM mg/dL 8.8 9.0 9.3 8.9 SODIUM mmol/L 137 135* 137 139 POTASSIUM mmol/L 4.0 3.7 4.2 3.6 CO2 mmol/L 27 28 30 31 CHLORIDE mmol/L 101 98 99 99 BUN mg/dL 34* 32* 35* 26* CREATININE mg/dL 1.56* 1.45* 1.65* 1.51* A1C: No results found for: HGBA1C BG POCT Trend: Estimated Energy Needs: Total Energy Needs 1500 kCal/24 hrs Method for Estimating Needs: 30 kcal/kg IBW Estimated Protein Needs: Total Protein Needs 60 g/24 hrs Method for Estimating Needs: 1.2 g/kg IBW Estimated Fluid Needs: Total Fluid Needs 1500 mL/24 hrs Method for Estimating Needs: 1 ml/kcal or per MD Patient on Ordered Fluid Restriction: No Nutrition Diagnosis Malnutrition Diagnosis - No Nutrition Diagnosis - Decreased nutrient needs Status of the nutrition diagnosis is New. Decreased nutrient needs related to cardiac dysfunction as evidenced by need for therapeutic diet. Nutrition Interventions/Recommendations Nutrition Prescription: Nutrition prescription for oral nutrition Individualized Nutrition Prescription Provided for: Continue Cardiac diet, monitor need for ONS Meals & Snacks: Fat-modified diet, Mineral-modified diet Goal: Consumes 3 meals per day Education Documentation No documentation found. Pt denies questions regarding diet restrictions at this time Nutrition Monitoring and Evaluation Food & Nutrient Related History Monitoring: Estimated Energy Intake: - Energy intake greater or equal to 75% of estimated energy needs Intake/Amount of Food: - Consumes at least 75% or more of meals/snacks/supplements and Meets > 75% estimated energy needs Anthropometric Measurements Monitoring: Body Weight: - Body weight - Maintain stable weight Biochemical Data, Medical Tests & Procedures Monitoring: Electrolyte & Renal Panel: - Electrolytes within normal limits Glucose/Endocrine Profile: - Glucose within normal limits (80-180 mg/dL) Follow Up: Time spent this visit was 45 minutes. Yaz Stroud RDN, LD [1] amiodarone, 200 mg, oral, Daily anastrozole, 1 mg, oral, Daily apixaban, 5 mg, oral, BID hydrOXYzine HCL, 25 mg, oral, Once losartan, 25 mg, oral, BID metoprolol succinate XL, 25 mg, oral, Daily pantoprazole, 40 mg, oral, BID AC torsemide, 60 mg, oral, Daily [2] [3] PRN medications: acetaminophen, benzocaine-menthol, ondansetron OR ondansetron documented in this encounter Nursing Notes * Rebekah Mccarthy RN - 01/20/2025 5:04 AM EST The Pts night was uneventful however she did present with attention seeking behavior at times and was intermittently anxious. She was offered anxiolytics which she refused to take [facility] Pt continues to self remove oxygen , she has been advised and is more agreeable to continue O2 therapy. Will ctm throughout shift. * Kaylin Lee RN - 01/18/2025 6:55 PM EST Pt arrived to unit without oxygen, O2 sats 82-84%, placed on 4LNC up to 95%, decreased to 3LNC 90-92% * Michelle Cee RN - 01/18/2025 6:30 PM EST Patient transferred to the 8th floor with all belongings. * Deidra Olivo RN - 01/18/2025 2:30 PM EST Unable to wean pt off oxygen, pulse ox 83 - 86 on room air, up to 91 on three liters, plan to keep pt overnight, pt aware documented in this encounter Miscellaneous Notes * Care Plan - Cat Bello RN - 01/27/2025 12:19 PM EST The clinical goals for the shift include Pt sp02 remain above 92% Over the shift, the patient did not make progress toward the following goals. Barriers to progression include none. * Care Plan - Concetta Limon RN - 01/26/2025 9:44 PM EST Problem: Pain - Adult Goal: Verbalizes/displays adequate comfort level or baseline comfort level Outcome: Progressing Problem: Safety - Adult Goal: Free from fall injury Outcome: Progressing Problem: Discharge Planning Goal: Discharge to home or other facility with appropriate resources Outcome: Progressing Problem: Chronic Conditions and Co-morbidities Goal: Patient's chronic conditions and co-morbidity symptoms are monitored and maintained or improved Outcome: Progressing Problem: Nutrition Goal: Nutrient intake appropriate for maintaining nutritional needs Outcome: Progressing Problem: Fall/Injury Goal: Not fall by end of shift Outcome: Progressing Goal: Be free from injury by end of the shift Outcome: Progressing Goal: Verbalize understanding of personal risk factors for fall in the hospital Outcome: Progressing Goal: Verbalize understanding of risk factor reduction measures to prevent injury from fall in the home Outcome: Progressing Goal: Use assistive devices by end of the shift Outcome: Progressing Goal: Pace activities to prevent fatigue by end of the shift Outcome: Progressing Problem: Skin Goal: Participates in plan/prevention/treatment measures Outcome: Progressing Goal: Prevent/manage excess moisture Outcome: Progressing Goal: Prevent/minimize sheer/friction injuries Outcome: Progressing Goal: Promote/optimize nutrition Outcome: Progressing Goal: Promote skin healing Outcome: Progressing * Care Plan - Yaz Ivory RN - 01/25/2025 10:37 PM EST The patient's goals for the shift include The clinical goals for the shift include Patient will have pulse oximetry reading of 92% or greaterwith supplemental oxygen throughout shift Over the shift, the patient did not make progress toward the following goals. Barriers to progression include none. Recommendations to address these barriers include none. * Care Plan - Mary Grace Denton RN - 01/25/2025 1:12 PM EST The patient's goals for the shift include The clinical goals for the shift include Labs WNL Problem: Pain - Adult Goal: Verbalizes/displays adequate comfort level or baseline comfort level Outcome: Progressing Problem: Safety - Adult Goal: Free from fall injury Outcome: Progressing Problem: Discharge Planning Goal: Discharge to home or other facility with appropriate resources Outcome: Progressing Problem: Chronic Conditions and Co-morbidities Goal: Patient's chronic conditions and co-morbidity symptoms are monitored and maintained or improved Outcome: Progressing Problem: Nutrition Goal: Nutrient intake appropriate for maintaining nutritional needs Outcome: Progressing Problem: Fall/Injury Goal: Not fall by end of shift Outcome: Progressing Goal: Be free from injury by end of the shift Outcome: Progressing Goal: Verbalize understanding of personal risk factors for fall in the hospital Outcome: Progressing Goal: Verbalize understanding of risk factor reduction measures to prevent injury from fall in the home Outcome: Progressing Goal: Use assistive devices by end of the shift Outcome: Progressing Goal: Pace activities to prevent fatigue by end of the shift Outcome: Progressing Problem: Skin Goal: Participates in plan/prevention/treatment measures 01/25/2025 1312 by Mary Grace Denton RN Outcome: Progressing 01/25/2025 1136 by Mary Grace Denton RN Flowsheets (Taken 01/25/2025 1136) Participates in plan/prevention/treatment measures: Discuss with provider PT/OT consult Increase activity/out of bed for meals Elevate heels Goal: Prevent/manage excess moisture 01/25/2025 1312 by Mary Grace Denton RN Outcome: Progressing 01/25/2025 1136 by Mary Grace Denton RN Flowsheets (Taken 01/25/2025 1136) Prevent/manage excess moisture: Use wicking fabric (obtain order) Moisturize dry skin Cleanse incontinence/protect with barrier cream Monitor for/manage infection if present Follow provider orders for dressing changes Goal: Prevent/minimize sheer/friction injuries 01/25/2025 1312 by Mary Grace Denton RN Outcome: Progressing 01/25/2025 1136 by Mary Grace Denton RN Flowsheets (Taken 01/25/2025 1136) Prevent/minimize sheer/friction injuries: Utilize specialty bed per algorithm Use pull sheet Turn/reposition every 2 hours/use positioning/transfer devices Increase activity/out of bed for meals HOB 30 degrees or less Complete micro-shifts as needed if patient unable. Adjust patient position to relieve pressure points, not a full turn Goal: Promote/optimize nutrition 01/25/2025 1312 by Mary Grace Denton RN Outcome: Progressing 01/25/2025 1136 by Mary Grace Denton RN Flowsheets (Taken 01/25/2025 1136) Promote/optimize nutrition: Offer water/supplements/favorite foods Discuss with provider if NPO > 2 days Assist with feeding Reassess MST if buyers' agent not consulted Monitor/record intake including meals Consume > 50% meals/supplements Goal: Promote skin healing 01/25/2025 1312 by Mary Grace Denton RN Outcome: Progressing 01/25/2025 1136 by Mary Grace Denton RN Flowsheets (Taken 01/25/2025 1136) Promote skin healing: Turn/reposition every 2 hours/use positioning/transfer devices Rotate device position/do not position patient on device Protective dressings over bony prominences Ensure correct size (line/device) and apply per geotechnical engineering technician instructions Assess skin/pad under line(s)/device(s) * Care Plan - Dave Gale RN - 01/25/2025 1:00 AM EST The patient's goals for the shift include The clinical goals for the shift include Pt will wear her Bipap throughout the night Problem: Pain - Adult Goal: Verbalizes/displays adequate comfort level or baseline comfort level Outcome: Progressing Problem: Safety - Adult Goal: Free from fall injury Outcome: Progressing Problem: Discharge Planning Goal: Discharge to home or other facility with appropriate resources Outcome: Progressing * Care Plan - Denny Garrison RN - 01/24/2025 2:13 AM EST The patient's goals for the shift include The clinical goals for the shift include Patient SpO2 will remain above 92 through end of shift Problem: Pain - Adult Goal: Verbalizes/displays adequate comfort level or baseline comfort level Outcome: Progressing Problem: Safety - Adult Goal: Free from fall injury Outcome: Progressing Problem: Discharge Planning Goal: Discharge to home or other facility with appropriate resources Outcome: Progressing Problem: Chronic Conditions and Co-morbidities Goal: Patient's chronic conditions and co-morbidity symptoms are monitored and maintained or improved Outcome: Progressing Problem: Nutrition Goal: Nutrient intake appropriate for maintaining nutritional needs Outcome: Progressing Problem: Fall/Injury Goal: Not fall by end of shift Outcome: Progressing Goal: Be free from injury by end of the shift Outcome: Progressing Goal: Verbalize understanding of personal risk factors for fall in the hospital Outcome: Progressing Goal: Verbalize understanding of risk factor reduction measures to prevent injury from fall in the home Outcome: Progressing Goal: Use assistive devices by end of the shift Outcome: Progressing Goal: Pace activities to prevent fatigue by end of the shift Outcome: Progressing * Care Plan - Maribel Marcus RN - 01/23/2025 5:56 PM EST The clinical goals for the shift include Patient SpO2 will remain above 92% through end of shift Problem: Pain - Adult Goal: Verbalizes/displays adequate comfort level or baseline comfort level Outcome: Progressing Problem: Safety - Adult Goal: Free from fall injury Outcome: Progressing Problem: Chronic Conditions and Co-morbidities Goal: Patient's chronic conditions and co-morbidity symptoms are monitored and maintained or improved Outcome: Progressing Problem: Nutrition Goal: Nutrient intake appropriate for maintaining nutritional needs Outcome: Progressing * Care Plan - Denny Garrison RN - 01/23/2025 3:03 AM EST The patient's goals for the shift include The clinical goals for the shift include Patient SpO2 will remain above 92% through end of shift Problem: Pain - Adult Goal: Verbalizes/displays adequate comfort level or baseline comfort level Outcome: Progressing Problem: Safety - Adult Goal: Free from fall injury Outcome: Progressing Problem: Discharge Planning Goal: Discharge to home or other facility with appropriate resources Outcome: Progressing Problem: Chronic Conditions and Co-morbidities Goal: Patient's chronic conditions and co-morbidity symptoms are monitored and maintained or improved Outcome: Progressing Problem: Nutrition Goal: Nutrient intake appropriate for maintaining nutritional needs Outcome: Progressing Problem: Fall/Injury Goal: Not fall by end of shift Outcome: Progressing Goal: Be free from injury by end of the shift Outcome: Progressing Goal: Verbalize understanding of personal risk factors for fall in the hospital Outcome: Progressing Goal: Verbalize understanding of risk factor reduction measures to prevent injury from fall in the home Outcome: Progressing Goal: Use assistive devices by end of the shift Outcome: Progressing Goal: Pace activities to prevent fatigue by end of the shift Outcome: Progressing * Care Plan - Elaine Sofia RN - 01/22/2025 8:00 AM EST Problem: Pain - Adult Goal: Verbalizes/displays adequate comfort level or baseline comfort level Outcome: Progressing Problem: Safety - Adult Goal: Free from fall injury Outcome: Progressing Problem: Discharge Planning Goal: Discharge to home or other facility with appropriate resources Outcome: Progressing Problem: Chronic Conditions and Co-morbidities Goal: Patient's chronic conditions and co-morbidity symptoms are monitored and maintained or improved Outcome: Progressing Problem: Nutrition Goal: Nutrient intake appropriate for maintaining nutritional needs Outcome: Progressing * Care Plan - Cookie Gayle RN - 01/22/2025 12:17 AM EST The patient's goals for the shift include rest The clinical goals for the shift include patient will remain hemodynamically stable throughout shift * Documentation Clarification Note - Kehinde Eli DO - 01/21/2025 10:04 AM EST PATIENT: CARLOS ESCOBAR : 1945 ADMIT DATE: 01/18/2025 5:30 AM DISCH DATE: RESPONDING PROVIDER #: [id number] PROVIDER RESPONSE TEXT: Acute on Chronic Diastolic Congestive Heart Failure CDI QUERY TEXT: Clarification Instruction: Based on your assessment of the patient and the clinical information, please provide the requested documentation by clicking on the appropriate radio button and enter any additional information if prompted. Question: Please further clarify the type and acuity of congestive heart failure When answering this query, please exercise your independent professional judgment. The fact that a question is being asked, does not imply that any particular answer is desired or expected. The patient's clinical indicators include: Clinical Information: 79 yof with acute on chronic heart failure Clinical Indicators: 01/20 Internal Medicine: HFmrEF Acute on chronic diastolic heart failure 01/20 BNP 380 01/19 ECHO: CONCLUSIONS: 1. The left ventricular systolic function is low normal with a visually estimated ejection fractionof 55%. 2. No regional wall motion abnormalities. 3. Spectral Doppler shows a Grade II (pseudonormal pattern) of left ventricular diastolic filling with an elevated left atrial pressure. 4. Right ventricular volume and pressure overload. 5. There is severely reduced right ventricular systolic function. 6. The findings are consistent with pulmonary hypertension. 7. Severely enlarged right ventricle. 8. The left atrial size is moderately dilated. 9. The right atrial size is severely dilated. 10. Small pericardial effusion. 11. There is no evidence of mitral valve stenosis. 12. Moderate to severe mitral valve regurgitation. 13. Severe tricuspid regurgitation. 14. The Doppler estimated RVSP is within normal limits at 28 mmHg. 15. Aortic valve sclerosis. The peak and mean gradients are 9 mmHg and 4 mmHg respectively. 16. Mild to moderate aortic valve regurgitation. 17. The pulmonary artery is not well visualized. 18. The inferior vena cava appears severely dilated, IVC inspiratory collapse is absent. 19. Large patent foramen ovale. 20. A bubble study using agitated saline was performed. Bubble study is positive. A large PFO (>20 bubbles) was demonstrated Treatment: 01/18 IV Bumex, 01/19-current Toprol-XL, 01/18-current Cozaar, 01/20- 20 IV Lasix Risk Factors: CHF Options provided: -- Acute on Chronic Systolic Congestive Heart Failure -- Acute on Chronic Diastolic Congestive Heart Failure -- Acute on Chronic combined systolic/diastolic Congestive Heart Failure -- Other - I will add my own diagnosis -- Refer to Clinical Documentation Reviewer Query created by: Mei Mello on 01/21/2025 10:00 AM Electronically signed by: KEHINDE ELI DO 01/21/2025 10:04 AM * Care Plan - Lana Nuñez RN - 01/21/2025 8:40 AM EST Problem: Pain - Adult Goal: Verbalizes/displays adequate comfort level or baseline comfort level Outcome: Progressing Problem: Safety - Adult Goal: Free from fall injury Outcome: Progressing Problem: Discharge Planning Goal: Discharge to home or other facility with appropriate resources Outcome: Progressing Problem: Chronic Conditions and Co-morbidities Goal: Patient's chronic conditions and co-morbidity symptoms are monitored and maintained or improved Outcome: Progressing Problem: Nutrition Goal: Nutrient intake appropriate for maintaining nutritional needs Outcome: Progressing Problem: Fall/Injury Goal: Not fall by end of shift Outcome: Progressing Goal: Be free from injury by end of the shift Outcome: Progressing Goal: Verbalize understanding of personal risk factors for fall in the hospital Outcome: Progressing Goal: Verbalize understanding of risk factor reduction measures to prevent injury from fall in the home Outcome: Progressing Goal: Use assistive devices by end of the shift Outcome: Progressing Goal: Pace activities to prevent fatigue by end of the shift Outcome: Progressing The patient's goals for the shift include The clinical goals for the shift include patient will remain hemodynamically stable throughout shift Over the shift, the patient did not make progress toward the following goals. Barriers to progression include acute illness. Recommendations to address these barriers include continued education and reinforcement of information. * Care Plan - Marko Milian RN - 01/21/2025 1:34 AM EST The patient's goals for the shift include The clinical goals for the shift include Patient will have O2 level > 92% throughout this shift Problem: Pain - Adult Goal: Verbalizes/displays adequate comfort level or baseline comfort level Outcome: Progressing Problem: Safety - Adult Goal: Free from fall injury Outcome: Progressing Problem: Fall/Injury Goal: Not fall by end of shift Outcome: Progressing Problem: Fall/Injury Goal: Be free from injury by end of the shift Outcome: Progressing Problem: Fall/Injury Goal: Pace activities to prevent fatigue by end of the shift Outcome: Progressing * Care Plan - Claire Ace RN - 01/20/2025 10:21 AM EST The patient's goals for the shift include remain safe The clinical goals for the shift include remain >90% O2 levels * Care Plan - Fouzia Ann RN - 01/19/2025 11:09 AM EST The patient's goals for the shift include The clinical goals for the shift include Patient will maintain SpO2 > 92% throughout shift Problem: Pain - Adult Goal: Verbalizes/displays adequate comfort level or baseline comfort level Outcome: Progressing Problem: Safety - Adult Goal: Free from fall injury Outcome: Progressing Problem: Discharge Planning Goal: Discharge to home or other facility with appropriate resources Outcome: Progressing Problem: Chronic Conditions and Co-morbidities Goal: Patient's chronic conditions and co-morbidity symptoms are monitored and maintained or improved Outcome: Progressing Problem: Nutrition Goal: Nutrient intake appropriate for maintaining nutritional needs Outcome: Progressing * Care Plan - Concetta Limon RN - 01/19/2025 12:17 AM EST Problem: Pain - Adult Goal: Verbalizes/displays adequate comfort level or baseline comfort level Outcome: Progressing Problem: Safety - Adult Goal: Free from fall injury Outcome: Progressing Problem: Discharge Planning Goal: Discharge to home or other facility with appropriate resources Outcome: Progressing Problem: Chronic Conditions and Co-morbidities Goal: Patient's chronic conditions and co-morbidity symptoms are monitored and maintained or improved Outcome: Progressing Problem: Nutrition Goal: Nutrient intake appropriate for maintaining nutritional needs Outcome: Progressing * Significant Event - Deidra Olivo RN - 01/18/2025 5:14 PM EST Report given to 8s RN * Significant Event - CHANEL Cameron - 01/18/2025 4:06 PM EST Patient s/p CTI/PVI per Dr Azar. See full operative report. Patient received Lasix 40mg IV post procedure with minimal urine outpatient. She was treated with her home demadex 60mg with 700cc urine output. Discussed with patient and Dr Azar. Patient remains fluid overloaded. Baseline wt 183 and current weight today was 192 lbs. Patient has crackles RLL and lower extremity edema. Creatinine today 1.65. Will keep patient as extended stay overnight for further diuresis. Check CMP and magnesium level. Bumex 2mg today at 1815. Patient requiring oxygen 4L/ NC with spo2 86-94%, Baseline 92 % today on admission. Parameters on home medications. Consult hospitalist regarding medical management/ CPAP/ and ANATOLY. Discussed with Dr Azar. * Significant Event - Deidra Olivo RN - 01/18/2025 11:45 AM EST Notified CLINICAL LAB SCIENTIST of fluid intake and output including no output from the 40 mg of iv lasix given during procedure, orders received, torsemide given documented in this encounter Plan of Treatment DateTypeDepartmentCare Team (Latest Contact Info)Qqwrjkpbwph24/02/2025 2:30 PM ESTOffice Visit [facility] [address] [facility] [address] [place] [phone] Girish Chapman MD [address] [facility] Medical Office [address], [address] [place] [address] 02/02/2025 2:30 PM ESTOffice Visit [facility] [address] [facility] [address] [place] [phone] [place] [address] [address] [place] [address] 02/15/2025 2:00 PM ESTOffice Visit [facility] [address] [facility] [address] [place] [phone] Sarah Jesus PA-C [address] [facility] Office [facility], [address] [place] [address] 04/19/2025 8:30 AM ESTAncillary Procedure [facility] [address] [place] [address] 05/18/2025 10:15 AM EDTOffice Visit [facility] [address] [facility] [address] [place] [address] Lashanda Azar MD [address] [facility] Office [facility], [facility] [address] [place] [address] NameTypePriorityAssociated DiagnosesOrder ScheduleHolter Or Event Cardiac MonitorCardiac ServicesRoutine Persistent atrial fibrillation (Multi) Expected: 04/20/2025 (Approximate), Expires: 01/18/2026asic metabolic panelLab Routine Other fluid overload Expected: 01/29/2025 (Approximate), Expires: 01/22/2026NameTypePriority Associated DiagnosesOrder ScheduleReferral to Valve and Structural Heart Program Outpatient ReferralNon-Urgent Other fluid overload Expected: 01/22/2025 (Approximate), Expires: 01/22/2026Referral to Home Health Outpatient ReferralNon-Urgent Congestive heart failure, unspecified HF chronicity, unspecified heart failure type (Multi) Expected: 01/27/2025 (Approximate), Expires: 01/27/2026Referral to Pulmonology Outpatient ReferralNon-Urgent Requires continuous at home supplemental oxygen Expected: 01/27/2025 (Approximate), Expires: 01/27/2026Referral to Nephrology Outpatient ReferralNon-Urgent Hypervolemia, unspecified hypervolemia type Expected: 01/27/2025 (Approximate), Expires: 01/27/2026documented as of this encounter Procedures Procedure NamePriorityDate/TimeAssociated DiagnosisCommentsHOME O2 EVAL (DESATURATION SCREEN)Jzwgfjy8601/27/2025 11:16 AM ESTRENAL FUNCTION PANELPending Syzpycozp29/26/2025 5:36 AM EST CBC WITH AUTO HLDKDDNGBCJVAmqjmxa03/25/2025 5:46 AM EST AXQPFRGMDJTyaophc37/25/2025 5:46 AM EST NUDJQLDVNNkyjwnb12/25/2025 5:46 AM EST COMPREHENSIVE METABOLIC BMTKKKjhevhl33/25/2025 5:46 AM EST CBC WITH AUTO XTMTSNLJTDJIMielaex98/24/2025 5:40 AM EST IUASWCLXRIPjkcgdu08/24/2025 5:40 AM EST OGWNCQXCYMpfatwb50/24/2025 5:40 AM EST COMPREHENSIVE METABOLIC LNIIDTgoqdlo93/24/2025 5:40 AM EST CBC WITH AUTO RVCKIQGYSQJCJjfsmij89/23/2025 5:33 AM EST LBXGMCUHTIScgtomk50/23/2025 5:33 AM EST FJWZTODJCGxkfaxc30/23/2025 5:33 AM EST COMPREHENSIVE METABOLIC UBKLCGjygjpo77/23/2025 5:33 AM EST ECG 12-WWZXKldjvbt39/22/2025 7:33 AM EST XECBnfhini26/22/2025 5:44 AM EST IBVYFGFXNUqdyqua34/22/2025 5:44 AM EST RENAL FUNCTION CHDJTJqpyuoy63/22/2025 5:44 AM EST ECG 12-DKSSNszigjl05/21/2025 7:08 AM EST SPDYewolcc84/21/2025 6:07 AM EST FQZEUIEKZMmcwtvn43/21/2025 6:07 AM EST RENAL FUNCTION EKFJNEioabog58/21/2025 6:07 AM EST XR CHEST 1 PTBXFTUD54/20/2025 8:26 AM EST BLOOD GAS ARTERIAL FULL PANELPending Ntitnshcf29/20/2025 7:41 AM EST ECG 12-ONYDDqacsqj94/20/2025 7:22 AM EST UOPFybiwbf98/20/2025 4:47 AM EST B-TYPE NATRIURETIC PEPTIDEAdd-On01/21/2025 4:47 AM EST EHXQDWKTLFpduymx35/20/2025 4:47 AM EST RENAL FUNCTION LRSSGUjwiocp42/20/2025 4:47 AM EST ECG 12-PNBJUzxjznr31/19/2025 10:12 AM EST RPNKngaade07/19/2025 5:57 AM EST B-TYPE NATRIURETIC NYXZAWQTlhdwyf40/19/2025 5:57 AM EST DBHKNYMCRGhchgop72/19/2025 5:57 AM EST RENAL FUNCTION MJIHETckpoeb81/19/2025 5:[address] CHEST WO IV BERSXXVETIMS76/18/2025 1:50 PM EST TRANSTHORACIC ECHO (TTE) MTYYLLEBNurkwax08/18/2025 11:50 AM EST Paroxysmal atrial fibrillation (Multi) Shortness of breath Other fluid overload XR CHEST 2 VIEWSPriority Discharge or Xsfxdcsaffj74/18/2025 8:43 AM EST EXTRA LZBHOWteyzok79/18/2025 5:33 AM EST LAVENDER HQTTdivbab44/18/2025 5:33 AM EST BASIC METABOLIC PANELPending Erttrluqi26/18/2025 5:33 AM EST LBHQCJBGNACGW13/17/2025 4:51 PM EST COMPREHENSIVE METABOLIC BORPZIDWZ70/17/2025 4:51 PM EST ECG 12-DFOUViwqwxd00/17/2025 11:46 AM EST PULSE OXIMETRY, YJAKULQCWIEkcelae80/17/2025 9:48 AM ESTABLATION A-FIB PERSISTENT Temtecv2701/18/2025 9:27 AM EST Persistent atrial fibrillation (Multi) ACTIVATED CLOTTING TIME LIRFioicnf32/17/2025 8:57 AM EST ACTIVATED CLOTTING TIME HIKTpeauzp34/17/2025 8:24 AM EST ECG 12-YZFTWBCT34/17/2025 7:21 AM EST COAGULATION HTZVNTOVUR62/17/2025 5:57 AM EST TYPE AND EOQROKOUHV72/17/2025 5:57 AM EST BASIC METABOLIC ILCNGGZYR97/17/2025 5:57 AM EST documented in this encounter Results * (ABNORMAL) Renal Function Panel (01/27/2025 5:36 AM EST)ComponentValueRef RangeTest MethodAnalysis TimePerformed AtPathologist XbqjiudjhKhwtvdt4781 - 99 mg/dL LAB CHEMISTRY METHOD 01/27/2025 6:45 AM [facility] SBPZmrydz867(L)136 - 145 mmol/L LAB CHEMISTRY METHOD 01/27/2025 6:45 AM [facility] LABPotassium4.03.5 - 5.3 mmol/L LAB CHEMISTRY METHOD 01/27/2025 6:45 AM [facility] ACFLgljsziv18359 - 107 mmol/L LAB CHEMISTRY METHOD 01/27/2025 6:45 AM [facility] JCCPnxibtlsqya6686 - 32 mmol/L LAB CHEMISTRY METHOD 01/27/2025 6:45 AM [facility] LABComment:Bicarbonate results may be falsely elevated when Lactate Dehydrogenase (LDH) concentrations exceed 2,000 U/L due to a temporary reagent manufacturing issue. If significantly elevated LDH levels are suspected, interpret bicarbonate results with caution, correlate with the patient???s clinical status, and consider confirming CO2 values using a blood gas analyzer.Anion Gap9(L)10 - 20 mmol/L LAB CHEMISTRY METHOD 01/27/2025 6:45 AM [facility] LABUrea Qoyishue94(H)6 - 23 mg/dL LAB CHEMISTRY METHOD 01/27/2025 6:45 AM [facility] LABCreatinine1.47(H)0.50 - 1.05 mg/dL LAB CHEMISTRY METHOD 01/27/2025 6:45 AM [facility] SGIfDAQ49(L)>60 mL/min/1.73m*2 LAB CHEMISTRY METHOD 01/27/2025 6:45 AM [facility] LABComment: Calculations of estimated GFR are performed using the 2020 CKD-EPI Study Refit equation without therace variable for the IDMS-Traceable creatinine methods. https://jasn.asnjournals.org/content//ASN.7207000937 Calcium8.68.6 - 10.3 mg/dL LAB CHEMISTRY METHOD 01/27/2025 6:45 AM [facility] LABPhosphorus3.42.5 - 4.9 mg/dL LAB CHEMISTRY METHOD 01/27/2025 6:45 AM [facility] LABAlbumin3.43.4 - 5.0 g/dL LAB CHEMISTRY METHOD 01/27/2025 6:45 AM [facility] LABSpecimen (Source)Anatomical Location / LateralityCollection Method / VolumeCollection TimeReceived TimeBlood Venous blood specimen / UnknownVenipuncture / Uhxvskm8101/27/2025 5:36 AM EST 01/27/2025 6:18 AM EST Narrative Authorizing ProviderResult TypeResult StatusTy Sweet MDLAB BLOOD ORDERABLESFinal ResultPerforming OrganizationAddressCity/State/ZIP CodePhone Number [facility] [address] [place] [address] * Phosphorus (01/26/2025 5:46 AM EST)ComponentValueRef RangeTest MethodAnalysis TimePerformed AtPathologist SignaturePhosphorus3.52.5 - 4.9 mg/dL LAB CHEMISTRY METHOD 01/26/2025 6:35 AM [facility] LABSpecimen (Source)Anatomical Location / LateralityCollection Method / VolumeCollection TimeReceived TimeBlood Venous blood specimen / UnknownVenipuncture / Keglxcu0301/26/2025 5:46 AM EST 01/26/2025 6:06 AM EST Narrative Authorizing ProviderResult TypeResult StatusTy Sweet MDLAB BLOOD ORDERABLESFinal ResultPerforming OrganizationAddressty/State/ZIP CodePhone Number [facility] [address] [place] [phone] * Magnesium (01/26/2025 5:46 AM EST)ComponentValueRef RangeTest MethodAnalysis TimePerformed AtPathologist SignatureMagnesium2.071.60 - 2.40 mg/dL LAB CHEMISTRY METHOD 01/26/2025 6:35 AM [facility] LABSpecimen (Source)Anatomical Location / LateralityCollection Method / VolumeCollection TimeReceived TimeBlood Venous blood specimen / UnknownVenipuncture / Whurgze4501/26/2025 5:46 AM EST 01/26/2025 6:06 AM EST Narrative Authorizing ProviderResult TypeResult StatusByron Barnes MDLAB BLOOD ORDERABLESFinal ResultPerforming OrganizationAddressCity/State/ZIP CodePhone Number [facility] [address] [place] [address] * (ABNORMAL) Comprehensive Metabolic Panel (01/26/2025 5:46 AM EST)Component ValueRef RangeTest MethodAnalysis TimePerformed AtPathologist SignatureGlucose 8674 - 99 mg/dL LAB CHEMISTRY METHOD 01/26/2025 6:35 AM [facility] LRBXbvofo225364 - 145 mmol/L LAB CHEMISTRY METHOD 01/26/2025 6:35 AM [facility] LABPotassium3.93.5 - 5.3 mmol/L LAB CHEMISTRY METHOD 01/26/2025 6:35 AM [facility] WUYBlwcbihf2009 - 107 mmol/L LAB CHEMISTRY METHOD 01/26/2025 6:35 AM [facility] HXOQhhvhmeevot4895 - 32 mmol/L LAB CHEMISTRY METHOD 01/26/2025 6:35 AM [facility] LABComment:Bicarbonate results may be falsely elevated when Lactate Dehydrogenase (LDH) concentrations exceed 2,000 U/L due to a temporary reagent manufacturing issue. If significantly elevated LDH levels are suspected, interpret bicarbonate results with caution, correlate with the patient???s clinical status, and consider confirming CO2 values using a blood gas analyzer.Anion Oaa2354 - 20 mmol/L LAB CHEMISTRY METHOD 01/26/2025 6:35 AM [facility] LABUrea Zrfapnqr88(H)6 - 23 mg/dL LAB CHEMISTRY METHOD 01/26/2025 6:35 AM [facility] LABCreatinine1.56(H)0.50 - 1.05 mg/dL LAB CHEMISTRY METHOD 01/26/2025 6:35 AM [facility] QRYuDXR39(L)>60 mL/min/1.73m*2 LAB CHEMISTRY METHOD 01/26/2025 6:35 AM [facility] LABComment: Calculations of estimated GFR are performed using the 2020 CKD-EPI Study Refit equation without therace variable for the IDMS-Traceable creatinine methods. https://jasn.asnjournals.org/content//ASN.7379423388 Calcium8.78.6 - 10.3 mg/dL LAB CHEMISTRY METHOD 01/26/2025 6:35 AM [facility] LABAlbumin3.43.4 - 5.0 g/dL LAB CHEMISTRY METHOD 01/26/2025 6:35 AM [facility] LABAlkaline Wwcrpzpoalc912(H)33 - 136 U/L LAB CHEMISTRY METHOD 01/26/2025 6:35 AM [facility] LABTotal Protein5.9(L)6.4 - 8.2 g/dL LAB CHEMISTRY METHOD 01/26/2025 6:35 AM [facility] LPITNC946 - 39 U/L LAB CHEMISTRY METHOD 01/26/2025 6:35 AM [facility] LABBilirubin, Total1.7(H)0.0 - 1.2 mg/dL LAB CHEMISTRY METHOD 01/26/2025 6:35 AM [facility] MAADBK179 - 45 U/L LAB CHEMISTRY METHOD 01/26/2025 6:35 AM [facility] LABComment:Patients treated with Sulfasalazine may generate falsely decreased results for ALT.Specimen (Source) Anatomical Location / LateralityCollection Method / VolumeCollection Time Received TimeBloodVenous blood specimen / UnknownVenipuncture / Unknown 01/26/2025 5:46 AM EST01/26/2025 6:06 AM EST Narrative Authorizing ProviderResult TypeResult StatusMusspring MILLER BLOOD ORDERABLESFinal ResultPerforming OrganizationAddressCity/State/ZIP CodePhone Number [facility] [address] [place] [address] * (ABNORMAL) CBC and Auto Differential (01/26/2025 5:46 AM EST)ComponentValueRef RangeTest MethodAnalysis TimePerformed AtPathologist SignatureWBC4.3(L)4.4 - 11.3 x10*3/uL LAB HEMATOLOGY METHOD 01/26/2025 6:14 AM [facility] LABnRBC0.00.0 - 0.0 /100 WBCs LAB HEMATOLOGY METHOD 01/26/2025 6:14 AM [facility] LABRBC3.16(L)4.00 - 5.20 x10*6/uL LAB HEMATOLOGY METHOD 01/26/2025 6:14 AM [facility] LABHemoglobin9.8(L)12.0 - 16.0 g/dL LAB HEMATOLOGY METHOD 01/26/2025 6:14 AM [facility] GRUEdchsycufm64.4(L)36.0 - 46.0 % LAB HEMATOLOGY METHOD 01/26/2025 6:14 AM [facility] LFJVVE7806 - 100 fL LAB HEMATOLOGY METHOD 01/26/2025 6:14 AM [facility] UVUDMQ36.026.0 - 34.0 pg LAB HEMATOLOGY METHOD 01/26/2025 6:14 AM [facility] JQEECXS43.232.0 - 36.0 g/dL LAB HEMATOLOGY METHOD 01/26/2025 6:14 AM [facility] KYTDED14.3(H)11.5 - 14.5 % LAB HEMATOLOGY METHOD 01/26/2025 6:14 AM [facility] UDLYvcjodbrg08(L)150 - 450 x10*3/uL LAB HEMATOLOGY METHOD 01/26/2025 6:14 AM [facility] LABNeutrophils %56.740.0 - 80.0 % LAB HEMATOLOGY METHOD 01/26/2025 6:14 AM [facility] LABImmature Granulocytes %, Automated0.50.0 - 0.9 % LAB HEMATOLOGY METHOD 01/26/2025 6:14 AM [facility] LABComment:Immature Granulocyte Count (IG) includes promyelocytes, myelocytes and metamyelocytes but does not i nclude bands. Percent differential counts (%) should be interpreted in the context of the absolute cell counts (cells/UL).Lymphocytes %20.513.0 - 44.0 % LAB HEMATOLOGY METHOD 01/26/2025 6:14 AM [facility] LABMonocytes %16.82.0 - 10.0 % LAB HEMATOLOGY METHOD 01/26/2025 6:14 AM [facility] LABEosinophils %4.80.0 - 6.0 % LAB HEMATOLOGY METHOD 01/26/2025 6:14 AM [facility] LABBasophils %0.70.0 - 2.0 % LAB HEMATOLOGY METHOD 01/26/2025 6:14 AM [facility] LABNeutrophils Absolute2.461.60 - 5.50 x10*3/uL LAB HEMATOLOGY METHOD 01/26/2025 6:14 AM [facility] LABComment:Percent differential counts (%) should be interpreted in the context of the absolute cell counts (ce lls/uL).Immature Granulocytes Absolute, Automated0.020.00 - 0.50 x10*3/uL LAB HEMATOLOGY METHOD 01/26/2025 6:14 AM [facility] LABLymphocytes Absolute0.890.80 - 3.00 x10*3/uL LAB HEMATOLOGY METHOD 01/26/2025 6:14 AM [facility] LABMonocytes Absolute0.730.05 - 0.80 x10*3/uL LAB HEMATOLOGY METHOD 01/26/2025 6:14 AM [facility] LABEosinophils Absolute0.210.00 - 0.40 x10*3/uL LAB HEMATOLOGY METHOD 01/26/2025 6:14 AM [facility] LABBasophils Absolute0.030.00 - 0.10 x10*3/uL LAB HEMATOLOGY METHOD 01/26/2025 6:14 AM [facility] LABSpecimen (Source)Anatomical Location / LateralityCollection Method / VolumeCollection TimeReceived TimeBlood Venous blood specimen / UnknownVenipuncture / Jazcedv3601/26/2025 5:46 AM EST 01/26/2025 6:07 AM EST Narrative Authorizing ProviderResult TypeResult StatusMushtshukri Barnes [facility] BLOOD ORDERABLESFinal ResultPerforming OrganizationAddressCity/State/ZIP CodePhone Number [facility] [address] [place] [address] * Phosphorus (01/25/2025 5:40 AM EST)ComponentValueRef RangeTest MethodAnalysis TimePerformed AtPathologist SignaturePhosphorus3.32.5 - 4.9 mg/dL LAB CHEMISTRY METHOD 01/25/2025 6:42 AM [facility] LABSpecimen (Source)Anatomical Location / LateralityCollection Method / VolumeCollection TimeReceived TimeBlood Venous blood specimen / UnknownVenipuncture / Ezqspst1301/25/2025 5:40 AM EST 01/25/2025 6:13 AM EST Narrative Authorizing ProviderResult TypeResult StatusSamanthadonn MoyKee VALAB BLOOD ORDERABLESFinal ResultPerforming OrganizationAddConemaugh Meyersdale Medical Centerty/State/ZIP CodePhone [facility] [address] [place] [address] * Magnesium (01/25/2025 5:40 AM EST)ComponentValueRef RangeTest MethodAnalysis TimePerformed AtPathologist SignatureMagnesium1.961.60 - 2.40 mg/dL LAB CHEMISTRY METHOD 01/25/2025 6:42 AM [facility] LABSpecimen (Source)Anatomical Location / LateralityCollection Method / VolumeCollection TimeReceived TimeBlood Venous blood specimen / UnknownVenipuncture / Plvwsoq3201/25/2025 5:40 AM EST 01/25/2025 6:13 AM EST Narrative Authorizing ProviderResult TypeResult StatusMusspring Barnes [facility] BLOOD ORDERABLESFinal ResultPerforming OrganizationAddressty/State/ZIP CodePhone Number [facility] [address] [place] [address] * (ABNORMAL) Comprehensive Metabolic Panel (01/25/2025 5:40 AM EST)Component ValueRef RangeTest MethodAnalysis TimePerformed AtPathologist SignatureGlucose 8774 - 99 mg/dL LAB CHEMISTRY METHOD 01/25/2025 6:41 AM [facility] TDAEidzhs766698 - 145 mmol/L LAB CHEMISTRY METHOD 01/25/2025 6:41 AM [facility] LABPotassium3.83.5 - 5.3 mmol/L LAB CHEMISTRY METHOD 01/25/2025 6:41 AM [facility] JDAFgqxrbtk74374 - 107 mmol/L LAB CHEMISTRY METHOD 01/25/2025 6:41 AM [facility] SQEOnsaixdldxc2093 - 32 mmol/L LAB CHEMISTRY METHOD 01/25/2025 6:41 AM [facility] LABComment:Bicarbonate results may be falsely elevated when Lactate Dehydrogenase (LDH) concentrations exceed 2,000 U/L due to a temporary reagent manufacturing issue. If significantly elevated LDH levels are suspected, interpret bicarbonate results with caution, correlate with the patient???s clinical status, and consider confirming CO2 values using a blood gas analyzer.Anion Tlr6057 - 20 mmol/L LAB CHEMISTRY METHOD 01/25/2025 6:41 AM [facility] LABUrea Ksqgwtwa02(H)6 - 23 mg/dL LAB CHEMISTRY METHOD 01/25/2025 6:41 AM [facility] LABCreatinine1.30(H)0.50 - 1.05 mg/dL LAB CHEMISTRY METHOD 01/25/2025 6:41 AM [facility] NSQxBSA66(L)>60 mL/min/1.73m*2 LAB CHEMISTRY METHOD 01/25/2025 6:41 AM [facility] LABComment: Calculations of estimated GFR are performed using the 2020 CKD-EPI Study Refit equation without therace variable for the IDMS-Traceable creatinine methods. https://jasn.asnjournals.org/content///ASN.1675015075 Calcium8.68.6 - 10.3 mg/dL LAB CHEMISTRY METHOD 01/25/2025 6:41 AM [facility] LABAlbumin3.43.4 - 5.0 g/dL LAB CHEMISTRY METHOD 01/25/2025 6:41 AM [facility] LABAlkaline Apvvjthfoes315(H)33 - 136 U/L LAB CHEMISTRY METHOD 01/25/2025 6:41 AM [facility] LABTotal Protein6.0(L)6.4 - 8.2 g/dL LAB CHEMISTRY METHOD 01/25/2025 6:41 AM [facility] TQVGUZ079 - 39 U/L LAB CHEMISTRY METHOD 01/25/2025 6:41 AM [facility] LABBilirubin, Total1.9(H)0.0 - 1.2 mg/dL LAB CHEMISTRY METHOD 01/25/2025 6:41 AM [facility] JUGFUY932 - 45 U/L LAB CHEMISTRY METHOD 01/25/2025 6:41 AM [facility] LABComment:Patients treated with Sulfasalazine may generate falsely decreased results for ALT.Specimen (Source) Anatomical Location / LateralityCollection Method / VolumeCollection Time Received TimeBloodVenous blood specimen / UnknownVenipuncture / Unknown 01/25/2025 5:40 AM EST01/25/2025 6:13 AM EST Narrative Authorizing ProviderResult TypeResult StatusMusspring MILLER BLOOD ORDERABLESFinal ResultPerforming OrganizationAddressCity/State/ZIP CodePhone Number [facility] [address] [place] [address] * (ABNORMAL) CBC and Auto Differential (01/25/2025 5:40 AM EST)ComponentValueRef RangeTest MethodAnalysis TimePerformed AtPathologist SignatureWBC4.74.4 - 11.3 x10*3/uL LAB HEMATOLOGY METHOD 01/25/2025 6:27 AM [facility] LABnRBC0.00.0 - 0.0 /100 WBCs LAB HEMATOLOGY METHOD 01/25/2025 6:27 AM [facility] LABRBC3.11(L)4.00 - 5.20 x10*6/uL LAB HEMATOLOGY METHOD 01/25/2025 6:27 AM [facility] LABHemoglobin9.7(L)12.0 - 16.0 g/dL LAB HEMATOLOGY METHOD 01/25/2025 6:27 AM [facility] IVIPqrewxriea63.1(L)36.0 - 46.0 % LAB HEMATOLOGY METHOD 01/25/2025 6:27 AM [facility] OJUOPY8406 - 100 fL LAB HEMATOLOGY METHOD 01/25/2025 6:27 AM [facility] BMGNOL34.226.0 - 34.0 pg LAB HEMATOLOGY METHOD 01/25/2025 6:27 AM [facility] QWKPYMX79.232.0 - 36.0 g/dL LAB HEMATOLOGY METHOD 01/25/2025 6:27 AM [facility] OCMNGR85.4(H)11.5 - 14.5 % LAB HEMATOLOGY METHOD 01/25/2025 6:27 AM [facility] RNEEiybupogc48(L)150 - 450 x10*3/uL LAB HEMATOLOGY METHOD 01/25/2025 6:27 AM [facility] LABNeutrophils %59.740.0 - 80.0 % LAB HEMATOLOGY METHOD 01/25/2025 6:27 AM [facility] LABImmature Granulocytes %, Automated0.40.0 - 0.9 % LAB HEMATOLOGY METHOD 01/25/2025 6:27 AM [facility] LABComment:Immature Granulocyte Count (IG) includes promyelocytes, myelocytes and metamyelocytes but does not i nclude bands. Percent differential counts (%) should be interpreted in the context of the absolute cell counts (cells/UL).Lymphocytes %17.313.0 - 44.0 % LAB HEMATOLOGY METHOD 01/25/2025 6:27 AM [facility] LABMonocytes %16.32.0 - 10.0 % LAB HEMATOLOGY METHOD 01/25/2025 6:27 AM [facility] LABEosinophils %5.40.0 - 6.0 % LAB HEMATOLOGY METHOD 01/25/2025 6:27 AM [facility] LABBasophils %0.90.0 - 2.0 % LAB HEMATOLOGY METHOD 01/25/2025 6:27 AM [facility] LABNeutrophils Absolute2.791.60 - 5.50 x10*3/uL LAB HEMATOLOGY METHOD 01/25/2025 6:27 AM [facility] LABComment:Percent differential counts (%) should be interpreted in the context of the absolute cell counts (ce lls/uL).Immature Granulocytes Absolute, Automated0.020.00 - 0.50 x10*3/uL LAB HEMATOLOGY METHOD 01/25/2025 6:27 AM [facility] LABLymphocytes Absolute0.810.80 - 3.00 x10*3/uL LAB HEMATOLOGY METHOD 01/25/2025 6:27 AM [facility] LABMonocytes Absolute0.760.05 - 0.80 x10*3/uL LAB HEMATOLOGY METHOD 01/25/2025 6:27 AM [facility] LABEosinophils Absolute0.250.00 - 0.40 x10*3/uL LAB HEMATOLOGY METHOD 01/25/2025 6:27 AM [facility] LABBasophils Absolute0.040.00 - 0.10 x10*3/uL LAB HEMATOLOGY METHOD 01/25/2025 6:27 AM [facility] LABSpecimen (Source)Anatomical Location / LateralityCollection Method / VolumeCollection TimeReceived TimeBlood Venous blood specimen / UnknownVenipuncture / Eueeqiu0501/25/2025 5:40 AM EST 01/25/2025 6:14 AM EST Narrative Authorizing ProviderResult TypeResult StatusMusspring Barnes MDLAB BLOOD ORDERABLESFinal ResultPerforming OrganizationAddressCity/State/ZIP CodePhone Number [facility] [address] [place] [address] * Phosphorus (01/24/2025 5:33 AM EST)ComponentValueRef RangeTest MethodAnalysis TimePerformed AtPathologist SignaturePhosphorus3.12.5 - 4.9 mg/dL LAB CHEMISTRY METHOD 01/24/2025 6:27 AM [facility] LABSpecimen (Source)Anatomical Location / LateralityCollection Method / VolumeCollection TimeReceived TimeBlood Venous blood specimen / UnknownVenipuncture / Prcxkza6401/24/2025 5:33 AM EST 01/24/2025 6:04 AM EST Narrative Authorizing ProviderResult TypeResult StatusTy Sweet MD[facility] BLOOD ORDERABLESFinal ResultPerforming OrganizationAddressCity/State/ZIP CodePhone Number [facility] [address] [place] [address] * (ABNORMAL) Comprehensive Metabolic Panel (01/24/2025 5:33 AM EST)Component ValueRef RangeTest MethodAnalysis TimePerformed AtPathologist SignatureGlucose 9374 - 99 mg/dL LAB CHEMISTRY METHOD 01/24/2025 6:27 AM [facility] FQHSedizz359746 - 145 mmol/L LAB CHEMISTRY METHOD 01/24/2025 6:27 AM [facility] LABPotassium4.13.5 - 5.3 mmol/L LAB CHEMISTRY METHOD 01/24/2025 6:27 AM [facility] GAEHjuzrrez97636 - 107 mmol/L LAB CHEMISTRY METHOD 01/24/2025 6:27 AM [facility] TLVVolaqiwpsyg8392 - 32 mmol/L LAB CHEMISTRY METHOD 01/24/2025 6:27 AM [facility] LABComment:Bicarbonate results may be falsely elevated when Lactate Dehydrogenase (LDH) concentrations exceed 2,000 U/L due to a temporary reagent manufacturing issue. If significantly elevated LDH levels are suspected, interpret bicarbonate results with caution, correlate with the patient???s clinical status, and consider confirming CO2 values using a blood gas analyzer.Anion Kjf0962 - 20 mmol/L LAB CHEMISTRY METHOD 01/24/2025 6:27 AM [facility] LABUrea Ccgkctpk30(H)6 - 23 mg/dL LAB CHEMISTRY METHOD 01/24/2025 6:27 AM [facility] LABCreatinine1.37(H)0.50 - 1.05 mg/dL LAB CHEMISTRY METHOD 01/24/2025 6:27 AM [facility] OXIrQFW59(L)>60 mL/min/1.73m*2 LAB CHEMISTRY METHOD 01/24/2025 6:27 AM [facility] LABComment: Calculations of estimated GFR are performed using the 2020 CKD-EPI Study Refit equation without therace variable for the IDMS-Traceable creatinine methods. https://jasn.asnjournals.org/content/early//ASN.6857976038 Calcium8.78.6 - 10.3 mg/dL LAB CHEMISTRY METHOD 01/24/2025 6:27 AM [facility] LABAlbumin3.63.4 - 5.0 g/dL LAB CHEMISTRY METHOD 01/24/2025 6:27 AM [facility] LABAlkaline Ponecpawbiz417(H)33 - 136 U/L LAB CHEMISTRY METHOD 01/24/2025 6:27 AM [facility] LABTotal Protein6.46.4 - 8.2 g/dL LAB CHEMISTRY METHOD 01/24/2025 6:27 AM [facility] SWEWVN701 - 39 U/L LAB CHEMISTRY METHOD 01/24/2025 6:27 AM [facility] LABBilirubin, Total2.0(H)0.0 - 1.2 mg/dL LAB CHEMISTRY METHOD 01/24/2025 6:27 AM [facility] ZCEDQO115 - 45 U/L LAB CHEMISTRY METHOD 01/24/2025 6:27 AM [facility] LABComment:Patients treated with Sulfasalazine may generate falsely decreased results for ALT.Specimen (Source) Anatomical Location / LateralityCollection Method / VolumeCollection Time Received TimeBloodVenous blood specimen / UnknownVenipuncture / Unknown 01/24/2025 5:33 AM EST01/24/2025 6:04 AM EST Narrative Authorizing ProviderResult TypeResult StatusMushtshukri Cameron MILLER BLOOD ORDERABLESFinal ResultPerforming OrganizationAddressCity/State/ZIP CodePhone Number [facility] [address] [place] [address] * (ABNORMAL) CBC and Auto Differential (01/24/2025 5:33 AM EST)ComponentValueRef RangeTest MethodAnalysis TimePerformed AtPathologist SignatureWBC5.04.4 - 11.3 x10*3/uL LAB HEMATOLOGY METHOD 01/24/2025 6:11 AM [facility] LABnRBC0.00.0 - 0.0 /100 WBCs LAB HEMATOLOGY METHOD 01/24/2025 6:11 AM [facility] LABRBC3.30(L)4.00 - 5.20 x10*6/uL LAB HEMATOLOGY METHOD 01/24/2025 6:11 AM [facility] FPFItrdxscqqy83.4(L)12.0 - 16.0 g/dL LAB HEMATOLOGY METHOD 01/24/2025 6:11 AM [facility] PKWAisdsfueky05.1(L)36.0 - 46.0 % LAB HEMATOLOGY METHOD 01/24/2025 6:11 AM [facility] CQDWEF7830 - 100 fL LAB HEMATOLOGY METHOD 01/24/2025 6:11 AM [facility] WAJBFD65.526.0 - 34.0 pg LAB HEMATOLOGY METHOD 01/24/2025 6:11 AM [facility] RVGYVUW44.432.0 - 36.0 g/dL LAB HEMATOLOGY METHOD 01/24/2025 6:11 AM [facility] OCYMCT09.4(H)11.5 - 14.5 % LAB HEMATOLOGY METHOD 01/24/2025 6:11 AM [facility] SCSJxngzbnpk98(L)150 - 450 x10*3/uL LAB HEMATOLOGY METHOD 01/24/2025 6:11 AM [facility] LABNeutrophils %61.040.0 - 80.0 % LAB HEMATOLOGY METHOD 01/24/2025 6:11 AM [facility] LABImmature Granulocytes %, Automated0.40.0 - 0.9 % LAB HEMATOLOGY METHOD 01/24/2025 6:11 AM [facility] LABComment:Immature Granulocyte Count (IG) includes promyelocytes, myelocytes and metamyelocytes but does not i nclude bands. Percent differential counts (%) should be interpreted in the context of the absolute cell counts (cells/UL).Lymphocytes %18.513.0 - 44.0 % LAB HEMATOLOGY METHOD 01/24/2025 6:11 AM [facility] LABMonocytes %15.12.0 - 10.0 % LAB HEMATOLOGY METHOD 01/24/2025 6:11 AM [facility] LABEosinophils %4.20.0 - 6.0 % LAB HEMATOLOGY METHOD 01/24/2025 6:11 AM [facility] LABBasophils %0.80.0 - 2.0 % LAB HEMATOLOGY METHOD 01/24/2025 6:11 AM [facility] LABNeutrophils Absolute3.061.60 - 5.50 x10*3/uL LAB HEMATOLOGY METHOD 01/24/2025 6:11 AM [facility] LABComment:Percent differential counts (%) should be interpreted in the context of the absolute cell counts (ce lls/uL).Immature Granulocytes Absolute, Automated0.020.00 - 0.50 x10*3/uL LAB HEMATOLOGY METHOD 01/24/2025 6:11 AM [facility] LABLymphocytes Absolute0.930.80 - 3.00 x10*3/uL LAB HEMATOLOGY METHOD 01/24/2025 6:11 AM [facility] LABMonocytes Absolute0.760.05 - 0.80 x10*3/uL LAB HEMATOLOGY METHOD 01/24/2025 6:11 AM [facility] LABEosinophils Absolute0.210.00 - 0.40 x10*3/uL LAB HEMATOLOGY METHOD 01/24/2025 6:11 AM [facility] LABBasophils Absolute0.040.00 - 0.10 x10*3/uL LAB HEMATOLOGY METHOD 01/24/2025 6:11 AM [facility] LABSpecimen (Source)Anatomical Location / LateralityCollection Method / VolumeCollection TimeReceived TimeBlood Venous blood specimen / UnknownVenipuncture / Jifdsgw6301/24/2025 5:33 AM EST 01/24/2025 6:05 AM EST Narrative Authorizing ProviderResult TypeResult StatusMushtshukri Barnes [facility] BLOOD ORDERABLESFinal ResultPerforming OrganizationAddressCity/State/ZIP CodePhone Number [facility] [address] [place] [address] * Magnesium (01/24/2025 5:33 AM EST)ComponentValueRef RangeTest MethodAnalysis TimePerformed AtPathologist SignatureMagnesium2.101.60 - 2.40 mg/dL LAB CHEMISTRY METHOD 01/24/2025 6:27 AM [facility] LABSpecimen (Source)Anatomical Location / LateralityCollection Method / VolumeCollection TimeReceived TimeBlood Venous blood specimen / UnknownVenipuncture / Zslwlhl0801/24/2025 5:33 AM EST 01/24/2025 6:04 AM EST Narrative Authorizing ProviderResult TypeResult StatusDanijusto Eli DOL BLOOD ORDERABLESFinal ResultPerforming OrganizationAddressCity/State/ZIP CodePhone Number [facility] [address] [place] [address] * ECG 12 Lead (01/23/2025 7:33 AM EST)ComponentValueRef RangeTest MethodAnalysis TimePerformed AtPathologist SignatureVentricular Udla61LFREZIPAwyknr Rate60 BPMMUSEPR Ofswkqtj309hkQYHZZCX Gdqwdkjs22giOKKKND Zapwmzzy288gcURAUYQY Calculation(Bazett)472msMUSEP Zcqx66fnxhtbxDHWXT Wsxq19bwwjpinOXSKT Cykp540 degreesMUSEQRS Kelkh92czgntTMNNM Axdem409ihUIFKM Fmhkq915ovEWRZJ Yennbx229pr MUSET Tusnli721itZAPAIFN Ohuiydhzlm606wbVICBCwbldbyz (Source)Anatomical Location / LateralityCollection Method / VolumeCollection TimeReceived Time 01/23/2025 7:03 AM EST01/25/2025 7:43 AM EST Narrative MUSE - 01/25/2025 7:44 AM EST Normal sinus rhythm Rightward axis ST & T wave abnormality, consider anterior ischemia Abnormal ECG When compared with ECG of 22-JAN-2025 06:40, (unconfirmed) No significant change was found Confirmed by Geoff Elliott ([id number]) on 01/25/2025 7:43:57 AM Procedure Note Geoff Elliott, DO - 01/25/2025 Normal sinus rhythm Rightward axis ST & T wave abnormality, consider anterior ischemia Abnormal ECG When compared with ECG of 22-JAN-2025 06:40, (unconfirmed) No significant change was found Confirmed by Geoff Elliott ([id number]) on 01/25/2025 7:43:57 AM Authorizing ProviderResult TypeResult StatusRandall Izabel Laura BAR MACHINE OPERATOR MULTIPLE SPINDLE-CNPECG ORDERABLESFinal ResultPerforming OrganizationAddressCity/State/ZIP CodePhone Number MUSE * (ABNORMAL) Renal Function Panel (01/23/2025 5:44 AM EST)ComponentValueRef RangeTest MethodAnalysis TimePerformed AtPathologist AvmbcfxndNpkjscs4823 - 99 mg/dL LAB CHEMISTRY METHOD 01/23/2025 6:54 AM [facility] GVCFmptrw870927 - 145 mmol/L LAB CHEMISTRY METHOD 01/23/2025 6:54 AM [facility] LABPotassium3.73.5 - 5.3 mmol/L LAB CHEMISTRY METHOD 01/23/2025 6:54 AM [facility] RAYBvsytgmh83373 - 107 mmol/L LAB CHEMISTRY METHOD 01/23/2025 6:54 AM [facility] OBBRbguhxchxtj5468 - 32 mmol/L LAB CHEMISTRY METHOD 01/23/2025 6:54 AM [facility] LABComment:Bicarbonate results may be falsely elevated when Lactate Dehydrogenase (LDH) concentrations exceed 2,000 U/L due to a temporary reagent manufacturing issue. If significantly elevated LDH levels are suspected, interpret bicarbonate results with caution, correlate with the patient???s clinical status, and consider confirming CO2 values using a blood gas analyzer.Anion Ukk8346 - 20 mmol/L LAB CHEMISTRY METHOD 01/23/2025 6:54 AM [facility] LABUrea Hnxaalel61(H)6 - 23 mg/dL LAB CHEMISTRY METHOD 01/23/2025 6:54 AM [facility] LABCreatinine1.42(H)0.50 - 1.05 mg/dL LAB CHEMISTRY METHOD 01/23/2025 6:54 AM [facility] FPLhWDO66(L)>60 mL/min/1.73m*2 LAB CHEMISTRY METHOD 01/23/2025 6:54 AM [facility] LABComment: Calculations of estimated GFR are performed using the 2020 CKD-EPI Study Refit equation without therace variable for the IDMS-Traceable creatinine methods. https://jasn.asnjournals.org/content/early//ASN.5476831565 Calcium8.68.6 - 10.3 mg/dL LAB CHEMISTRY METHOD 01/23/2025 6:54 AM [facility] LABPhosphorus3.12.5 - 4.9 mg/dL LAB CHEMISTRY METHOD 01/23/2025 6:54 AM [facility] LABAlbumin3.63.4 - 5.0 g/dL LAB CHEMISTRY METHOD 01/23/2025 6:54 AM [facility] LABSpecimen (Source)Anatomical Location / LateralityCollection Method / VolumeCollection TimeReceived TimeBlood Venous blood specimen / UnknownVenipuncture / Ymbfoki4301/23/2025 5:44 AM EST 01/23/2025 6:20 AM EST Narrative Authorizing ProviderResult TypeResult StatusDaniel [facility] BLOOD ORDERABLESFinal ResultPerforming OrganizationAddressCity/State/ZIP CodePhone Number [facility] [address] [place] [address] * Magnesium (01/23/2025 5:44 AM EST)ComponentValueRef RangeTest MethodAnalysis TimePerformed AtPathologist SignatureMagnesium2.141.60 - 2.40 mg/dL LAB CHEMISTRY METHOD 01/23/2025 6:54 AM [facility] LABSpecimen (Source)Anatomical Location / LateralityCollection Method / VolumeCollection TimeReceived TimeBlood Venous blood specimen / UnknownVenipuncture / Yidzmlx8401/23/2025 5:44 AM EST 01/23/2025 6:20 AM EST Narrative Authorizing ProviderResult TypeResult StatusDaniel Odessa DOLAB BLOOD ORDERABLESFinal ResultPerforming OrganizationAddressCity/State/ZIP CodePhone Number [facility] [address] [place] [address] * (ABNORMAL) CBC (01/23/2025 5:44 AM EST)ComponentValueRef RangeTest Method Analysis TimePerformed AtPathologist SignatureWBC4.74.4 - 11.3 x10*3/uL LAB HEMATOLOGY METHOD 01/23/2025 6:31 AM [facility] LABnRBC0.00.0 - 0.0 /100 WBCs LAB HEMATOLOGY METHOD 01/23/2025 6:31 AM [facility] LABRBC3.26(L)4.00 - 5.20 x10*6/uL LAB HEMATOLOGY METHOD 01/23/2025 6:31 AM [facility] MHBRhvwudxusb53.1(L)12.0 - 16.0 g/dL LAB HEMATOLOGY METHOD 01/23/2025 6:31 AM [facility] DYXBpdfqtedcr27.4(L)36.0 - 46.0 % LAB HEMATOLOGY METHOD 01/23/2025 6:31 AM [facility] ORZBDM6533 - 100 fL LAB HEMATOLOGY METHOD 01/23/2025 6:31 AM [facility] OXXWNN62.026.0 - 34.0 pg LAB HEMATOLOGY METHOD 01/23/2025 6:31 AM [facility] XTOKKRP85.232.0 - 36.0 g/dL LAB HEMATOLOGY METHOD 01/23/2025 6:31 AM [facility] GQDXQR62.6(H)11.5 - 14.5 % LAB HEMATOLOGY METHOD 01/23/2025 6:31 AM [facility] KBPBojbbobel05(L)150 - 450 x10*3/uL LAB HEMATOLOGY METHOD 01/23/2025 6:31 AM [facility] LABSpecimen (Source)Anatomical Location / LateralityCollection Method / VolumeCollection TimeReceived TimeBlood Venous blood specimen / UnknownVenipuncture / Vxsaatf7901/23/2025 5:44 AM EST 01/23/2025 6:20 AM EST Narrative Authorizing ProviderResult TypeResult StatusKehinde Mcconnellcedo DOLAB BLOOD ORDERABLESFinal ResultPerforming OrganizationAddressCity/State/ZIP CodePhone Number [facility] [address] [place] [address] * ECG 12 Lead (01/22/2025 7:08 AM EST)ComponentValueRef RangeTest MethodAnalysis TimePerformed AtPathologist SignatureVentricular Qkhz10BNZERVOKmwuxm Rate59 BPMMUSEPR Ejcrpyta492lyFCOKPWR Gjdoycgp84ymIGMNJF Hozwzuqp290zoUIARHVD Calculation(Bazett)483msMUSEP Syps03yjhjgsqNGBFY Clwr65wkavdubQMRXD Mfoy053 degreesMUSEQRS Tajme22owiheRQZOB Qthco420joEDWSY Kzaay336pnGITHB Gribjb175wj MUSET Lrigbo205fpPMHQHPW Pzknescyni755rtRIWPAcbmlxmv (Source)Anatomical Location / LateralityCollection Method / VolumeCollection TimeReceived Time 01/22/2025 6:40 AM EST01/25/2025 8:00 AM EST Narrative MUSE - 01/25/2025 8:00 AM EST Sinus bradycardia Rightward axis Low voltage QRS ST & T wave abnormality, consider anterior ischemia Abnormal ECG When compared with ECG of 21-JAN-2025 06:31, (unconfirmed) Incomplete right bundle branch block is no longer Present Confirmed by Geoff Elilott ([id number]) on 01/25/2025 8:00:42 AM Procedure Note Geoff Elliott DO - 01/25/2025 Sinus bradycardia Rightward axis Low voltage QRS ST & T wave abnormality, consider anterior ischemia Abnormal ECG When compared with ECG of 21-JAN-2025 06:31, (unconfirmed) Incomplete right bundle branch block is no longer Present Confirmed by Geoff Elliott ([id number]) on 01/25/2025 8:00:42 AM Authorizing ProviderResult TypeResult StatusBernabe Laura BAR MACHINE OPERATOR MULTIPLE SPINDLE-CNPECG ORDERABLESFinal ResultPerforming OrganizationAddressCity/State/ZIP CodePhone Number MUSE * (ABNORMAL) Renal Function Panel (01/22/2025 6:07 AM EST)ComponentValueRef RangeTest MethodAnalysis TimePerformed AtPathologist OvwpuamivTmjymid4487 - 99 mg/dL LAB CHEMISTRY METHOD 01/22/2025 7:05 AM [facility] HZZUxemlu416806 - 145 mmol/L LAB CHEMISTRY METHOD 01/22/2025 7:05 AM [facility] LABPotassium3.63.5 - 5.3 mmol/L LAB CHEMISTRY METHOD 01/22/2025 7:05 AM [facility] PEJWkbrqgms62602 - 107 mmol/L LAB CHEMISTRY METHOD 01/22/2025 7:05 AM [facility] JEONtithnwejrp6878 - 32 mmol/L LAB CHEMISTRY METHOD 01/22/2025 7:05 AM [facility] LABComment:Bicarbonate results may be falsely elevated when Lactate Dehydrogenase (LDH) concentrations exceed 2,000 U/L due to a temporary reagent manufacturing issue. If significantly elevated LDH levels are suspected, interpret bicarbonate results with caution, correlate with the patient???s clinical status, and consider confirming CO2 values using a blood gas analyzer.Anion Qjr4251 - 20 mmol/L LAB CHEMISTRY METHOD 01/22/2025 7:05 AM [facility] LABUrea Rqbykoda01(H)6 - 23 mg/dL LAB CHEMISTRY METHOD 01/22/2025 7:05 AM [facility] LABCreatinine1.68(H)0.50 - 1.05 mg/dL LAB CHEMISTRY METHOD 01/22/2025 7:05 AM [facility] RSWcKTK75(L)>60 mL/min/1.73m*2 LAB CHEMISTRY METHOD 01/22/2025 7:05 AM [facility] LABComment: Calculations of estimated GFR are performed using the 2020 CKD-EPI Study Refit equation without therace variable for the IDMS-Traceable creatinine methods. https://jasn.asnjournals.org/content//ASN.8391070370 Calcium8.98.6 - 10.3 mg/dL LAB CHEMISTRY METHOD 01/22/2025 7:05 AM [facility] LABPhosphorus3.12.5 - 4.9 mg/dL LAB CHEMISTRY METHOD 01/22/2025 7:05 AM [facility] LABAlbumin3.93.4 - 5.0 g/dL LAB CHEMISTRY METHOD 01/22/2025 7:05 AM [facility] LABSpecimen (Source)Anatomical Location / LateralityCollection Method / VolumeCollection TimeReceived TimeBlood Venous blood specimen / UnknownVenipuncture / Utmhvud8201/22/2025 6:07 AM EST 01/22/2025 6:23 AM EST Narrative Authorizing ProviderResult TypeResult StatusDaniLos Alamitos Medical Center DOLAB BLOOD ORDERABLESFinal ResultPerforming OrganizationAddressCity/State/ZIP CodePhone Number [facility] [address] [place] [address] * Magnesium (01/22/2025 6:07 AM EST)ComponentValueRef RangeTest MethodAnalysis TimePerformed AtPathologist SignatureMagnesium2.181.60 - 2.40 mg/dL LAB CHEMISTRY METHOD 01/22/2025 7:05 AM [facility] LABSpecimen (Source)Anatomical Location / LateralityCollection Method / VolumeCollection TimeReceived TimeBlood Venous blood specimen / UnknownVenipuncture / Rwuonag5701/22/2025 6:07 AM EST 01/22/2025 6:23 AM EST Narrative Authorizing ProviderResult TypeResult StatusDaFormerly [facility] DOLAB BLOOD ORDERABLESFinal ResultPerforming OrganizationAddressty/State/ZIP CodePhone Number [facility] [address] [place] [address] * (ABNORMAL) CBC (01/22/2025 6:07 AM EST)ComponentValueRef RangeTest Method Analysis TimePerformed AtPathologist SignatureWBC5.04.4 - 11.3 x10*3/uL LAB HEMATOLOGY METHOD 01/22/2025 6:26 AM [facility] LABnRBC0.00.0 - 0.0 /100 WBCs LAB HEMATOLOGY METHOD 01/22/2025 6:26 AM [facility] LABRBC3.37(L)4.00 - 5.20 x10*6/uL LAB HEMATOLOGY METHOD 01/22/2025 6:26 AM [facility] YBCQhkqdotufu50.6(L)12.0 - 16.0 g/dL LAB HEMATOLOGY METHOD 01/22/2025 6:26 AM [facility] YJCVpquerjvbz35.4(L)36.0 - 46.0 % LAB HEMATOLOGY METHOD 01/22/2025 6:26 AM [facility] XEFSHY4593 - 100 fL LAB HEMATOLOGY METHOD 01/22/2025 6:26 AM [facility] ZPJRDU39.526.0 - 34.0 pg LAB HEMATOLOGY METHOD 01/22/2025 6:26 AM [facility] PMQWECX74.732.0 - 36.0 g/dL LAB HEMATOLOGY METHOD 01/22/2025 6:26 AM [facility] VDHEZC07.7(H)11.5 - 14.5 % LAB HEMATOLOGY METHOD 01/22/2025 6:26 AM [facility] RZXZejfacwmi95(L)150 - 450 x10*3/uL LAB HEMATOLOGY METHOD 01/22/2025 6:26 AM [facility] LABSpecimen (Source)Anatomical Location / LateralityCollection Method / VolumeCollection TimeReceived TimeBlood Venous blood specimen / UnknownVenipuncture / Gswhvse3401/22/2025 6:07 AM EST 01/22/2025 6:22 AM EST Narrative Authorizing ProviderResult TypeResult StatusDaniel [facility] BLOOD ORDERABLESFinal ResultPerforming OrganizationAddressCity/State/ZIP CodePhone Number [facility] [address] [place] [address] * XR chest 1 view (01/21/2025 8:26 AM EST)Anatomical RegionLateralityModality Thoracic, ChestComputed RadiographySpecimen (Source)Anatomical Location / LateralityCollection Method / VolumeCollection TimeReceived Time01/21/2025 8:53 AM EST01/21/2025 8:53 AM EST Impressions 01/21/2025 8:52 AM EST Stable cardiomegaly with small-moderate left and small right pleural effusions and bibasilar opacities/atelectasis, similar to prior. ?? MACRO: None ?? Signed by: Acosta Bo 01/21/2025 8:52 AM Dictation workstation: ?? [id number] Narrative 01/21/2025 8:52 AM EST Interpreted By: Acosta Bo, STUDY: XR CHEST 1 VIEW; ??01/21/2025 8:26 am ?? INDICATION: Signs/Symptoms:worsening respiratory failure. ?? COMPARISON: XR chest and CT chest 01/19/2025 ?? ACCESSION NUMBER(S): [id number] ?? ORDERING CLINICIAN: KEHINDE ELI ?? FINDINGS: CARDIOMEDIASTINAL SILHOUETTE: Cardiomediastinal silhouette is enlarged but unchanged, corresponding to cardiomegaly, biatrial dilatation, and moderate to large pericardial effusion visualized on recent CT chest. Calcified atherosclerosis of the thoracic aorta. ?? LUNGS: Low lung volumes with small-moderate left and small right pleural effusions with bibasilar opacities/atelectasis, similar to prior and better characterized on recent CT chest. No new focal consolidation. No pneumothorax. ?? ABDOMEN: No remarkable upper abdominal findings. ?? BONES: No acute osseous changes. ?? Procedure Note Acosta Bo MD - 01/21/2025 Interpreted By: Acosta Bo, STUDY: XR CHEST 1 VIEW; 01/21/2025 8:26 am INDICATION: Signs/Symptoms:worsening respiratory failure. COMPARISON: XR chest and CT chest 01/19/2025 ACCESSION NUMBER(S): [id number] ORDERING CLINICIAN: KEHINDE ELI FINDINGS: CARDIOMEDIASTINAL SILHOUETTE: Cardiomediastinal silhouette is enlarged but unchanged, corresponding to cardiomegaly, biatrial dilatation, and moderate to large pericardial effusion visualized on recent CT chest. Calcified atherosclerosis of the thoracic aorta. LUNGS: Low lung volumes with small-moderate left and small right pleural effusions with bibasilar opacities/atelectasis, similar to prior and better characterized on recent CT chest. No new focal consolidation. No pneumothorax. ABDOMEN: No remarkable upper abdominal findings. BONES: No acute osseous changes. IMPRESSION: Stable cardiomegaly with small-moderate left and small right pleural effusions and bibasilar opacities/atelectasis, similar to prior. MACRO: None Signed by: Acosta Bo 01/21/2025 8:52 AM Dictation workstation: [id number] Authorizing ProviderResult TypeResult StatusDanijusto Eli DOIMG XR PROCEDURES Final Result * (ABNORMAL) Blood Gas Arterial Full Panel (01/21/2025 7:41 AM EST)Component ValueRef RangeTest MethodAnalysis TimePerformed AtPathologist SignaturePOCT pH, Arterial7.51(H)7.38 - 7.42 pH01/21/2025 7:58 AM [facility] LABPOCT pCO2, Hjuhdfpj2607 - 42 mm Hg01/21/2025 7:58 AM [facility] LABPOCT pO2, Wtnpsurd97(LL)85 - 95 mm Hg01/21/2025 7:58 AM [facility] LABPOCT SO2, Qbhkcarz32(L)94 - 100 %01/21/2025 7:58 AM [facility] LABPOCT Oxy Hemoglobin, Zvlojvms12.1(L)94.0 - 98.0 % 01/21/2025 7:58 AM [facility] LABPOCT Hematocrit Calculated, Zbxcbjlh85.0(L)36.0 - 46.0 %01/21/2025 7:58 AM [facility] LAB POCT Sodium, Flqqwhst676(L)136 - 145 mmol/L103/23/2024 7:58 AM [facility] LABPOCT Potassium, Arterial3.73.5 - 5.3 mmol/L103/23/2024 7:58 AM [facility] LABPOCT Chloride, Vjjtrtdg5290 - 107 mmol/L 01/21/2025 7:58 AM [facility] LABPOCT Ionized Calcium, Arterial 1.181.10 - 1.33 mmol/L103/23/2024 7:58 AM [facility] LABPOCT Glucose, Swuvmxuk242(H)74 - 99 mg/dL01/21/2025 7:58 AM [facility] LABPOCT Lactate, Arterial1.00.4 - 2.0 mmol/L103/23/2024 7:[address] [facility] LABPOCT Base Excess, Arterial8.2(H)-2.0 - 3.0 mmol/L 01/21/2025 7:58 AM [facility] LABPOCT HCO3 Calculated, Arterial 31.9(H)22.0 - 26.0 mmol/L103/23/2024 7:58 AM [facility] LABPOCT Hemoglobin, Qcvzewta82.2(L)12.0 - 16.0 g/dL01/21/2025 7:58 AM [facility] LABPOCT Anion Gap, Arterial4(L)10 - 25 mmo/L103/23/2024 7:58 AM [facility] TBOEsQ318%01/21/2025 7:58 AM [facility] LABTest ZrfbnxpAUDLZP50/20/2025 7:58 AM [facility] LABCritical Called IpHAAJGYMO60/20/2025 7:58 AM [facility] LABCritical Called WeZXVNYOPZZY61/20/2025 7:58 AM [facility] LABCritical Call Ozek90219/20/2025 7:58 AM [facility] LABCritical Read BackY 01/21/2025 7:58 AM [facility] LABSite of Arterial PunctureVBG 01/21/2025 7:58 AM [facility] LABAllen's GhhyBKA1001/21/2025 7:58 AM [facility] LABSpecimen (Source)Anatomical Location / LateralityCollection Method / VolumeCollection TimeReceived TimeBloodArterial blood specimen / UnknownArterial Puncture / Mgjrnvj1101/21/2025 7:41 AM EST 01/21/2025 7:[address] [facility] - 01/21/2025 7:58 AM EST VENOUS Authorizing ProviderResult TypeResult StatusDaniel Odessa DOLAB BLOOD ORDERABLESFinal ResultPerforming OrganizationAddressCity/State/ZIP CodePhone Number [facility] [address] [place] [address] * ECG 12 Lead (01/21/2025 7:22 AM EST)ComponentValueRef RangeTest MethodAnalysis TimePerformed AtPathologist SignatureVentricular Rind75XPOLSGPPbhzzq Rate57 BPMMUSEPR Dfwvlacv245qzYVXIMWV Dbfrgijh01adUPCATJ Ufeenvdu201cgMRBLPWV Calculation(Bazett)478msMUSEP Cbjk14uwkonziKONKT Ircb930zfkudphNJSMX Opvl192 degreesMUSEQRS Ymzcp39nqfmlTPESH Wpbaa522pcVDZHZ Fjuhf323bgARWQZ Ybbiap550fz MUSET Npzwoc647owOJBWBJX Zvkumzadei812qiGXYDWqsbsmsz (Source)Anatomical Location / LateralityCollection Method / VolumeCollection TimeReceived Time 01/21/2025 6:31 AM EST01/25/2025 7:36 AM EST Narrative MUSE - 01/25/2025 7:37 AM EST Sinus bradycardia Incomplete right bundle branch block Right ventricular hypertrophy with repolarization abnormality Nonspecific T wave abnormality Abnormal ECG When compared with ECG of 20-JAN-2025 10:11, Premature atrial complexes are no longer Present Incomplete right bundle branch block is now Present Inverted T waves have replaced nonspecific T wave abnormality in Anterior leads QT has lengthened Confirmed by Geoff Elliott ([id number]) on 01/25/2025 7:36:58 AM Procedure Note Geoff Elliott DO - 01/25/2025 Sinus bradycardia Incomplete right bundle branch block Right ventricular hypertrophy with repolarization abnormality Nonspecific T wave abnormality Abnormal ECG When compared with ECG of 20-JAN-2025 10:11, Premature atrial complexes are no longer Present Incomplete right bundle branch block is now Present Inverted T waves have replaced nonspecific T wave abnormality in Anteriorleads QT has lengthened Confirmed by Geoff Elliott ([id number]) on 01/25/2025 7:36:58 AM Authorizing ProviderResult TypeResult StatusRandall Izabel Laura BAR MACHINE OPERATOR MULTIPLE SPINDLE-CNPECG ORDERABLESFinal ResultPerforming OrganizationAddressCity/State/ZIP CodePhone Number MUSE * (ABNORMAL) B-type natriuretic peptide (01/21/2025 4:47 AM EST)ComponentValue Ref RangeTest MethodAnalysis TimePerformed AtPathologist RrfkpiyptUGJ051(H)0 - 99 pg/mL LAB IMMUNOASSAY METHOD 01/21/2025 10:28 AM [facility] LABSpecimen (Source)Anatomical Location / LateralityCollection Method / VolumeCollection TimeReceived TimeBlood Venous blood specimen / UnknownVenipuncture / Bqfurgl7001/21/2025 4:47 AM EST 01/21/2025 5:[address] [facility] - 01/21/2025 10:28 AM EST <100 pg/mL - Heart failure unlikely 100-299 pg/mL - Intermediate probability of acute heart ?failure exacerbation. Correlate with clinical ?context and patient history. >=300 pg/mL - Heart Failure likely. Correlate with clinical ?context and patient history. BNP testing is performed using different testing methodology at [facility] than at other [facility]. Direct result comparisons should only be made within the same method. Authorizing ProviderResult TypeResult StatusDaniEl [facility] BLOOD ORDERABLESFinal ResultPerforming OrganizationAddressCity/State/ZIP CodePhone Number [facility] [address] [place] [address] * (ABNORMAL) Renal Function Panel (01/21/2025 4:47 AM EST)ComponentValueRef RangeTest MethodAnalysis TimePerformed AtPathologist QfyalhzwwSpcdsrm1334 - 99 mg/dL LAB CHEMISTRY METHOD 01/21/2025 5:50 AM [facility] YHSPwyoch521645 - 145 mmol/L LAB CHEMISTRY METHOD 01/21/2025 5:50 AM [facility] LABPotassium3.63.5 - 5.3 mmol/L LAB CHEMISTRY METHOD 01/21/2025 5:50 AM [facility] JTZZmzcfahy78912 - 107 mmol/L LAB CHEMISTRY METHOD 01/21/2025 5:50 AM [facility] KCLEesitjlbois8216 - 32 mmol/L LAB CHEMISTRY METHOD 01/21/2025 5:50 AM [facility] LABComment:Bicarbonate results may be falsely elevated when Lactate Dehydrogenase (LDH) concentrations exceed 2,000 U/L due to a temporary reagent manufacturing issue. If significantly elevated LDH levels are suspected, interpret bicarbonate results with caution, correlate with the patient???s clinical status, and consider confirming CO2 values using a blood gas analyzer.Anion Zbc0593 - 20 mmol/L LAB CHEMISTRY METHOD 01/21/2025 5:50 AM [facility] LABUrea Lmsjebze29(H)6 - 23 mg/dL LAB CHEMISTRY METHOD 01/21/2025 5:50 AM [facility] LABCreatinine2.14(H)0.50 - 1.05 mg/dL LAB CHEMISTRY METHOD 01/21/2025 5:50 AM [facility] REVqGOP34(L)>60 mL/min/1.73m*2 LAB CHEMISTRY METHOD 01/21/2025 5:50 AM [facility] LABComment: Calculations of estimated GFR are performed using the 2020 CKD-EPI Study Refit equation without therace variable for the IDMS-Traceable creatinine methods. https://jasn.asnjournals.org/content/early//ASN.3905732971 Calcium8.88.6 - 10.3 mg/dL LAB CHEMISTRY METHOD 01/21/2025 5:50 AM [facility] LABPhosphorus3.82.5 - 4.9 mg/dL LAB CHEMISTRY METHOD 01/21/2025 5:50 AM [facility] LABAlbumin3.83.4 - 5.0 g/dL LAB CHEMISTRY METHOD 01/21/2025 5:50 AM [facility] LABSpecimen (Source)Anatomical Location / LateralityCollection Method / VolumeCollection TimeReceived TimeBlood Venous blood specimen / UnknownVenipuncture / Nkjkqop5701/21/2025 4:47 AM EST 01/21/2025 5:24 AM EST Narrative Authorizing ProviderResult TypeResult StatusDaniel Odessa DOLAB BLOOD ORDERABLESFinal ResultPerforming OrganizationAddressCity/State/ZIP CodePhone Number [facility] [address] [place] [address] * Magnesium (01/21/2025 4:47 AM EST)ComponentValueRef RangeTest MethodAnalysis TimePerformed AtPathologist SignatureMagnesium2.131.60 - 2.40 mg/dL LAB CHEMISTRY METHOD 01/21/2025 5:50 AM [facility] LABSpecimen (Source)Anatomical Location / LateralityCollection Method / VolumeCollection TimeReceived TimeBlood Venous blood specimen / UnknownVenipuncture / Qspulzv7401/21/2025 4:47 AM EST 01/21/2025 5:24 AM EST Narrative Authorizing ProviderResult TypeResult StatusDaniel Odessa DOLAB BLOOD ORDERABLESFinal ResultPerforming OrganizationAddressCity/State/ZIP CodePhone Number [facility] [address] [place] [address] * (ABNORMAL) CBC (01/21/2025 4:47 AM EST)ComponentValueRef RangeTest Method Analysis TimePerformed AtPathologist SignatureWBC5.64.4 - 11.3 x10*3/uL LAB HEMATOLOGY METHOD 01/21/2025 5:35 AM [facility] LABnRBC0.00.0 - 0.0 /100 WBCs LAB HEMATOLOGY METHOD 01/21/2025 5:35 AM [facility] LABRBC3.31(L)4.00 - 5.20 x10*6/uL LAB HEMATOLOGY METHOD 01/21/2025 5:35 AM [facility] MKFOqgmocexac32.1(L)12.0 - 16.0 g/dL LAB HEMATOLOGY METHOD 01/21/2025 5:35 AM [facility] VEEPgfotwxxqh59.1(L)36.0 - 46.0 % LAB HEMATOLOGY METHOD 01/21/2025 5:35 AM [facility] DNAOEQ8930 - 100 fL LAB HEMATOLOGY METHOD 01/21/2025 5:35 AM [facility] NEOMOD83.526.0 - 34.0 pg LAB HEMATOLOGY METHOD 01/21/2025 5:35 AM [facility] ITVWPFZ77.5(L)32.0 - 36.0 g/dL LAB HEMATOLOGY METHOD 01/21/2025 5:35 AM [facility] SEWZYE38.5(H)11.5 - 14.5 % LAB HEMATOLOGY METHOD 01/21/2025 5:35 AM [facility] ONEGboalgsqv96(L)150 - 450 x10*3/uL LAB HEMATOLOGY METHOD 01/21/2025 5:35 AM [facility] LABSpecimen (Source)Anatomical Location / LateralityCollection Method / VolumeCollection TimeReceived TimeBlood Venous blood specimen / UnknownVenipuncture / Ftwhujj8501/21/2025 4:47 AM EST 01/21/2025 5:25 AM EST Narrative Authorizing ProviderResult TypeResult StatusDaniel Odessa DOLAB BLOOD ORDERABLESFinal ResultPerforming OrganizationAddressCity/State/ZIP CodePhone Number [facility] [address] [place] [address] * ECG 12 Lead (01/20/2025 10:12 AM EST)ComponentValueRef RangeTest Method Analysis TimePerformed AtPathologist SignatureVentricular Nftj35WABPFTUNmgkim Lxgr91AIPJOYVHI Clfvbukk609fhOYHTWTC Kvchmwls17tfHUVYRF Zrzbbsgb543qmZQOSAQC Calculation(Bazett)205msMUSEP Szly55dcrfomgFXJUA Tgpo78chxnnlsTKYRH Axis0 degreesMUSEQRS Chtyi12herpfGRXWQ Cjjaa552itLIXBJ Cxdxz338dsKKFNL Xndzus444ec MUSET Tjusrm205vrIFEEQQN Qzsuovxjts682mzJINAXwemugcr (Source)Anatomical Location / LateralityCollection Method / VolumeCollection TimeReceived Time 01/20/2025 10:11 AM EST01/20/2025 3:21 PM EST Narrative MUSE - 01/20/2025 3:21 PM EST Sinus bradycardia with Premature atrial complexes Rightward axis Nonspecific ST and T wave abnormality Abnormal ECG When compared with ECG of 18-JAN-2025 11:44, (unconfirmed) Nonspecific T wave abnormality, worse in Inferior leads Nonspecific T wave abnormality has replaced inverted T waves in Lateral leads QT has shortened Confirmed by Geoff Elliott ([id number]) on 01/20/2025 3:21:41 PM Procedure Note Geoff Elliott DO - 01/20/2025 Sinus bradycardia with Premature atrial complexes Rightward axis Nonspecific ST and T wave abnormality Abnormal ECG When compared with ECG of 18-JAN-2025 11:44, (unconfirmed) Nonspecific T wave abnormality, worse in Inferior leads Nonspecific T wave abnormality has replaced inverted T waves in [place] QT has shortened Confirmed by Geoff Elliott ([id number]) on 01/20/2025 3:21:41 PM Authorizing ProviderResult TypeResult StatusRandapramod Izabel Laura BAR MACHINE OPERATOR MULTIPLE SPINDLE-CNPECG ORDERABLESFinal ResultPerforming OrganizationAddressCity/State/ZIP CodePhone Number MUSE * (ABNORMAL) Renal Function Panel (01/20/2025 5:57 AM EST)ComponentValueRef RangeTest MethodAnalysis TimePerformed AtPathologist YqyulfpysNxvvnoh4463 - 99 mg/dL LAB CHEMISTRY METHOD 01/20/2025 7:22 AM [facility] QNNJlbafj798615 - 145 mmol/L LAB CHEMISTRY METHOD 01/20/2025 7:22 AM [facility] LABPotassium4.03.5 - 5.3 mmol/L LAB CHEMISTRY METHOD 01/20/2025 7:22 AM [facility] IVDEtmkznho8860 - 107 mmol/L LAB CHEMISTRY METHOD 01/20/2025 7:22 AM [facility] NRRCgtmwkzbnuj2861 - 32 mmol/L LAB CHEMISTRY METHOD 01/20/2025 7:22 AM [facility] LABComment:Bicarbonate results may be falsely elevated when Lactate Dehydrogenase (LDH) concentrations exceed 2,000 U/L due to a temporary reagent manufacturing issue. If significantly elevated LDH levels are suspected, interpret bicarbonate results with caution, correlate with the patient???s clinical status, and consider confirming CO2 values using a blood gas analyzer.Anion Eva0033 - 20 mmol/L LAB CHEMISTRY METHOD 01/20/2025 7:22 AM [facility] LABUrea Xbfffslh23(H)6 - 23 mg/dL LAB CHEMISTRY METHOD 01/20/2025 7:22 AM [facility] LABCreatinine2.25(H)0.50 - 1.05 mg/dL LAB CHEMISTRY METHOD 01/20/2025 7:22 AM [facility] TDWfKWD86(L)>60 mL/min/1.73m*2 LAB CHEMISTRY METHOD 01/20/2025 7:22 AM [facility] LABComment: Calculations of estimated GFR are performed using the 2020 CKD-EPI Study Refit equation without therace variable for the IDMS-Traceable creatinine methods. https://jasn.asnjournals.org/content//ASN.6341490631 Calcium8.98.6 - 10.3 mg/dL LAB CHEMISTRY METHOD 01/20/2025 7:22 AM [facility] LABPhosphorus4.12.5 - 4.9 mg/dL LAB CHEMISTRY METHOD 01/20/2025 7:22 AM [facility] LABAlbumin3.43.4 - 5.0 g/dL LAB CHEMISTRY METHOD 01/20/2025 7:22 AM [facility] LABSpecimen (Source)Anatomical Location / LateralityCollection Method / VolumeCollection TimeReceived TimeBlood Venous blood specimen / UnknownVenipuncture / Ooatuos6901/20/2025 5:57 AM EST 01/20/2025 6:25 AM EST Narrative Authorizing ProviderResult TypeResult StatusDaniel Odessa DOLAB BLOOD ORDERABLESFinal ResultPerforming OrganizationAddressCity/State/ZIP CodePhone Number [facility] [address] [place] [address] * (ABNORMAL) B-type natriuretic peptide (01/20/2025 5:57 AM EST)ComponentValue Ref RangeTest MethodAnalysis TimePerformed AtPathologist XdpnqssreRJB716(H)0 - 99 pg/mL LAB IMMUNOASSAY METHOD 01/20/2025 6:53 AM [facility] LABSpecimen (Source)Anatomical Location / LateralityCollection Method / VolumeCollection TimeReceived TimeBlood Venous blood specimen / UnknownVenipuncture / Whruanb3901/20/2025 5:57 AM EST 01/20/2025 6:[address] [facility] - 01/20/2025 6:53 AM EST <100 pg/mL - Heart failure unlikely 100-299 pg/mL - Intermediate probability of acute heart ?failure exacerbation. Correlate with clinical ?context and patient history. >=300 pg/mL - Heart Failure likely. Correlate with clinical ?context and patient history. BNP testing is performed using different testing methodology at [facility] than at other [facility]. Direct result comparisons should only be made within the same method. Authorizing ProviderResult TypeResult StatusDaniEl [facility] BLOOD ORDERABLESFinal ResultPerforming OrganizationAddressCity/State/ZIP CodePhone Number [facility] [address] [place] [address] * Magnesium (01/20/2025 5:57 AM EST)ComponentValueRef RangeTest MethodAnalysis TimePerformed AtPathologist SignatureMagnesium2.211.60 - 2.40 mg/dL LAB CHEMISTRY METHOD 01/20/2025 7:22 AM [facility] LABSpecimen (Source)Anatomical Location / LateralityCollection Method / VolumeCollection TimeReceived TimeBlood Venous blood specimen / UnknownVenipuncture / Aavlfyp8201/20/2025 5:57 AM EST 01/20/2025 6:25 AM EST Narrative Authorizing ProviderResult TypeResult StatusDaK[facility] BLOOD ORDERABLESFinal ResultPerforming OrganizationAddressCity/State/ZIP CodePhone Number [facility] [address] [place] [address] * (ABNORMAL) CBC (01/20/2025 5:57 AM EST)ComponentValueRef RangeTest Method Analysis TimePerformed AtPathologist SignatureWBC6.34.4 - 11.3 x10*3/uL LAB HEMATOLOGY METHOD 01/20/2025 6:33 AM [facility] LABnRBC0.00.0 - 0.0 /100 WBCs LAB HEMATOLOGY METHOD 01/20/2025 6:33 AM [facility] LABRBC3.39(L)4.00 - 5.20 x10*6/uL LAB HEMATOLOGY METHOD 01/20/2025 6:33 AM [facility] SUWOyeeutzymr75.4(L)12.0 - 16.0 g/dL LAB HEMATOLOGY METHOD 01/20/2025 6:33 AM [facility] PKZUhyqhdlyzb35.4(L)36.0 - 46.0 % LAB HEMATOLOGY METHOD 01/20/2025 6:33 AM [facility] WRTKMF5350 - 100 fL LAB HEMATOLOGY METHOD 01/20/2025 6:33 AM [facility] IIULWA73.726.0 - 34.0 pg LAB HEMATOLOGY METHOD 01/20/2025 6:33 AM [facility] EMPVHMU42.1(L)32.0 - 36.0 g/dL LAB HEMATOLOGY METHOD 01/20/2025 6:33 AM [facility] OFTHCW36.5(H)11.5 - 14.5 % LAB HEMATOLOGY METHOD 01/20/2025 6:33 AM [facility] MRUQjcgjbwrr18(L)150 - 450 x10*3/uL LAB HEMATOLOGY METHOD 01/20/2025 6:33 AM [facility] LABSpecimen (Source)Anatomical Location / LateralityCollection Method / VolumeCollection TimeReceived TimeBlood Venous blood specimen / UnknownVenipuncture / Vqtiabh8001/20/2025 5:57 AM EST 01/20/2025 6:25 AM EST Narrative Authorizing ProviderResult TypeResult StatusDaniLos Alamitos Medical Center DOLAB BLOOD ORDERABLESFinal ResultPerforming OrganizationAddressCity/State/ZIP CodePhone Number [facility] [address] [place] [address] * CT chest wo IV contrast (01/19/2025 1:50 PM EST)Anatomical RegionLaterality ModalityThoracic, ChestComputed TomographySpecimen (Source)Anatomical Location / LateralityCollection Method / VolumeCollection TimeReceived Time01/19/2025 2:35 PM EST01/19/2025 2:35 PM EST Impressions 01/19/2025 2:[address] confirms perceived left perihilar mass from radiograph earlier today was an artifact due to a normal structures; specifically, the left lower lobe pulmonary artery branch point, probably more visible compared to the other side due to the differences in the chest wall (left mastectomy). No lung nodule or mass to workup or follow ?? Moderate cardiomegaly with at least right atrial if not biatrial dilation ?? At least moderate if not large pericardial effusion ?? Small free-flowing bilateral pleural effusions with adjacent atelectasis ?? No other acute disease in the chest, only some minimal atelectasis. No sign of active infection. No interstitial or alveolar edema. No pneumothorax or pneumomediastinum ?? MACRO: None ?? Signed by: Cory Carrero 01/19/2025 2:34 PM Dictation workstation: ?? [id number] Narrative 01/19/2025 2:34 PM EST Interpreted By: Cory Carrero, STUDY: CT CHEST WO IV CONTRAST; ??01/19/2025 1:50 pm ?? INDICATION: Signs/Symptoms:chest mass on cxr. ? COMPARISON: Two views of the chest, earlier same day 19 January 2025 ?? ACCESSION NUMBER(S): [id number] ?? ORDERING CLINICIAN: KEHINDE ELI ?? TECHNIQUE: Helical CT chest from thoracic inlet through the hemidiaphragms without intravenous contrast ?? FINDINGS: LUNGS / AIRSPACES / AIRWAYS: ?? LARGE AIRWAYS Filling defect: Negative Wall thickening: Negative Bronchiectasis: Negative Other: N/A ?? AIRSPACES Fibrosis: Negative Emphysema: Negative Consolidation: Negative Ground glass airspace disease: Negative Edema: Negative Nodule / Mass: Negative. It is the branch point of the left lower lobe pulmonary artery counting for the lobular masslike appearance on radiograph earlier today. No true nodule Other: Atelectasis dependently and in the medial basal segment right lower lobe ?? PLEURA: Effusion: ??Small free-flowing bilateral Pneumothorax: ??Both sides negative Other: ??n/a ?? CARDIOVASCULAR: Heart size: ??Mildly enlarged Pericardial effusion: ??Moderate Thoracic aortic aneurysm: ??Negative Pulmonary arteries: ??No ectasia Heart failure change: ??Negative. ??No sign of interstitial or alveolar edema. Other: ??n/a ?? NONVASCULAR MEDIASTINUM: Esophagus: ??Grossly normal by CT Mediastinal Mass: ??Negative Hiatal hernia: ??None Other: ??n/a ?? LYMPH NODES: No thoracic adenopathy ?? CHEST WALL: Soft tissues of the chest wall are unremarkable ?? SKELETON: No acute or contributory abnormality ?? UPPER ABDOMEN: Included subdiaphragmatic structures have no acute or contributory abnormality ?? Procedure Note Cory Carrero MD - 01/19/2025 Interpreted By: Cory Carrero, STUDY: CT CHEST WO IV CONTRAST; 01/19/2025 1:50 pm INDICATION: Signs/Symptoms:chest mass on cxr. COMPARISON: Two views of the chest, earlier same day 19 January 2025 ACCESSION NUMBER(S): [id number] ORDERING CLINICIAN: KEHINDE ELI TECHNIQUE: Helical CT chest from thoracic inlet through the hemidiaphragms without intravenous contrast FINDINGS: LUNGS / AIRSPACES / AIRWAYS: LARGE AIRWAYS Filling defect: Negative Wall thickening: Negative Bronchiectasis: Negative Other: N/A AIRSPACES Fibrosis: Negative Emphysema: Negative Consolidation: Negative Ground glass airspace disease: Negative Edema: Negative Nodule / Mass: Negative. It is the branch point of the left lower lobe pulmonary artery counting for the lobular masslike appearance on radiograph earlier today. No true nodule Other: Atelectasis dependently and in the medial basal segment right lower lobe PLEURA: Effusion: Small free-flowing bilateral Pneumothorax: Both sides negative Other: n/a CARDIOVASCULAR: Heart size: Mildly enlarged Pericardial effusion: Moderate Thoracic aortic aneurysm: Negative Pulmonary arteries: No ectasia Heart failure change: Negative. No sign of interstitial or alveolar edema. Other: n/a NONVASCULAR MEDIASTINUM: Esophagus: Grossly normal by CT Mediastinal Mass: Negative Hiatal hernia: None Other: n/a LYMPH NODES: No thoracic adenopathy CHEST WALL: Soft tissues of the chest wall are unremarkable SKELETON: No acute or contributory abnormality UPPER ABDOMEN: Included subdiaphragmatic structures have no acute or contributory abnormality IMPRESSION: CT confirms perceived left perihilar mass from radiograph earlier today was an artifact due to a normal structures; specifically, the left lower lobe pulmonary artery branch point, probably more visible compared to the other side due to the differences in the chest wall (left mastectomy). No lung nodule or mass to workup or follow Moderate cardiomegaly with at least right atrial if not biatrial dilation At least moderate if not large pericardial effusion Small free-flowing bilateral pleural effusions with adjacent atelectasis No other acute disease in the chest, only some minimal atelectasis. No sign of active infection. No interstitial or alveolar edema. No pneumothorax or pneumomediastinum MACRO: None Signed by: Cory Carrero 01/19/2025 2:34 PM Dictation workstation: [id number] Authorizing ProviderResult TypeResult StatusDaniel Odessa DOIMG CT PROCEDURES Final Result * TRANSTHORACIC ECHO (TTE) COMPLETE (01/19/2025 11:50 AM EST)ComponentValueRef RangeTest MethodAnalysis TimePerformed AtPathologist SignatureAV mn ttcy0ywQi SYNGOAV pk vel1.49m/sSYNGOLV Biplane EF61%SYNGOLVOT diam2.00cmSYNGOMV E/A ratio2.17SYNGOTricuspid annular plane systolic excursion1.2cmSYNGORV free wall pk S'7.70cm/eIKDYBYXKX21orVoBLSAUYQLTg3.80cmSYNGOAortic Valve Area by Continuity of Peak Velocity1.11go1TFYGZCJ pk orjs8ytAmLPRYDErqhcj Valve Area by Continuity of VTI1.59dv3YBPBHAI EF55%SYNGOLV A4C EF58.7SYNGOSpecimen (Source)Anatomical Location / LateralityCollection Method / VolumeCollection TimeReceived Time01/19/2025 11:06 AM EST Impressions SYNGO - 01/19/2025 2:38 PM EST CONCLUSIONS: 1. The left ventricular systolic function is low normal with a visually estimated ejection fractionof 55%. 2. No regional wall motion abnormalities. 3. Spectral Doppler shows a Grade II (pseudonormal pattern) of left ventricular diastolic filling with an elevated left atrial pressure. 4. Right ventricular volume and pressure overload. 5. There is severely reduced right ventricular systolic function. 6. The findings are consistent with pulmonary hypertension. 7. Severely enlarged right ventricle. 8. The left atrial size is moderately dilated. 9. The right atrial size is severely dilated. 10. Small pericardial effusion. 11. There is no evidence of mitral valve stenosis. 12. Moderate to severe mitral valve regurgitation. 13. Severe tricuspid regurgitation. 14. The Doppler estimated RVSP is within normal limits at 28 mmHg. 15. Aortic valve sclerosis. The peak and mean gradients are 9 mmHg and 4 mmHg respectively. 16. Mild to moderate aortic valve regurgitation. 17. The pulmonary artery is not well visualized. 18. The inferior vena cava appears severely dilated, IVC inspiratory collapse is absent. 19. Large patent foramen ovale. 20. A bubble study using agitated saline was performed. Bubble study is positive. A large PFO (>20 bubbles) was demonstrated. Narrative SYNGO - 01/19/2025 2:38 PM EST ? [place] [id number] TRANSTHORACIC ECHOCARDIOGRAM REPORT Patient Name: ? CARLOS Aparicio DIDION ?? Reading Physician: ?[id number] Geoff ?VacanteDO Study Date: ? 01/19/2025 ?Ordering Provider: ?[id number] LIZZY LYNN MRN/PID: ?[id number] ?Fellow: Accession#: ? [id number] ?Nurse: Date of /Age: ??1945 / ?Case Assembler: ?Asia Olguin ?years ? RDCS Gender Assigned at ??F ? Additional Staff: : Height: ? 157.48 cm ? Admit Date: ? 01/18/2025 Weight: ? 88.45 kg ?Admission Status: ? Inpatient - ?Routine BSA / BMI: ?1.89 m2 / 35.67 ? Department Location: ??[facility] ?kg/m2 ? Echo Lab Blood Pressure: 100 /52 mmHg Study Type: ?TRANSTHORACIC ECHO (TTE) COMPLETE Diagnosis/ICD: Shortness of breath-R06.02; Other fluid overload-E87.79 Indication: ?Shortness of Breath, Fluid Overload CPT Codes: ? Echo Complete w Full Doppler-[id number] Patient History: Pertinent History: Cardiomyopathy and Lung Nodule, A.Fib, Heart Failure - ? unspecified, Dyspnea, LE Edema. Study Detail: The following Echo studies were performed: 2D, M-Mode, Doppler and ?color flow. Technically challenging study due to patient lying in ?supine position. Agitated saline used as a contrast agent for ?intraseptal flow evaluation. PHYSICIAN INTERPRETATION: Left Ventricle: The left ventricular systolic function is low normal with a visually estimated ejection fraction of 55%. There are no regional wall motion abnormalities. The left ventricular cavity size is normal. There is normal septal and mildly increased posterior left ventricular wall thickness. The interventricular septum is flattened in systole and diastole, consistent with right ventricular pressure and volume overload. Spectral Doppler shows a Grade II (pseudonormal pattern) of left ventricular diastolic filling with an elevated left atrial pressure. Left Atrium: The left atrial size is moderately dilated. There is a large patent foramen ovale. Thepatent foramen ovale was visualized using color doppler and agitated saline contrast. A bubble study using agitated saline was performed. Bubble study is positive. A large PFO (> 20 bubbles) was demonstrated. Right Ventricle: The right ventricle is severely enlarged. There is severely reduced right ventricular systolic function. The findings are consistent with pulmonary hypertension. Right Atrium: The right atrial size is severely dilated. Aortic Valve: The aortic valve is trileaflet. The aortic valve area by VTI is 1.86 cm? with a peak velocity of 1.49 m/s. The peak and mean gradients are 9 mmHg and 4 mmHg, respectively, with a dimensionless index of 0.59. There is mild to moderate aortic valve cusp calcification. There is evidence of mildly elevated transaortic gradients consistent with sclerosis of the aortic valve. There is mild to moderate aortic valve regurgitation. Mitral Valve: The mitral valve is normal in structure. There is no evidence of mitral valve stenosis. There is mild mitral annular calcification. There is moderate to severe mitral valve regurgitation. The E Vmax is 0.80 m/s. The mitral regurgitant orifice area is 31 mm2. The mitral regurgitant volume is 43.01 ml. Tricuspid Valve: The tricuspid valve is abnormal. There is severe tricuspid regurgitation. The Doppler estimated right ventricular systolic pressure (RVSP) is within normal limits at 28 mmHg. Pulmonic Valve: The pulmonic valve is not well visualized. There is no indication of pulmonic valveregurgitation. Pericardium: Small pericardial effusion. The effusion is circumferential. Aorta: The aortic root is normal. Pulmonary Artery: The pulmonary artery is not well visualized. Systemic Veins: The inferior vena cava appears severely dilated, IVC inspiratory collapse is absent. In comparison to the previous echocardiogram(s): There are no prior studies on this patient for comparison purposes. CONCLUSIONS: 1. The left ventricular systolic function is low normal with a visually estimated ejection fractionof 55%. 2. No regional wall motion abnormalities. 3. Spectral Doppler shows a Grade II (pseudonormal pattern) of left ventricular diastolic filling with an elevated left atrial pressure. 4. Right ventricular volume and pressure overload. 5. There is severely reduced right ventricular systolic function. 6. The findings are consistent with pulmonary hypertension. 7. Severely enlarged right ventricle. 8. The left atrial size is moderately dilated. 9. The right atrial size is severely dilated. 10. Small pericardial effusion. 11. There is no evidence of mitral valve stenosis. 12. Moderate to severe mitral valve regurgitation. 13. Severe tricuspid regurgitation. 14. The Doppler estimated RVSP is within normal limits at 28 mmHg. 15. Aortic valve sclerosis. The peak and mean gradients are 9 mmHg and 4 mmHg respectively. 16. Mild to moderate aortic valve regurgitation. 17. The pulmonary artery is not well visualized. 18. The inferior vena cava appears severely dilated, IVC inspiratory collapse is absent. 19. Large patent foramen ovale. 20. A bubble study using agitated saline was performed. Bubble study is positive. A large PFO (>20 bubbles) was demonstrated. QUANTITATIVE DATA SUMMARY: 2D MEASUREMENTS: ? Normal Ranges: Ao Root d: ? 2.60 cm ? (2.0-3.7cm) LAs: ? 4.80 cm ? (2.7-4.0cm) IVSd: ?0.90 cm ? (0.6-1.1cm) LVPWd: ? 1.00 cm ? (0.6-1.1cm) LVIDd: ? 4.80 cm ? (3.9-5.9cm) LVIDs: ? 2.80 cm LV Mass Index: ?? 84.0 g/m2 LVEDV Index: ? 38.16 ml/m2 LV % FS ?41.7 % AORTA MEASUREMENTS: ? Normal Ranges: Asc Ao, d: ?3.10 cm (2.1-3.4cm) LV SYSTOLIC FUNCTION: ? Normal Ranges: EF-A4C View: 59 % (>=55%) EF-A2C View: ?63 % EF-Biplane: ? 61 % EF-Visual: ?55 % LV EF Reported: 55 % LV DIASTOLIC FUNCTION: ? Normal Ranges: MV Peak E: ? 0.80 m/s ??(0.7-1.2 m/s) MV Peak A: ? 0.37 m/s ??(0.42-0.7 m/s) E/A Ratio: ? 2.17 ?(1.0-2.2) MV e' 0.116 m/s (>8.0) MV lateral e' ?0.16 m/s MV medial e' ? 0.08 m/s E/e' Ratio: 6.85 (<8.0) MITRAL VALVE: ?Normal Ranges: MV DT: ?222 msec (150-240msec) MITRAL INSUFFICIENCY: ? Normal Ranges: PISA Radius: ?0.8 cm MR VTI: ? 140.00 cm MR Vmax: ?459.00 cm/s MR Alias Pollo: ? 39.9 cm/s MR Volume: ?43.01 ml MR Flow Rt: ? 141.02 ml/s MR EROA: ?31 mm2 AORTIC VALVE: ? Normal Ranges: AoV Vmax: 1.49 m/s (<=1.7m/s) AoV Peak P.9 mmHg (<20mmHg) AoV Mean PG: ? 4.0 mmHg (1.7-11.5mmHg) LVOT Max Pollo: 0.85 m/s (<=1.1m/s) AoV VTI: ? 27.30 cm (18-25cm) LVOT VTI: ?16.20 cm LVOT Diameter: ? 2.00 cm ??(1.8-2.4cm) AoV Area, VTI: ? 1.86 cm2 (2.5-5.5cm2) AoV Area,Vmax: ? 1.79 cm2 (2.5-4.5cm2) AoV Dimensionless Index: 0.59 AORTIC INSUFFICIENCY: AI Vmax: ? 3.48 m/s AI Half-time: ??524 msec AI Decel Rate: 195.00 cm/s2 RIGHT VENTRICLE: RV Basal 4.50 cm RV Mid ?? 3.40 cm RV Major 5.1 cm TAPSE: ?? 11.9 mm RV s' ?0.08 m/s TRICUSPID VALVE/RVSP: ?Normal Ranges: Peak TR Velocity: ? 1.81 m/s Est. RA Pressure: ? 15 mmHg RV Syst Pressure: 28 mmHg (< 30mmHg) IVC Diam: ? 3.70 cm PULMONIC VALVE: ?Normal Ranges: PV Accel Time: 151 msec (>120ms) PV Max Pollo: ? 0.7 m/s ??(0.6-0.9m/s) PV Max PG: ?1.9 mmHg [id number] Geoff Elliott DO Electronically signed on 01/19/2025 at 2:38:31 PM Final Procedure Note Geoff Elliott DO - 01/19/2025 [place] [address] TRANSTHORACIC ECHOCARDIOGRAM REPORT Patient Name: CARLOS Aparicio CLIFTON Reading Physician: Makeda Elliott DO Study Date: 01/19/2025 Ordering Provider: [id number] LIZZY WILLIAMSON MRN/PID: [id number] Fellow: Nurse: Date of /Age: 7 1945 Case Assembler: Sam hillman RDCS Gender Assigned at F Additional Staff: : Height: 157.48 cm Admit Date: 01/18/2025 Weight: 88.45 kg Admission Status: Inpatient- Routine BSA / BMI: 1.89 m2 / 35.67 Department Location: [place] [address] Echo Lab Blood Pressure: 100 /52 mmHg Study Type: TRANSTHORACIC ECHO (TTE) COMPLETE Diagnosis/ICD: Shortness of breath-R06.02; Other fluid overload-E87.79 Indication: Shortness of Breath, Fluid Overload CPT Codes: Echo Complete w Full Doppler-[id number] Patient History: Pertinent History: Cardiomyopathy and Lung Nodule, A.Fib, Heart Failure- unspecified, Dyspnea, LE Edema. Study Detail: The following Echo studies were performed: 2D, M-Mode,Doppler and color flow. Technically challenging study due to patientlying in supine position. Agitated saline used as a contrast agentfor intraseptal flow evaluation. PHYSICIAN INTERPRETATION: Left Ventricle: The left ventricular systolic function is low normal witha visually estimated ejection fraction of 55%. There are no regional wallmotion abnormalities. The left ventricular cavity size is normal. There isnormal septal and mildly increased posterior left ventricular wallthickness. The interventricular septum is flattened in systole anddiastole, consistent with right ventricular pressure and volume overload.Spectral Doppler shows a Grade II (pseudonormal pattern) of leftventricular diastolic filling with an elevated left atrial pressure. Left Atrium: The left atrial size is moderately dilated. There is a largepatent foramen ovale. The patent foramen ovale was visualized using colordoppler and agitated saline contrast. A bubble study using agitated salinewas performed. Bubble study is positive. A large PFO (> 20 bubbles) wasdemonstrated. Right Ventricle: The right ventricle is severely enlarged. There isseverely reduced right ventricular systolic function. The findings areconsistent with pulmonary hypertension. Right Atrium: The right atrial size is severely dilated. Aortic Valve: The aortic valve is trileaflet. The aortic valve area by VTIis 1.86 cm? with a peak velocity of 1.49 m/s. The peak and mean gradientsare 9 mmHg and 4 mmHg, respectively, with a dimensionless index of 0.59.There is mild to moderate aortic valve cusp calcification. There isevidence of mildly elevated transaortic gradients consistent withsclerosis of the aortic valve. There is mild to moderate aortic valve regurgitation. Mitral Valve: The mitral valve is normal in structure. There is noevidence of mitral valve stenosis. There is mild mitral annularcalcification. There is moderate to severe mitral valve regurgitation. TheE Vmax is 0.80 m/s. The mitral regurgitant orifice area is 31 mm2. Themitral regurgitant volume is 43.01 ml. Tricuspid Valve: The tricuspid valve is abnormal. There is severetricuspid regurgitation. The Doppler estimated right ventricular systolicpressure (RVSP) is within normal limits at 28 mmHg. Pulmonic Valve: The pulmonic valve is not well visualized. There is noindication of pulmonic valve regurgitation. Pericardium: Small pericardial effusion. The effusion iscircumferential. Aorta: The aortic root is normal. Pulmonary Artery: The pulmonary artery is not well visualized. Systemic Veins: The inferior vena cava appears severely dilated, IVCinspiratory collapse is absent. In comparison to the previous echocardiogram(s): There are no priorstudies on this patient for comparison purposes. CONCLUSIONS: 1. The left ventricular systolic function is low normal with a visuallyestimated ejection fraction of 55%. 2. No regional wall motion abnormalities. 3. Spectral Doppler shows a Grade II (pseudonormal pattern) of leftventricular diastolic filling with an elevated left atrial pressure. 4. Right ventricular volume and pressure overload. 5. There is severely reduced right ventricular systolic function. 6. The findings are consistent with pulmonary hypertension. 7. Severely enlarged right ventricle. 8. The left atrial size is moderately dilated. 9. The right atrial size is severely dilated. 10. Small pericardial effusion. 11. There is no evidence of mitral valve stenosis. 12. Moderate to severe mitral valve regurgitation. 13. Severe tricuspid regurgitation. 14. The Doppler estimated RVSP is within normal limits at 28 mmHg. 15. Aortic valve sclerosis. The peak and mean gradients are 9 mmHg and 4mmHg respectively. 16. Mild to moderate aortic valve regurgitation. 17. The pulmonary artery is not well visualized. 18. The inferior vena cava appears severely dilated, IVC inspiratorycollapse is absent. 19. Large patent foramen ovale. 20. A bubble study using agitated saline was performed. Bubble study ispositive. A large PFO (> 20 bubbles) was demonstrated. QUANTITATIVE DATA SUMMARY: 2D MEASUREMENTS: Normal Ranges: Ao Root d: 2.60 cm (2.0-3.7cm) LAs: 4.80 cm (2.7-4.0cm) IVSd: 0.90 cm (0.6-1.1cm) LVPWd: 1.00 cm (0.6-1.1cm) LVIDd: 4.80 cm (3.9-5.9cm) LVIDs: 2.80 cm LV Mass Index: 84.0 g/m2 LVEDV Index: 38.16 ml/m2 LV % FS 41.7 % AORTA MEASUREMENTS: Normal Ranges: Asc Ao, d: 3.10 cm (2.1-3.4cm) LV SYSTOLIC FUNCTION: Normal Ranges: EF-A4C View: 59 % (>=55%) EF-A2C View: 63 % EF-Biplane: 61 % EF-Visual: 55 % LV EF Reported: 55 % LV DIASTOLIC FUNCTION: Normal Ranges: MV Peak E: 0.80 m/s (0.7-1.2 m/s) MV Peak A: 0.37 m/s (0.42-0.7 m/s) E/A Ratio: 2.17 (1.0-2.2) MV e' 0.116 m/s (>8.0) MV lateral e' 0.16 m/s MV medial e' 0.08 m/s E/e' Ratio: 6.85 (<8.0) MITRAL VALVE: Normal Ranges: MV DT: 222 msec (150-240msec) MITRAL INSUFFICIENCY: Normal Ranges: PISA Radius: 0.8 cm MR VTI: 140.00 cm MR Vmax: 459.00 cm/s MR Alias Pollo: 39.9 cm/s MR Volume: 43.01 ml MR Flow Rt: 141.02 ml/s MR EROA: 31 mm2 AORTIC VALVE: Normal Ranges: AoV Vmax: 1.49 m/s (<=1.7m/s) AoV Peak P.9 mmHg (<20mmHg) AoV Mean P.0 mmHg (1.7-11.5mmHg) LVOT Max Pollo: 0.85 m/s (<=1.1m/s) AoV VTI: 27.30 cm (18-25cm) LVOT VTI: 16.20 cm LVOT Diameter: 2.00 cm (1.8-2.4cm) AoV Area, VTI: 1.86 cm2 (2.5-5.5cm2) AoV Area,Vmax: 1.79 cm2 (2.5-4.5cm2) AoV Dimensionless Index: 0.59 AORTIC INSUFFICIENCY: AI Vmax: 3.48 m/s AI Half-time: 524 msec AI Decel Rate: 195.00 cm/s2 RIGHT VENTRICLE: RV Basal 4.50 cm RV Mid 3.40 cm RV Major 5.1 cm TAPSE: 11.9 mm RV s' 0.08 m/s TRICUSPID VALVE/RVSP: Normal Ranges: Peak TR Velocity: 1.81 m/s Est. RA Pressure: 15 mmHg RV Syst Pressure: 28 mmHg (< 30mmHg) IVC Diam: 3.70 cm PULMONIC VALVE: Normal Ranges: PV Accel Time: 151 msec (>120ms) PV Max Polol: 0.7 m/s (0.6-0.9m/s) PV Max P.9 mmHg [id number] Geoff Elliott DO Electronically signed on 01/19/2025 at 2:38:31 PM Final IMPRESSION: CONCLUSIONS: 1. The left ventricular systolic function is low normal with a visuallyestimated ejection fraction of 55%. 2. No regional wall motion abnormalities. 3. Spectral Doppler shows a Grade II (pseudonormal pattern) of leftventricular diastolic filling with an elevated left atrial pressure. 4. Right ventricular volume and pressure overload. 5. There is severely reduced right ventricular systolic function. 6. The findings are consistent with pulmonary hypertension. 7. Severely enlarged right ventricle. 8. The left atrial size is moderately dilated. 9. The right atrial size is severely dilated. 10. Small pericardial effusion. 11. There is no evidence of mitral valve stenosis. 12. Moderate to severe mitral valve regurgitation. 13. Severe tricuspid regurgitation. 14. The Doppler estimated RVSP is within normal limits at 28 mmHg. 15. Aortic valve sclerosis. The peak and mean gradients are 9 mmHg and 4mmHg respectively. 16. Mild to moderate aortic valve regurgitation. 17. The pulmonary artery is not well visualized. 18. The inferior vena cava appears severely dilated, IVC inspiratorycollapse is absent. 19. Large patent foramen ovale. 20. A bubble study using agitated saline was performed. Bubble study ispositive. A large PFO (> 20 bubbles) was demonstrated. Authorizing ProviderResult TypeResult StatusLizzy Lynn BAR MACHINE OPERATOR MULTIPLE SPINDLE-CNPCV ECHO PROCEDURESFinal ResultPerforming OrganizationAddressCity/State/ZIP CodePhone Number SYNGO * XR chest 2 views (01/19/2025 8:43 AM EST)Anatomical RegionLateralityModality Thoracic, ChestComputed RadiographySpecimen (Source)Anatomical Location / LateralityCollection Method / VolumeCollection TimeReceived Time01/19/2025 8:58 AM EST01/19/2025 8:58 AM EST Impressions 01/19/2025 8:57 AM EST Small loculated left pleural effusion with adjacent mild basilar atelectasis ?? Follow with chest CT (with IV contrast if possible) to evaluate for possible left perihilar nodule or nodules ?? MACRO: None ?? Signed by: Cory Carrero 01/19/2025 8:57 AM Dictation workstation: ?? [id number] Narrative 01/19/2025 8:57 AM EST Interpreted By: Cory Carrero, STUDY: XR CHEST 2 VIEWS; ??01/19/2025 8:43 am ?? INDICATION: Signs/Symptoms:shortness of breath. ? COMPARISON: None ?? ACCESSION NUMBER(S): [id number] ?? ORDERING CLINICIAN: LIZZY LYNN ?? TECHNIQUE: Frontal and lateral views of the chest ?? FINDINGS: LINES AND TUBES: ??n/a ?? HEART AND MEDIASTINUM: Cardiac silhouette size: Moderate cardiomegaly Thoracic aorta: ??Calcified at the arch and perhaps mildly ectatic but no acute findings [place] and nonvascular: ??within normal limits Other: ??n/a ?? PULMONARY VESSELS: Within normal limits; no sign of edema ?? LUNGS AND AIRWAYS: Left basilar atelectasis. Substantial size left perihilar nodule or nodules ?? PLEURA: Effusion: ??Small loculated left; right negative Pneumothorax: ??Both sides negative Other: ??n/a ?? BONES: No acute findings ?? Procedure Note Cory Carrero MD - 01/19/2025 Interpreted By: Cory Carrero, STUDY: XR CHEST 2 VIEWS; 01/19/2025 8:43 am INDICATION: Signs/Symptoms:shortness of breath. COMPARISON: None ACCESSION NUMBER(S): [id number] ORDERING CLINICIAN: LIZZY LYNN TECHNIQUE: Frontal and lateral views of the chest FINDINGS: LINES AND TUBES: n/a HEART AND MEDIASTINUM: Cardiac silhouette size: Moderate cardiomegaly Thoracic aorta: Calcified at the arch and perhaps mildly ectatic but no acute findings [place] and nonvascular: within normal limits Other: n/a PULMONARY VESSELS: Within normal limits; no sign of edema LUNGS AND AIRWAYS: Left basilar atelectasis. Substantial size left perihilar nodule or nodules PLEURA: Effusion: Small loculated left; right negative Pneumothorax: Both sides negative Other: n/a BONES: No acute findings IMPRESSION: Small loculated left pleural effusion with adjacent mild basilar atelectasis Follow with chest CT (with IV contrast if possible) to evaluate for possible left perihilar nodule or nodules MACRO: None Signed by: Cory Carrero 01/19/2025 8:57 AM Dictation workstation: [id number] Authorizing ProviderResult TypeResult StatusLizzy Lynn BAR MACHINE OPERATOR MULTIPLE SPINDLE-CNPIMG XR PROCEDURES Final Result * Lavender Top (01/19/2025 5:33 AM EST)ComponentValueRef RangeTest Method Analysis TimePerformed AtPathologist SignatureExtra TubeHold for add-ons. 01/20/2025 8:30 AM [facility] LABComment:Auto resulted.Specimen (Source)Anatomical Location / LateralityCollection Method / VolumeCollection TimeReceived TimeBloodVenous blood specimen / Stfranb7401/19/2025 5:33 AM EST 01/19/2025 6:10 AM EST Narrative Authorizing ProviderResult TypeResult Dylan Azar MDLAB BLOOD ORDERABLES Final ResultPerforming OrganizationAddressCity/State/ZIP CodePhone Number [facility] [address] [place] [address] * (ABNORMAL) Basic Metabolic Panel (01/19/2025 5:33 AM EST)ComponentValueRef RangeTest MethodAnalysis TimePerformed AtPathologist DozsrewxuWngnmbx318(H)74 - 99 mg/dL LAB CHEMISTRY METHOD 01/19/2025 6:51 AM [facility] GGIWfdubq481998 - 145 mmol/L LAB CHEMISTRY METHOD 01/19/2025 6:51 AM [facility] LABPotassium4.03.5 - 5.3 mmol/L LAB CHEMISTRY METHOD 01/19/2025 6:51 AM [facility] BLNAorhtdev94215 - 107 mmol/L LAB CHEMISTRY METHOD 01/19/2025 6:51 AM [facility] ZCJAitvzqzyngj6387 - 32 mmol/L LAB CHEMISTRY METHOD 01/19/2025 6:51 AM [facility] LABComment:Bicarbonate results may be falsely elevated when Lactate Dehydrogenase (LDH) concentrations exceed 2,000 U/L due to a temporary reagent manufacturing issue. If significantly elevated LDH levels are suspected, interpret bicarbonate results with caution, correlate with the patient???s clinical status, and consider confirming CO2 values using a blood gas analyzer.Anion Yjk6968 - 20 mmol/L LAB CHEMISTRY METHOD 01/19/2025 6:51 AM [facility] LABUrea Tfcxzhbi53(H)6 - 23 mg/dL LAB CHEMISTRY METHOD 01/19/2025 6:51 AM [facility] LABCreatinine1.56(H)0.50 - 1.05 mg/dL LAB CHEMISTRY METHOD 01/19/2025 6:51 AM [facility] EIOrSCQ63(L)>60 mL/min/1.73m*2 LAB CHEMISTRY METHOD 01/19/2025 6:51 AM [facility] LABComment: Calculations of estimated GFR are performed using the 2020 CKD-EPI Study Refit equation without therace variable for the IDMS-Traceable creatinine methods. https://jasn.asnjournals.org/content//ASN.0401853733 Calcium8.88.6 - 10.3 mg/dL LAB CHEMISTRY METHOD 01/19/2025 6:51 AM [facility] LABSpecimen (Source)Anatomical Location / LateralityCollection Method / VolumeCollection TimeReceived TimeBlood Venous blood specimen / UnknownVenipuncture / Hwsbmfm0801/19/2025 5:33 AM EST 01/19/2025 6:09 AM EST Narrative Authorizing ProviderResult TypeResult StatusAmy Bee Lynn [facility]LAB BLOOD ORDERABLESFinal ResultPerforming OrganizationAddConemaugh Meyersdale Medical Centerty/[facility]/ZIP CodePhone [facility] [address] [place] [address] * Magnesium (01/18/2025 4:51 PM EST)ComponentValueRef RangeTest MethodAnalysis TimePerformed AtPathologist SignatureMagnesium2.171.60 - 2.40 mg/dL LAB CHEMISTRY METHOD 01/18/2025 5:19 PM [facility] LABSpecimen (Source)Anatomical Location / LateralityCollection Method / VolumeCollection TimeReceived TimeBlood Venous blood specimen / UnknownVenipuncture / Wxvlyba5601/18/2025 4:51 PM EST 01/18/2025 4:55 PM EST Narrative Authorizing ProviderResult TypeResult StatusAmy Bee Lynn [facility] BLOOD ORDERABLESFinal ResultPerforming OrganizationAddressty/[facility] CodePhone [facility] [address] [place] [phone] * (ABNORMAL) Comprehensive Metabolic Panel (01/18/2025 4:51 PM EST)Component ValueRef RangeTest MethodAnalysis TimePerformed AtPathologist SignatureGlucose 132(H)74 - 99 mg/dL LAB CHEMISTRY METHOD 01/18/2025 5:19 PM [facility] JDJEvjtdq307(L)136 - 145 mmol/L LAB CHEMISTRY METHOD 01/18/2025 5:19 PM [facility] LABPotassium3.73.5 - 5.3 mmol/L LAB CHEMISTRY METHOD 01/18/2025 5:19 PM [facility] HRXRkmecajk1850 - 107 mmol/L LAB CHEMISTRY METHOD 01/18/2025 5:19 PM [facility] GUHNdfiltsufdp8894 - 32 mmol/L LAB CHEMISTRY METHOD 01/18/2025 5:19 PM [facility] LABComment:Bicarbonate results may be falsely elevated when Lactate Dehydrogenase (LDH) concentrations exceed 2,000 U/L due to a temporary reagent manufacturing issue. If significantly elevated LDH levels are suspected, interpret bicarbonate results with caution, correlate with the patient???s clinical status, and consider confirming CO2 values using a blood gas analyzer.Anion Uki3352 - 20 mmol/L LAB CHEMISTRY METHOD 01/18/2025 5:19 PM [facility] LABUrea Nfamafzt13(H)6 - 23 mg/dL LAB CHEMISTRY METHOD 01/18/2025 5:19 PM [facility] LABCreatinine1.45(H)0.50 - 1.05 mg/dL LAB CHEMISTRY METHOD 01/18/2025 5:19 PM [facility] THRyJGN03(L)>60 mL/min/1.73m*2 LAB CHEMISTRY METHOD 01/18/2025 5:19 PM [facility] LABComment: Calculations of estimated GFR are performed using the 2020 CKD-EPI Study Refit equation without therace variable for the IDMS-Traceable creatinine methods. https://jasn.asnjournals.org/content/early//ASN.5972022309 Calcium9.08.6 - 10.3 mg/dL LAB CHEMISTRY METHOD 01/18/2025 5:19 PM [facility] LABAlbumin3.93.4 - 5.0 g/dL LAB CHEMISTRY METHOD 01/18/2025 5:19 PM [facility] LABAlkaline Xaltmhrbgfa927(H)33 - 136 U/L LAB CHEMISTRY METHOD 01/18/2025 5:19 PM [facility] LABTotal Protein7.26.4 - 8.2 g/dL LAB CHEMISTRY METHOD 01/18/2025 5:19 PM [facility] JTRCQP865 - 39 U/L LAB CHEMISTRY METHOD 01/18/2025 5:19 PM [facility] LABBilirubin, Total2.0(H)0.0 - 1.2 mg/dL LAB CHEMISTRY METHOD 01/18/2025 5:19 PM [facility] CYXSKB994 - 45 U/L LAB CHEMISTRY METHOD 01/18/2025 5:19 PM [facility] LABComment:Patients treated with Sulfasalazine may generate falsely decreased results for ALT.Specimen (Source) Anatomical Location / LateralityCollection Method / VolumeCollection Time Received TimeBloodVenous blood specimen / UnknownVenipuncture / Unknown 01/18/2025 4:51 PM EST01/18/2025 4:55 PM EST Narrative Authorizing ProviderResult TypeResult StatusLizzy Bee King CHERY-KMLAB BLOOD ORDERABLESFinal ResultPerforming OrganizationAddressCity/State/ZIP CodePhone Number [facility] [address] [place] [address] * Electrocardiogram - Post Ablation (01/18/2025 11:46 AM EST)ComponentValueRef RangeTest MethodAnalysis TimePerformed AtPathologist SignatureVentricular Rate 59BPMMUSEAtrial Qbrd40APDSKAAKO Pftiqqnb404qoNQDOJKW Abkpepxh36yeBGJSML Qchlnivl790geXYPDXGZ Calculation(Bazett)504msMUSEP Cypq75inrpvwyNANRL Xmsw915 degreesMUSET Tlad030ipypmlsSLQMYXV Ycoah99nqeoqHKDRQ Tlfhv578loASTQK Jgmit665 msMUSEP Wwrvwe684qlOKPTJ Jsalyr861xfYQEBTRW Azmynohnyt278wuPJPBQxuvfdve (Source)Anatomical Location / LateralityCollection Method / VolumeCollection TimeReceived Time01/18/2025 11:44 AM EST01/20/2025 3:30 PM EST Narrative MUSE - 01/20/2025 3:30 PM EST Sinus bradycardia with Premature supraventricular complexes Possible Right ventricular hypertrophy Nonspecific ST and T wave abnormality Prolonged QT Abnormal ECG When compared with ECG of 18-JAN-2025 06:40, (unconfirmed) Sinus rhythm has replaced Atrial fibrillation Nonspecific T wave abnormality, improved in Inferior leads Confirmed by Geoff Elliott ([id number]) on 01/20/2025 3:30:46 PM Procedure Note Geoff Elliott DO - 01/20/2025 Sinus bradycardia with Premature supraventricular complexes Possible Right ventricular hypertrophy Nonspecific ST and T wave abnormality Prolonged QT Abnormal ECG When compared with ECG of 18-JAN-2025 06:40, (unconfirmed) Sinus rhythm has replaced Atrial fibrillation Nonspecific T wave abnormality, improved in Inferior leads Confirmed by Geoff Elliott ([id number]) on 01/20/2025 3:30:46 PM Authorizing ProviderResult TypeResult StatusLizzy Lynn APRN-CNPECG ORDERABLES Final ResultPerforming OrganizationAddressCity/State/ZIP CodePhone Number MUSE * ABLATION A-FIB PERSISTENT (01/18/2025 9:27 AM EST)Specimen (Source)Anatomical Location / LateralityCollection Method / VolumeCollection TimeReceived Time Addenda Addendum by Lashanda Azar MD on 01/18/2025 10:18 AM EST Images from the original result were not included. ?Successful pulmonary vein isolation by radiofrequency ablation with demonstrated entrance block and exit block. ?Successful cavotricuspid isthmus ablation (aka CTI line) via RF ablation with block across the CTI. ?Successful DCCV back to NSR Persistent Atrial Fibrillation Ablation Procedures Pulmonary Vein Isolation (36935), LA Pacing and recording (04819), 3D Mapping (18964), Transeptal Catheterization (40058), His Bundle Recording (93060), Ultrasound Guided vascular access (32610), Intracardiac Echocardiogram (25257), Additional SVT Ablation (99540) and Direct current cardioversion (54868) Patient history: Please see attached H&P Procedure narrative: The risks, benefits, and alternatives to the procedure were explained to the patient and informed consent was obtained. After informed written consent was obtained the patient was transported to the electrophysiology laboratory in the post absorptive, non-sedated state. The team verification process was completed prior to the start of the procedure. Written consent and a completed procedural sedation form were confirmed. Allergies/Adverse reactions were noted and patient teaching was performed. The patient was positioned on table and bilateral arm supports with soft cushions and all pressure points were padded. A large diameter grounding pad was applied to the patient's thigh. ECG electrodes and a set of hands-free defibrillator pads were applied to the patient. A MCL/12 lead ECG was continuously monitored throughout the procedure. Noninvasive blood pressure, oxygen saturation, and capnography were monitored throughout the procedure. Supplemental oxygen was delivered via nasal cannula or facemask. General anesthesia was administered throughout the procedure by our staff anesthesiology service. ??Please see their notations for intubation and sedation. ??Throughout the procedure the patient's comfort (pain scale) and level of sedation (sedation scale) were noted every 5 minutes. VENOUS ACCESS: After general anesthesia, femoral access was achieved utilizing the Seldinger technique with a cook needle under ultrasound guidance. One 8 FR sheath and one 9Fr sheath were placed in the right femoral veins. Via the right femoral vein 9Fr short sheath an ICE catheter was advanced into the mid RA for continuous ultrasound guidance and into the RVOT to evaluate for an effusion (eejla-lj-zlmvtikb circumferential effusion). ??After access was obtained, a bolus injection of weight based heparin 150 units/kg was administered. The Activated Clotting Time maintained between 350-400 secs with additional boluses q 30 minutes as necessary. TRANSSEPTAL ACCESS: A transseptal atrial puncture was performed using intracardiac ultrasound guidance. A long J-tip wire was passed through the superior right femoral vein 8 Fr sheath into the SVC, the 8Fr sheath was subsequently removed. A Vizigo sheath was advanced over wire into the SVC. The wire was removed and the BRK needle was advanced into the sheath. The Vizigo with the BRK needle were dragged from the SVC along the septum until engagement of the Fossa Ovalis was confirmed by interatrial tenting seen under intracardiac ultrasound guidance. The BRK needle was advanced into the left atrium ??the needle position confirmed with ICE. A SafeSept wire was advanced into the LSPV. The sheath with dilator were advanced carefully over the needle into the body of the left atrium. Once the Vizigo sheath was confirmed in the left atrium via intracardiac ultrasound, the wire and dilator were removed. ??The sheath was attached to pressure tubing and a 25cc/hr drip of heparinized saline maintained. The ICE catheter was exchanged for a decapolar CS catheter if needed for pacing during the case. MAPPING: Prior to transseptal, a right atrial shell was reconstructed using ablation catheter FAM. The His, phrenic nerve, and CS were identified using the ablation catheter on FAM. The ICE catheter was advanced into the RVOT. The epicardial space of the heart, including around the RV and LV, was evaluated and no effusion was noted. After transseptal access, an Octaray catheter was advanced into the left atrium through the Vizigo sheath. Patient was cardioverted to NSR with a 360J synchronized shock. A 3-D shell representing the left atrium and pulmonary veins was constructed by use of the CARTO Sound mapping system and catheter manipulation in the LA. The electroanatomic map revealed predominantly normal voltage indicating normal healthy myocardium in the left atrium. The mapping system was utilized to facilitate fluoroless manipulation of all catheters. PULMONARY VEIN ISOLATION: Left atrial ablation was performed in the pulmonary vein antrum to encircle the right and left sided PVs. Wide area encirclement was performed. ??After the PVI ablation was completed, both pulmonary veins were assessed for block with the ablation catheter. Both right and left pulmonary veins were found to have entrance and exit block. Radiofrequency energy was applied with maximal power of 50W and target force of 10 grams or greater. Over the posterior wall radiofrequency energy was applied with maximal power of 50W with target force of 10 grams. Ablation was continued until a CARTO SurePoint index between 400-500 was achieved. Along the posterior wall a Carto SurePoint index between 300-350 was targeted. Esophageal temperature probe was taped to a quad catheter (4Fr Maciej) so it could be visualized on CARTO, and it was maintained as close as possible to the lesion sites on the posterior wall and RF was terminated for any temperature rise greater than 1??C. Baseline temperature was 36.4C at the start of the case and increased to a peak temperature of 37.7C . In addition, phrenic nerve location (using high output pacing) was tagged and localized on Carto over the right and left atrium (RSPV). No ablation was performed at the vicinity of the phrenic nerve. First pass isolation was achieved in both sets of veins. Both entrance and exit block were demonstrated in the PV's. PROVOCATION POST-PULMONARY VEIN ISOLATION: After re-confirming entrance and exit block from both pulmonary veins, rapid atrial pacing was performed from the left atrial posterior wall. No sustained atrial arrhythmia was induced. CAVOTRICUSPID ISTHMUS ABLATION: The ablation catheter and Vizigo sheath were pulled back into the right atrium. Using the Carto Mapping System the cavotricsupid isthmus (CTI) was identified and a line of RF lesions were placed from the earliest atrial signal on the tricuspid annulus to the inferior vena cava. Radiofrequency energy was applied with target power of up to 40 W as well as a contact force > 10 grams if possible. Local sites were targeted until the local electrograms displayed morphology characteristics of a transmural lesion and were associated with a 10 ohms or more impedance decrease. Bidirectional block across the CTI was proven through differential pacing between proximal CS and the mapping catheter, which was lateral to CTI line. Differential pacing between the proximal CS to the mapping catheter, placed on the RA lateral wall, showed a shorter stim to mapping catheter time than at the CTI line. Pacing from the ablation catheter showed longer conduction times to the proximal CS close to the CTI than the lateral RA wall, further illustrating block across the CTI. POST-ABLATION: The ICE catheter was maneuvered into the RVOT. The epicardial space of the heart, including around the RV and LV, was evaluated and a stable vdsst-ch-itfscyno circumferential effusion was visualized. Sheaths were removed and hemostasis was obtained at the right femoral venous access sites with Perclose. Five minutes of manual compression was applied to maintain hemostasis. Complications: No complications occurred Summary: - Successful pulmonary vein isolation by radiofrequency ablation with demonstrated entrance block and exit block. - Successful cavotricuspid isthmus ablation (aka CTI line) via RF ablation with block across the CTI. - Successful DCCV back to NSR Discharge: The patient left the EP laboratory in stable condition. If pt doing well, groin access sites without issues pt can be discharged later today Follow up: Resume AC Apixaban 5mg BID, Please DO NOT hold blood thinner unless emergency without asking your doctor. PPI BID x 6 weeks Bedrest for 2 hours post sheath removal No driving, alcohol or making legal decisions for 24 hours. Remove band-aid/tegaderm in 1 day. No heavy lifting, strenuous exercise for 1 week Please call our office if you notice any groin discharge or swelling or fever. For cardiology electrophysiology emergencies (such as severe heart racing, bleeding, severe groin pain/swelling, high fever, wound discharge, stroke symptoms, or recent severe chest pain) call the office See complete procedural log and parameters. ATTESTATION As the responsible attending physician, I was present and directly participating in all critical portions of the procedure and immediately available during the non-critical portions. Narrative Authorizing ProviderResult TypeResult StatusEsseibee Azar [facility] [place] ELECTROPHYSIOLOGY PROCEDURESEdited Result - FinalPerforming OrganizationAddressCity/State/ZIP CodePhone Number [email or web address] * (ABNORMAL) ACTIVATED CLOTTING TIME LOW (01/18/2025 8:57 AM EST)ComponentValue Ref RangeTest MethodAnalysis TimePerformed AtPathologist SignaturePOCT Activated Clotting Time Low Range>397(H)83 - 199 sec01/18/2025 9:[address]: ABOVE LIMIT FOR DEVICE Target ACT range will vary based on the patient population, clinical status, and surgical intervention occurring. Specimen (Source)Anatomical Location / LateralityCollection Method / Volume Collection TimeReceived TimeBloodVenous blood specimen / Ofghxyh9901/18/2025 8:57 AM EST01/18/2025 9:06 AM EST Narrative Authorizing ProviderResult TypeResult StatusLashanda MILLER POINT OF CARE TEST DOCKED DEVICE UNSOLICITED RESULTSFinal ResultPerforming OrganizationAddBaystate [facility]/ZIP CodePhone Number [facility] [address] [place] [address] * (ABNORMAL) ACTIVATED CLOTTING TIME LOW (01/18/2025 8:24 AM EST)ComponentValue Ref RangeTest MethodAnalysis TimePerformed AtPathologist SignaturePOCT Activated Clotting Time Low Uouvr213(H)83 - 199 sec01/18/2025 8:[address]Comment: Target ACT range will vary based on the patient population, clinical status, and surgical intervention occurring. Specimen (Source)Anatomical Location / LateralityCollection Method / Volume Collection TimeReceived TimeBloodVenous blood specimen / Qnyqxib9301/18/2025 8:24 AM EST01/18/2025 8:32 AM EST Narrative Authorizing ProviderResult TypeResult StatusLashanda MILLER POINT OF CARE TEST DOCKED DEVICE UNSOLICITED RESULTSFinal ResultPerforming OrganizationAddBaystate [facility]/ZIP CodePhone Number [facility] [address] [place] [address] * ECG 12 lead STAT (01/18/2025 7:21 AM EST)ComponentValueRef RangeTest Method Analysis TimePerformed AtPathologist SignatureVentricular Ljbu39SVNENRCPDA Xwzazmtt76uuSAXYWC Xumtcyst758ckWEJEQVC Calculation(Bazett)475msMUSER Axis95 degreesMUSET Kbtv626zpvgpkwULJUEVP Eiczu49jvubzYDMWA Vdmbo671fnPCLZQ Mxpgyl442 msMUSEQTC Zxmyughubt126msFGLNWosgwnhg (Source)Anatomical Location / Laterality Collection Method / VolumeCollection TimeReceived Time01/18/2025 6:40 AM EST 01/20/2025 3:25 PM EST Narrative MUSE - 01/20/2025 3:25 PM EST Atrial fibrillation Rightward axis Low voltage QRS Nonspecific ST and T wave abnormality Abnormal ECG When compared with ECG of 23-NOV-2024 15:30, Atrial fibrillation has replaced Sinus rhythm QRS axis Shifted left Borderline criteria for Inferior infarct are no longer Present Nonspecific T wave abnormality, worse in Lateral leads Confirmed by Geoff Elliott ([id number]) on 01/20/2025 3:25:39 PM Procedure Note Geoff Elliott DO - 01/20/2025 Atrial fibrillation Rightward axis Low voltage QRS Nonspecific ST and T wave abnormality Abnormal ECG When compared with ECG of 23-NOV-2024 15:30, Atrial fibrillation has replaced Sinus rhythm QRS axis Shifted left Borderline criteria for Inferior infarct are no longer Present Nonspecific T wave abnormality, worse in Lateral leads Confirmed by Geoff Elliott ([id number]) on 01/20/2025 3:25:39 PM Authorizing ProviderResult TypeResult StatusLizzy Parks APRN-CNPECG ORDERABLESFinal ResultPerforming OrganizationAddressCity/State/ZIP CodePhone Number MUSE * Type and screen (01/18/2025 5:57 AM EST)ComponentValueRef RangeTest Method Analysis TimePerformed AtPathologist SignatureABO TYPEA103/20/2024 11:49 AM EST [facility] QNVLRZG8401/18/2025 11:49 AM ESTERIA BLOOD BANKANTIBODY JNGXXPKIM34/17/2025 11:49 AM ESTELYRIA BLOOD BANKSpecimen (Source)Anatomical Location / LateralityCollection Method / VolumeCollection TimeReceived Time BloodVenous blood specimen / UnknownVenipuncture / Gdygpqk8001/18/2025 5:57 AM EST01/18/2025 6:16 AM EST Narrative Authorizing ProviderResult TypeResult Boby Parks APRN-CNPLAB BLOOD BANK TEST ORDERABLESFinal ResultPerforming OrganizationAddressCity/State/ZIP CodePhone Number [facility] [address] [phone], * (ABNORMAL) Basic Metabolic Panel (01/18/2025 5:57 AM EST)ComponentValueRef RangeTest MethodAnalysis TimePerformed AtPathologist HfkspvxmdQdpkvls4147 - 99 mg/dL LAB CHEMISTRY METHOD 01/18/2025 6:38 AM [facility] QAURzvogu584075 - 145 mmol/L LAB CHEMISTRY METHOD 01/18/2025 6:38 AM [facility] LABPotassium4.23.5 - 5.3 mmol/L LAB CHEMISTRY METHOD 01/18/2025 6:38 AM [facility] LABComment:MILD HEMOLYSIS DETECTED. The result may be falsely elevated due to hemolysis or other interferents. Clinical correlation is recommended. Repeat testing may be considered.Fdomnyaa47 98 - 107 mmol/L LAB CHEMISTRY METHOD 01/18/2025 6:38 AM [facility] QWTAzghzidnovh5034 - 32 mmol/L LAB CHEMISTRY METHOD 01/18/2025 6:38 AM [facility] LABComment:Bicarbonate results may be falsely elevated when Lactate Dehydrogenase (LDH) concentrations exceed 2,000 U/L due to a temporary reagent manufacturing issue. If significantly elevated LDH levels are suspected, interpret bicarbonate results with caution, correlate with the patient???s clinical status, and consider confirming CO2 values using a blood gas analyzer.Anion Exi3837 - 20 mmol/L LAB CHEMISTRY METHOD 01/18/2025 6:38 AM [facility] LABUrea Gpemtawn28(H)6 - 23 mg/dL LAB CHEMISTRY METHOD 01/18/2025 6:38 AM [facility] LABCreatinine1.65(H)0.50 - 1.05 mg/dL LAB CHEMISTRY METHOD 01/18/2025 6:38 AM [facility] HYPnPWJ94(L)>60 mL/min/1.73m*2 LAB CHEMISTRY METHOD 01/18/2025 6:38 AM [facility] LABComment: Calculations of estimated GFR are performed using the 2020 CKD-EPI Study Refit equation without therace variable for the IDMS-Traceable creatinine methods. https://jasn.asnjournals.org/content//ASN.9898275148 Calcium9.38.6 - 10.3 mg/dL LAB CHEMISTRY METHOD 01/18/2025 6:38 AM [facility] LABSpecimen (Source)Anatomical Location / LateralityCollection Method / VolumeCollection TimeReceived TimeBlood Venous blood specimen / UnknownVenipuncture / Aemjbgz1201/18/2025 5:57 AM EST 01/18/2025 6:17 AM EST Narrative Authorizing ProviderResult TypeResult StatusLizzy Parks BAR MACHINE OPERATOR MULTIPLE SPINDLE-CNPLAB BLOOD ORDERABLESFinal ResultPerforming OrganizationAddressCity/State/ZIP CodePhone Number [facility] [address] [place] [address] * (ABNORMAL) Coagulation Screen (01/18/2025 5:57 AM EST)ComponentValueRef Range Test MethodAnalysis TimePerformed AtPathologist KdvqwtjhwPhtrkgu84.5(H)9.8 - 12.4 seconds LAB COAGULATION METHOD 01/18/2025 6:30 AM [facility] LABINR1.9(H)0.9 - 1.1 LAB COAGULATION METHOD 01/18/2025 6:30 AM [facility] RKKbFHL9021 - 36 seconds LAB COAGULATION METHOD 01/18/2025 6:30 AM [facility] LABSpecimen (Source)Anatomical Location / LateralityCollection Method / VolumeCollection TimeReceived TimeBlood Venous blood specimen / UnknownVenipuncture / Dpcskcd2601/18/2025 5:57 AM EST 01/18/2025 6:[address] [facility] - 01/18/2025 6:30 AM EST The APTT is no longer used for monitoring Unfractionated Heparin Therapy. For monitoring Heparin Therapy, use the Heparin Assay. Authorizing ProviderResult TypeResult StatusLizzy Bee Burlesonjulio c BAR MACHINE OPERATOR [facility]IT[facility]AB BLOOD ORDERABLESFinal ResultPerforming OrganizationAddressCity/State/ZIP CodePhone Number [facility] [address] [place] [address] documented in this encounter Visit Diagnoses Diagnosis Atrial fibrillation (Multi)- Primary Atrial fibrillation Persistent atrial fibrillation (Multi) Atrial fibrillation Paroxysmal atrial fibrillation (Multi) Atrial fibrillation Shortness of breath Hypervolemia, unspecified hypervolemia type Congestive heart failure, unspecified HF chronicity, unspecified heart failure type (Multi) MAR (generalized anxiety disorder) Generalized anxiety disorder Requires continuous at home supplemental oxygen Paroxysmal atrial fibrillation (Multi) Atrial fibrillation Persistent atrial fibrillation (Multi) Atrial fibrillation 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 Essential (primary) hypertension Unspecified essential hypertension Obstructive sleep apnea Obstructive sleep apnea (adult) (pediatric) Mitral valve regurgitation Mitral valve disorders Nonrheumatic tricuspid valve regurgitation Persistent atrial fibrillation (Multi) Atrial fibrillation documented in this encounter Admitting Diagnoses Diagnosis Atrial fibrillation (Multi) Atrial fibrillation Paroxysmal atrial fibrillation (Multi) Atrial fibrillation Persistent atrial fibrillation (Multi) Atrial fibrillation documented in this encounter Administered Medications Medication OrderMAR ActionAction DateDoseRateSite acetaminophen (Tylenol) tablet 650 mg 650 mg, oral, Every 4 hours PRN, pain ??? mild (1-3), first line, Starting on Sat01/18/25 at 1137,If ordered PRN for pain, nurse is permitted to administer this medication for higher pain scores based on patient preference? Yes Given01/27/2025 9:22 AM WER017 gdUqqwl9301/26/2025 2:08 PM PAU317 mgGiven 01/25/2025 8:11 PM PZH316 mg albumin human 25 % solution 25 g 25 g, intravenous, at 100 mL/hr, Administer over 1 Hours, Every 12 hours, First dose on Sat01/20/25 at 1015, For 3 doses New 01/21/2025 10:16 AM EST25 g100 mL/hrNew 01/20/2025 9:17 PM EST25 g100 mL/hrNew 01/20/2025 10:50 AM EST25 g100 mL/hr amiodarone (Pacerone) tablet 200 mg 200 mg, oral, Daily, First dose on Sat01/18/25 at 1630 Given01/27/2025 9:22 AM MEJ121 xoRbqki7701/26/2025 9:03 AM YUZ671 mgGiven 01/25/2025 9:30 AM LLE503 mg anastrozole (Arimidex) tablet 1 mg 1 mg, oral, Daily, First dose (after last modification) on Sat01/19/25 at 0900, Hazardous Drug - Double Nitrile Glove Given01/27/2025 10:45 AM EST1 flJsmpk5701/26/2025 9:04 AM EST1 adIvyiw7401/25/2025 9:31 AM EST1 mg apixaban (Eliquis) tablet 2.5 mg 2.5 mg, oral, 2 times daily, First dose (after last modification) on Sat01/22/25 at 2100 Given01/27/2025 9:22 AM EST2.5 xgUkhkm3201/26/2025 9:50 PM EST2.5 mgGiven 01/26/2025 9:03 AM EST2.5 mg apixaban (Eliquis) tablet 5 mg 5 mg, oral, 2 times daily, First dose on Sat01/18/25 at 2100 Given01/22/2025 8:25 AM EST5 lsOrbeb5701/21/2025 8:36 PM EST5 btPsgoy8701/21/2025 8:12 AM EST5 mg benzocaine-menthol (Cepastat Sore Throat) lozenge 1 lozenge 1 lozenge, Mouth/Throat, Every 2 hour PRN, sore throat, Starting on Sat01/18/25 at 1152 01/18/2025 8:19 PM EST1 lozenge bumetanide (Bumex) injection 2 mg 2 mg, intravenous, Administer over 2 Minutes, Once, On Sat01/18/25 at 1815, For 1 dose, AdministerIV slowly, over 1 to 2 minutes. Given01/18/2025 8:20 PM EST2 mg chlorhexidine (Hibiclens) 4 % liquid Topical, Once, On Sat01/18/25 at 0545, For 1 dose, Preprocedure, For pre-op skin preparation Given01/18/2025 5:49 AM EST furosemide (Lasix) 500 mg in 50 mL (10 mg/mL) infusion 5 mg/hr (0.5 mL/hr), intravenous, Continuous, Starting on Gloria 01/21/25 at 1800 New Bag01/21/2025 5:55 PM EST5 mg/hr0.5 mL/hr furosemide (Lasix) injection 20 mg 20 mg, intravenous, Every 12 hours, First dose on Sat01/20/25 at 1015 Given01/21/2025 10:16 AM EST20 sfOpmke7201/20/2025 9:25 PM EST20 rwCwkyb5401/20/2025 10:53 AM EST20 mg hydrOXYzine HCL (Atarax) tablet 25 mg 25 mg, oral, Every 6 hours PRN, anxiety, Starting on Sat01/21/25 at 1646 Given01/21/2025 5:25 PM EST25 mg ipratropium-albuteroL (Duo-Neb) 0.5-2.5 mg/3 mL nebulizer solution 3 mL 3 mL, nebulization, Every 6 hours RT, First dose on Sat01/19/25 at 2045 Given01/19/2025 9:02 PM EST3 mL ipratropium-albuteroL (Duo-Neb) 0.5-2.5 mg/3 mL nebulizer solution 3 mL 3 mL, nebulization, Every 4 hours PRN, wheezing, shortness of breath, Starting on Sat01/19/25 at 2026 ipratropium-albuteroL (Duo-Neb) 0.5-2.5 mg/3 mL nebulizer solution 3 mL 3 mL, nebulization, 3 times daily RT, First dose (after last modification) on Sat01/20/25 at 0700 Given01/27/2025 12:09 PM EST3 fFPwaml2001/27/2025 7:24 AM EST3 rXYkpnl8301/26/2025 8:21 PM EST3 mL losartan (Cozaar) tablet 25 mg 25 mg, oral, 2 times daily, First dose on Sat01/18/25 at 2100, Hold for SBP less than 100 mmhg , On hold since Sat01/20/2025 at 0957 until manually unheld Given01/20/2025 8:26 AM EST25 peGlrsw2401/18/2025 8:19 PM EST25 mg losartan (Cozaar) tablet 25 mg 25 mg, oral, Daily, First dose (after last modification) on Sat01/23/25 at 0900, Hold for SBP lessthan 100 mmhg Given01/27/2025 9:22 AM EST25 ekSjboa9001/26/2025 9:03 AM EST25 bcVixge8601/25/2025 9:30 AM EST25 mg metoprolol succinate XL (Toprol-XL) 24 hr tablet 25 mg 25 mg, oral, Daily, First dose on Sat01/19/25 at 0900, Do not crush or chew. Given01/27/2025 9:23 AM EST25 wrAfaky7101/26/2025 9:03 AM EST25 euGbhol8501/25/2025 9:30 AM EST25 mg ondansetron (Zofran) injection 4 mg 4 mg, intravenous, Every 8 hours PRN, nausea/vomiting, first line, Starting on Sat01/18/25 at 1137, 1st Line. Give IV if patient is unable to take orally. If inadequate response within 60 minutes, proceed to next-line agent for same PRN reason or contact provider if no further options ordered. When administering via IV Push, administer over 3-5 minutes. ondansetron (Zofran) tablet 4 mg 4 mg, oral, Every 8 hours PRN, nausea/vomiting, first line, Starting on Sat01/18/25 at 1137, 1st Line. Use oral route first, if possible. If inadequate response within 60 minutes, proceed to next-line agent for same PRN reason or contact provider if no further options ordered. oxygen (O2) therapy 1 Dose, inhalation, Continuous - O2/gases, oxygen, Starting on Sat01/20/25 at 0703, Device: Nasal Cannula, Rate in liters per minute: 5 Lpm, Keep O2 Sat Above: 90% Rate Verify [facility]01/27/2025 7:24 AM ALKOngnu85/26/2025 3:53 AM EST1 Dose Rate Change [facility]01/27/2025 3:20 AM EST oxygen (O2) therapy 1 Dose, inhalation, Continuous - O2/gases, oxygen, Starting on Sat01/21/25 at 0735, Device: Nasal Cannula, Rate in liters per minute: 2 LPM, Keep O2 Sat Above: 92% Rate Change [facility]01/25/2025 1:28 PM KDTKyqka42/24/2025 7:02 AM EST1 Dose Rate Change [facility]01/24/2025 10:23 PM EST pantoprazole (ProtoNix) EC tablet 40 mg 40 mg, oral, 2 times daily before meals, First dose on Sat01/18/25 at 1600, Do not crush, chew, orsplit. Given01/27/2025 6:32 AM EST40 lnUbtto3501/26/2025 3:17 PM EST40 btObxrj5401/26/2025 6:38 AM EST40 mg polyethylene glycol (Glycolax, Miralax) packet 17 g 17 g, oral, 2 times daily, First dose on Sat01/19/25 at 2115 Given01/27/2025 9:22 AM EST17 uVoeky6001/26/2025 9:02 AM EST17 zApzwj5601/24/2025 3:38 PM EST17 g potassium chloride CR (Klor-Con M20) ER tablet 20 mEq 20 mEq, oral, 2 times daily, First dose on Sat01/21/25 at 2100, Best given with food and plenty ofwater to minimize gastric irritation. Do not crush or chew. Given01/27/2025 9:23 AM EST20 pPzHmbol92/25/2025 9:50 PM EST20 mEqGiven 01/26/2025 9:03 AM EST20 mEq potassium chloride CR (Klor-Con M20) ER tablet 40 mEq 40 mEq, oral, Once, On Sat01/18/25 at 1930, For 1 dose, Best given with food and plenty of water to minimize gastric irritation. Do not crush or chew. Given01/18/2025 8:19 PM EST40 mEq sennosides-docusate sodium (Demi-Colace) 8.6-50 mg per tablet 1 tablet 1 tablet, oral, Nightly, First dose on Sat01/19/25 at 2115 Given01/26/2025 9:50 PM EST1 nvovizRtlwa73/24/2025 8:10 PM EST1 tabletGiven 01/24/2025 8:19 PM EST1 tablet sodium chloride 0.9% infusion 20 mL/hr, intravenous, Continuous, Starting on Sat01/18/25 at 0600, For 8 hours, Preprocedure New Bag01/18/2025 5:49 AM EST20 mL/hr20 mL/hr torsemide (Demadex) tablet 100 mg 100 mg, oral, Daily, First dose on Sat01/23/25 at 1415 Given01/27/2025 9:23 AM FIT376 hjCtiln1401/26/2025 9:04 AM GDM705 mgGiven 01/25/2025 9:31 AM TXF765 mg torsemide (Demadex) tablet 60 mg 60 mg, oral, Daily, First dose on Sat01/18/25 at 1215 Given01/18/2025 12:23 PM EST60 mg torsemide (Demadex) tablet 60 mg 60 mg, oral, Daily, First dose on Sat01/19/25 at 0900 Given01/20/2025 8:26 AM EST60 gdHevfp9401/19/2025 8:55 AM EST60 mgdocumented in this encounter Active and Recently Administered Medications Times are shown in EST.Medication Order/ amiodarone (Pacerone) tablet 200 mg 200 mg, oral, Daily, First dose on Sat01/18/25 at 1630 * 0930 (Given - Provider: Mary Grace Denton RN) * 0903 (Given - Provider: Cat Bello RN) * 0922 (Given - Provider: Annabelle Waldrop LPN) anastrozole (Arimidex) tablet 1 mg 1 mg, oral, Daily, First dose (after last modification) on Sat01/19/25 at 0900, Hazardous Drug - Double Nitrile Glove * 0931 (Given - Provider: Mary Grace Denton RN) * 0904 (Given - Provider: Cat Bello RN) * 1045 (Given - Provider: Annabelle Waldrop LPN - Comment: missed) apixaban (Eliquis) tablet 2.5 mg 2.5 mg, oral, 2 times daily, First dose (after last modification) on Sat01/22/25 at 2100 * 0930 (Given - Provider: Mary Grace Denton RN) * 2009 (Given - Provider: Yaz Ivory RN) * 09 (Given - Provider: Cat Bello RN) * 215 (Given - Provider: Concetta Limon RN) * 0922 (Given - Provider: Annabelle Waldrop LPN) hydrOXYzine HCL (Atarax) tablet 25 mg 25 mg, oral, Once, On Sat01/19/25 at 2130, For 1 dose ipratropium-albuteroL (Duo-Neb) 0.5-2.5 mg/3 mL nebulizer solution 3 mL 3 mL, nebulization, 3 times daily RT, First dose (after last modification) on Sat01/20/25 at 0700 * 0700 (Given - Provider: Yaz Marie, STREET WORKER) * 1322 (Given - Provider: Yaz Marie, STREET WORKER) * 1919 (Given - Provider: Lisa Loyola, TRACK LEADER) * 0712 (Given - Provider: Payal Noe, TRACK LEADER) * 1240 (Given - Provider: Payton Holden, TRACK LEADER) * 2020 (Given - Provider: Bill Ram, TRACK LEADER) * 0724 (Given - Provider: Payton Holden, TRACK LEADER) * 1209 (Given - Provider: Robinson Garcia, TRACK LEADER) LORazepam (Ativan) tablet 0.5 mg 0.5 mg, oral, Once, On Sat01/19/25 at 2115, For 1 dose losartan (Cozaar) tablet 25 mg 25 mg, oral, Daily, First dose (after last modification) on Sat01/23/25 at 0900, Hold for SBP lessthan 100 mmhg * 0930 (Given - Provider: Mary Grace Denton RN) * 0903 (Given - Provider: Cat Bello RN) * 0922 (Given - Provider: Annabelle Waldrop LPN) metoprolol succinate XL (Toprol-XL) 24 hr tablet 25 mg 25 mg, oral, Daily, First dose on Sat01/19/25 at 0900, Do not crush or chew. * 0930 (Given - Provider: Mary Grace Denton RN) * 0903 (Given - Provider: Cat Bello RN) * 0923 (Given - Provider: Annabelle Waldrop LPN) pantoprazole (ProtoNix) EC tablet 40 mg 40 mg, oral, 2 times daily before meals, First dose on Sat01/18/25 at 1600, Do not crush, chew, orsplit. * 0608 (Given - Provider: Dave Gale, ANGELITO) * 1639 (Given - Provider: Kaylin Lee, ANGELITO) * 0638 (Given - Provider: Yaz Ivory RN) * 1517 (Given - Provider: Cat Bello, ANGELITO) * 0632 (Given - Provider: Concetta Limon RN) * 1600 (Canceled Entry - Provider: Automatic Discharge Provider - Comment: Automatically canceled at discontinue of medication order) polyethylene glycol (Glycolax, Miralax) packet 17 g 17 g, oral, 2 times daily, First dose on Sat01/19/25 at 2115 * 09 (Not Given - Provider: Mary Grace Denton RN - Reason: Patient/family refused) * 2012 (Not Given - Provider: Yaz Ivory RN - Reason: Patient/family refused) * 901 (Given - Provider: Cat Bello RN) * 2149 (Not Given - Provider: Concetta Limon RN - Reason: Patient/family refused) * 921 (Given - Provider: Annabelle Waldrop LPN) potassium chloride CR (Klor-Con M20) ER tablet 20 mEq 20 mEq, oral, 2 times daily, First dose on Sat01/21/25 at 2100, Best given with food and plenty ofwater to minimize gastric irritation. Do not crush or chew. * 930 (Given - Provider: Mary Grace Denton RN) * 2010 (Given - Provider: Yaz Ivory RN) * 902 (Given - Provider: Cat Bello RN) * 2149 (Given - Provider: Concetta Limon RN) * 09 (Given - Provider: Annabelle Waldrop LPN) sennosides-docusate sodium (Demi-Colace) 8.6-50 mg per tablet 1 tablet 1 tablet, oral, Nightly, First dose on Sat01/19/25 at 2115 * 2009 (Given - Provider: Yaz Ivory RN) * 2149 (Given - Provider: Concetta Limon, ANGELITO) torsemide (Demadex) tablet 100 mg 100 mg, oral, Daily, First dose on Sat01/23/25 at 1415 * 0931 (Given - Provider: Mary Grace Denton RN) * 0904 (Given - Provider: Cat Bello RN) * 0923 (Given - Provider: Annabelle Waldrop LPN) Medication Order acetaminophen (Tylenol) tablet 650 mg 650 mg, oral, Every 4 hours PRN, pain ??? mild (1-3), first line, Starting on Sat01/18/25 at 1137,If ordered PRN for pain, nurse is permitted to administer this medication for higher pain scores based on patient preference? Yes * 0930 (Given - Provider: Mary Grace Denton, ANGELITO) * 09 (Given - Provider: Mary Grace Denton, RN) * 2010 (Given - Provider: Yaz Ivory, ANGELITO) * 140 (Given - Provider: Cat Bello RN) * 0922 (Given - Provider: Annabelle Waldrop LPN) benzocaine-menthol (Cepastat Sore Throat) lozenge 1 lozenge 1 lozenge, Mouth/Throat, Every 2 hour PRN, sore throat, Starting on Sat01/18/25 at 1152 hydrOXYzine HCL (Atarax) tablet 25 mg 25 mg, oral, Every 6 hours PRN, anxiety, Starting on Sat01/21/25 at 1646 ipratropium-albuteroL (Duo-Neb) 0.5-2.5 mg/3 mL nebulizer solution 3 mL 3 mL, nebulization, Every 4 hours PRN, wheezing, shortness of breath, Starting on Sat01/19/25 at 2027 * 1211 (Not Given - Provider: Robinson Garcia, TRACK LEADER - Reason: Other - Comment: scheduled tx given) ondansetron (Zofran) injection 4 mg(Linked Group 1) 4 mg, intravenous, Every 8 hours PRN, nausea/vomiting, first line, Starting on Sat01/18/25 at 1137, 1st Line. Give IV if patient is unable to take orally. If inadequate response within 60 minutes, proceed to next-line agent for same PRN reason or contact provider if no further options ordered. When administering via IV Push, administer over 3-5 minutes. ondansetron (Zofran) tablet 4 mg(Linked Group 1) 4 mg, oral, Every 8 hours PRN, nausea/vomiting, first line, Starting on Sat01/18/25 at 1137, 1st Line. Use oral route first, if possible. If inadequate response within 60 minutes, proceed to next-line agent for same PRN reason or contact provider if no further options ordered. oxygen (O2) therapy 1 Dose, inhalation, Continuous - O2/gases, oxygen, Starting on Sat01/20/25 at 0703, Device: Nasal Cannula, Rate in liters per minute: 5 Lpm, Keep O2 Sat Above: 90% * 1919 (Start - Provider: Lisa Loyola, TRACK LEADER) * 0712 (Start - Provider: Payal Noe, TRACK LEADER) * 1242 (Rate Verify Medical Gas - Provider: Payton Holden, TRACK LEADER) * 2020 (Rate Verify Medical Gas - Provider: Bill Ram, TRACK LEADER) * 0320 (Rate Change Medical Gas - Provider: Kayleigh Jeronimo, TRACK LEADER) * 0353 (Start - Provider: Kayleigh Jeronimo, TRACK LEADER) * 0724 (Rate Verify Medical Gas - Provider: Payton Holden, TRACK LEADER) oxygen (O2) therapy (CANCELED) 1 Dose, inhalation, Continuous - O2/gases, oxygen, Starting on Gloria 01/21/25 at 0735, Device: Nasal Cannula, Rate in liters per minute: 2 LPM, Keep O2 Sat Above: 92% * 0702 (Start - Provider: Yaz Marie, STREET WORKER) * 1328 (Rate Change Medical Gas - Provider: Yaz Marie, STREET WORKER) Order Group 1: ondansetron (Zofran) tablet 4 mgJump to med 4 mg, oral, Every 8 hours PRN, nausea/vomiting, first line, Starting on Sat01/18/25 at 1137, 1st Line. Use oral route first, if possible. If inadequate response within 60 minutes, proceed to next-line agent for same PRN reason or contact provider if no further options ordered. Or ondansetron (Zofran) injection 4 mgJump to med 4 mg, intravenous, Every 8 hours PRN, nausea/vomiting, first line, Starting on 01/18/25 at 1137, 1st Line. Give IV if patient is unable to take orally. If inadequate response within 60 minutes, proceed to next-line agent for same PRN reason or contact provider if no further options ordered. When administering via IV Push, administer over 3-5 minutes. documented in this encounter Additional Health Concerns AssessmentNoted TimeA fall risk assessment has been completed for the patient 10/01/2024 9:29 AM EDTdocumented as of this encounter Care Teams Team MemberRelationshipSpecialtyStart DateEnd Date Ken Sy MD [address] [place] [id number] PCP - GeneralInternal Medicine07/09/24 Lashanda Azar MD [address], [place] [address] CardiologistCardiology-Clinical Cardiac Electrophysiology10/21/24documented as of this encounter
--- OUTSIDE RECORDS SUMMARY | 2025-01-18 07:45 | XMS_ITS | Encounter Summary ---
Author Organization [facility] Address [address] [place] [address] Phone Care Team Providers Care Sofa Cover Inspector Name Role Phone Ken Sy MD Primary Care Provider [phone] Lashanda Azar MD Unavailable Reason for Visit * Auth/CertSpecialtyDiagnoses / ProceduresReferred By ContactReferred To Contact Diagnoses Persistent atrial fibrillation (Multi) Procedures ID COMPRE EP EVAL ABLTJ ATR FIB PULM VEIN ISOLATION Ablation A-Fib Persistant Lashanda Azar MD [address] [place] [address] Phone: tel: fax: [facility] [address] [place] [address] Phone: tel: fax: Referral IDStatusReasonStart DateExpiration DateVisits RequestedVisits [id number] Encounter Details DateTypeDepartmentCare Team (Latest Contact Info)Dzlttjcfgui15/17/2025 7:45 AM EST - 01/18/2025 10:15 AM ESTSurgery [facility] [address] [place] [address] Lashanda Azar MD [address] [facility] [address], [address] [place] [address] Ablation A-Fib Persistant [25664 (CPT??)] Social History Tobacco UseTypesPacks/DayYears UsedDateSmoking Tobacco: NeverSmokeless [...] were you homeless or living in a longterm (including now)?No 01/19/2025HC UtilitiesAnswerDate RecordedIn the past 12 months has the spigit, gas, oil, or water [employer] threatened to shut off services in your home?No01/19/2025CommentsUnknownSex and Gender InformationValueDate RecordedSex Assigned at BirthNot on fileLegal OdlFfbjfl90/25/2022 7:53 PM EST Gender IdentityNot on fileSexual OrientationNot on filedocumented as of this encounter Last Filed Vital Signs Vital SignReadingTime TakenCommentsBlood Wuurogzf865/5301/18/2025 10:05 AM EST Smrwc387401/18/2025 10:15 AM BNFLlkebppnajj20 ??C (96.8 ??F)01/18/2025 9:45 AM EST Respiratory Wecb950301/18/2025 10:15 AM ESTOxygen Ycbsxihhhb07%01/18/2025 10:15 AM ESTInhaled Oxygen Concentration--Dgkpjx18.5 kg (192 lb 14.4 oz)01/18/2025 6:10 AM JIOEfflqz591.5 cm (5' 2 )01/18/2025 6:10 AM ESTBody Mass Index35.0601/18/2025 6:10 AM ESTdocumented in this encounter Functional Status documented as of this encounter Discharge Summaries * Kehinde Eli, - 01/27/2025 3:03 PM EST Discharge Diagnosis [...] To continue physical therapy via her chosen [facility] agency > 30min in discharge coordination [...] Follow-Up Future Appointments Date Time Provider Department [place] 02/02/2025 2:30 PM Girish Chapman MD [id number] [place] 02/02/2025 2:30 PM Krzysztof Blankenship MD [id number] [place] 02/15/2025 2:00 PM Sarah Jesus PA-C [id number] [place] 04/19/2025 8:30 AM SHAYE [id number] ECG/HOLTER [id number] [place] 05/18/2025 10:15 AM Lashanda Azar MD [id number] [place] Kehinde Eli DO documented in this encounter Discharge Instructions * Discharge Instructions* Lizzy Lynn, LUMBER SORTER-DELINEATOR - 01/18/2025 10:22 AM EST Images from [...] Dr. Azar for any reason, please call [phone] during business hours. For urgent questions after normal business hours, please call and ask for Cardiac Electrophysiology coverage for Dr. Azar to be paged. For medical emergencies, please call [phone]. documented in this encounter Medications at Time of Discharge MedicationSigDispense QuantityRefillsLast FilledStart DateEnd Date amiodarone (Pacerone) 100 mg tablet Indications:Persistent atrial fibrillation (Multi)Take 2 tablets (200 mg) by mouth once daily. 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 . [facility] has accepted patient. Orders and F2F have [...] change was found Confirmed by Geoff Elliott ([id number]) on 01/25/2025 7:43:57 AM ECG 12 Lead [...] QT has lengthened Confirmed by Geoff Elliott ([id number]) on 01/25/2025 7:36:58 AM Physical Exam Alert oriented x 3 Lungs diminished breath sounds bilaterally Heart regular rhythm Abdomen soft nontender Extremities bilateral leg edema POWER GENERATION TECHNICIAN no focal deficit Relevant Results Results for [...] Abdomen soft nontender Extremities bilateral leg edema POWER GENERATION TECHNICIAN no focal deficit Relevant Results Results for [...] Electrophysiology procedure Electrophysiology procedure Holter Or Event Tooler amiodarone (Pacerone) 100 mg tablet pantoprazole (ProtoNix) [...] Comment: Pt. is 79 y/o female to [facility] on 01[place]18 for scheduled ablation for management [...] 91% at rest an fluctuates 93-97% (on monitoring and evaluation advisor) during functional mobility. (6 liters 02) Objective [...] LLE : Within Functional Limits Outcome Measures: [facility] Basic Mobility Turning from your back to [...] 33.0-33.9,adult Hospital discharge follow-up Atrial fibrillation (Multi) USP current use of anticoagulant therapy LVH (left [...] Therapy Evaluation Patient Name: Carlos Escobar Department: [facility] Room: [address] [place] [address] Today's Date: 01/26/2025 Time Calculation Start Time: [...] Electrophysiology procedure Electrophysiology procedure Holter Or Event Tooler amiodarone (Pacerone) 100 mg tablet pantoprazole (ProtoNix) [...] Comment: Pt. is 79 y/o female to [facility] on 01/18 for scheduled ablation for management [...] 91% at rest an fluctuates 93-97% (on monitoring and evaluation advisor) during functional mobility. (wearing 6L nasal cannula) [...] and LUE LUE: Within Functional Limits Outcome Measures:[facility] Daily Activity Putting on and taking off [...] Abdomen soft nontender Extremities bilateral leg edema POWER GENERATION TECHNICIAN no focal deficit Relevant Results Results for [...] breast cancer s/p radiation and chemo, HFpEF, IWL, HLD and GERD who initially presented for [...] planning needs. Pt is now open to C ifadvised by therapy. Will continue to follow [...] change was found Confirmed by Geoff Elliott ([id number]) on 01/25/2025 7:43:57 AM ECG 12 Lead [...] QT has lengthened Confirmed by Geoff Elliott ([id number]) on 01/25/2025 7:36:58 AM Physical Exam Alert oriented x 3 Lungs diminished breath sounds bilaterally Heart regular rhythm Abdomen soft nontender Extremities bilateral leg edema POWER GENERATION TECHNICIAN no focal deficit Relevant Results Results for [...] - DVT prophylaxis Jese Kinsey MD * Ty Sweet MD - 01/24/2025 10:39 AM EST [...] days Lab Units 01/24/25 0501/23/25 0544 01/22/25 0601/19/25 0533 01/18/25 1651 SODIUM mmol/L 139 138 [...] Value Ventricular Rate 60 Atrial Rate 60 ID Interval 158 QRS Duration 84 QT Interval 472 QTC Calculation(Bazett) 472 P Phelps 51 R Phelps 99 T Phelps 141 QRS Count 10 Q Onset 224 [...] atrial fibrillation (Multi) [I48.19] CHRONIC MEDICAL CONDITIONS: 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 This probably could be some form of interstitial lung disease versus amiodarone toxicity. However before ablation patient did not require any supplemental oxygen at home. Patient will continue with physical therapy and Occupational Therapy. Rest of the medical therapy to be continued as per admission orders. 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 P.S: This note was completed using [employer] voice recognition technology and may include unintended [...] is a 79 y.o. female admitted to [facility] for management of: HFmrEF Atrial Fibrillation pHTN, [...] the best of my ability. Kehinde Eli, [facility] Medicine SUBJECTIVE Patient continues to feel short [...] CHANEL Lezama - 01/22/2025 8:27 AM EST Formerly [facility], [facility]1983 Heart Progress Note Rounding DIANA/Eyeglass Assembler: CHANEL Lezama, Dr. Pedro Giron Primary Eyeglass Assembler: Dr. Balaji Arreola Date: 01/22/2025 Patient: Carlos [...] left ventricular systolic function visually, LV ejection bynglkzz39%. Probable LV function artificially lower % due [...] Results from last 7 days Lab Units 01/22/2560601/21/2544601/20/2557 01/19/25 0533 01/18/25 1651 SODIUM mmol/L 138 [...] Acosta Bo 01/21/2025 8:52 AM Dictation workstation: [id number] CT chest wo IV contrast Final Result [...] Cory Carrero 01/19/2025 2:34 PM Dictation workstation: [id number] Transthoracic Echo Complete Final Result CONCLUSIONS: 1. [...] Cory Carrero 01/19/2025 8:57 AM Dictation workstation: [id number] Electrophysiology procedure Final Result Holter Or Event Tooler (Results Pending) RADIOLOGY: XR chest 1 view Final Result Stable cardiomegaly with small-moderate left and small right pleural effusions and bibasilar opacities/atelectasis, similar to prior. MACRO: None Signed by: Acosta Bo 01/21/2025 8:52 AM Dictation workstation: [id number] CT chest wo IV contrast Final Result [...] Cory Carrero 01/19/2025 2:34 PM Dictation workstation: [id number] Transthoracic Echo Complete Final Result CONCLUSIONS: 1. [...] Cory Carrero 01/19/2025 8:57 AM Dictation workstation: [id number] Electrophysiology procedure Final Result Holter Or Event Tooler (Results Pending) PROBLEM LIST Problem List[3] ASSESSMENT: [...] magnesium greater than 2.0 Ki Laura CNP [facility] Of note, this documentation is completed using the [employer] system (voice recognition software). There may be [...] interfered with gating. She underwent cardioversion in [place] in August 2024. She had recurrent atrial [...] follow from a distance Ki Laura CNP [facility] Of note, this documentation is completed using the [employer] system (voice recognition software). 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 female admitted to [facility] for management of: HFmrEF Atrial Fibrillation pHTN, [...] Patient continues to feel short of breath. Henrietta better while on BiPAP OBJECTIVE: Last Recorded [...] chest and CT chest 01/19/2025 ACCESSION NUMBER(S): [id number] ORDERING CLINICIAN: KEHINDE ELI FINDINGS: CARDIOMEDIASTINAL SILHOUETTE: [...] Acosta Bo 01/21/2025 8:52 AM Dictation workstation: [id number] ECG 12 Lead Sinus bradycardia Incomplete right [...] Laura APRN-KM - 01/21/2025 8:57 AM EST Formerly [facility], [facility] Heart Progress Note Rounding DIANA/Eyeglass Assembler: Bernabe Laura, CHERY-KM, Dr. Pedro Giron Primary Eyeglass Assembler: Dr. Balaji Arreola Date: 01/21/2025 Patient: Carlos [...] left ventricular systolic function visually, LV ejection %. Probable LV function artificially lower % due [...] Cory Carrero 01/19/2025 2:34 PM Dictation workstation: [id number] Transthoracic Echo Complete Final Result CONCLUSIONS: 1. [...] Cory Carrero 01/19/2025 8:57 AM Dictation workstation: [id number] Electrophysiology procedure Final Result Holter Or Event Tooler (Results Pending) XR chest 1 view (Results [...] Cory Carrero 01/19/2025 2:34 PM Dictation workstation: [id number] Transthoracic Echo Complete Final Result CONCLUSIONS: 1. [...] Cory Carrero 01/19/2025 8:57 AM Dictation workstation: [id number] Electrophysiology procedure Final Result Holter Or Event Tooler (Results Pending) XR chest 1 view (Results [...] magnesium greater than 2.0 Ki Laura CNP [facility] Of note, this documentation is completed using the [employer] system (voice recognition software). There may be [...] interfered with gating. She underwent cardioversion in [place] in August 2024. She had recurrent atrial [...] outpatient structural heart referral Ki Laura CNP [facility] Of note, this documentation is completed using the [employer] system (voice recognition software). There may be [...] 33.0-33.9,adult Hospital discharge follow-up Atrial fibrillation (Multi) USP current use of anticoagulant therapy LVH (left [...] is a 79 y.o. female admitted to [facility] for management of: HFmrEF Atrial Fibrillation pHTN, [...] in Inferior leads Confirmed by Geoff Elliott ([id number]) on 01/20/2025 3:30:46 PM ECG 12 lead STAT Atrial fibrillation Rightward axis Low voltage QRS Nonspecific ST and T wave abnormality Abnormal ECG When compared with ECG of 23-NOV-2024 15:30, Atrial fibrillation has replaced Sinus rhythm QRS axis Shifted left Borderline criteria for Inferior infarct are no longer Present Nonspecific T wave abnormality, worse in Lateral leads Confirmed by Geoff Elliott ([id number]) on 01/20/2025 3:25:39 PM ECG 12 Lead Sinus bradycardia with Premature atrial complexes Rightward axis Nonspecific ST and T wave abnormality Abnormal ECG When compared with ECG of 18-JAN-2025 11:44, (unconfirmed) Nonspecific T wave abnormality, worse in Inferior leads Nonspecific T wave abnormality has replaced inverted T waves in Lateral leads QT has shortened Confirmed by Geoff Elliott ([id number]) on 01/20/2025 3:21:41 PM [1] albumin human, [...] PM EST Cardiology Progress Note [facility] 7807-A Date of : 1945 Acct: [id number] Admitting Diagnosis: Persistent atrial fibrillation (Multi) [I48.19] Paroxysmal atrial fibrillation (Multi) [I48.0] Date: 01/18/2025 Hospital Day: 1 Attending: Kehinde Eli DO Rounding DIANA/Eyeglass Assembler: CHANEL Cameron, Primary Eyeglass Assembler: Dr Azar Complaint: No chief complaint on [...] Rate 59 BPM Atrial Rate 59 BPM ID Interval 168 ms QRS Duration 96 ms QT Interval 208 ms QTC Calculation(Bazett) 205 ms P Phelps 54 degrees R Phelps 92 degrees T Phelps 0 degrees QRS Count 10 beats Q [...] Cory Carrero 01/19/2025 2:34 PM Dictation workstation: [id number] XR chest 2 views Result Date: 01/19/2025 Small loculated left pleural effusion with adjacent mild basilar atelectasis Follow with chest CT (with IV contrast if possible) to evaluate for possible left perihilar nodule or nodules MACRO: None Signed by: Cory Carrero 01/19/2025 8:57 AM Dictation workstation: [id number] Electrophysiology procedure Addendum Date: 01/18/2025 Successful pulmonary vein isolation by radiofrequency ablation with demonstrated entrance block andexit block. Successful cavotricuspid isthmus ablation (aka CTI line) via RF ablation with block across the CTI. Successful DCCV back to NSR Persistent Atrial Fibrillation Ablation Procedures Pulmonary Vein Isolation (98676), LA Pacing and recording (35891), 3D Mapping (71549), Transeptal Catheterization (66522), His Bundle Recording (93995), Ultrasound Guided vascular access (85689), IntracardiacEchocardiogram (39429), Additional SVT Ablation (93364) and Direct current cardioversion (65609) Patient history: Please see attached H&P Procedure [...] the RVOT to evaluate for an effusion (beqxy-os-oxrncvpe circumferential effusion). After access was obtained, a [...] veins was constructed by use of the [employer] Sound mapping system and catheter manipulation in [...] was taped to a quad catheter ([employer]) so it could be visualized on CARTO, [...] and LV, was evaluated and a stable sugsd-ju-kcrywswd ci rcumferential effusion was visualized. Sheaths were [...] shortened Transthoracic Echo Complete Result Date: 01/19/2025 [place] [address] TRANSTHORACIC ECHOCARDIOGRAM REPORT Patient Name: CARLOS ESCOBAR Reading Physician: [id number] Geoff Elliott DO Study Date: 01/19/2025 Ordering Provider: [id number] LYNN MRN/PID: [id number] Fellow: Nurse: Date of /Age: 9 1945 Scarfer: Asia hillman GAVI Gender Assigned at F Additional Staff: : Height: 157.48 cm Admit Date: 01/18/2025 Weight: 88.45 kg Admission Status: Inpatient - Routine BSA / BMI: 1.89 m2 / 35.67 Department Location: [place] [address] Echo Lab Blood Pressure: 100 /52 mmHg Study Type: TRANSTHORACIC ECHO (TTE) COMPLETE Diagnosis /ICD: Shortness of breath-R06.02; Other fluid overload-E87.79 Indication: Shortness of Breath, Fluid Overload CPT Codes: Echo Complete w Full Doppler- 41907 Patient History: Pertinent History: Cardiomyopathy and Lung [...] 18. The inferior vena cava appears severely dilated,IVC inspiratory collapse is absent. 19. Large patent [...] DT: 222 msec (150-240msec) MITRAL INSUFFICIENCY: Normal R anges: PISA Radius: 0.8 cm MR VTI: 140.00 [...] VTI: 16.20 cm LVOT Diameter: 2.00 cm (1.8-2.4c m) AoV Area, VTI: 1.86 cm2 (2.5-5.5cm2) AoV [...] Value Ventricular Rate 59 Atrial Rate 59 ID Interval 168 QRS Duration 96 QT Interval 208 QTC Calculation(Bazett) 205 P Phelps 54 R Phelps 92 T Phelps 0 QRS Count 10 Q Onset 222 [...] ischemia 07/23/2024 7. Obesity type II 8. ANATLOY 9. History of breast cancer with left [...] 33.0-33.9,adult Hospital discharge follow-up Atrial fibrillation (Multi) USP current use of anticoagulant therapy LVH (left [...] RN - 01/19/2025 3:05 PM EST 01/19/25 1509 Discharge Planning Living Arrangements Alone Support Systems [...] were you homeless or living in a longterm (including now)? N Transportation Needs In the [...] Unit/Bed: 807/807-A Date of : 1945 Acct: [id number] Admitting Diagnosis: Persistent atrial fibrillation (Multi) [I48.19] Paroxysmal atrial fibrillation (Multi) [I48.0] Date: 01/18/2025 Hospital Day: 0 Attending: Kehinde Eli DO Rounding DIANA/Eyeglass Assembler: CHANEL Cameron, Primary Eyeglass Assembler: Dr Ca Azar Complaint: No chief complaint [...] Cory Carrero 01/19/2025 8:57 AM Dictation workstation: [id number] Electrophysiology procedure Addendum Date: 01/18/2025 Successful pulmonary vein isolation by radiofrequency ablation with demonstrated entrance block andexit block. Successful cavotricuspid isthmus ablation (aka CTI line) via RF ablation with block across the CTI. Successful DCCV back to NSR Persistent Atrial Fibrillation Ablation Procedures Pulmonary Vein Isolation (46482), LA Pacing and recording (26236), 3D Mapping (99485), Transeptal Catheterization (33570), His Bundle Recording (62890), Ultrasound Guided vascular access (04458), IntracardiacEchocardiogram (95175), Additional SVT Ablation (84914) and Direct current cardioversion (02924) Patient history: Please see attached H&P Procedure [...] the RVOT to evaluate for an effusion (cemzt-yw-jlphsryf circumferential effusion). After access was obtained, a [...] veins was constructed by use of the [employer] Sound mapping system and catheter manipulation in [...] and LV, was evaluated and a stable idiex-ms-jiefunji ci rcumferential effusion was visualized. 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 female admitted to [facility] for management of: HFmrEF Atrial Fibrillation pHTN, [...] best of my ability. Kehinde Eli DO [facility] Medicine HISTORY OF PRESENT ILLNESS: History Of [...] times a day. 07/23/24 07/23/25 Yes Balaji Arerola MD losartan (Cozaar) 25 mg tablet Take [...] mg) by mouth once daily. 01/18/25 Yes Historical ProviderMD amiodarone (Pacerone) 100 mg tablet Take 2 [...] mg/dL 2.17 Imaging: Transthoracic Echo Complete Narrative: [place] [id number] TRANSTHORACIC ECHOCARDIOGRAM REPORT Patient Name: CARLOS Aparicio CLIFTON Reading Physician: [id number] Geoff Elliott DO Study Date: 01/19/2025 Ordering Provider: [id number] LIZZY LYNN MRN/PID: [id number] Fellow: Nurse: Date of /Age: 9 1945 Scarfer: Asia hillman RDCS Gender Assigned at F Additional Staff: : Height: 157.48 cm Admit Date: 01/18/2025 Weight: 88.45 kg Admission Status: Inpatient - Routine BSA / BMI: 1.89 m2 / 35.67 Department Location: [place] [address] Echo Lab Blood Pressure: 100 /52 mmHg Study Type: TRANSTHORACIC ECHO (TTE) COMPLETE Diagnosis/ICD: Shortness of breath-R06.02; Other fluid overload-E87.79 Indication: Shortness of Breath, Fluid Overload CPT Codes: Echo Complete w Full Doppler-72842 Patient History: Pertinent History: Cardiomyopathy and Lung [...] same day 19 January 2025 ACCESSION NUMBER(S): [id number] ORDERING CLINICIAN: KEHINDE ELI TECHNIQUE: Helical CT [...] Cory Carrero 01/19/2025 2:34 PM Dictation workstation: [id number] Electrophysiology procedure Addendum: Successful pulmonary vein isolation by radiofrequency ablation with demonstrated entranceblock and exit block. Successful cavotricuspid isthmus ablation (aka CTI line) via RF ablation with block across the CTI. Successful DCCV back to NSR Persistent Atrial Fibrillation Ablation Procedures Pulmonary Vein Isolation (87859), LA Pacing and recording (42525), 3D Mapping (75230), Transeptal Catheterization (17211), His Bundle Recording (14402), Ultrasound Guided vascular access (84625), Intracardiac Echocardiogram (74586), Additional SVT Ablation (34005) and Direct current cardioversion (03425) Patient history: Please see attached H&P Procedure [...] the RVOT to evaluate for an effusion (qaxrr-hz-xegpmfnu circumferential effusion). After access was obtained, a [...] and LV, was evaluated and a stable dnexv-rd-eskswzqy circumferential effusion was visualized. Sheaths were removed [...] Atrial Fibrillation Ablation Procedures Pulmonary Vein Isolation (76795), LA Pacing and recording (13359), 3D Mapping (45638), Transeptal Catheterization (30493), His Bundle Recording (38317), Ultrasound Guided vascular access (18797), Intracardiac Echocardiogram (39175), Additional SVT Ablation (19890) and Direct current cardioversion (62446) Patient history: Please see attached H&P Procedure [...] veins was constructed by use of the [employer] Sound mapping system and catheter manipulation in [...] Signs/Symptoms:shortness of breath. COMPARISON: None ACCESSION NUMBER(S): [id number] ORDERING CLINICIAN: LIZZY LYNN TECHNIQUE: Frontal and [...] Cory Carrero 01/19/2025 8:57 AM Dictation workstation: [id number] [1] Family History Problem Relation Name Age [...] Consult: Atrial fibrillation History of Present Illness: Calros Escobar is a 79 y.o. year old [...] discussed - as the patient has a OPY4IS1-GDFd score of 3, the patient will be [...] or concerns. Lashanda Azar MD Clinical Cardiac Vehicle Damage Appraiser, [facility] [place] Aircraft Loadmaster Superintendentmds nurse, [employer] [facility] [employer] Director of Atrial Fibrillation Ablation, [facility] Worker of Ventricular Arrhythmias Research, [facility] Office [1] Family History Problem [...] failure pleural effusion and sleep apnea Consulting ammunition storage superintendent-Dr. Nic Church Referring hospitalist:-Dr. Barnes Primary Eyeglass Assembler: Dr. Balaji Azar Atrial fibrillation (Multi) Admitting reason:-Atrial fibrillation ablation ANVIK:- Carlos Escobar is a 79 y.o. female patient who is being at the request of Dr. Barnes for inpatient consultation of Acute hypoxemic respiratory failure, pleural effusion, sleep apnea andother pulmonary/sleep related issues. She was admitted on 01/18/2025. Previous [facility] recordshave been reviewed in detail. Patient [...] on CPAP through a sleep clinic in [facility]. She has been battling atrial fibrillation for a while and previously appeared to have undergone treatment with flecainide, cardioversion. She was evaluated by Dr. Azar and ground layer in early November and put on amiodarone [...] left ventricular systolic function visually, LV ejection rrrjzopf79%. Probable LV function artificially lower % due [...] A-Fib Persistant; Surgeon: Lashanda Azar MD; Location: [facility]; Service: Electrophysiology; Laterality: N/A; Hold Farxiga for [...] Cory Carrero 01/19/2025 2:34 PM Dictation workstation: [id number] Transthoracic Echo Complete Final Result CONCLUSIONS: 1. 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 Pedro Laura, CHERY, DELINEATOR Primary Eyeglass Assembler: Dr. Balaji Azar Referring Provider: Dr Eli Admission Diagnosis: Atrial fibrillation (Multi) History of Present Illness: Carlos Escobar is a 79 y.o. female patient who is being at the request of Dr. Eli for inpatient consultation of CHF. She was admitted on 01/18/2025. Previous [facility] and [facility] records have been reviewed in detail. Patient with a history of PAF, hypertension, CKD, moderate mitral regurg, moderate to severe tricuspid regurg, LVH negative stress test in 07/26, moderate pulmonary hypertension, PAF status post PVI and CTI Patient came in on Saturday for an ablation by Dr. zAar. After the procedure she was requiring oxygen [...] left ventricular systolic function visually, LV ejection jjbzjipv11%. Probable LV function artificially lower % due [...] Cory Carrero 01/19/2025 2:34 PM Dictation workstation: [id number] Transthoracic Echo Complete Final Result CONCLUSIONS: 1. [...] Cory Carrero 01/19/2025 8:57 AM Dictation workstation: [id number] Electrophysiology procedure Final Result Holter Or Event Tooler (Results Pending) Problem List: Problem List[8] Assessment: [...] magnesium greater than 2.0 Ki Laura CNP [facility] Of note, this documentation is completed using the [employer] system (voice recognition software). There may be [...] interfered with gating. She underwent cardioversion in [place] in August 2024. She had recurrent atrial [...] A-Fib Persistant; Surgeon: Lashanda Azar MD; Location: [facility]; Service: Electrophysiology; Laterality: N/A; Hold Farxiga for [...] 33.0-33.9,adult Hospital discharge follow-up Atrial fibrillation (Multi) USP current use of anticoagulant therapy LVH (left [...] PARTICIPATE) Once Question: . Answer: Yes 01/19/25 01301/18/25 113 Adult diet Cardiac; 70 gm fat; 2 [...] [facility] Pt continues to self remove oxygen , [...] Mary Grace Denton RN Outcome: Progressing 01/25/2025 113 by Mary Grace Denton RN Flowsheets (Taken 01/25/2025 113) Promote/optimize nutrition: Offer water/supplements/favorite foods Discuss with provider if NPO > 2 days Assist with feeding Reassess MST if textile machine operator not consulted Monitor/record intake including meals Consume > 50% meals/supplements Goal: Promote skin healing 01/25/2025 1312 by Mary Grace Denton RN Outcome: Progressing 01/25/20251135 by Mary Grace Denton RN Flowsheets (Taken 01/25/2025 113) Promote skin healing: Turn/reposition every 2 hours/use positioning/transfer devices Rotate device position/do not position patient on device Protective dressings over bony prominences Ensure correct size (line/device) and apply per heel buffer instructions Assess skin/pad under line(s)/device(s) * Care [...] shift * Documentation Clarification Note - Kehinde lEi DO - 01/21/2025 10:04 AM EST PATIENT: CARLOS ESCOBAR : 1945 ADMIT DATE: 01/18/2025 5:30 AM DISCH DATE: RESPONDING PROVIDER #: [id number] PROVIDER RESPONSE TEXT: Acute on Chronic Diastolic [...] IV Bumex, 01/19-current Toprol-XL, 01/18-current Cozaar, 01/20- IV Lasix Risk Factors: CHF Options provided: [...] of information. 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 CLERK of fluid intake and output including no output from the 40 mg of iv lasix given during procedure, orders received, torsemide given documented in this encounter Plan of Treatment DateTypeDepartmentCare Team (Latest Contact Info)Pwbldgbxuuf59/02/2025 2:30 PM ESTOffice Visit [facility] [address] [facility] [address] [place] [phone] Girish Chapman MD [address] [facility] Medical Office Bldg, [address] [place], [place] [phone] 02/02/2025 2:30 PM ESTOffice Visit [facility] [address] [facility] [address] [place] [phone] [place] [id number] [address] Department [place] [address] 02/15/2025 2:00 PM ESTOffice Visit [facility] [address] [facility] [address] [place] [address] Sarah Jesus PA-C [address] [facility] Medical Office [facility], [address] [place] [address] 04/19/2025 8:30 AM ESTAncillary Procedure [facility] [address] [place] [address] 05/18/2025 10:15 AM EDTOffice Visit [facility] [address] [place] [address] Lashanda Azar MD [address] [facility] Office [facility], [facility] [address] [place] [address] NameTypePriorityAssociated DiagnosesOrder ScheduleHolter Or Event Cardiac MonitorCardiac [...] Procedures Procedure NamePriorityDate/TimeAssociated DiagnosisCommentsHOME O2 EVAL (DESATURATION SCREEN)Rkgtocj3201/27/2025 11:16 AM ESTRENAL FUNCTION PANELPending Cgcrmddxl40/26/2025 5:36 AM EST CBC WITH AUTO NWZTRIVDWUPCGrtvhgu65/25/2025 5:46 AM EST PHZFRWSNKEWpzaxdy31/25/2025 5:46 AM EST TKKSQYKPADaacbhl97/25/2025 5:46 AM EST COMPREHENSIVE METABOLIC NOGPTOlxwvfc58/25/2025 5:46 AM EST CBC WITH AUTO FZRJQDKLLTAWWfqvise68/24/2025 5:40 AM EST LOYVFSOJCRPnrerzx38/24/2025 5:40 AM EST HUZXPTBPXPkjphaa18/24/2025 5:40 AM EST COMPREHENSIVE METABOLIC KITOWUxjfnhd46/24/2025 5:40 AM EST CBC WITH AUTO XUDGHZLSMBAJLwderlx56/23/2025 5:33 AM EST JOABTCUXOTKrcyipy73/23/2025 5:33 AM EST BMMUJFEZGAequcsu39/23/2025 5:33 AM EST COMPREHENSIVE METABOLIC QRISUVdapztt88/23/2025 5:33 AM EST ECG 12-DQBGEucicug34/22/2025 7:33 AM EST YISVkarszk51/22/2025 5:44 AM EST GKRBDIYHFBxydjsr95/22/2025 5:44 AM EST RENAL FUNCTION PSZGZLctohoq37/22/2025 5:44 AM EST ECG 12-SXTVMunoueq66/21/2025 7:08 AM EST CMUKmzvknd38/21/2025 6:07 AM EST UJKZYLVSZKpvjjic52/21/2025 6:07 AM EST RENAL FUNCTION ITRPELoluzfv76/21/2025 6:07 AM EST XR CHEST 1 BNUMXVYF35/20/2025 8:26 AM EST BLOOD GAS ARTERIAL FULL PANELPending Uvtpdkxzy19/20/2025 7:41 AM EST ECG 12-MLKOQwhtyea40/20/2025 7:22 AM EST UBCZabtbvt14/20/2025 4:47 AM EST B-TYPE NATRIURETIC PEPTIDEAdd-On01/21/2025 4:47 AM EST RNMPLSENHFaqtydg37/20/2025 4:47 AM EST RENAL FUNCTION INFFLNemiyqc02/20/2025 4:47 AM EST ECG 12-WXXYZwpgqge47/19/2025 10:12 AM EST XDTZxvbxem71/19/2025 5:57 AM EST B-TYPE NATRIURETIC MMTODCMXqrzvnq59/19/2025 5:57 AM EST FLYHSWGHPSfismnk95/19/2025 5:57 AM EST RENAL FUNCTION YFAOHAzzjdyi02/19/2025 5:[address] CHEST WO IV XIDZGNGRLTXN80/18/2025 1:50 PM EST TRANSTHORACIC ECHO (TTE) JZDDTMYUFopeccs59/18/2025 11:50 AM EST Paroxysmal atrial fibrillation (Multi) Shortness of breath Other fluid overload XR CHEST 2 VIEWSPriority Discharge or Grkovvabiby24/18/2025 8:43 AM EST EXTRA FSSKJEazfxsh53/18/2025 5:33 AM EST LAVENDER FDLLppmzxt79/18/2025 5:33 AM EST BASIC METABOLIC PANELPending Nuoikquoy11/18/2025 5:33 AM EST MQICJVROHKGIN05/17/2025 4:51 PM EST COMPREHENSIVE METABOLIC DDUNTFONF46/17/2025 4:51 PM EST ECG 12-WZLFOqiisoj46/17/2025 11:46 AM EST PULSE OXIMETRY, BLQAMKXYUPNtnbhol67/17/2025 9:48 AM ESTABLATION A-FIB PERSISTENT Zzvrmbe6501/18/2025 9:27 AM EST Persistent atrial fibrillation (Multi) ACTIVATED CLOTTING TIME WPQTppiibf45/17/2025 8:57 AM EST ACTIVATED CLOTTING TIME VJVUqeewaa16/17/2025 8:24 AM EST ECG 12-PKAGTEKB90/17/2025 7:21 AM EST COAGULATION HXFWQATNOR39/17/2025 5:57 AM EST TYPE AND ZDXCGBONPQ10/17/2025 5:57 AM EST BASIC METABOLIC RDFZWYVZS14/17/2025 5:57 AM EST documented in this encounter Results * (ABNORMAL) Renal Function Panel (01/27/2025 5:36 AM EST)ComponentValueRef RangeTest MethodAnalysis TimePerformed AtPathologist RniexjybgUwejlms4472 - 99 mg/dL LAB CHEMISTRY METHOD 01/27/2025 6:45 AM [facility] FCVFhipoe569(L)136 - 145 mmol/L LAB CHEMISTRY METHOD 01/27/2025 6:45 AM [facility] LABPotassium4.03.5 - 5.3 mmol/L LAB CHEMISTRY METHOD 01/27/2025 6:45 AM [facility] VDLGpnlsmej65522 - 107 mmol/L LAB CHEMISTRY METHOD 01/27/2025 6:45 AM [facility] JZUKjoupivtgcw2699 - 32 mmol/L LAB CHEMISTRY METHOD 01/27/2025 6:45 AM [facility] LABComment:Bicarbonate results may be falsely elevated when Lactate Dehydrogenase (LDH) concentrations exceed 2,000 U/L due to a temporary reagent manufacturing issue. If significantly elevated LDH levels are suspected, interpret bicarbonate results with caution, correlate with the patient???s clinical status, and consider confirming CO2 values using a blood gas analyzer.Anion Gap9(L)10 - 20 mmol/L LAB CHEMISTRY METHOD 01/27/2025 6:45 AM [facility] LABUrea Vsmaermv61(H)6 - 23 mg/dL LAB CHEMISTRY METHOD 01/27/2025 6:45 AM [facility] LABCreatinine1.47(H)0.50 - 1.05 mg/dL LAB CHEMISTRY METHOD 01/27/2025 6:45 AM [facility] UKBgFLC61(L)>60 mL/min/1.73m*2 LAB CHEMISTRY METHOD 01/27/2025 6:45 AM [facility] LABComment: Calculations of estimated GFR are performed using the 2020 CKD-EPI Study Refit equation without therace variable for the IDMS-Traceable creatinine methods. https://jasn.asnjournals.org/content//ASN.4754819868 Calcium8.68.6 - 10.3 mg/dL LAB CHEMISTRY METHOD 01/27/2025 6:45 AM [facility] LABPhosphorus3.42.5 - 4.9 mg/dL LAB CHEMISTRY METHOD 01/27/2025 6:45 AM [facility] LABAlbumin3.43.4 - 5.0 g/dL LAB CHEMISTRY METHOD 01/27/2025 6:45 AM [facility] LABSpecimen (Source)Anatomical Location / LateralityCollection Method / VolumeCollection TimeReceived TimeBlood Venous blood specimen / UnknownVenipuncture / Zvdsfru4001/27/2025 5:36 AM EST 01/27/2025 6:18 AM EST Narrative Authorizing ProviderResult TypeResult StatusTy Sweet MDLAB BLOOD ORDERABLESFinal ResultPerforming OrganizationAddressCity/State/ZIP CodePhone Number [facility] [address] [place] [address] * Phosphorus (01/26/2025 5:46 AM EST)ComponentValueRef RangeTest MethodAnalysis TimePerformed AtPathologist SignaturePhosphorus3.52.5 - 4.9 mg/dL LAB CHEMISTRY METHOD 01/26/2025 6:35 AM [facility] LABSpecimen (Source)Anatomical Location / LateralityCollection Method / VolumeCollection TimeReceived TimeBlood Venous blood specimen / UnknownVenipuncture / Alartfq3401/26/2025 5:46 AM EST 01/26/2025 6:06 AM EST Narrative Authorizing ProviderResult TypeResult StatusTy Sweet MDLAB BLOOD ORDERABLESFinal ResultPerforming OrganizationAddressCity/State/ZIP CodePhone Number [facility] [address] [place] [address] * Magnesium (01/26/2025 5:46 AM EST)ComponentValueRef RangeTest MethodAnalysis TimePerformed AtPathologist SignatureMagnesium2.071.60 - 2.40 mg/dL LAB CHEMISTRY METHOD 01/26/2025 6:35 AM [facility] LABSpecimen (Source)Anatomical Location / LateralityCollection Method / VolumeCollection TimeReceived TimeBlood Venous blood specimen / UnknownVenipuncture / Nbnmjcd4901/26/2025 5:46 AM EST 01/26/2025 6:06 AM EST Narrative Authorizing ProviderResult TypeResult StatusByron Barnes MDLAB BLOOD ORDERABLESFinal ResultPerforming OrganizationAddressCity/State/ZIP CodePhone Number [facility] [address] [place] [address] * (ABNORMAL) Comprehensive Metabolic Panel (01/26/2025 5:46 AM EST)Component ValueRef RangeTest MethodAnalysis TimePerformed AtPathologist SignatureGlucose 8674 - 99 mg/dL LAB CHEMISTRY METHOD 01/26/2025 6:35 AM [facility] MKUMhyylh648672 - 145 mmol/L LAB CHEMISTRY METHOD 01/26/2025 6:35 AM [facility] LABPotassium3.93.5 - 5.3 mmol/L LAB CHEMISTRY METHOD 01/26/2025 6:35 AM [facility] CVWChtdzeca7686 - 107 mmol/L LAB CHEMISTRY METHOD 01/26/2025 6:35 AM [facility] DOHEybbfuwvegc0197 - 32 mmol/L LAB CHEMISTRY METHOD 01/26/2025 6:35 AM [facility] LABComment:Bicarbonate results may be falsely elevated when Lactate Dehydrogenase (LDH) concentrations exceed 2,000 U/L due to a temporary reagent manufacturing issue. If significantly elevated LDH levels are suspected, interpret bicarbonate results with caution, correlate with the patient???s clinical status, and consider confirming CO2 values using a blood gas analyzer.Anion Nwk2640 - 20 mmol/L LAB CHEMISTRY METHOD 01/26/2025 6:35 AM [facility] LABUrea Qwaktxzn13(H)6 - 23 mg/dL LAB CHEMISTRY METHOD 01/26/2025 6:35 AM [facility] LABCreatinine1.56(H)0.50 - 1.05 mg/dL LAB CHEMISTRY METHOD 01/26/2025 6:35 AM [facility] KHMdNAN81(L)>60 mL/min/1.73m*2 LAB CHEMISTRY METHOD 01/26/2025 6:35 AM [facility] LABComment: Calculations of estimated GFR are performed using the 2020 CKD-EPI Study Refit equation without therace variable for the IDMS-Traceable creatinine methods. https://jasn.asnjournals.org/content//ASN.1521091020 Calcium8.78.6 - 10.3 mg/dL LAB CHEMISTRY METHOD 01/26/2025 6:35 AM [facility] LABAlbumin3.43.4 - 5.0 g/dL LAB CHEMISTRY METHOD 01/26/2025 6:35 AM [facility] LABAlkaline Qfterobdtsv644(H)33 - 136 U/L LAB CHEMISTRY METHOD 01/26/2025 6:35 AM [facility] LABTotal Protein5.9(L)6.4 - 8.2 g/dL LAB CHEMISTRY METHOD 01/26/2025 6:35 AM [facility] TPOZSV603 - 39 U/L LAB CHEMISTRY METHOD 01/26/2025 6:35 AM [facility] LABBilirubin, Total1.7(H)0.0 - 1.2 mg/dL LAB CHEMISTRY METHOD 01/26/2025 6:35 AM [facility] UFDCMM037 - 45 U/L LAB CHEMISTRY METHOD 01/26/2025 6:35 AM [facility] LABComment:Patients treated with Sulfasalazine may generate falsely decreased results for ALT.Specimen (Source) Anatomical Location / LateralityCollection Method / VolumeCollection Time Received TimeBloodVenous blood specimen / UnknownVenipuncture / Unknown 01/26/2025 5:46 AM EST01/26/2025 6:06 AM EST Narrative Authorizing ProviderResult TypeResult StatusMushtshukri MILLER BLOOD ORDERABLESFinal ResultPerforming OrganizationAddressCity/State/ZIP CodePhone Number [facility] [address] [place] [address] * (ABNORMAL) CBC and Auto Differential (01/26/2025 5:46 AM EST)ComponentValueRef RangeTest MethodAnalysis TimePerformed AtPathologist SignatureWBC4.3(L)4.4 - 11.3 x10*3/uL LAB HEMATOLOGY METHOD 01/26/2025 6:14 AM [facility] LABnRBC0.00.0 - 0.0 /100 WBCs LAB HEMATOLOGY METHOD 01/26/2025 6:14 AM [facility] LABRBC3.16(L)4.00 - 5.20 x10*6/uL LAB HEMATOLOGY METHOD 01/26/2025 6:14 AM [facility] LABHemoglobin9.8(L)12.0 - 16.0 g/dL LAB HEMATOLOGY METHOD 01/26/2025 6:14 AM [facility] QXIPdwhdyuxxv06.4(L)36.0 - 46.0 % LAB HEMATOLOGY METHOD 01/26/2025 6:14 AM [facility] ZQRJQC3359 - 100 fL LAB HEMATOLOGY METHOD 01/26/2025 6:14 AM [facility] RAXSSV34.026.0 - 34.0 pg LAB HEMATOLOGY METHOD 01/26/2025 6:14 AM [facility] SQKYIGX66.232.0 - 36.0 g/dL LAB HEMATOLOGY METHOD 01/26/2025 6:14 AM [facility] IMXARG86.3(H)11.5 - 14.5 % LAB HEMATOLOGY METHOD 01/26/2025 6:14 AM [facility] SEPFojzciaeq42(L)150 - 450 x10*3/uL LAB HEMATOLOGY METHOD 01/26/2025 6:14 AM [facility] LABNeutrophils %56.740.0 - 80.0 % LAB HEMATOLOGY METHOD 01/26/2025 6:14 AM [facility] LABImmature Granulocytes %, Automated0.50.0 - 0.9 % LAB HEMATOLOGY METHOD 01/26/2025 6:14 AM [facility] LABComment:Immature Granulocyte Count (IG) includes promyelocytes, myelocytes and metamyelocytes but does not i nclude bands. Percent differential counts (%) should be interpreted in the context of the absolute cell counts (cells/UL).Lymphocytes %20.513.0 - 44.0 % LAB HEMATOLOGY METHOD 01/26/2025 6:14 AM [facility] LABMonocytes %16.82.0 - 10.0 % LAB HEMATOLOGY METHOD 01/26/2025 6:14 AM [facility] LABEosinophils %4.80.0 - 6.0 % LAB HEMATOLOGY METHOD 01/26/2025 6:14 AM [facility] LABBasophils %0.70.0 - 2.0 % LAB HEMATOLOGY METHOD 01/26/2025 6:14 AM [facility] LABNeutrophils Absolute2.461.60 - 5.50 x10*3/uL LAB HEMATOLOGY METHOD 01/26/2025 6:14 AM [facility] LABComment:Percent differential counts (%) should be interpreted in the context of the absolute cell counts (ce lls/uL).Immature Granulocytes Absolute, Automated0.020.00 - 0.50 x10*3/uL LAB HEMATOLOGY METHOD 01/26/2025 6:14 AM [facility] LABLymphocytes Absolute0.890.80 - 3.00 x10*3/uL LAB HEMATOLOGY METHOD 01/26/2025 6:14 AM [facility] LABMonocytes Absolute0.730.05 - 0.80 x10*3/uL LAB HEMATOLOGY METHOD 01/26/2025 6:14 AM [facility] LABEosinophils Absolute0.210.00 - 0.40 x10*3/uL LAB HEMATOLOGY METHOD 01/26/2025 6:14 AM [facility] LABBasophils Absolute0.030.00 - 0.10 x10*3/uL LAB HEMATOLOGY METHOD 01/26/2025 6:14 AM [facility] LABSpecimen (Source)Anatomical Location / LateralityCollection Method / VolumeCollection TimeReceived TimeBlood Venous blood specimen / UnknownVenipuncture / Eitquic2201/26/2025 5:46 AM EST 01/26/2025 6:07 AM EST Narrative Authorizing ProviderResult TypeResult StatusMusspring Barnes [facility] BLOOD ORDERABLESFinal ResultPerforming OrganizationAddressCity/State/ZIP CodePhone Number [facility] [address] [place] [address] * Phosphorus (01/25/2025 5:40 AM EST)ComponentValueRef RangeTest MethodAnalysis TimePerformed AtPathologist SignaturePhosphorus3.32.5 - 4.9 mg/dL LAB CHEMISTRY METHOD 01/25/2025 6:42 AM [facility] LABSpecimen (Source)Anatomical Location / LateralityCollection Method / VolumeCollection TimeReceived TimeBlood Venous blood specimen / UnknownVenipuncture / Qloedxo2401/25/2025 5:40 AM EST 01/25/2025 6:13 AM EST Narrative Authorizing ProviderResult TypeResult StatusTy Sweet MDLAB BLOOD ORDERABLESFinal ResultPerforming OrganizationAddressty/State/ZIP CodePhone Number [facility] [address] [place] [address] * Magnesium (01/25/2025 5:40 AM EST)ComponentValueRef RangeTest MethodAnalysis TimePerformed AtPathologist SignatureMagnesium1.961.60 - 2.40 mg/dL LAB CHEMISTRY METHOD 01/25/2025 6:42 AM [facility] LABSpecimen (Source)Anatomical Location / LateralityCollection Method / VolumeCollection TimeReceived TimeBlood Venous blood specimen / UnknownVenipuncture / Qsembuw7801/25/2025 5:40 AM EST 01/25/2025 6:13 AM EST Narrative Authorizing ProviderResult TypeResult StatusMusspring Barnes [facility] BLOOD ORDERABLESFinal ResultPerforming OrganizationAddressCity/State/ZIP CodePhone Number [facility] [address] [place] [phone] * (ABNORMAL) Comprehensive Metabolic Panel (01/25/2025 5:40 AM EST)Component ValueRef RangeTest MethodAnalysis TimePerformed AtPathologist SignatureGlucose 8774 - 99 mg/dL LAB CHEMISTRY METHOD 01/25/2025 6:41 AM [facility] ZOSTfdnfe556601 - 145 mmol/L LAB CHEMISTRY METHOD 01/25/2025 6:41 AM [facility] LABPotassium3.83.5 - 5.3 mmol/L LAB CHEMISTRY METHOD 01/25/2025 6:41 AM [facility] UZEDeesorhw74766 - 107 mmol/L LAB CHEMISTRY METHOD 01/25/2025 6:41 AM [facility] FQKZuedfgkhwas5222 - 32 mmol/L LAB CHEMISTRY METHOD 01/25/2025 6:41 AM [facility] LABComment:Bicarbonate results may be falsely elevated when Lactate Dehydrogenase (LDH) concentrations exceed 2,000 U/L due to a temporary reagent manufacturing issue. If significantly elevated LDH levels are suspected, interpret bicarbonate results with caution, correlate with the patient???s clinical status, and consider confirming CO2 values using a blood gas analyzer.Anion Hef5320 - 20 mmol/L LAB CHEMISTRY METHOD 01/25/2025 6:41 AM [facility] LABUrea Wnhynrmk96(H)6 - 23 mg/dL LAB CHEMISTRY METHOD 01/25/2025 6:41 AM [facility] LABCreatinine1.30(H)0.50 - 1.05 mg/dL LAB CHEMISTRY METHOD 01/25/2025 6:41 AM [facility] LXYxELJ11(L)>60 mL/min/1.73m*2 LAB CHEMISTRY METHOD 01/25/2025 6:41 AM [facility] LABComment: Calculations of estimated GFR are performed using the 2020 CKD-EPI Study Refit equation without therace variable for the IDMS-Traceable creatinine methods. https://jasn.asnjournals.org/content/early//ASN.5453182182 Calcium8.68.6 - 10.3 mg/dL LAB CHEMISTRY METHOD 01/25/2025 6:41 AM [facility] LABAlbumin3.43.4 - 5.0 g/dL LAB CHEMISTRY METHOD 01/25/2025 6:41 AM [facility] LABAlkaline Nbovazotvut273(H)33 - 136 U/L LAB CHEMISTRY METHOD 01/25/2025 6:41 AM [facility] LABTotal Protein6.0(L)6.4 - 8.2 g/dL LAB CHEMISTRY METHOD 01/25/2025 6:41 AM [facility] SPCXKE209 - 39 U/L LAB CHEMISTRY METHOD 01/25/2025 6:41 AM [facility] LABBilirubin, Total1.9(H)0.0 - 1.2 mg/dL LAB CHEMISTRY METHOD 01/25/2025 6:41 AM [facility] MVTKUU848 - 45 U/L LAB CHEMISTRY METHOD 01/25/2025 6:41 AM [facility] LABComment:Patients treated with Sulfasalazine may generate falsely decreased results for ALT.Specimen (Source) Anatomical Location / LateralityCollection Method / VolumeCollection Time Received TimeBloodVenous blood specimen / UnknownVenipuncture / Unknown 01/25/2025 5:40 AM EST01/25/2025 6:13 AM EST Narrative Authorizing ProviderResult TypeResult StatusByron MILLER BLOOD ORDERABLESFinal ResultPerforming OrganizationAddressCity/State/ZIP CodePhone Number [facility] [address] [place] [address] * (ABNORMAL) CBC and Auto Differential (01/25/2025 5:40 AM EST)ComponentValueRef RangeTest MethodAnalysis TimePerformed AtPathologist SignatureWBC4.74.4 - 11.3 x10*3/uL LAB HEMATOLOGY METHOD 01/25/2025 6:27 AM [facility] LABnRBC0.00.0 - 0.0 /100 WBCs LAB HEMATOLOGY METHOD 01/25/2025 6:27 AM [facility] LABRBC3.11(L)4.00 - 5.20 x10*6/uL LAB HEMATOLOGY METHOD 01/25/2025 6:27 AM [facility] LABHemoglobin9.7(L)12.0 - 16.0 g/dL LAB HEMATOLOGY METHOD 01/25/2025 6:27 AM [facility] CSERsyeltrape97.1(L)36.0 - 46.0 % LAB HEMATOLOGY METHOD 01/25/2025 6:27 AM [facility] WWMDOO9800 - 100 fL LAB HEMATOLOGY METHOD 01/25/2025 6:27 AM [facility] LTCOTZ42.226.0 - 34.0 pg LAB HEMATOLOGY METHOD 01/25/2025 6:27 AM [facility] FOESYTD48.232.0 - 36.0 g/dL LAB HEMATOLOGY METHOD 01/25/2025 6:27 AM [facility] KWFZEX11.4(H)11.5 - 14.5 % LAB HEMATOLOGY METHOD 01/25/2025 6:27 AM [facility] JLBEuxpqtjfl62(L)150 - 450 x10*3/uL LAB HEMATOLOGY METHOD 01/25/2025 6:27 AM [facility] LABNeutrophils %59.740.0 - 80.0 % LAB HEMATOLOGY METHOD 01/25/2025 6:27 AM [facility] LABImmature Granulocytes %, Automated0.40.0 - 0.9 % LAB HEMATOLOGY METHOD 01/25/2025 6:27 AM [facility] LABComment:Immature Granulocyte Count (IG) includes promyelocytes, myelocytes and metamyelocytes but does not i nclude bands. Percent differential counts (%) should be interpreted in the context of the absolute cell counts (cells/UL).Lymphocytes %17.313.0 - 44.0 % LAB HEMATOLOGY METHOD 01/25/2025 6:27 AM [facility] LABMonocytes %16.32.0 - 10.0 % LAB HEMATOLOGY METHOD 01/25/2025 6:27 AM [facility] LABEosinophils %5.40.0 - 6.0 % LAB HEMATOLOGY METHOD 01/25/2025 6:27 AM [facility] LABBasophils %0.90.0 - 2.0 % LAB HEMATOLOGY METHOD 01/25/2025 6:27 AM [facility] LABNeutrophils Absolute2.791.60 - 5.50 x10*3/uL LAB HEMATOLOGY METHOD 01/25/2025 6:27 AM [facility] LABComment:Percent differential counts (%) should be interpreted in the context of the absolute cell counts (ce lls/uL).Immature Granulocytes Absolute, Automated0.020.00 - 0.50 x10*3/uL LAB HEMATOLOGY METHOD 01/25/2025 6:27 AM [facility] LABLymphocytes Absolute0.810.80 - 3.00 x10*3/uL LAB HEMATOLOGY METHOD 01/25/2025 6:27 AM [facility] LABMonocytes Absolute0.760.05 - 0.80 x10*3/uL LAB HEMATOLOGY METHOD 01/25/2025 6:27 AM [facility] LABEosinophils Absolute0.250.00 - 0.40 x10*3/uL LAB HEMATOLOGY METHOD 01/25/2025 6:27 AM [facility] LABBasophils Absolute0.040.00 - 0.10 x10*3/uL LAB HEMATOLOGY METHOD 01/25/2025 6:27 AM [facility] LABSpecimen (Source)Anatomical Location / LateralityCollection Method / VolumeCollection TimeReceived TimeBlood Venous blood specimen / UnknownVenipuncture / Vficfhf9301/25/2025 5:40 AM EST 01/25/2025 6:14 AM EST Narrative Authorizing ProviderResult TypeResult StatusMusspring Barnes [facility] BLOOD ORDERABLESFinal ResultPerforming OrganizationAddressCity/State/ZIP CodePhone Number [facility] [address] [place] [address] * Phosphorus (01/24/2025 5:33 AM EST)ComponentValueRef RangeTest MethodAnalysis TimePerformed AtPathologist SignaturePhosphorus3.12.5 - 4.9 mg/dL LAB CHEMISTRY METHOD 01/24/2025 6:27 AM [facility] LABSpecimen (Source)Anatomical Location / LateralityCollection Method / VolumeCollection TimeReceived TimeBlood Venous blood specimen / UnknownVenipuncture / Kprkoec8101/24/2025 5:33 AM EST 01/24/2025 6:04 AM EST Narrative Authorizing ProviderResult TypeResult StatusTy Sweet [facility] BLOOD ORDERABLESFinal ResultPerforming OrganizationAddressCity/State/ZIP CodePhone Number [facility] [address] [place] [address] * (ABNORMAL) Comprehensive Metabolic Panel (01/24/2025 5:33 AM EST)Component ValueRef RangeTest MethodAnalysis TimePerformed AtPathologist SignatureGlucose 9374 - 99 mg/dL LAB CHEMISTRY METHOD 01/24/2025 6:27 AM [facility] SEBLrbvlj499593 - 145 mmol/L LAB CHEMISTRY METHOD 01/24/2025 6:27 AM [facility] LABPotassium4.13.5 - 5.3 mmol/L LAB CHEMISTRY METHOD 01/24/2025 6:27 AM [facility] BAQCmlvfszh77476 - 107 mmol/L LAB CHEMISTRY METHOD 01/24/2025 6:27 AM [facility] UQZKptsneflyyu8782 - 32 mmol/L LAB CHEMISTRY METHOD 01/24/2025 6:27 AM [facility] LABComment:Bicarbonate results may be falsely elevated when Lactate Dehydrogenase (LDH) concentrations exceed 2,000 U/L due to a temporary reagent manufacturing issue. If significantly elevated LDH levels are suspected, interpret bicarbonate results with caution, correlate with the patient???s clinical status, and consider confirming CO2 values using a blood gas analyzer.Anion Iqz7569 - 20 mmol/L LAB CHEMISTRY METHOD 01/24/2025 6:27 AM [facility] LABUrea Bdbixztf32(H)6 - 23 mg/dL LAB CHEMISTRY METHOD 01/24/2025 6:27 AM [facility] LABCreatinine1.37(H)0.50 - 1.05 mg/dL LAB CHEMISTRY METHOD 01/24/2025 6:27 AM [facility] HDOsVEH92(L)>60 mL/min/1.73m*2 LAB CHEMISTRY METHOD 01/24/2025 6:27 AM [facility] LABComment: Calculations of estimated GFR are performed using the 2020 CKD-EPI Study Refit equation without therace variable for the IDMS-Traceable creatinine methods. https://jasn.asnjournals.org/content/early//ASN.1363532839 Calcium8.78.6 - 10.3 mg/dL LAB CHEMISTRY METHOD 01/24/2025 6:27 AM [facility] LABAlbumin3.63.4 - 5.0 g/dL LAB CHEMISTRY METHOD 01/24/2025 6:27 AM [facility] LABAlkaline Yzopnwxlbbv348(H)33 - 136 U/L LAB CHEMISTRY METHOD 01/24/2025 6:27 AM [facility] LABTotal Protein6.46.4 - 8.2 g/dL LAB CHEMISTRY METHOD 01/24/2025 6:27 AM [facility] CTOGGL351 - 39 U/L LAB CHEMISTRY METHOD 01/24/2025 6:27 AM [facility] LABBilirubin, Total2.0(H)0.0 - 1.2 mg/dL LAB CHEMISTRY METHOD 01/24/2025 6:27 AM [facility] FPTKLB592 - 45 U/L LAB CHEMISTRY METHOD 01/24/2025 6:27 AM [facility] LABComment:Patients treated with Sulfasalazine may generate falsely decreased results for ALT.Specimen (Source) Anatomical Location / LateralityCollection Method / VolumeCollection Time Received TimeBloodVenous blood specimen / UnknownVenipuncture / Unknown 01/24/2025 5:33 AM EST01/24/2025 6:04 AM EST Narrative Authorizing ProviderResult TypeResult StatusMushtaq Cameron MILLER BLOOD ORDERABLESFinal ResultPerforming OrganizationAddressCity/State/ZIP CodePhone Number [facility] [address] [place] [address] * (ABNORMAL) CBC and Auto Differential (01/24/2025 5:33 AM EST)ComponentValueRef RangeTest MethodAnalysis TimePerformed AtPathologist SignatureWBC5.04.4 - 11.3 x10*3/uL LAB HEMATOLOGY METHOD 01/24/2025 6:11 AM [facility] LABnRBC0.00.0 - 0.0 /100 WBCs LAB HEMATOLOGY METHOD 01/24/2025 6:11 AM [facility] LABRBC3.30(L)4.00 - 5.20 x10*6/uL LAB HEMATOLOGY METHOD 01/24/2025 6:11 AM [facility] DREFxfhsydieu80.4(L)12.0 - 16.0 g/dL LAB HEMATOLOGY METHOD 01/24/2025 6:11 AM [facility] VYQYbdsuzmpjr98.1(L)36.0 - 46.0 % LAB HEMATOLOGY METHOD 01/24/2025 6:11 AM [facility] OAIUNS6405 - 100 fL LAB HEMATOLOGY METHOD 01/24/2025 6:11 AM [facility] NRYSBB54.526.0 - 34.0 pg LAB HEMATOLOGY METHOD 01/24/2025 6:11 AM [facility] GLVDJQL56.432.0 - 36.0 g/dL LAB HEMATOLOGY METHOD 01/24/2025 6:11 AM [facility] DUKDPA23.4(H)11.5 - 14.5 % LAB HEMATOLOGY METHOD 01/24/2025 6:11 AM [facility] BURDwlxqdjjt77(L)150 - 450 x10*3/uL LAB HEMATOLOGY METHOD 01/24/2025 6:11 AM [facility] LABNeutrophils %61.040.0 - 80.0 % LAB HEMATOLOGY METHOD 01/24/2025 6:11 AM [facility] LABImmature Granulocytes %, Automated0.40.0 - 0.9 % LAB HEMATOLOGY METHOD 01/24/2025 6:11 AM [facility] LABComment:Immature Granulocyte Count (IG) includes promyelocytes, myelocytes and metamyelocytes but does not i nclude bands. Percent differential counts (%) should be interpreted in the context of the absolute cell counts (cells/UL).Lymphocytes %18.513.0 - 44.0 % LAB HEMATOLOGY METHOD 01/24/2025 6:11 AM [facility] LABMonocytes %15.12.0 - 10.0 % LAB HEMATOLOGY METHOD 01/24/2025 6:11 AM [facility] LABEosinophils %4.20.0 - 6.0 % LAB HEMATOLOGY METHOD 01/24/2025 6:11 AM [facility] LABBasophils %0.80.0 - 2.0 % LAB HEMATOLOGY METHOD 01/24/2025 6:11 AM [facility] LABNeutrophils Absolute3.061.60 - 5.50 x10*3/uL LAB HEMATOLOGY METHOD 01/24/2025 6:11 AM [facility] LABComment:Percent differential counts (%) should be interpreted in the context of the absolute cell counts (ce lls/uL).Immature Granulocytes Absolute, Automated0.020.00 - 0.50 x10*3/uL LAB HEMATOLOGY METHOD 01/24/2025 6:11 AM [facility] LABLymphocytes Absolute0.930.80 - 3.00 x10*3/uL LAB HEMATOLOGY METHOD 01/24/2025 6:11 AM [facility] LABMonocytes Absolute0.760.05 - 0.80 x10*3/uL LAB HEMATOLOGY METHOD 01/24/2025 6:11 AM [facility] LABEosinophils Absolute0.210.00 - 0.40 x10*3/uL LAB HEMATOLOGY METHOD 01/24/2025 6:11 AM [facility] LABBasophils Absolute0.040.00 - 0.10 x10*3/uL LAB HEMATOLOGY METHOD 01/24/2025 6:11 AM [facility] LABSpecimen (Source)Anatomical Location / LateralityCollection Method / VolumeCollection TimeReceived TimeBlood Venous blood specimen / UnknownVenipuncture / Vvwokxz4801/24/2025 5:33 AM EST 01/24/2025 6:05 AM EST Narrative Authorizing ProviderResult TypeResult StatusMusspring Barnes [facility] BLOOD ORDERABLESFinal ResultPerforming OrganizationAddressCity/State/ZIP CodePhone Number [facility] [address] [place] [address] * Magnesium (01/24/2025 5:33 AM EST)ComponentValueRef RangeTest MethodAnalysis TimePerformed AtPathologist SignatureMagnesium2.101.60 - 2.40 mg/dL LAB CHEMISTRY METHOD 01/24/2025 6:27 AM [facility] LABSpecimen (Source)Anatomical Location / LateralityCollection Method / VolumeCollection TimeReceived TimeBlood Venous blood specimen / UnknownVenipuncture / Mfurkis9801/24/2025 5:33 AM EST 01/24/2025 6:04 AM EST Narrative Authorizing ProviderResult TypeResult StatusDanijusto Odessa DOL BLOOD ORDERABLESFinal ResultPerforming OrganizationAddressCity/State/ZIP CodePhone Number [facility] [address] [place] [address] * ECG 12 Lead (01/23/2025 7:33 AM EST)ComponentValueRef RangeTest MethodAnalysis TimePerformed AtPathologist SignatureVentricular Ysod75DAADTUAPveybr Rate60 BPMMUSEPR Hpgtnmde664vrZENQCAC Vgovgqsv66zwMDPXZK Npjlsxcw353vnDBOTBZT Calculation(Bazett)472msMUSEP Ohgk95egnnpyeRABFZ Etjn84utxlcsuCPNJT Rlzm134 degreesMUSEQRS Cmpud69vhpxiHGZXL Rwlpz462esGZPXE Ibwxt065oqBTJAL Oqbwby705ir MUSET Vmcdcy404ouIBRRYHC Kzgrisolhj406ozMMXZEcjoeidi (Source)Anatomical Location / LateralityCollection Method / VolumeCollection [...] AM Authorizing ProviderResult TypeResult StatusRandall Izabel Laura [facility] ORDERABLESFinal ResultPerforming OrganizationAddressCity/State/ZIP CodePhone Number MUSE * (ABNORMAL) Renal Function Panel (01/23/2025 5:44 AM EST)ComponentValueRef RangeTest MethodAnalysis TimePerformed AtPathologist JtlqzxhyuKjeuqfa0855 - 99 mg/dL LAB CHEMISTRY METHOD 01/23/2025 6:54 AM [facility] LWQJcwqgp716651 - 145 mmol/L LAB CHEMISTRY METHOD 01/23/2025 6:54 AM [facility] LABPotassium3.73.5 - 5.3 mmol/L LAB CHEMISTRY METHOD 01/23/2025 6:54 AM [facility] CRXMwadshse40343 - 107 mmol/L LAB CHEMISTRY METHOD 01/23/2025 6:54 AM [facility] BQRAfpazghmbqa7196 - 32 mmol/L LAB CHEMISTRY METHOD 01/23/2025 6:54 AM [facility] LABComment:Bicarbonate results may be falsely elevated when Lactate Dehydrogenase (LDH) concentrations exceed 2,000 U/L due to a temporary reagent manufacturing issue. If significantly elevated LDH levels are suspected, interpret bicarbonate results with caution, correlate with the patient???s clinical status, and consider confirming CO2 values using a blood gas analyzer.Anion Nmd6446 - 20 mmol/L LAB CHEMISTRY METHOD 01/23/2025 6:54 AM [facility] LABUrea Lpofzbxx00(H)6 - 23 mg/dL LAB CHEMISTRY METHOD 01/23/2025 6:54 AM [facility] LABCreatinine1.42(H)0.50 - 1.05 mg/dL LAB CHEMISTRY METHOD 01/23/2025 6:54 AM [facility] XEPpZMM12(L)>60 mL/min/1.73m*2 LAB CHEMISTRY METHOD 01/23/2025 6:54 AM [facility] LABComment: Calculations of estimated GFR are performed using the 2020 CKD-EPI Study Refit equation without therace variable for the IDMS-Traceable creatinine methods. https://jasn.asnjournals.org/content/early//ASN.3105717036 Calcium8.68.6 - 10.3 mg/dL LAB CHEMISTRY METHOD 01/23/2025 6:54 AM [facility] LABPhosphorus3.12.5 - 4.9 mg/dL LAB CHEMISTRY METHOD 01/23/2025 6:54 AM [facility] LABAlbumin3.63.4 - 5.0 g/dL LAB CHEMISTRY METHOD 01/23/2025 6:54 AM [facility] LABSpecimen (Source)Anatomical Location / LateralityCollection Method / VolumeCollection TimeReceived TimeBlood Venous blood specimen / UnknownVenipuncture / Brgqbzx6001/23/2025 5:44 AM EST 01/23/2025 6:20 AM EST Narrative Authorizing ProviderResult TypeResult StatusDaniel Odessa DOLAB BLOOD ORDERABLESFinal ResultPerforming OrganizationAddressCity/State/ZIP CodePhone Number [facility] [address] [place] [address] * Magnesium (01/23/2025 5:44 AM EST)ComponentValueRef RangeTest MethodAnalysis TimePerformed AtPathologist SignatureMagnesium2.141.60 - 2.40 mg/dL LAB CHEMISTRY METHOD 01/23/2025 6:54 AM [facility] LABSpecimen (Source)Anatomical Location / LateralityCollection Method / VolumeCollection TimeReceived TimeBlood Venous blood specimen / UnknownVenipuncture / Zaenwha8501/23/2025 5:44 AM EST 01/23/2025 6:20 AM EST Narrative Authorizing ProviderResult TypeResult StatusDaniel Odessa DOLAB BLOOD ORDERABLESFinal ResultPerforming OrganizationAddressCity/State/ZIP CodePhone Number [facility] [address] [place] [address] * (ABNORMAL) CBC (01/23/2025 5:44 AM EST)ComponentValueRef RangeTest Method Analysis TimePerformed AtPathologist SignatureWBC4.74.4 - 11.3 x10*3/uL LAB HEMATOLOGY METHOD 01/23/2025 6:31 AM [facility] LABnRBC0.00.0 - 0.0 /100 WBCs LAB HEMATOLOGY METHOD 01/23/2025 6:31 AM [facility] LABRBC3.26(L)4.00 - 5.20 x10*6/uL LAB HEMATOLOGY METHOD 01/23/2025 6:31 AM [facility] BUKIwnwggdapi60.1(L)12.0 - 16.0 g/dL LAB HEMATOLOGY METHOD 01/23/2025 6:31 AM [facility] RIGGaasekmvca37.4(L)36.0 - 46.0 % LAB HEMATOLOGY METHOD 01/23/2025 6:31 AM [facility] TQWWHJ9128 - 100 fL LAB HEMATOLOGY METHOD 01/23/2025 6:31 AM [facility] FZWYRH59.026.0 - 34.0 pg LAB HEMATOLOGY METHOD 01/23/2025 6:31 AM [facility] EGKQGSO93.232.0 - 36.0 g/dL LAB HEMATOLOGY METHOD 01/23/2025 6:31 AM [facility] FTJBNA60.6(H)11.5 - 14.5 % LAB HEMATOLOGY METHOD 01/23/2025 6:31 AM [facility] SGOByxjkkvts91(L)150 - 450 x10*3/uL LAB HEMATOLOGY METHOD 01/23/2025 6:31 AM [facility] LABSpecimen (Source)Anatomical Location / LateralityCollection Method / VolumeCollection TimeReceived TimeBlood Venous blood specimen / UnknownVenipuncture / Agnfktc6101/23/2025 5:44 AM EST 01/23/2025 6:20 AM EST Narrative Authorizing ProviderResult TypeResult StatusKehinde Mcconnellcedo DOLAB BLOOD ORDERABLESFinal ResultPerforming OrganizationAddressCity/State/ZIP CodePhone Number [facility] [address] [place] [address] * ECG 12 Lead (01/22/2025 7:08 AM EST)ComponentValueRef RangeTest MethodAnalysis TimePerformed AtPathologist SignatureVentricular Fhet43ATNZONSEpwthq Rate59 BPMMUSEPR Etjyraan456owETHDVQS Syopnjof97enXSMTPT Gwpmkvzi517cqTWPINFH Calculation(Bazett)483msMUSEP Tyra38drjuuzcABMKM Iwbc37ohnmiutMAVYW Pige377 degreesMUSEQRS Eeryf18cjvbfFKWSK Bfcfv633swWHNJO Aizur702aeZXDXK Rwrkvp912tu MUSET Xhbxer511kiGVUBWON Kqldunulwd370gkDCLFIsiezlaa (Source)Anatomical Location / LateralityCollection Method / VolumeCollection [...] Geoff Elliott ([id number]) on 01/25/2025 8:00:42 AM Procedure Note Geoff Elliott DO - 01/25/2025 Sinus bradycardia Rightward axis Low voltage QRS ST & T wave abnormality, consider anterior ischemia Abnormal ECG When compared with ECG of 21-JAN-2025 06:31, (unconfirmed) Incomplete right bundle branch block is no longer Present Confirmed by Geoff Elliott ([id number]) on 01/25/2025 8:00:42 AM Authorizing ProviderResult TypeResult StatusRanveronica Laura [facility]CN[facility]CG ORDERABLESFinal ResultPerforming OrganizationAddressCity/State/ZIP CodePhone Number MUSE * (ABNORMAL) Renal Function Panel (01/22/2025 6:07 AM EST)ComponentValueRef RangeTest MethodAnalysis TimePerformed AtPathologist KcsvxgnmvYfmutbt3370 - 99 mg/dL LAB CHEMISTRY METHOD 01/22/2025 7:05 AM [facility] WJMUszucc046565 - 145 mmol/L LAB CHEMISTRY METHOD 01/22/2025 7:05 AM [facility] LABPotassium3.63.5 - 5.3 mmol/L LAB CHEMISTRY METHOD 01/22/2025 7:05 AM [facility] HQZYgloehdz71492 - 107 mmol/L LAB CHEMISTRY METHOD 01/22/2025 7:05 AM [facility] HIGObfdixwwjyh7538 - 32 mmol/L LAB CHEMISTRY METHOD 01/22/2025 7:05 AM [facility] LABComment:Bicarbonate results may be falsely elevated when Lactate Dehydrogenase (LDH) concentrations exceed 2,000 U/L due to a temporary reagent manufacturing issue. If significantly elevated LDH levels are suspected, interpret bicarbonate results with caution, correlate with the patient???s clinical status, and consider confirming CO2 values using a blood gas analyzer.Anion Ogb4502 - 20 mmol/L LAB CHEMISTRY METHOD 01/22/2025 7:05 AM [facility] LABUrea Pxcqzloj34(H)6 - 23 mg/dL LAB CHEMISTRY METHOD 01/22/2025 7:05 AM [facility] LABCreatinine1.68(H)0.50 - 1.05 mg/dL LAB CHEMISTRY METHOD 01/22/2025 7:05 AM [facility] BOSlCAR84(L)>60 mL/min/1.73m*2 LAB CHEMISTRY METHOD 01/22/2025 7:05 AM [facility] LABComment: Calculations of estimated GFR are performed using the 2020 CKD-EPI Study Refit equation without therace variable for the IDMS-Traceable creatinine methods. https://jasn.asnjournals.org/content//ASN.5410168878 Calcium8.98.6 - 10.3 mg/dL LAB CHEMISTRY METHOD 01/22/2025 7:05 AM [facility] LABPhosphorus3.12.5 - 4.9 mg/dL LAB CHEMISTRY METHOD 01/22/2025 7:05 AM [facility] LABAlbumin3.93.4 - 5.0 g/dL LAB CHEMISTRY METHOD 01/22/2025 7:05 AM [facility] LABSpecimen (Source)Anatomical Location / LateralityCollection Method / VolumeCollection TimeReceived TimeBlood Venous blood specimen / UnknownVenipuncture / Doiqpuz6601/22/2025 6:07 AM EST 01/22/2025 6:23 AM EST Narrative Authorizing ProviderResult TypeResult StatusDaniOr[facility] DOLAB BLOOD ORDERABLESFinal ResultPerforming OrganizationAddressCity/State/ZIP CodePhone Number [facility] [address] [place] [address] * Magnesium (01/22/2025 6:07 AM EST)ComponentValueRef RangeTest MethodAnalysis TimePerformed AtPathologist SignatureMagnesium2.181.60 - 2.40 mg/dL LAB CHEMISTRY METHOD 01/22/2025 7:05 AM [facility] LABSpecimen (Source)Anatomical Location / LateralityCollection Method / VolumeCollection TimeReceived TimeBlood Venous blood specimen / UnknownVenipuncture / Luyzhqu7701/22/2025 6:07 AM EST 01/22/2025 6:23 AM EST Narrative Authorizing ProviderResult TypeResult StatusDaniOr[facility] DOLAB BLOOD ORDERABLESFinal ResultPerforming OrganizationAddressCity/State/ZIP CodePhone Number [facility] [address] [place] [address] * (ABNORMAL) CBC (01/22/2025 6:07 AM EST)ComponentValueRef RangeTest Method Analysis TimePerformed AtPathologist SignatureWBC5.04.4 - 11.3 x10*3/uL LAB HEMATOLOGY METHOD 01/22/2025 6:26 AM [facility] LABnRBC0.00.0 - 0.0 /100 WBCs LAB HEMATOLOGY METHOD 01/22/2025 6:26 AM [facility] LABRBC3.37(L)4.00 - 5.20 x10*6/uL LAB HEMATOLOGY METHOD 01/22/2025 6:26 AM [facility] QJMKcatevromp71.6(L)12.0 - 16.0 g/dL LAB HEMATOLOGY METHOD 01/22/2025 6:26 AM [facility] XEYHrctoicjwt10.4(L)36.0 - 46.0 % LAB HEMATOLOGY METHOD 01/22/2025 6:26 AM [facility] STEGWR7598 - 100 fL LAB HEMATOLOGY METHOD 01/22/2025 6:26 AM [facility] FWYIPP05.526.0 - 34.0 pg LAB HEMATOLOGY METHOD 01/22/2025 6:26 AM [facility] OGNVDLS51.732.0 - 36.0 g/dL LAB HEMATOLOGY METHOD 01/22/2025 6:26 AM [facility] JKHQZX09.7(H)11.5 - 14.5 % LAB HEMATOLOGY METHOD 01/22/2025 6:26 AM [facility] BMEIlbsphnvk54(L)150 - 450 x10*3/uL LAB HEMATOLOGY METHOD 01/22/2025 6:26 AM [facility] LABSpecimen (Source)Anatomical Location / LateralityCollection Method / VolumeCollection TimeReceived TimeBlood Venous blood specimen / UnknownVenipuncture / Odyrxxd0401/22/2025 6:07 AM EST 01/22/2025 6:22 AM EST Narrative Authorizing ProviderResult TypeResult StatusDaniel [facility] BLOOD ORDERABLESFinal ResultPerforming OrganizationAddressCity/State/ZIP CodePhone Number [facility] [address] [place] [address] * XR chest 1 view (01/21/2025 8:26 AM EST)Anatomical RegionLateralityModality Thoracic, ChestComputed RadiographySpecimen (Source)Anatomical Location / LateralityCollection Method / VolumeCollection TimeReceived Time01/21/2025 8:53 AM EST01/21/2025 8:53 AM EST Impressions 01/21/2025 8:52 AM EST Stable cardiomegaly with small-moderate left and small right pleural effusions and bibasilar opacities/atelectasis, similar to prior. ?? MACRO: None ?? Signed by: Acosta Bo 01/21/2025 8:52 AM Dictation workstation: ?? [id number] Narrative 01/21/2025 8:52 AM EST Interpreted By: Acosta Bo, STUDY: XR CHEST 1 VIEW; ??01/21/2025 8:26 am ?? INDICATION: Signs/Symptoms:worsening respiratory failure. ?? COMPARISON: XR chest and CT chest 01/19/2025 ?? ACCESSION NUMBER(S): [id number] ?? ORDERING CLINICIAN: KEHINDE ELI ?? FINDINGS: [...] chest and CT chest 01/19/2025 ACCESSION NUMBER(S): [id number] ORDERING CLINICIAN: KEHINDE ELI FINDINGS: CARDIOMEDIASTINAL SILHOUETTE: [...] Acosta Bo 01/21/2025 8:52 AM Dictation workstation: [id number] Authorizing ProviderResult TypeResult StatusDaniel Odessa DOIMG XR PROCEDURES Final Result * (ABNORMAL) Blood Gas Arterial Full Panel (01/21/2025 7:41 AM EST)Component ValueRef RangeTest MethodAnalysis TimePerformed AtPathologist SignaturePOCT pH, Arterial7.51(H)7.38 - 7.42 pH01/21/2025 7:58 AM [facility] LABPOCT pCO2, Ndfmdgwd5792 - 42 mm Hg01/21/2025 7:58 AM [facility] LABPOCT pO2, Ohxxmxwu74(LL)85 - 95 mm Hg01/21/2025 7:58 AM [facility] LABPOCT SO2, Hldiaybx07(L)94 - 100 %01/21/2025 7:58 AM [facility] [place] LABPOCT Oxy Hemoglobin, Axkmiaov73.1(L)94.0 - 98.0 % 01/21/2025 7:58 AM [facility] LABPOCT Hematocrit Calculated, Pafbrszx52.0(L)36.0 - 46.0 %01/21/2025 7:58 AM [facility] LAB POCT Sodium, Tlfwvjby975(L)136 - 145 mmol/L103/23/2024 7:58 AM [facility] LABPOCT Potassium, Arterial3.73.5 - 5.3 mmol/L103/23/2024 7:58 AM [facility] LABPOCT Chloride, Gkunhgpf5671 - 107 mmol/L 01/21/2025 7:58 AM [facility] LABPOCT Ionized Calcium, Arterial 1.181.10 - 1.33 mmol/L103/23/2024 7:58 AM [facility] LABPOCT Glucose, Hazkjlzt857(H)74 - 99 mg/dL01/21/2025 7:58 AM [facility] LABPOCT Lactate, Arterial1.00.4 - 2.0 mmol/L103/23/2024 7:58 AM [facility] [place] LABPOCT Base Excess, Arterial8.2(H)-2.0 - 3.0 mmol/L 01/21/2025 7:58 AM [facility] LABPOCT HCO3 Calculated, Arterial 31.9(H)22.0 - 26.0 mmol/L103/23/2024 7:58 AM [facility] LABPOCT Hemoglobin, Hxnsmxhb01.2(L)12.0 - 16.0 g/dL01/21/2025 7:58 AM [facility] LABPOCT Anion Gap, Arterial4(L)10 - 25 mmo/L103/23/2024 7:58 AM [facility] ZESMyC146%01/21/2025 7:58 AM [facility] LABTest QjwwwpyWCHQMT34/20/2025 7:58 AM [facility] LABCritical Called ZuCGIRUYEP87/20/2025 7:58 AM [facility] LABCritical Called FhAJEHCCUQWJ49/20/2025 7:58 AM [facility] LABCritical Call Ysls15835/20/2025 7:58 AM [facility] LABCritical Read BackY 01/21/2025 7:58 AM [facility] LABSite of Arterial PunctureVBG 01/21/2025 7:58 AM [facility] LABAllen's AzmlUCY8801/21/2025 7:58 AM [facility] LABSpecimen (Source)Anatomical Location / LateralityCollection Method / VolumeCollection TimeReceived TimeBloodArterial blood specimen / UnknownArterial Puncture / Yayayam5901/21/2025 7:41 AM EST 01/21/2025 7:41 AM EST Narrative [facility] - 01/21/2025 7:58 AM EST VENOUS Authorizing ProviderResult TypeResult StatusDaniel Odessa DOLAB BLOOD ORDERABLESFinal ResultPerforming OrganizationAddressCity/State/ZIP CodePhone Number [facility] [address] [place] [address] * ECG 12 Lead (01/21/2025 7:22 AM EST)ComponentValueRef RangeTest MethodAnalysis TimePerformed AtPathologist SignatureVentricular Ngkr42RZUBLCNEexnbe Rate57 BPMMUSEPR Thppvryw456ruWXTOMSF Uxhsptxz91xgKLMGTB Lktfmxqr422ipQSTDBRE Calculation(Bazett)478msMUSEP Fnit29hxdkgooPIQMS Xbmm544halgntfQFSFP Rhux985 degreesMUSEQRS Lahrb49uwioxEHTXK Hfuyz535acBZNJT Olmsh322mwZIPNW Lofhoe599fx MUSET Sowtkj798ckOFEPJBN Qgmajrjqef725doHGWADdtoazdm (Source)Anatomical Location / LateralityCollection Method / VolumeCollection [...] 01/25/2025 7:36:58 AM Authorizing ProviderResult TypeResult StatusRandall L Keya LUMBER SORTER-CNPECG ORDERABLESFinal ResultPerforming OrganizationAddressCity/State/ZIP CodePhone Number MUSE * (ABNORMAL) B-type natriuretic peptide (01/21/2025 4:47 AM EST)ComponentValue Ref RangeTest MethodAnalysis TimePerformed AtPathologist VoskczdygJKN376(H)0 - 99 pg/mL LAB IMMUNOASSAY METHOD 01/21/2025 10:28 AM [facility] LABSpecimen (Source)Anatomical Location / LateralityCollection Method / VolumeCollection TimeReceived TimeBlood Venous blood specimen / UnknownVenipuncture / Orpsyqu2401/21/2025 4:47 AM EST 01/21/2025 5:25 AM EST Narrative [facility] - 01/21/2025 10:28 AM EST <100 pg/mL - Heart failure unlikely 100-299 pg/mL - Intermediate probability of acute heart ?failure exacerbation. Correlate with clinical ?context and patient history. >=300 pg/mL - Heart Failure likely. Correlate with clinical ?context and patient history. BNP testing is performed using different testing methodology at [facility] than at other [facility]. Direct result comparisons should only be made within the same method. Authorizing ProviderResult TypeResult StatusDaniSierra [facility] Hospital BLOOD ORDERABLESFinal ResultPerforming OrganizationAddressCity/State/ZIP CodePhone Number [facility] [address] [place] [address] * (ABNORMAL) Renal Function Panel (01/21/2025 4:47 AM EST)ComponentValueRef RangeTest MethodAnalysis TimePerformed AtPathologist CdjihwljdKdlbwqy5290 - 99 mg/dL LAB CHEMISTRY METHOD 01/21/2025 5:50 AM [facility] NJHGyeeob685733 - 145 mmol/L LAB CHEMISTRY METHOD 01/21/2025 5:50 AM [facility] LABPotassium3.63.5 - 5.3 mmol/L LAB CHEMISTRY METHOD 01/21/2025 5:50 AM [facility] ZYLHudycmio30020 - 107 mmol/L LAB CHEMISTRY METHOD 01/21/2025 5:50 AM [facility] FMDMvvxjfcdabi7191 - 32 mmol/L LAB CHEMISTRY METHOD 01/21/2025 5:50 AM [facility] LABComment:Bicarbonate results may be falsely elevated when Lactate Dehydrogenase (LDH) concentrations exceed 2,000 U/L due to a temporary reagent manufacturing issue. If significantly elevated LDH levels are suspected, interpret bicarbonate results with caution, correlate with the patient???s clinical status, and consider confirming CO2 values using a blood gas analyzer.Anion Tru9035 - 20 mmol/L LAB CHEMISTRY METHOD 01/21/2025 5:50 AM [facility] LABUrea Mixinwuq70(H)6 - 23 mg/dL LAB CHEMISTRY METHOD 01/21/2025 5:50 AM [facility] LABCreatinine2.14(H)0.50 - 1.05 mg/dL LAB CHEMISTRY METHOD 01/21/2025 5:50 AM [facility] GQAvMLB98(L)>60 mL/min/1.73m*2 LAB CHEMISTRY METHOD 01/21/2025 5:50 AM [facility] LABComment: Calculations of estimated GFR are performed using the 2020 CKD-EPI Study Refit equation without therace variable for the IDMS-Traceable creatinine methods. https://jasn.asnjournals.org/content//ASN.2190597568 Calcium8.88.6 - 10.3 mg/dL LAB CHEMISTRY METHOD 01/21/2025 5:50 AM [facility] LABPhosphorus3.82.5 - 4.9 mg/dL LAB CHEMISTRY METHOD 01/21/2025 5:50 AM [facility] LABAlbumin3.83.4 - 5.0 g/dL LAB CHEMISTRY METHOD 01/21/2025 5:50 AM [facility] LABSpecimen (Source)Anatomical Location / LateralityCollection Method / VolumeCollection TimeReceived TimeBlood Venous blood specimen / UnknownVenipuncture / Vrfgeps5601/21/2025 4:47 AM EST 01/21/2025 5:24 AM EST Narrative Authorizing ProviderResult TypeResult StatusDaniel Odessa DOLAB BLOOD ORDERABLESFinal ResultPerforming OrganizationAddressCity/State/ZIP CodePhone Number [facility] [address] [place] [address] * Magnesium (01/21/2025 4:47 AM EST)ComponentValueRef RangeTest MethodAnalysis TimePerformed AtPathologist SignatureMagnesium2.131.60 - 2.40 mg/dL LAB CHEMISTRY METHOD 01/21/2025 5:50 AM [facility] LABSpecimen (Source)Anatomical Location / LateralityCollection Method / VolumeCollection TimeReceived TimeBlood Venous blood specimen / UnknownVenipuncture / Qrifekx5801/21/2025 4:47 AM EST 01/21/2025 5:24 AM EST Narrative Authorizing ProviderResult TypeResult StatusDaniel Odessa DOLAB BLOOD ORDERABLESFinal ResultPerforming OrganizationAddressCity/State/ZIP CodePhone Number [facility] [address] [place] [address] * (ABNORMAL) CBC (01/21/2025 4:47 AM EST)ComponentValueRef RangeTest Method Analysis TimePerformed AtPathologist SignatureWBC5.64.4 - 11.3 x10*3/uL LAB HEMATOLOGY METHOD 01/21/2025 5:35 AM [facility] LABnRBC0.00.0 - 0.0 /100 WBCs LAB HEMATOLOGY METHOD 01/21/2025 5:35 AM [facility] LABRBC3.31(L)4.00 - 5.20 x10*6/uL LAB HEMATOLOGY METHOD 01/21/2025 5:35 AM [facility] MNQZqunenxcsh49.1(L)12.0 - 16.0 g/dL LAB HEMATOLOGY METHOD 01/21/2025 5:35 AM [facility] OFSCokucbukti12.1(L)36.0 - 46.0 % LAB HEMATOLOGY METHOD 01/21/2025 5:35 AM [facility] VAUVEY5066 - 100 fL LAB HEMATOLOGY METHOD 01/21/2025 5:35 AM [facility] VSSWQL58.526.0 - 34.0 pg LAB HEMATOLOGY METHOD 01/21/2025 5:35 AM [facility] XYRPIWI33.5(L)32.0 - 36.0 g/dL LAB HEMATOLOGY METHOD 01/21/2025 5:35 AM [facility] KIZXVB53.5(H)11.5 - 14.5 % LAB HEMATOLOGY METHOD 01/21/2025 5:35 AM [facility] ETUIggxxuwel53(L)150 - 450 x10*3/uL LAB HEMATOLOGY METHOD 01/21/2025 5:35 AM [facility] LABSpecimen (Source)Anatomical Location / LateralityCollection Method / VolumeCollection TimeReceived TimeBlood Venous blood specimen / UnknownVenipuncture / Teqdszu4301/21/2025 4:47 AM EST 01/21/2025 5:25 AM EST Narrative Authorizing ProviderResult TypeResult StatusDaniel Odessa DOLAB BLOOD ORDERABLESFinal ResultPerforming OrganizationAddressCity/State/ZIP CodePhone Number [facility] [address] [place] [address] * ECG 12 Lead (01/20/2025 10:12 AM EST)ComponentValueRef RangeTest Method Analysis TimePerformed AtPathologist SignatureVentricular Fygs68TUOMXHDIplutg Jrbt35WAAMTBRPW Nhcqkksz081quUQYJUAG Gzfwyepd01ezDZBUYL Yyqsrpem326vvZXLKUYK Calculation(Bazett)205msMUSEP Zbmo68ikdokzoHARNA Afte52tyhafijXHNVR Axis0 degreesMUSEQRS Igood51ilyuiTUSXP Mikug741uoYPUQW Ovjyu732tuIAVCR Jdczwg605gs MUSET Wibnhv916tiOKMSYFP Vfgxwtgjrs084cdPQHPGljflupq (Source)Anatomical Location / LateralityCollection Method / VolumeCollection [...] QT has shortened Confirmed by Geoff Elliott ([id number]) on 01/20/2025 3:21:41 PM Procedure Note Geoff Elliott DO - 01/20/2025 Sinus bradycardia with Premature atrial complexes Rightward axis Nonspecific ST and T wave abnormality Abnormal ECG When compared with ECG of 18-JAN-2025 11:44, (unconfirmed) Nonspecific T wave abnormality, worse in Inferior leads Nonspecific T wave abnormality has replaced inverted T waves in Lateralleads QT has shortened Confirmed by Geoff Elliott ([id number]) on 01/20/2025 3:21:41 PM Authorizing ProviderResult TypeResult StatusRandapramod Laura LUMBER SORTER-CNPECG ORDERABLESFinal ResultPerforming OrganizationAddressCity/State/ZIP CodePhone Number MUSE * (ABNORMAL) Renal Function Panel (01/20/2025 5:57 AM EST)ComponentValueRef RangeTest MethodAnalysis TimePerformed AtPathologist HqdsnazjgBvlyxsv2538 - 99 mg/dL LAB CHEMISTRY METHOD 01/20/2025 7:22 AM [facility] VUYGaffvr420485 - 145 mmol/L LAB CHEMISTRY METHOD 01/20/2025 7:22 AM [facility] LABPotassium4.03.5 - 5.3 mmol/L LAB CHEMISTRY METHOD 01/20/2025 7:22 AM [facility] PLGLiruwbfj9597 - 107 mmol/L LAB CHEMISTRY METHOD 01/20/2025 7:22 AM [facility] GLEEnlinzbxjec4221 - 32 mmol/L LAB CHEMISTRY METHOD 01/20/2025 7:22 AM [facility] LABComment:Bicarbonate results may be falsely elevated when Lactate Dehydrogenase (LDH) concentrations exceed 2,000 U/L due to a temporary reagent manufacturing issue. If significantly elevated LDH levels are suspected, interpret bicarbonate results with caution, correlate with the patient???s clinical status, and consider confirming CO2 values using a blood gas analyzer.Anion Mul5575 - 20 mmol/L LAB CHEMISTRY METHOD 01/20/2025 7:22 AM [facility] LABUrea Ggaermvv41(H)6 - 23 mg/dL LAB CHEMISTRY METHOD 01/20/2025 7:22 AM [facility] LABCreatinine2.25(H)0.50 - 1.05 mg/dL LAB CHEMISTRY METHOD 01/20/2025 7:22 AM [facility] BUTdGKI57(L)>60 mL/min/1.73m*2 LAB CHEMISTRY METHOD 01/20/2025 7:22 AM [facility] LABComment: Calculations of estimated GFR are performed using the 2020 CKD-EPI Study Refit equation without therace variable for the IDMS-Traceable creatinine methods. https://jasn.asnjournals.org/content//ASN.7408986935 Calcium8.98.6 - 10.3 mg/dL LAB CHEMISTRY METHOD 01/20/2025 7:22 AM [facility] LABPhosphorus4.12.5 - 4.9 mg/dL LAB CHEMISTRY METHOD 01/20/2025 7:22 AM [facility] LABAlbumin3.43.4 - 5.0 g/dL LAB CHEMISTRY METHOD 01/20/2025 7:22 AM [facility] LABSpecimen (Source)Anatomical Location / LateralityCollection Method / VolumeCollection TimeReceived TimeBlood Venous blood specimen / UnknownVenipuncture / Leftgxt0601/20/2025 5:57 AM EST 01/20/2025 6:25 AM EST Narrative Authorizing ProviderResult TypeResult StatusDaniel Odessa DOLAB BLOOD ORDERABLESFinal ResultPerforming OrganizationAddressCity/State/ZIP CodePhone Number [facility] [address] [place] [address] * (ABNORMAL) B-type natriuretic peptide (01/20/2025 5:57 AM EST)ComponentValue Ref RangeTest MethodAnalysis TimePerformed AtPathologist KyijhwngkHHF930(H)0 - 99 pg/mL LAB IMMUNOASSAY METHOD 01/20/2025 6:53 AM [facility] LABSpecimen (Source)Anatomical Location / LateralityCollection Method / VolumeCollection TimeReceived TimeBlood Venous blood specimen / UnknownVenipuncture / Bcclcqf9301/20/2025 5:57 AM EST 01/20/2025 6:25 AM EST Narrative [facility] - 01/20/2025 6:53 AM EST <100 pg/mL - Heart failure unlikely 100-299 pg/mL - Intermediate probability of acute heart ?failure exacerbation. Correlate with clinical ?context and patient history. >=300 pg/mL - Heart Failure likely. Correlate with clinical ?context and patient history. BNP testing is performed using different testing methodology at [facility] than at other [facility]. Direct result comparisons should only be made within the same method. Authorizing ProviderResult TypeResult StatusDaniSierra [facility] BLOOD ORDERABLESFinal ResultPerforming OrganizationAddressCity/State/ZIP CodePhone Number [facility] [address] [place] [address] * Magnesium (01/20/2025 5:57 AM EST)ComponentValueRef RangeTest MethodAnalysis TimePerformed AtPathologist SignatureMagnesium2.211.60 - 2.40 mg/dL LAB CHEMISTRY METHOD 01/20/2025 7:22 AM [facility] LABSpecimen (Source)Anatomical Location / LateralityCollection Method / VolumeCollection TimeReceived TimeBlood Venous blood specimen / UnknownVenipuncture / Zlmyztn8601/20/2025 5:57 AM EST 01/20/2025 6:25 AM EST Narrative Authorizing ProviderResult TypeResult StatusDaniSierra [facility] BLOOD ORDERABLESFinal ResultPerforming OrganizationAddressCity/State/ZIP CodePhone Number [facility] [address] [place] [address] * (ABNORMAL) CBC (01/20/2025 5:57 AM EST)ComponentValueRef RangeTest Method Analysis TimePerformed AtPathologist SignatureWBC6.34.4 - 11.3 x10*3/uL LAB HEMATOLOGY METHOD 01/20/2025 6:33 AM [facility] LABnRBC0.00.0 - 0.0 /100 WBCs LAB HEMATOLOGY METHOD 01/20/2025 6:33 AM [facility] LABRBC3.39(L)4.00 - 5.20 x10*6/uL LAB HEMATOLOGY METHOD 01/20/2025 6:33 AM [facility] JZRZfwsybbnws84.4(L)12.0 - 16.0 g/dL LAB HEMATOLOGY METHOD 01/20/2025 6:33 AM [facility] SEUXonwlkiigp43.4(L)36.0 - 46.0 % LAB HEMATOLOGY METHOD 01/20/2025 6:33 AM [facility] PLTIWL2729 - 100 fL LAB HEMATOLOGY METHOD 01/20/2025 6:33 AM [facility] ZNAUWQ03.726.0 - 34.0 pg LAB HEMATOLOGY METHOD 01/20/2025 6:33 AM [facility] XLMYXBI64.1(L)32.0 - 36.0 g/dL LAB HEMATOLOGY METHOD 01/20/2025 6:33 AM [facility] DLPNNO82.5(H)11.5 - 14.5 % LAB HEMATOLOGY METHOD 01/20/2025 6:33 AM [facility] NIJAfuynypcq48(L)150 - 450 x10*3/uL LAB HEMATOLOGY METHOD 01/20/2025 6:33 AM [facility] LABSpecimen (Source)Anatomical Location / LateralityCollection Method / VolumeCollection TimeReceived TimeBlood Venous blood specimen / UnknownVenipuncture / Crdgqvb5501/20/2025 5:57 AM EST 01/20/2025 6:25 AM EST Narrative Authorizing ProviderResult TypeResult StatusDaniel [facility] DOLAB BLOOD ORDERABLESFinal ResultPerforming OrganizationAddressCity/State/ZIP CodePhone Number [facility] [address] [place] [phone] * CT chest wo IV contrast (01/19/2025 [...] Carrero 01/19/2025 2:34 PM Dictation workstation: ?? [id number] Narrative 01/19/2025 2:34 PM EST Interpreted By: Cory Carrero, STUDY: CT CHEST WO IV CONTRAST; ??01/19/2025 1:50 pm ?? INDICATION: Signs/Symptoms:chest mass on cxr. ? COMPARISON: Two views of the chest, earlier same day 19 January 2025 ?? ACCESSION NUMBER(S): [id number] ?? ORDERING CLINICIAN: KEHINDE ELI ?? TECHNIQUE: [...] same day 19 January 2025 ACCESSION NUMBER(S): [id number] ORDERING CLINICIAN: KEHINDE ELI TECHNIQUE: Helical CT [...] Cory Carrero 01/19/2025 2:34 PM Dictation workstation: [id number] Authorizing ProviderResult TypeResult StatusDanijusto Eli DOIMG CT PROCEDURES Final Result * TRANSTHORACIC ECHO (TTE) COMPLETE (01/19/2025 11:50 AM EST)ComponentValueRef RangeTest MethodAnalysis TimePerformed AtPathologist SignatureAV mn jkmb7onWl SYNGOAV pk vel1.49m/sSYNGOLV Biplane EF61%SYNGOLVOT diam2.00cmSYNGOMV E/A ratio2.17SYNGOTricuspid annular plane systolic excursion1.2cmSYNGORV free wall pk S'7.70cm/vORTCRIFJH31ezBxUFQRLFRVOx3.80cmSYNGOAortic Valve Area by Continuity of Peak Velocity1.13lw5YCWECHR pk rumc7kzEpXKLQMPiuysb Valve Area by Continuity of VTI1.98nw5VDVSKCI EF55%SYNGOLV A4C EF58.7SYNGOSpecimen (Source)Anatomical Location / LateralityCollection [...] SYNGO - 01/19/2025 2:38 PM EST ? [place] [id number] TRANSTHORACIC ECHOCARDIOGRAM REPORT Patient Name: ? CARLOS A DIDION ?? Reading Physician: ?[id number] Geoff ?VacanteDO Study Date: ? 01/19/2025 ?Ordering Provider: ?[id number] LIZZY LYNN MRN/PID: ?[id number] ?Fellow: Accession#: ? [id number] ?Nurse: Date of /Age: ??1945 / ?Scarfer: ?Asia Olguin ?years ? RDCS Gender Assigned at ??F ? Additional Staff: : Height: ? 157.48 cm ? Admit Date: ? 01/18/2025 Weight: ? 88.45 kg ?Admission Status: ? Inpatient - ?Routine BSA / BMI: ?1.89 m2 / 35.67 ? Department Location: ??[facility] ?kg/m2 ? Echo Lab Blood Pressure: 100 /52 mmHg Study Type: ?TRANSTHORACIC ECHO (TTE) COMPLETE Diagnosis/ICD: Shortness of breath-R06.02; Other fluid overload-E87.79 Indication: ?Shortness of Breath, Fluid Overload CPT Codes: ? Echo Complete w Full [id number] Patient History: Pertinent History: Cardiomyopathy and Lung [...] m/s ??(0.6-0.9m/s) PV Max PG: ?1.9 mmHg [id number] Geoff Elliott DO Electronically signed on 01/19/2025 at 2:38:31 PM Final Procedure Note Geoff Elliott DO - 01/19/2025 [place] [id number] TRANSTHORACIC ECHOCARDIOGRAM REPORT Patient Name: CARLOS Aparicio CLIFTON Reading Physician: Makeda Elliott DO Study Date: 01/19/2025 Ordering Provider: [id number] WILLIAMSON MRN/PID: [id number] Fellow: Nurse: Date of /Age: 9 1945 Scarfer: Sam hillman RDCS Gender Assigned at F Additional Staff: : Height: 157.48 cm Admit Date: 01/18/2025 Weight: 88.45 kg Admission Status: Inpatient- Routine BSA / BMI: 1.89 m2 / 35.67 Department Location: [place] [id number] Echo Lab Blood Pressure: 100 /52 mmHg Study Type: TRANSTHORACIC ECHO (TTE) COMPLETE Diagnosis/ICD: Shortness of breath-R06.02; Other fluid overload-E87.79 Indication: Shortness of Breath, Fluid Overload CPT Codes: Echo Complete w Full [id number] Patient History: Pertinent History: Cardiomyopathy and Lung [...] 0.7 m/s (0.6-0.9m/s) PV Max P.9 mmHg [id number] Geoff Elliott DO Electronically signed on 01/19/2025 [...] was demonstrated. Authorizing ProviderResult TypeResult StatusLizzy Lynn LUMBER SORTER-CNPCV ECHO PROCEDURESFinal ResultPerforming OrganizationAddressCity/State/ZIP CodePhone Number SYNGO [...] Carrero 01/19/2025 8:57 AM Dictation workstation: ?? [id number] Narrative 01/19/2025 8:57 AM EST Interpreted By: Cory Carrero, STUDY: XR CHEST 2 VIEWS; ??01/19/2025 8:43 am ?? INDICATION: Signs/Symptoms:shortness of breath. ? COMPARISON: None ?? ACCESSION NUMBER(S): [id number] ?? ORDERING CLINICIAN: LIZZY LYNN ?? TECHNIQUE: [...] Signs/Symptoms:shortness of breath. COMPARISON: None ACCESSION NUMBER(S): [id number] ORDERING CLINICIAN: LIZZY LYNN TECHNIQUE: Frontal and [...] Cory Carrero 01/19/2025 8:57 AM Dictation workstation: [id number] Authorizing ProviderResult TypeResult StatusLizzy Lynn LUMBER SORTER-CNPIMG XR PROCEDURES Final Result * Lavender Top (01/19/2025 5:33 AM EST)ComponentValueRef RangeTest Method Analysis TimePerformed AtPathologist SignatureExtra TubeHold for add-ons. 01/20/2025 8:30 AM [facility] LABComment:Auto resulted.Specimen (Source)Anatomical Location / LateralityCollection Method / VolumeCollection TimeReceived TimeBloodVenous blood specimen / Zpxxgrz8501/19/2025 5:33 AM EST 01/19/2025 6:10 AM EST Narrative Authorizing ProviderResult TypeResult StatusLashanda Azar MDLAB BLOOD ORDERABLES Final ResultPerforming OrganizationAddressCity/State/ZIP CodePhone Number [facility] [address] [place] [address] * (ABNORMAL) Basic Metabolic Panel (01/19/2025 5:33 AM EST)ComponentValueRef RangeTest MethodAnalysis TimePerformed AtPathologist OkuregjhjMwcnxyp396(H)74 - 99 mg/dL LAB CHEMISTRY METHOD 01/19/2025 6:51 AM [facility] MQQYsrrlr246092 - 145 mmol/L LAB CHEMISTRY METHOD 01/19/2025 6:51 AM [facility] LABPotassium4.03.5 - 5.3 mmol/L LAB CHEMISTRY METHOD 01/19/2025 6:51 AM [facility] NMIWioitmqs38694 - 107 mmol/L LAB CHEMISTRY METHOD 01/19/2025 6:51 AM [facility] YVXNafhovncbio5325 - 32 mmol/L LAB CHEMISTRY METHOD 01/19/2025 6:51 AM [facility] LABComment:Bicarbonate results may be falsely elevated when Lactate Dehydrogenase (LDH) concentrations exceed 2,000 U/L due to a temporary reagent manufacturing issue. If significantly elevated LDH levels are suspected, interpret bicarbonate results with caution, correlate with the patient???s clinical status, and consider confirming CO2 values using a blood gas analyzer.Anion Llj3411 - 20 mmol/L LAB CHEMISTRY METHOD 01/19/2025 6:51 AM [facility] LABUrea Zgjslgjf14(H)6 - 23 mg/dL LAB CHEMISTRY METHOD 01/19/2025 6:51 AM [facility] LABCreatinine1.56(H)0.50 - 1.05 mg/dL LAB CHEMISTRY METHOD 01/19/2025 6:51 AM [facility] HEMeUTB12(L)>60 mL/min/1.73m*2 LAB CHEMISTRY METHOD 01/19/2025 6:51 AM [facility] LABComment: Calculations of estimated GFR are performed using the 2020 CKD-EPI Study Refit equation without therace variable for the IDMS-Traceable creatinine methods. https://jasn.asnjournals.org/content///ASN.0273442033 Calcium8.88.6 - 10.3 mg/dL LAB CHEMISTRY METHOD 01/19/2025 6:51 AM [facility] LABSpecimen (Source)Anatomical Location / LateralityCollection Method / VolumeCollection TimeReceived TimeBlood Venous blood specimen / UnknownVenipuncture / Nkvctge7001/19/2025 5:33 AM EST 01/19/2025 6:09 AM EST Narrative Authorizing ProviderResult TypeResult StatusAmy Hay Lynn [facility] BLOOD ORDERABLESFinal ResultPerforming OrganizationAddressty/State/ZIP CodePhone Number [facility] [address] [place] [address] * Magnesium (01/18/2025 4:51 PM EST)ComponentValueRef RangeTest MethodAnalysis TimePerformed AtPathologist SignatureMagnesium2.171.60 - 2.40 mg/dL LAB CHEMISTRY METHOD 01/18/2025 5:19 PM [facility] LABSpecimen (Source)Anatomical Location / LateralityCollection Method / VolumeCollection TimeReceived TimeBlood Venous blood specimen / UnknownVenipuncture / Icbfrvx1101/18/2025 4:51 PM EST 01/18/2025 4:55 PM EST Narrative Authorizing ProviderResult TypeResult StatusAmy Hay Lynn [facility] BLOOD ORDERABLESFinal ResultPerforming OrganizationAddressty/State/ZIP CodePhone Number [facility] [address] [place] [phone] * (ABNORMAL) Comprehensive Metabolic Panel (01/18/2025 4:51 PM EST)Component ValueRef RangeTest MethodAnalysis TimePerformed AtPathologist SignatureGlucose 132(H)74 - 99 mg/dL LAB CHEMISTRY METHOD 01/18/2025 5:19 PM [facility] NMDGbwszl975(L)136 - 145 mmol/L LAB CHEMISTRY METHOD 01/18/2025 5:19 PM [facility] LABPotassium3.73.5 - 5.3 mmol/L LAB CHEMISTRY METHOD 01/18/2025 5:19 PM [facility] BFLVynoyvsk6849 - 107 mmol/L LAB CHEMISTRY METHOD 01/18/2025 5:19 PM [facility] NASTfvlnzxarly1204 - 32 mmol/L LAB CHEMISTRY METHOD 01/18/2025 5:19 PM [facility] LABComment:Bicarbonate results may be falsely elevated when Lactate Dehydrogenase (LDH) concentrations exceed 2,000 U/L due to a temporary reagent manufacturing issue. If significantly elevated LDH levels are suspected, interpret bicarbonate results with caution, correlate with the patient???s clinical status, and consider confirming CO2 values using a blood gas analyzer.Anion Ydz9511 - 20 mmol/L LAB CHEMISTRY METHOD 01/18/2025 5:19 PM [facility] LABUrea Jvrsokqy47(H)6 - 23 mg/dL LAB CHEMISTRY METHOD 01/18/2025 5:19 PM [facility] LABCreatinine1.45(H)0.50 - 1.05 mg/dL LAB CHEMISTRY METHOD 01/18/2025 5:19 PM [facility] OCIsRUZ31(L)>60 mL/min/1.73m*2 LAB CHEMISTRY METHOD 01/18/2025 5:19 PM [facility] LABComment: Calculations of estimated GFR are performed using the 2020 CKD-EPI Study Refit equation without therace variable for the IDMS-Traceable creatinine methods. https://jasn.asnjournals.org/content/early//ASN.7111833756 Calcium9.08.6 - 10.3 mg/dL LAB CHEMISTRY METHOD 01/18/2025 5:19 PM [facility] LABAlbumin3.93.4 - 5.0 g/dL LAB CHEMISTRY METHOD 01/18/2025 5:19 PM [facility] LABAlkaline Ibxkicfldnq115(H)33 - 136 U/L LAB CHEMISTRY METHOD 01/18/2025 5:19 PM [facility] LABTotal Protein7.26.4 - 8.2 g/dL LAB CHEMISTRY METHOD 01/18/2025 5:19 PM [facility] ZNEJBT301 - 39 U/L LAB CHEMISTRY METHOD 01/18/2025 5:19 PM [facility] LABBilirubin, Total2.0(H)0.0 - 1.2 mg/dL LAB CHEMISTRY METHOD 01/18/2025 5:19 PM [facility] FGTQWW504 - 45 U/L LAB CHEMISTRY METHOD 01/18/2025 5:19 PM [facility] LABComment:Patients treated with Sulfasalazine may generate falsely decreased results for ALT.Specimen (Source) Anatomical Location / LateralityCollection Method / VolumeCollection Time Received TimeBloodVenous blood specimen / UnknownVenipuncture / Unknown 01/18/2025 4:51 PM EST01/18/2025 4:55 PM EST Narrative Authorizing ProviderResult TypeResult StatusLizzy Hay LUMBER SORTER-CNPLAB BLOOD ORDERABLESFinal ResultPerforming OrganizationAddressCity/State/ZIP CodePhone Number [facility] [address] [place] [address] * Electrocardiogram - Post Ablation (01/18/2025 11:46 AM EST)ComponentValueRef RangeTest MethodAnalysis TimePerformed AtPathologist SignatureVentricular Rate 59BPMMUSEAtrial Xdml84KJMDHYIGX Bihuzcfb720deUUBESBR Crmbsfxy83dcCRUABS Gdskwine224isFJGKZDU Calculation(Bazett)504msMUSEP Ofpr66wxbfsaoMIYHO Eadc145 degreesMUSET Fotm786ebunbhbZVMBATF Ijrlt60qutugYXROH Njvci377grDCMVT Bdzzz997 msMUSEP Sakqmo923ciELYKI Qylpig745hqCMHAJOJ Tlpplnljam932bqEELRPcajoayt (Source)Anatomical Location / LateralityCollection Method / VolumeCollection [...] 3:30:46 PM Authorizing ProviderResult TypeResult StatusLizzy Lynn LUMBER SORTER-CNPECG ORDERABLES Final ResultPerforming OrganizationAddressCity/State/ZIP CodePhone Number MUSE [...] Atrial Fibrillation Ablation Procedures Pulmonary Vein Isolation (54099), LA Pacing and recording (65711), 3D Mapping (99467), Transeptal Catheterization (04191), His Bundle Recording (82368), Ultrasound Guided vascular access (88950), Intracardiac Echocardiogram (55737), Additional SVT Ablation (47269) and Direct current cardioversion (71684) Patient history: Please see attached H&P Procedure [...] the RVOT to evaluate for an effusion (sxpar-hl-uoeyhoza circumferential effusion). ??After access was obtained, a [...] was taped to a quad catheter (4Fr [employer]) so it could be visualized on CARTO, [...] and LV, was evaluated and a stable qsnue-af-epqbbfzc circumferential effusion was visualized. Sheaths were removed [...] the non-critical portions. Narrative Authorizing ProviderResult TypeResult StatusEsseim Doe [facility] ELECTROPHYSIOLOGY PROCEDURESEdited Result - FinalPerforming OrganizationAddressCity/State/ZIP CodePhone Number [email or web address] * (ABNORMAL) ACTIVATED CLOTTING TIME LOW (01/18/2025 8:57 AM EST)ComponentValue Ref RangeTest MethodAnalysis TimePerformed AtPathologist SignaturePOCT Activated Clotting Time Low Range>397(H)83 - 199 sec01/18/2025 9:06 AM EST [facility] LABComment: ABOVE LIMIT FOR DEVICE Target ACT range will vary based on the patient population, clinical status, and surgical intervention occurring. Specimen (Source)Anatomical Location / LateralityCollection Method / Volume Collection TimeReceived TimeBloodVenous blood specimen / Gauidrh8801/18/2025 8:57 AM EST01/18/2025 9:06 AM EST Narrative Authorizing ProviderResult TypeResult StatusLashanda MILLER POINT OF CARE TEST DOCKED DEVICE UNSOLICITED RESULTSFinal ResultPerforming OrganizationAddFair[facility]/ZIP CodePhone Number [facility] [address] [place] [phone] * (ABNORMAL) ACTIVATED CLOTTING TIME LOW (01/18/2025 8:24 AM EST)ComponentValue Ref RangeTest MethodAnalysis TimePerformed AtPathologist SignaturePOCT Activated Clotting Time Low Ffaix136(H)83 - 199 sec01/18/2025 8:32 AM EST [facility] LABComment: Target ACT range will vary based on the patient population, clinical status, and surgical intervention occurring. Specimen (Source)Anatomical Location / LateralityCollection Method / Volume Collection TimeReceived TimeBloodVenous blood specimen / Ybndnbv3601/18/2025 8:24 AM EST01/18/2025 8:32 AM EST Narrative Authorizing ProviderResult TypeResult Dylan MILLER POINT OF CARE TEST DOCKED DEVICE UNSOLICITED RESULTSFinal ResultPerforming OrganizationAddFairview Hospital/[facility]/ZIP CodePhone Number [facility] [address] [place] [address] * ECG 12 lead STAT (01/18/2025 7:21 AM EST)ComponentValueRef RangeTest Method Analysis TimePerformed AtPathologist SignatureVentricular Pfls29VDCELYEKAI Clxfobuc22zuNYEIAB Fgxnadzb655nbVKMLQXH Calculation(Bazett)475msMUSER Axis95 degreesMUSET Rqew491rcsirmcIYLQOCV Udqxl75uqmsdHKSFV Gubuw575hpSZTUC Xnnwxq269 msMUSEQTC Vppozyuxgw066vfURHSQsnmpfox (Source)Anatomical Location / Laterality Collection Method / [...] TimePerformed AtPathologist SignatureABO TYPEA103/20/2024 11:49 AM EST [facility] SSOOOJR8901/18/2025 11:49 AM [facility] MVKSLTOOV09/17/2025 11:49 AM [facility] BANKSpecimen (Source)Anatomical Location / LateralityCollection Method / VolumeCollection TimeReceived Time BloodVenous blood specimen / UnknownVenipuncture / Tkvbyfx6101/18/2025 5:57 AM EST01/18/2025 6:16 AM EST Narrative Authorizing ProviderResult TypeResult StatusLizzy Parks APRN-CNPLAB BLOOD BANK TEST ORDERABLESFinal ResultPerforming OrganizationAddressCity/State/ZIP CodePhone Number [facility] [address] [place] [phone], * (ABNORMAL) Basic Metabolic Panel (01/18/2025 5:57 AM EST)ComponentValueRef RangeTest MethodAnalysis TimePerformed AtPathologist ActygeasqTvlikqd3124 - 99 mg/dL LAB CHEMISTRY METHOD 01/18/2025 6:38 AM [facility] GUUWfplpo628934 - 145 mmol/L LAB CHEMISTRY METHOD 01/18/2025 6:38 AM [facility] LABPotassium4.23.5 - 5.3 mmol/L LAB CHEMISTRY METHOD 01/18/2025 6:38 AM [facility] LABComment:MILD HEMOLYSIS DETECTED. The result may be falsely elevated due to hemolysis or other interferents. Clinical correlation is recommended. Repeat testing may be considered.Wovkiyjb48 98 - 107 mmol/L LAB CHEMISTRY METHOD 01/18/2025 6:38 AM [facility] ZMOLhkfdfusxpz8583 - 32 mmol/L LAB CHEMISTRY METHOD 01/18/2025 6:38 AM [facility] LABComment:Bicarbonate results may be falsely elevated when Lactate Dehydrogenase (LDH) concentrations exceed 2,000 U/L due to a temporary reagent manufacturing issue. If significantly elevated LDH levels are suspected, interpret bicarbonate results with caution, correlate with the patient???s clinical status, and consider confirming CO2 values using a blood gas analyzer.Anion Wwk8745 - 20 mmol/L LAB CHEMISTRY METHOD 01/18/2025 6:38 AM [facility] LABUrea Wkfemezc84(H)6 - 23 mg/dL LAB CHEMISTRY METHOD 01/18/2025 6:38 AM [facility] LABCreatinine1.65(H)0.50 - 1.05 mg/dL LAB CHEMISTRY METHOD 01/18/2025 6:38 AM [facility] SRYySOR53(L)>60 mL/min/1.73m*2 LAB CHEMISTRY METHOD 01/18/2025 6:38 AM [facility] LABComment: Calculations of estimated GFR are performed using the 2020 CKD-EPI Study Refit equation without therace variable for the IDMS-Traceable creatinine methods. https://jasn.asnjournals.org/content//ASN.3222674788 Calcium9.38.6 - 10.3 mg/dL LAB CHEMISTRY METHOD 01/18/2025 6:38 AM [facility] LABSpecimen (Source)Anatomical Location / LateralityCollection Method / VolumeCollection TimeReceived TimeBlood Venous blood specimen / UnknownVenipuncture / Aqzsspa5801/18/2025 5:57 AM EST 01/18/2025 6:17 AM EST Narrative Authorizing ProviderResult TypeResult StatusLizzy Burlesonjulio c [facility] BLOOD ORDERABLESFinal ResultPerforming OrganizationAddressCity/State/ZIP CodePhone Number [facility] [address] [place] [address] * (ABNORMAL) Coagulation Screen (01/18/2025 5:57 AM EST)ComponentValueRef Range Test MethodAnalysis TimePerformed AtPathologist LsjjriszyTbruxnn10.5(H)9.8 - 12.4 seconds LAB COAGULATION METHOD 01/18/2025 6:30 AM [facility] LABINR1.9(H)0.9 - 1.1 LAB COAGULATION METHOD 01/18/2025 6:30 AM [facility] DQQpPGN6300 - 36 seconds LAB COAGULATION METHOD 01/18/2025 6:30 AM [facility] LABSpecimen (Source)Anatomical Location / LateralityCollection Method / VolumeCollection TimeReceived TimeBlood Venous blood specimen / UnknownVenipuncture / Zxgkjml0601/18/2025 5:57 AM EST 01/18/2025 6:17 AM EST Narrative [facility] - 01/18/2025 6:30 AM EST The APTT is no longer used for monitoring Unfractionated Heparin Therapy. For monitoring Heparin Therapy, use the Heparin Assay. Authorizing ProviderResult TypeResult StatusLizzy Hay Kasey [facility] BLOOD ORDERABLESFinal ResultPerforming OrganizationAddressCity/State/ZIP CodePhone Number [facility] [address] [place] [address] documented in this encounter Visit Diagnoses Diagnosis Atrial fibrillation (Multi)- Primary Atrial fibrillation Persistent atrial fibrillation (Multi) Atrial fibrillation Paroxysmal atrial fibrillation (Multi) Atrial fibrillation Shortness of breath Hypervolemia, unspecified hypervolemia type Congestive heart failure, unspecified HF chronicity, unspecified heart failure type (Multi) MAR (generalized anxiety disorder) Generalized anxiety disorder Requires continuous at home supplemental oxygen Persistent atrial fibrillation (Multi) Atrial fibrillation documented [...] on patient preference? Yes Given01/27/2025 9:22 AM SYM367 ooJlklq7501/26/2025 2:08 PM GON032 [facility] 01/25/2025 8:11 PM CDY289 mg amiodarone (Pacerone) tablet 200 mg 200 mg, oral, Daily, First dose on Sat01/18/25 at 1630 Given01/27/2025 9:22 AM QRF636 bzFoiwz3601/26/2025 9:03 AM KYK549 mgGiven 01/25/2025 9:30 AM IOM943 mg anastrozole (Arimidex) tablet 1 mg 1 mg, oral, Daily, First dose (after last modification) on Sat01/19/25 at 0900, Hazardous Drug - Double Nitrile Glove Given01/27/2025 10:45 AM EST1 vnAesvl2101/26/2025 9:04 AM EST1 lqLyyuv5601/25/2025 9:31 AM EST1 mg apixaban (Eliquis) tablet 2.5 mg 2.5 mg, oral, 2 times daily, First dose (after last modification) on Sat01/22/25 at 2100 Given01/27/2025 9:22 AM EST2.5 czVrofm2901/26/2025 9:50 PM EST2.5 mgGiven 01/26/2025 9:03 AM EST2.5 mg benzocaine-menthol (Cepastat Sore Throat) lozenge 1 lozenge 1 lozenge, Mouth/Throat, Every 2 hour PRN, sore throat, Starting on Sat01/18/25 at 1152 Given01/18/2025 8:19 PM EST1 lozenge hydrOXYzine HCL (Atarax) tablet 25 mg 25 mg, oral, Every 6 hours PRN, anxiety, Starting on Gloria 01/21/25 at 1646 Given01/21/2025 5:25 PM EST25 mg ipratropium-albuteroL (Duo-Neb) 0.5-2.5 mg/3 mL nebulizer solution 3 mL 3 mL, nebulization, Every 4 hours PRN, wheezing, shortness of breath, Starting on Sat01/19/25 at 2026 ipratropium-albuteroL (Duo-Neb) 0.5-2.5 mg/3 mL nebulizer solution 3 mL 3 mL, nebulization, 3 times daily RT, First dose (after last modification) on Sat01/20/25 at 0700 Given01/27/2025 12:09 PM EST3 iPXodzr4401/27/2025 7:24 AM EST3 wLNkpvf7701/26/2025 8:21 PM EST3 mL lidocaine-epinephrine (Xylocaine W/EPI) 1 %-1:100,000 injection As needed, Starting on Sat01/18/25 at 0806, Intraprocedure Given01/18/2025 8:06 AM EST10 mLOther losartan (Cozaar) tablet 25 mg 25 mg, oral, Daily, First dose (after last modification) on Sat01/23/25 at 0900, Hold for SBP lessthan 100 mmhg Given01/27/2025 9:22 AM EST25 kiBimmt9101/26/2025 9:03 AM EST25 chDbupe9301/25/2025 9:30 AM EST25 mg metoprolol succinate XL (Toprol-XL) 24 hr tablet 25 mg 25 mg, oral, Daily, First dose on Sat01/19/25 at 0900, Do not crush or chew. Given01/27/2025 9:23 AM EST25 pcTgrds7501/26/2025 9:03 AM EST25 cpGxvyh6901/25/2025 9:30 AM EST25 mg ondansetron (Zofran) injection [...] Keep O2 Sat Above: 90% Rate Verify Medical Gas01/27/2025 7:24 AM VOYCxokw22/26/2025 3:53 AM EST1 Dose Rate Change Medical Gas01/27/2025 3:20 AM EST pantoprazole (ProtoNix) EC tablet 40 mg 40 mg, oral, 2 times daily before meals, First dose on Sat01/18/25 at 1600, Do not crush, chew, orsplit. Given01/27/2025 6:32 AM EST40 mmQcfzl3601/26/2025 3:17 PM EST40 akWswll8401/26/2025 6:38 AM EST40 mg polyethylene glycol (Glycolax, Miralax) packet 17 g 17 g, oral, 2 times daily, First dose on Sat01/19/25 at 2115 Given01/27/2025 9:22 AM EST17 zAzovx1901/26/2025 9:02 AM EST17 gYadap1101/24/2025 3:38 PM EST17 g potassium chloride CR (Klor-Con M20) ER tablet 20 mEq 20 mEq, oral, 2 times daily, First dose on Sat01/21/25 at 2100, Best given with food and plenty ofwater to minimize gastric irritation. Do not crush or chew. Given01/27/2025 9:23 AM EST20 rAmKjabq12/25/2025 9:50 PM EST20 mEqGiven 01/26/2025 9:03 AM EST20 mEq sennosides-docusate sodium (Demi-Colace) 8.6-50 mg per tablet 1 tablet 1 tablet, oral, Nightly, First dose on Sat01/19/25 at 2115 01/26/2025 9:50 PM EST1 wjfgouQylql56/24/2025 8:10 PM EST1 tabletGiven 01/24/2025 8:19 PM EST1 tablet torsemide (Demadex) tablet 100 mg 100 mg, oral, Daily, First dose on Sat01/23/25 at 1415 Given01/27/2025 9:23 AM ISX927 qnZiwgd1901/26/2025 9:04 AM ATK530 mgGiven 01/25/2025 9:31 AM PRN154 mgdocumented in this encounter Active and Recently [...] (Given - Provider: Yaz Ivory RN) * 0903 (Given - Provider: Cat Bello RN) * 2150 (Given - Provider: Concetta Limon RN) * 0922 (Given - Provider: Annabelle Waldrop LPN) hydrOXYzine HCL (Atarax) tablet 25 mg 25 mg, oral, Once, On Sat01/19/25 at 2130, For 1 dose ipratropium-albuteroL (Duo-Neb) 0.5-2.5 mg/3 mL nebulizer solution 3 mL 3 mL, nebulization, 3 times daily RT, First dose (after last modification) on Sat01/20/25 at 0700 * 0700 (Given - Provider: Yaz Marie, STUDENT ADMISSIONS CLERK) * 1322 (Given - Provider: Yaz Marie, STUDENT ADMISSIONS CLERK) * 1919 (Given - Provider: Lisa Loyola, PLANT PROTECTION SUPERVISOR) * 0712 (Given - Provider: Payal Noe, PLANT PROTECTION SUPERVISOR) * 124 (Given - Provider: Payton Holden, PLANT PROTECTION SUPERVISOR) * 2020 (Given - Provider: Bill Ram, PLANT PROTECTION SUPERVISOR) * 0724 (Given - Provider: Payton Holden, PLANT PROTECTION SUPERVISOR) * 1209 (Given - Provider: Robinson Garcia, PLANT PROTECTION SUPERVISOR) LORazepam (Ativan) tablet 0.5 mg 0.5 mg, [...] orsplit. * 0608 (Given - Provider: Dave Gale RN) * 1639 (Given - Provider: Kaylin Lee, RN) * 0638 (Given - Provider: Yaz Ivory, RN) * 1517 (Given - Provider: Cat Bello, RN) * 0632 (Given - Provider: Concetta Limon, RN) * 1600 (Canceled Entry - Provider: Automatic Discharge Provider - Comment: Automatically canceled at discontinue of medication order) polyethylene glycol (Glycolax, Miralax) packet 17 g 17 g, oral, 2 times daily, First dose on Sat01/19/25 at 2115 * 0929 (Not Given - Provider: Mary Grace Denton RN - Reason: Patient/family refused) * 2012 (Not Given - Provider: Yaz Ivory RN - Reason: Patient/family refused) * 901 (Given - Provider: Cat Bello RN) * 2149 (Not Given - Provider: Concetta Limon RN - Reason: Patient/family refused) * 09 (Given - Provider: Annabelle Waldrop LPN) potassium chloride CR (Klor-Con M20) ER tablet 20 mEq 20 mEq, oral, 2 times daily, First dose on Sat01/21/25 at 2100, Best given with food and plenty ofwater to minimize gastric irritation. Do not crush or chew. * 0931 (Given - Provider: Mary Grace Denton RN) * 2010 (Given - Provider: Yaz Ivory RN) * 902 (Given - Provider: Cat Bello RN) * 2149 (Given - Provider: Concetta Limon, RN) * 0923 (Given - Provider: Annabelle Waldrop LPN) sennosides-docusate sodium (Demi-Colace) 8.6-50 mg per tablet 1 tablet 1 tablet, oral, Nightly, First dose on Sat01/19/25 at 2115 * 2009 (Given - Provider: Yaz Ivory, ANGELITO) * 2149 (Given - Provider: Concetta Limon, RN) torsemide (Demadex) tablet 100 mg 100 mg, oral, Daily, First dose on Sat01/23/25 at 1415 * 0931 (Given - Provider: Mary Grace Denton RN) * 0904 (Given - Provider: Cat Bello RN) * 0923 (Given - Provider: Annabelle Waldrop LPN) Medication Order//[id number]/ acetaminophen (Tylenol) tablet 650 mg 650 mg, oral, Every 4 hours PRN, pain ??? mild (1-3), first line, Starting on Sat01/18/25 at 1137,If ordered PRN for pain, nurse is permitted to administer this medication for higher pain scores based on patient preference? Yes * 0930 (Given - Provider: Mary Grace Denton RN) * 09 (Given - Provider: Mary Grace Denton RN) * 2010 (Given - Provider: Yaz Ivory RN) * 140 (Given - Provider: Cat Bello RN) * 09 (Given - Provider: Annabelle Waldrop LPN) benzocaine-menthol (Cepastat Sore Throat) lozenge 1 lozenge 1 lozenge, Mouth/Throat, Every 2 hour PRN, sore throat, Starting on Sat01/18/25 at 1152 hydrOXYzine HCL (Atarax) tablet 25 mg 25 mg, oral, Every 6 hours PRN, anxiety, Starting on Gloria 01/21/25 at 1646 ipratropium-albuteroL (Duo-Neb) 0.5-2.5 mg/3 mL nebulizer solution 3 mL 3 mL, nebulization, Every 4 hours PRN, wheezing, shortness of breath, Starting on Sat01/19/25 at 7 * 1211 (Not Given - Provider: Robinson Garcia, PLANT PROTECTION SUPERVISOR - Reason: Other - Comment: scheduled tx [...] * 1919 (Start - Provider: Lisa Loyola, PLANT PROTECTION SUPERVISOR) * 0712 (Start - Provider: Payal Noe, PLANT PROTECTION SUPERVISOR) * 1242 (Rate Verify Medical Gas - Provider: Payton Holden, PLANT PROTECTION SUPERVISOR) * 2020 (Rate Verify Medical Gas - Provider: Bill Ram, PLANT PROTECTION SUPERVISOR) * 0320 (Rate Change Medical Gas - Provider: Kayleigh Jeronimo, PLANT PROTECTION SUPERVISOR) * 0353 (Start - Provider: Kayleigh Jeronimo, PLANT PROTECTION SUPERVISOR) * 0724 (Rate Verify Medical Gas - Provider: Payton Holden, PLANT PROTECTION SUPERVISOR) oxygen (O2) therapy (CANCELED) 1 Dose, inhalation, Continuous - O2/gases, oxygen, Starting on Sat01/21/25 at 0735, Device: Nasal Cannula, Rate in liters per minute: 2 LPM, Keep O2 Sat Above: 92% * 0702 (Start - Provider: Yaz Marie, STUDENT ADMISSIONS CLERK) * 1328 (Rate Change Medical Gas - Provider: Yaz Marie, STUDENT ADMISSIONS CLERK) Order Group 1: ondansetron (Zofran) tablet 4 [...] Team MemberRelationshipSpecialtyStart DateEnd Date Ken Sy MD [address] [place] [address] PCP - GeneralInternal Medicine07/09/24 Lashanda Azar MD [address] [facility] Medical Office Bldg, [address] [place] [address] CardiologistCardiology-Clinical Cardiac Electrophysiology10/21/24documented as of this encounter
--- OUTSIDE RECORDS SUMMARY | 2025-01-18 07:46 | XMS_ITS | Encounter Summary ---
Author Organization [facility] Address [address] [place] [address] Phone Care Team Providers Care Social Media Marketer Name Role Phone Ken Sy MD Primary Care Provider [phone] Lashanda Azar MD Unavailable [phone] Reason for Visit * Auth/CertSpecialtyDiagnoses / ProceduresReferred By ContactReferred To Contact Diagnoses Persistent atrial fibrillation (Multi) Procedures MA COMPRE EP EVAL ABLTJ ATR FIB PULM VEIN ISOLATION Ablation A-Fib Persistant Lashanda Azar MD [address] [facility] Medical Office Bldg, [address] [place] [address] Phone: tel: fax: [facility] [address] [place] [address] Phone: tel: fax: Referral IDStatusReasonStart DateExpiration DateVisits RequestedVisits [id number] Encounter Details DateTypeDepartmentCare Team (Latest Contact Info)Jxhnngpwjai16/17/2025 7:46 AM ESTAnesthesia Event [facility] [address] [place] [address] Ansley Abreu MD [address] [address] Anesthesia Record Procedure NameResponsible AnesthesiologistAnesthesia Start TimeAnesthesia Stop TimeAblation A-Fib PersistantMaher Venkat Abreu MD01/18/25 46258101/18/25 0946DateTime NkiqeXgdmloh32/17/977634403408Cx Dbwcd4118Tm Start Khbj0857Ld Pzbf4027Th InductionThe patient was reevaluated immediately before moderate or deep sedation use and before anesthesia induction.0754An Qivadxgygj1204Fblrzvoiif Cnzgl6540Wvom Itlne3265Mrjz Lrx5151Kx Mhapuvyjns0759zx stop fdyf6597Rnj of Room 0946An Xfga3753Ijuqtyv to ReceivingI completed my handoff to the receiving clinician during which we: 1. Identified the patient 2. Identified the responsible provider 3. Reviewed the pertinent medical history 4. Discussed the surgicalcourse 5. Reviewed intra-op anesthesia management and issues during anesthesia 6. Set expectations for post-procedure period 7. Allowed opportunity for questions and acknowledgement of understanding.* NameTotalfentaNYL PF 50 mcg/mL50 mcgpropofol 10 mg/mL130 mgdexAMETHasone 4 mg/mL4 mgondansetron 2 mg/mL4 mgrocuronium 10 mg/mL70 mgheparin 1,000 units/mL10,000 Units phenylephrine (Alfred-Synephrine) 10 mg/250 mL NS (40 mcg/mL) infusion3.47 mg phenylephrine 100 mcg/mL syringe 10 mL (prefilled)500 mcgprotamine 10 mg/mL40 mgfurosemide 10 mg/mL40 mgsugammadex (Bridion) 200 mg/2 mL mgLR peuzu758 mLLR amvbe364 mL * Agents Name O2 Sevoflurane Inspired Sevoflurane N2O Inspired N2O * Blood No blood administrations on file. TypeDetailsPlacementRemovalPeripheral IVPlacement Date: 01/18/25; Catheter Size: 16 G; Orientation: Posterior, Right; Location: Hand; Inserted by: placed in holding; Removal Date: 01/18/25; Removal Time: 1135; Removal Reason: No longer clinically nlqkhvmok32/17/25 0000 by Deidra Olivo RN01/18/25 1135 by Deidra Olivo RNArterial LinePlacement Date: 01/18/25; Placement Time: 0718 (created via procedure documentation); Size: 20 G; Orientation: Right; Location: Radial; Securement: Transparent dressing; Patient Tolerance: Tolerated well; Removal Date: 01/18/25; Removal Time: 1017; Removal Reason: No longer clinically mcvkubxrm07/17/25 0718 by Ansley Abreu MD01/18/25 1017 by Yajaira Danielle RNETTPlacement Date: 01/18/25; Placement Time: 0754 (created via procedure documentation); Mask Ventilation: 2; Technique: Video laryngoscopy; Type: ETT - single; Single Lumen Tube Size: 7 mm; Cuffed: Yes; Laryngoscope: Ruma; Blade Size: 3; Location: Oral; Grade View: Grade I; Insertion Attempts: 1; Placement Verification: Capnometry; Placed by: Nurse; Removal Date: 01/18/25; Removal Time: 0754 by TIM FlynnSTONE PROCESSING MACHINE OPERATOR 01/18/25 0937 by DAVID FlynnPeripheral IVPlacement Date: 01/18/25; Placement Time: 08; Catheter Size: 20 G; Orientation: Posterior, Right;Location: Hand; Inserted by: placed in holding room; Removal Date: 01/27/25; Removal Time: 1521; Removal Reason: Per order01/18/25 0800 by Deidra Olivo RN01/27/25 1521 by Annabelle Waldrop LPNVenzoey Hfzuuk67/17/25; 0810; 8 Fr.; Right; Femoral; 01/18/25; 0926; Per protocol; No bkdckexdozmjb08/17/25 0810 by Chapis Melendez RN01/18/25 0926 by Papa Ken Bxzrlc54/17/25; 0811; Other (Comment) (9 fr.); Right; Femoral; 01/18/25; 0926; Per protocol; No ouibjpscyaisx38/17/25 0811 by Chapis Melendez RN01/18/25 0926 by Chapis Melendez RN documented in this encounter Social History Tobacco UseTypesPacks/DayYears UsedDateSmoking Tobacco: NeverSmokeless [...] were you homeless or living in a halfway (including now)?No 01/19/2025 UtilitiesAnswerDate RecordedIn the past 12 months has the [place], gas, oil, or water [employer] threatened to shut off services in your home?No01/19/2025CommentsUnknownSex and Gender InformationValueDate RecordedSex Assigned at BirthNot on fileLegal WsuWvlets94/25/2022 7:53 PM EST Gender IdentityNot on fileSexual OrientationNot on filedocumented as of this encounter Functional Status * BPAnswerDate of JmsdwtgnqoQuzanr726/5801/19/2025 12:16 PM ESTInterfaRegina salinasimkena Data In * PulseAnswerDate of QyoptgxcfsTehqvl8658/18/2025 7:45 AM ESTInterDave peace Data In * QuestionAnswerDate of AssessmentAuthorHistory of Falling, Immediate or Within 3 Vkcrwq344/18/2025 8:00 AM Fouzia Schroeder RNMorse Fall Risk Score35 01/19/2025 8:00 AM Fouzia Schroeder RN * Alberto Scale ScoreAnswerDate of QxtlpcdnxlDonvqg1378/18/2025 8:00 AM Fouzia Schroeder RN * AUDIT-C ScoreAnswerDate of EspsfaoayxBwfufk791/18/2025 1:37 AM Concetta Sandoval RN * QuestionAnswerDate [...] Concetta Sandoval RN * QuestionAnswerDate of AssessmentAuthorMalnutrition Nwnwz06003/21/2024 1:39 AM Concetta Sandoval RN * QuestionAnswerDate of AssessmentAuthorLittle interest or pleasure in doing thingsNot at all01/19/2025 1:37 AM Concetta Sandoval, RNFeeling down, depressed, or hopelessNot at all01/19/2025 1:37 AM Concetta Sandoval RN * Over the past 2 weeks, how often have you been bothered by any of the following problems?QuestionAnswerDate of AssessmentAuthorPatient Health Questionnaire-2 Iwecp73803/21/2024 1:37 AM Concetta Sandoval RN * 4. Active Suicidal Ideation with Some Intent to Act, Without Specific Plan (Lifetime)AnswerDate of OqhrljuzjhKjxcvyHo94/18/2025 12:19 AM Concetta Sandoval RN * 5. Active Suicidal Ideation with Specific Plan and Intent (Lifetime)AnswerDate of JsnxphlshwYvmtcuRm28/18/2025 12:19 AM Concetta Sandoval RN * Actual Attempt (Lifetime)AnswerDate of WedgbakyfrDbjorkFs60/18/2025 12:19 AM Concetta Sandoval RN * Interrupted Attempts (Lifetime)AnswerDate of MttkmwbijxKbddbbSt45/18/2025 12:19 AM Concetta Sandoval RN * Aborted or Self-Interrupted Attempt (Lifetime)AnswerDate of AssessmentAuthorNo 01/19/2025 12:19 AM Concetta Sandoval RN * Preparatory Acts or Behavior (Lifetime)AnswerDate of AssessmentAuthorNo 01/19/2025 12:19 AM Concetta Sandoval RN * Calculated C-SSRS Risk Score (Lifetime/Recent)AnswerDate of AssessmentAuthorNo Risk Crfiqqgme40/18/2025 12:19 AM Concetta Sandoval RN * Hanson Suicide Severity Rating Scale (Screener/Recent Self-Report)Question AnswerDate [...] Sandoval RN documented as of this encounter OR Notes * Anesthesia Postprocedure Evaluation - TIM FlynnSTONE PROCESSING MACHINE OPERATOR - 01/18/2025 9:46 AM EST Patient: Kassandra Escobar Procedure Summary Date: 01/18/25 Room / Location: [facility] / [facility] Cardiac Supervisor General Anesthesia Start: 745 Anesthesia Stop: 945 Procedure: Ablation A-Fib Persistant Diagnosis: Persistent atrial fibrillation (Multi) Providers: Lashanda Azar MD Responsible Provider: Ansley Abreu MD Anesthesia Type: general ASA Status: 3 Anesthesia Type: general Anesthesia Post Evaluation Patient location during evaluation: PACU Patient participation: waiting for patient participation Level of consciousness: sleepy but conscious Pain management: adequate Airway patency: patent Cardiovascular status: acceptable Respiratory status: acceptable Hydration status: acceptable Postoperative Nausea and Vomiting: none No notable events documented. * Anesthesia Procedure Notes - Ansley Abreu MD - 01/18/2025 9:21 AM EST Associated Order(s): Arterial Line Arterial Line: Date/Time: 01/18/2025 7:18 AM Staffing Performed: attending Authorized by: Ansley Abreu MD Performed by: Ansley Abreu MD An arterial line was placed. Procedure performed using surface landmarks.in the pre-op for the following indication(s): continuous blood pressure monitoring and blood sampling needed. A 20 gauge (size), 1 and 3/4 inch (length), Angiocath (type) catheter was placed into the Right radial artery, secured by Deloris Rangel technique used. Events: patient tolerated procedure well with no complications. * Anesthesia Procedure Notes - DAVID Flynn - 01/18/2025 8:03 AM ESTAssociated Order(s): Airway Airway Date/Time: 01/18/2025 7:54 AM Reason: elective Airway not difficult Staffing Performed: STONE PROCESSING MACHINE OPERATOR Authorized by: Ansley Abreu MD Performed by: DAVID Flynn Patient location during procedure: OR Patient Condition Indications for airway management: anesthesia Patient position: sniffing MILS maintained throughout Sedation level: deep Final Airway Details Preoxygenated: yes Final airway type: endotracheal airway Successful airway: ETT Cuffed: yes Successful intubation technique: video laryngoscopy Adjuncts used in placement: intubating stylet Endotracheal tube insertion site: oral Blade: Ruma Blade size: #3 ETT size (mm): 7.0 Cormack-Lehane Classification: grade I - full view of glottis Placement verified by: capnometry Measured from: lips ETT to lips (cm): 21 Number of attempts at approach: 1 * Anesthesia Preprocedure Evaluation - Ansley Abreu MD - 01/15/2025 2:46 PM EST Patient: Kassandra Escobar Procedure Information Date/Time: 01/18/25 0745 Procedure: Ablation A-Fib Persistant - Hold Farxiga for 3 days prior to the procedure. Location: [facility] / [facility] Cardiac Supervisor General Providers: Lashanda Azar MD Relevant Problems Cardiac (+) Abnormal EKG (+) Atrial fibrillation (Multi) (+) Essential (primary) hypertension (+) Hyperlipidemia (+) Incomplete RBBB (+) Mitral valve regurgitation (+) Nonrheumatic aortic (valve) insufficiency (+) Nonrheumatic tricuspid valve regurgitation GI (+) Irritable bowel syndrome Hematology (+) Anemia associated with nutritional deficiency (+) FDC current use of anticoagulant therapy Clinical information reviewed: Tobacco Allergies Meds Problems Med Hx Surg Hx Fam Hx Soc Hx NPO Detail: No data recorded Physical Exam Airway Mallampati: II TM distance: >3 FB Neck ROM: full Mouth openin or more finger widths Cardiovascular Rhythm: irregular Rate: abnormal Dental Pulmonary - normal exam Abdominal - normal exam Anesthesia Plan History of general anesthesia?: yes History of complications of general anesthesia?: no ASA 3 general (A-Line) The patient is not a current smoker. Patient was previously instructed to abstain from smoking on day of procedure. Patient did not smoke on day of procedure. intravenous induction Anesthetic plan and risks discussed with patient. Plan discussed with STONE PROCESSING MACHINE OPERATOR and attending. documented in this encounter Plan of Treatment DateTypeDepartmentCare Team (Latest Contact Info)Tvexbwnoscc89/02/2025 2:30 PM ESTOffice Visit [facility] [address] [address] Girish Chapman MD [address] [facility], [address] [address] 02/02/2025 2:30 PM ESTOffice Visit [facility] [address] [place] [address] [place] [address] [facility] Department [place] [address] 02/15/2025 2:00 PM ESTOffice Visit [facility] [address] [address] Sarah Jesus PA-C [address] [facility], [address] [address] 04/19/2025 8:30 AM ESTAncillary Procedure [facility] [address] [address] 05/18/2025 10:15 AM EDTOffice Visit [facility] [address] [facility] [address] [place] [id number] Lashanda Azar MD [address] [facility] Medical Office Bldg, [facility] [address] [place] [address] documented as of this encounter Procedures Procedure NamePriorityDate/TimeAssociated DiagnosisCommentsPR AN ELECTIVE ENDOTRACHEAL ZHAHHXYcsehsv04/17/2025 7:54 AM EST ANESTHESIA ARTERIAL LINE CVQKKWCAOTciinrf25/17/2025 7:18 AM EST documented in this encounter Results * MA AN ELECTIVE ENDOTRACHEAL AIRWAY (01/18/2025 7:54 AM EST) Narrative Adalberto Sood APRN-CRNA - 01/18/2025 7:54 AM EST DAVID Flynn 01/18/2025 8:03 AM Airway Date/Time: 01/18/2025 7:54 AM Reason: elective Airway not difficult Staffing Performed: STONE PROCESSING MACHINE OPERATOR Authorized by: Ansley Abreu MD ?? Performed by: DAVID Flynn Patient location during procedure: OR Patient Condition Indications for airway management: anesthesia Patient position: sniffing MILS maintained throughout Sedation level: deep Final Airway Details Preoxygenated: yes Final airway type: endotracheal airway Successful airway: ETT Cuffed: yes Successful intubation technique: video laryngoscopy Adjuncts used in placement: intubating stylet Endotracheal tube insertion site: oral Blade: Ruma Blade size: #3 ETT size (mm): 7.0 Cormack-Lehane Classification: grade I - full view of glottis Placement verified by: capnometry Measured from: lips ETT to lips (cm): 21 Number of attempts at approach: 1 Authorizing ProviderResult TypeResult StatusAnsley Abreu MDANESTHESIA ORDERABLESFinal Result * ANESTHESIA ARTERIAL LINE PLACEMENT (01/18/2025 7:18 AM EST) Narrative Ansley Abreu MD - 01/18/2025 7:18 AM EST Ansley bAreu MD 01/18/2025 9:21 AM Arterial Line: Date/Time: 01/18/2025 7:18 AM Staffing Performed: attending Authorized by: Ansley Abreu MD ?? Performed by: Ansley Abreu MD An arterial line was placed. Procedure performed using surface landmarks.in the pre-op for the following indication(s): continuous blood pressure monitoring and blood sampling needed. A 20 gauge (size), 1 and 3/4 inch (length), Angiocath (type) catheter was placed into the Right radial artery, secured by Tegaderm Seldinger technique used. Events: patient tolerated procedure well with no complications. Authorizing ProviderResult TypeResult StatusMaher Venkat Abreu MDANESTHESIA ORDERABLESFinal Result documented in this encounter Visit Diagnoses Not on filedocumented in this encounter Administered Medications Medication OrderMAR ActionAction DateDoseRateSite dexAMETHasone (Decadron) injection intravenous, As needed, Starting on Sat01/18/25 at 0800, Anesthesia Intraprocedure Given01/18/2025 8:00 AM EST4 mg fentaNYL PF (Sublimaze) injection intravenous, As needed, Starting on Sat01/18/25 at 0933, Anesthesia Intraprocedure Given01/18/2025 9:33 AM EST50 mcg furosemide (Lasix) injection intravenous, As needed, Starting on Sat01/18/25 at 0927, Anesthesia Intraprocedure Given01/18/2025 9:27 AM EST40 mg heparin 1,000 unit/mL injection intravenous, As needed, Starting on Sat01/18/25 at 0817, Anesthesia Intraprocedure Given01/18/2025 8:30 AM EST1,000 KqmahZnyqz81/17/2025 8:17 AM EST9,000 Units lactated Ringer's bolus intravenous, Administer over 2 Hours, Continuous PRN, Starting on Sat01/18/25 at 0725, Anesthesia Intraprocedure New Bag01/18/2025 7:25 AM EST lactated Ringer's bolus intravenous, Administer over 2 Hours, Continuous PRN, Starting on Sat01/18/25 at 0725, Anesthesia Intraprocedure New Bag01/18/2025 7:25 AM EST ondansetron (Zofran) injection intravenous, As needed, Starting on Sat01/18/25 at 0800, Anesthesia Intraprocedure Given01/18/2025 8:00 AM EST4 mg phenylephrine (Alfred-Synephrine) 10 mg in sodium chloride 0.9% 250 mL (0.04 mg/mL) infusion (premix) intravenous, Continuous PRN, Starting on Sat01/18/25 at 0818, Anesthesia Intraprocedure Rate/Dose Vqqqhe8601/18/2025 8:40 AM EST0.5 mcg/kg/min65.625 mL/hrRate/Dose Change 01/18/2025 8:24 AM EST0.7 mcg/kg/min91.875 mL/hrNew Bag01/18/2025 8:18 AM EST0.5 mcg/kg/min65.625 mL/hr phenylephrine in NS (Alfred-Synephrine) 100 mcg/mL syringe intravenous, As needed, Starting on Sat01/18/25 at 0815, Anesthesia Intraprocedure Given01/18/2025 8:15 AM FHY058 ygkRduuj58/17/2025 8:11 AM FOP783 mcgGiven 01/18/2025 8:06 AM ZNP465 mcg propofol (Diprivan) injection intravenous, As needed, Starting on Sat01/18/25 at 0752, Anesthesia Intraprocedure Given01/18/2025 7:52 AM GTK579 mg protamine injection intravenous, As needed, Starting on Sat01/18/25 at 0924, Anesthesia Intraprocedure Given01/18/2025 9:24 AM EST40 mg rocuronium (ZeMuron) injection intravenous, As needed, Starting on Sat01/18/25 at 0752, Anesthesia Intraprocedure Given01/18/2025 8:37 AM EST40 bfRdpth0101/18/2025 7:52 AM EST30 mg sugammadex (Bridion) injection intravenous, As needed, Starting on Sat01/18/25 at 0933, Anesthesia Intraprocedure Given01/18/2025 9:33 AM DDM716 mgdocumented in this encounter Additional Health Concerns AssessmentNoted TimeA fall risk assessment has been completed for the patient 10/01/2024 9:29 AM EDTdocumented as of this encounter Care Teams Team MemberRelationshipSpecialtyStart DateEnd Date Ken Sy MD [address] [place] [address] PCP - GeneralInternal Medicine07/09/24 Lashanda Azar MD [address] [facility] Medical Office [address], [facility] [address] [place] [address] CardiologistCardiology-Clinical Cardiac Electrophysiology10/21/24documented as of this encounter
--- OUTSIDE RECORDS SUMMARY | 2025-01-29 20:53 | XMS_ITS ---
Author Organization [facility] Address [address] [place] [address] Phone Care Team Providers Care Black Top Paver Operator Name Role Phone Ken Sy MD Primary Care Provider [phone] Lashanda Azar MD Unavailable [phone] Jacqui Hung LPN Unavailable Transitional Care Management Status:Enrolled (Active) Start date:01/27/2025 Enrollment date:01/29/2025 Current support & services provided:Medium Complexity Transitional Care Management Related social drivers of health:Social Connections, Stress, Physical Activity NameRelationsMarina Hung LPN(Responsible Staff)Sap Basis Consultant [phone] Continued Care and Services Coordination
--- OUTSIDE RECORDS SUMMARY | 2025-01-29 20:53 | XMS_ITS | Encounter Summary ---
Author Organization [facility] Address [address] [place] [address] Care Team Providers Care Flight Test Mechanic Name Role Phone Ken Sy MD Primary Care Provide r Source Comments In the event this information is protected by the Federal Confidentiality of Alcohol and Drug AbusePatient Records regulations: The Federal rules restrict any use of the information to criminally investigate or prosecute any alcohol or drug abuse patient.[facility] Reason for Visit * ReasonCommentsRefill Request Encounter Details DateTypeDepartmentCare Team (Latest Contact Info)Pyhaefeptsn33/28/2025Refill Hematology/Oncology [address] [place] [address] Zunilda Carlson APRN.TAVERN OPERATOR [address] [place] [address] Refill Request Social History Tobacco UseTypesPacks/DayYears UsedDateSmoking Tobacco: NeverPassive Smoke Exposure: PastSmokeless Tobacco: NeverAlcohol UseStandard Drinks/WeekCommentsNo0 (1 standard drink = 0.6 oz pure alcohol)PHQ-2AnswerDate RecordedPHQ-2 score0 5Area Deprivation IndexAnswerDate RecordedNational Score (1-100), lower number is lower azka967003/21/2023State Score (1-10), lower number is lower risk4 4Data from: https://www.neighborhoodatlas.[facility]/. Last address used for yzcploupjgm[address]4CommentsNoSex and Gender InformationValueDate RecordedSex Assigned at BirthNot on fileLegal XqfCmcpvu83/02/2012 7:34 AM ESTGender FsyrnwxrCauqqn26/26/2024 11:11 PM EDT Sexual OrientationNot on filedocumented as of this encounter Functional Status * Are you deaf or do you have serious difficulty hearing?AnswerDate of DqavuepoddQrwafuYl21/12/2014 1:43 PM Brenna Blackburn MA * Are you blind or do you have serious difficulty seeing, even when wearing glasses?AnswerDate of WtjcvpmkddJqkqqbZx79/12/2014 1:43 PM Brenna Blackburn MA * Do you have serious difficulty walking or climbing stairs?AnswerDate of LbhpdclxsmVznljxTs77/12/2014 1:43 PM Brenna Blackburn MA * Do you have difficulty dressing or bathing?AnswerDate of AssessmentAuthorNo 02/12/2014 1:43 PM Brenna Blackburn MA * Because of a physical, mental, or emotional condition, do you have difficulty doing errands alone such as visiting a doctor's office or shopping?AnswerDate of MovurzlqoxHdgcstLs16/12/2014 1:43 PM Brenna Blackburn MA documented as of this encounter Mental Status * Because of a physical, mental, or emotional condition, do you have serious difficulty concentrating, remembering, or making decisions?AnswerEntry Date LemcnyDx94/12/2014 1:43 PM Brenna Blackburn MA documented in this encounter Miscellaneous Notes * Telephone Encounter - Barney Soto APRN.TAVERN OPERATOR - 01/29/2025 11:46 AM EST The following approved medication requests have been transmitted electronically. Requested Prescriptions Signed Prescriptions Disp Refills anastrozole (ARIMIDEX) 1 mg tablet 90 tablet 1 Sig: Take 1 tablet by mouth once daily Authorizing Provider: BARNEY SOTO APRN.CNP documented in this encounter Plan of Treatment DateTypeDepartmentCare Team (Latest Contact Info)Hiqwyyqgoct45/02/2026 2:00 PM ESTOffice Visit [facility] [address] [place] [address] [address] [place] [address] 6 month follow up with lab05/03/2025 2:20 PM ESTVisit (SP) Office Hematology/Oncology [address] [place] [address] [address] [place] [address] Ty Amador MD [address] [place] [address] [address] [place] [address] 6 month follow up with labdocumented as of this encounter Visit Diagnoses Not on filedocumented in this encounter Care Teams Team MemberRelationshipSpecialtyStart DateEnd Date Ken Sy MD [address] [place] [address] PCP - General03/27/05documented as of this encounter
--- OUTSIDE RECORDS SUMMARY | 2025-01-29 20:53 | XMS_ITS | Clinical Summary ---
Author Organization [facility] Address [address] [place] [address] Care Team Providers Care Retail Product Advisor Name Role Phone Ken Sy MD Primary Care Provide r Allergies No known active allergies Medications MedicationSigDispense QuantityRefillsLast FilledStart DateEnd DateStatus cyanocobalamin, vitamin B-12, (VITAMIN B12 ORAL) Take 2,500 mcg by mouth once daily.Active apixaban (ELIQUIS) 5 mg tab(s) Take 5 mg by mouth two times a day.5Active dapagliflozin propanediol (FARXIGA) 10 mg tablet Take 10 mg by mouth daily with breakfast.Active metoprolol succinate 25 mg CSpX Take 25 mg by mouth once daily./ctive potassium chloride SR (MICRO-K) 10 mEq CR capsule Take 10 mEq by mouth two times a day.5Active losartan (COZAAR) 25 mg tablet Take 25 mg by mouth two times a day.7/6Active amiodarone (PACERONE) 200 mg tablet TAKE 1 TABLET BY MOUTH TWICE DAILY FOR 30 DAYS, THEN TAKE 1 TABLET ONCE DAILY Active furosemide (LASIX) 80 mg tablet Take 1 tablet in the morning and extra half a tablet in the afternoon on Saturday, Saturday, and Gezjoh555Active multivitamin tablet Take 1 tablet by mouth once daily.Active cholecalciferol (VITAMIN D3) 5,000 unit tab Take 125 mcg by mouth once daily.Active anastrozole (ARIMIDEX) 1 mg tablet Take 1 tablet by mouth once daily 90 tablet 5Active anastrozole (ARIMIDEX) 1 mg tablet Take 1 tablet by mouth once daily 90 tablet Discontinued Active Problems ProblemNoted DateDiagnosed DateMalignant neoplasm of upper-outer quadrant of left breast in female, estrogen receptor fquficvp88/21/2018Hyperlipidemia 02/16/2016History of breast gzdroz8702/17/20143002Afaebcvqjl85/19/2013reast CA 02/05/2012 Overview (02/05/2012): Left; Stage I-III; 0 nodes; ER/AR + Encounters DateTypeDepartmentCare VenyFmkvcvweygn53/28/2025Refill Hematology/Oncology [address] [place] [address] [address] [place] [address] Zunilda Carlson APRN.ENGLISH LECTURER Refill Uzmavvw1201/15/2025linical Document [facility] [place] [address] Provider, Ccf 01/14/2025Telephone Cancer Appts [address] [place] [address] Ty Amador MD Mastectomy /10/2025Patient Update Hematology/Oncology [address] [place] [address] [address] [place] [address] Radha Anderson [facility] Patient Yrpusi6111/10/2024Refill Hematology/Oncology [address] [place] [address] [address] [place] [address] Radha Anderson [facility] Refill Tcashws6711/09/2024 2:40 PM EDTVisit (SP) Office Hematology/Oncology [address] [place] [address] [address] [place] [address] Ty Amador MD Malignant neoplasm of upper-outer quadrant of right breast in female, estrogen receptor positive (HCC) (Primary Dx); History of left breast cancer; Heart disease; Ductal carcinoma in situ (DCIS) of right breast; Infiltrating ductal carcinoma of right breast (HCC); Longstanding persistent atrial fibrillation (HCC); Obstructive sleep apnea; Pulmonary hypertension (HCC); Acute on chronic right-sided heart failure (HCC); jail (current) use of systemic steroids; jail (current) use of jscunyqfikweuo93/07/0930Lnlzau17/02/2025Telephone Hematology/Oncology [address] [place] [address] [address] [place] [address] Rose Sawyer RN from Last 3 Months Immunizations ImmunizationAdministration DatesNext Dueinfluenza (HD-IIV3) vaccine, age 65+ yr, high dose, trivalent, PF (FLUZONE HIGH-DOSE)12/18/2023,12/29/2018influenza (HD- IIV4) vaccine, age 65+ yr, high dose, quadrivalent, PF (FLUZONE HIGH-DOSE) 01/03/2023,01/02/2022,01/09/2021,12/21/2019influenza (IIV3) vaccine, trivalent (AFLURIA, FLULAVAL, FLUVIRIN, FLUZONE)12/01/2015influenza (IIV3) vaccine, trivalent, PF (AFLURIA, FLUARIX, FLULAVAL, FLUVIRIN, FLUZONE)12/03/2016, 12/01/2015influenza (IIV3) vaccine, trivalent, PF, intradermal (FLUZONE INTRADERMAL)12/03/2016,12/01/2015influenza (IIV4) vaccine, age 6 mo - 64 yr, quadrivalent (AFLURIA, FLULAVAL, FLUZONE)12/24/2017,12/19/2016,12/21/2014 influenza (IIV4) vaccine, age 6 mo - 64 yr, quadrivalent, PF (AFLURIA, FLUARIX, FLULAVAL, FLUZONE)12/24/2017,12/19/2016,12/21/2014influenza (IIV4) vaccine, quadrivalent (AFLURIA, FLULAVAL, FLUZONE)12/24/2017,12/19/2016influenza (LAIV) vaccine, nasal, unspecified didfzlhusyx64/08/2021,12/21/2019influenza vaccine, unspecified rxmukugkkcf41/08/2021,12/21/2019novel influenza (W4D6-71) vaccine, PF01/13/2009pneumococcal conjugate (PCV13) vaccine, 13 valent (PREVNAR 13) 12/31/2016,12/03/2016pneumococcal polysaccharide (PPV23) vaccine, 23 valent (PNEUMOVAX 23)12/23/2015respiratory syncytial virus (RSV) vaccine, adjuvanted (AREXVY)01/08/2024zoster (ZVL) vaccine, live (ZOSTAVAX)08/18/2015 Social History Tobacco UseTypesPacks/DayYears UsedDateSmoking Tobacco: NeverPassive Smoke Exposure: PastSmokeless Tobacco: Never Tobacco Cessation:Counseling Given: Not Answered Alcohol UseStandard Drinks/WeekCommentsNo0 (1 standard drink = 0.6 oz pure alcohol)PHQ-2AnswerDate RecordedPHQ-2 mmtzl2515Area Deprivation Index AnswerDate RecordedNational Score (1-100), lower number is lower risk65 03/21/2023State Score (1-10), lower number is lower aezk17503/21/2023ata from: https://www.neighborhoodatlas.[facility].[place].[facility]/. Last address used for sfknnyizr[address] [place], [place] [address]/21/2023CommentsNoSex and Gender InformationValueDate RecordedSex Assigned at BirthNot on fileLegal SexFemale 02/03/2012 7:34 AM ESTGender OjkacsvnZtfvwg98/26/2024 11:11 PM EDTSexual OrientationNot on file Last Filed Vital Signs Vital SignReadingTime TakenCommentsBlood Xmxwlfvt376/7411/09/2024 2:48 PM EDT Lyups215111/09/2024 2:48 PM QZTCfzhvpocsgj32.5 ??C (97.7 ??F)11/09/2024 2:48 PM EDTRespiratory Kytb157211/09/2024 2:48 PM EDTOxygen Dsrulgslyq78%11/09/2024 2:48 PM EDTInhaled Oxygen Concentration--Smidjh62.7 kg (191 lb 2.2 oz)11/09/2024 2:48 PM QUQOigxhg652.9 cm (5' 0.98 )11/09/2024 2:48 PM EDTBody Mass Index36.13 11/09/2024 2:48 PM EDT Plan of Treatment DateTypeDepartmentCare Team (Latest Contact Info)Qufesiexcmu75/02/2026 2:00 PM ESTOffice [facility] [address] [place] [address] [address] [place] [address] 6 month follow up with lab05/03/2025 2:20 PM ESTVisit (SP) Office Hematology/Oncology [address] [place], [place] [id number] Ty Amador MD [address] [place] [address] 6 [facility] MaintenanceDue DateLast DoneCommentsAnxiety Tlbepmyfs73/18/1962Depression Toeompmha03/18/1962DTaP,Tdap,Td Vaccine (1 - Tdap) 11/19/1962Shingrix Vaccine (1 of 2)Advance Directive Bznqjtvuld13/01/2025Medicare Advantage Annual Wellness Visit5Covid-19 Vaccine ( season), 01/18/2022, 11/26/2020, Additional history existsInfluenza Vaccine (#1)/, 01/03/2023, 01/02/2022, Additional history existsDiabetes Tjupnuaay12/10/2024, 09/30/2024, 09/30/2024, Additional history existsPneumococcal Vaccine: 50+ Giexakmbw06/30/2017, 12/03/2016, 12/23/2015Bone Density ScreeningCompleted 2RSV CqqqshfOtcvudhfb11/06/2024 Procedures Procedure NamePriorityDate/TimeAssociated DiagnosisCommentsCA 15-3 BLDRoutine 11/09/2024 2:21 PM EDT Malignant neoplasm of upper-outer quadrant of right breast in female, estrogen receptor positive (HCC) COMPREHENSIVE METABOLIC JCJQIKnvyvng21/08/2025 2:21 PM EDT Malignant neoplasm of upper-outer quadrant of right breast in female, estrogen receptor positive (HCC) CBC + JQVSToggamm38/08/2025 2:21 PM EDT Malignant neoplasm of upper-outer quadrant of right breast in female, estrogen receptor positive (HCC) from Last 3 Months Results * (ABNORMAL) COMPREHENSIVE METABOLIC PANEL (11/09/2024 2:21 PM EDT)Component ValueRef RangeTest MethodAnalysis TimePerformed AtPathologist Signature Protein, Total6.96.3 - 8.0 g/dL11/10/2024 5:21 AM [facility] LABAlbumin3.93.9 - 4.9 g/dL11/10/2024 5:21 AM [facility] LABCalcium, Total9.18.5 - 10.2 mg/dL11/10/2024 5:21 AM [facility] LABBilirubin, Total1.00.2 - 1.3 mg/dL11/10/2024 5:21 AM EDT [facility] LABAlkaline Gxrapyiuvrd459(H)34 - 123 U/L 11/10/2024 5:21 AM [facility] GHPDND93(H)13 - 35 U/L 11/10/2024 5:21 AM [facility] SESAMD241 - 38 U/L 11/10/2024 5:21 AM [facility] YRLTcihtmo000(H)74 - 99 mg/dL11/10/2024 5:21 AM [facility] LABComment: The [place] Diabetes Association (ADA) provides guidance for cutoff values for fasting glucose andrandom glucose. The ADA defines fasting as no caloric intake for at least 8 hours. Fasting plasma glucose results between 100 to 125 mg/dL indicate increased risk for diabetes (prediabetes). Fasting plasma glucose results greater than or equal to 126 mg/dL meet the criteria for diagnosis of diabetes. In the absence of unequivocal hyperglycemia, results should be confirmed by repeat testing. In a patient with classic symptoms of hyperglycemia or hyperglycemic crisis, random plasma glucose results greater than or equal to 200 mg/dL meet the criteria for diagnosis of diabetes. Reference: Standards of Medical Care in Diabetes 2016, [employer] Diabetes Association. Diabetes Care. 2016.39(Suppl 1). HFI406 - 21 mg/dL11/10/2024 5:21 AM [facility] LAB Creatinine1.19(H)0.58 - 0.96 mg/dL11/10/2024 5:21 AM [facility] MDNGqsmrm179707 - 144 mmol/L11/10/2024 5:21 AM [facility] LABPotassium4.13.7 - 5.1 mmol/L11/10/2024 5:21 AM [facility] NSFIxbdxurf22106 - 107 mmol/L11/10/2024 5:21 AM [facility] JGWSA46900 - 30 mmol/L11/10/2024 5:21 AM [facility] LABAnion Dhc873 - 15 mmol/L11/10/2024 5:21 AM [facility] LABEstimated Glomerular Filtration Rate46(L)>=60 mL/min/1.73m 11/10/2024 5:21 AM [facility] LABComment:Estimated Glomerular Filtration Rate (eGFR) is calculated using the 2020 CKD-EPI creatinine equation. This equation utilizes serum creatinine, sex, and age as parameters. The creatinine assay has traceable calibration to isotope dilution- mass spectrometry. Refer to KDIGO guidelines for clinical interpretation. In patients with unstable renal function, e.g. those with acute kidney injury, the eGFRmay not accurately reflect actual GFR.Specimen (Source)Anatomical Location / LateralityCollection Method / VolumeCollection TimeReceived TimeBloodBLOOD SPECIMEN / UnknownVenipuncture / Wkvnwsx4511/09/2024 2:21 PM EDT11/09/2024 2:21 PM EDT Narrative Authorizing ProviderResult TypeResult StatusTy Amador MDLABORATORYFinal ResultPerforming OrganizationAddressCity/State/ZIP CodePhone Number [facility] [address] [facility] [address] [address], * (ABNORMAL) COMPLETE BLOOD COUNT AND DIFFERENTIAL (11/09/2024 2:21 PM EDT) ComponentValueRef RangeTest MethodAnalysis TimePerformed AtPathologist SignatureWBC5.953.70 - 11.00 k/uL11/09/2024 2:23 PM EDTNORTBEAUMONT [facility] LABRBC3.87(L)3.90 - 5.20 m/uL11/09/2024 2:23 PM [facility]TNOCAM[facility] SZZLaxzorziml22.111.5 - 15.5 g/dL11/09/2024 2:23 PM EDT [facility] TAWWdfznvplqk82.336.0 - 46.0 %11/09/2024 2:23 PM EDTNORTBEAUMONT [facility] COPASO51.080.0 - 100.0 fL 11/09/2024 2:23 PM [facility]TNOCAM[facility] DXHDSC79.326.0 - 34.0 pg11/09/2024 2:23 PM [facility]TM[facility] PODKQZA74.630.5 - 36.0 g/dL11/09/2024 2:23 PM EDTNOCAM[facility] LABRDW-CV15.4 (H)11.5 - 15.0 %11/09/2024 2:23 PM EDTNOCAMDEN [facility] LAB Platelet Yhydv614688 - 400 k/uL11/09/2024 2:23 PM [facility]TMON[facility] OZMFYL42.49.0 - 12.7 fL11/09/2024 2:23 PM EDTNOCAMDEN [facility] LABNeutrophils %62.4%11/09/2024 2:23 PM EDTNOCAMDEN [facility] LABAbs Neut3.711.45 - 7.50 k/uL11/09/2024 2:23 PM EDTNOCAM[facility] LABLymphocytes %22.9%11/09/2024 2:23 PM [facility]TMON[facility] LABAbs Lymph1.361.00 - 4.00 k/uL09/10/2024 2:23 PM EDT [facility] LABMonocytes %11.8%11/09/2024 2:23 PM EDT [facility] LABAbs Mono0.70<0.87 k/11/09/2024 2:23 PM [facility]TMON[facility] LABEosinophils %1.8%11/09/2024 2:23 PM [facility]TMON[facility] LABAbs Eosin0.11<0.46 k11/09/2024 2:23 PM EDTNOCAM[facility] LABBasophils %0.8%11/09/2024 2:23 PM [facility]TMON[facility] LABAbs Baso0.05<0.11 k11/09/2024 2:23 PM EDMARMET [facility] LABImmature Granulocytes %0.3% 11/09/2024 2:23 PM EDTMON[facility] LABAbs Immature Gran <0.03<0.10 /11/09/2024 2:23 PM EDMARMET [facility] LABNRBC 0.0/100 WBC11/09/2024 2:23 PM EDMARMET [facility] LABAbsolute nRBC<0.01<0.01 11/09/2024 2:23 PM EDMARMET [facility] LAB Diff HeqbVxoe75/08/2025 2:23 PM [facility] LAB Specimen (Source)Anatomical Location / LateralityCollection Method / Volume Collection TimeReceived TimeBloodBLOOD SPECIMEN / UnknownVenipuncture / Tlszyiv9111/09/2024 2:21 PM EDT11/09/2024 2:21 PM EDT Narrative Authorizing ProviderResult TypeResult StatusSamanthak Perry NAIKLABORATORYFinal ResultPerforming OrganizationAddressCity/State/ZIP CodePhone Number [facility] [address] [place] [address] * CA 15-3 BLD (11/09/2024 2:21 PM EDT)ComponentValueRef RangeTest MethodAnalysis TimePerformed AtPathologist SignatureBreast CA 15-37.2<26.0 U/mL11/10/2024 12:01 PM EDTCSELECT [facility] LABComment:The CA 15-3 test methodology used is the Electrochemiluminescence Immunoassay by [employer].Results obtained with different methods or kits cannot be used interchangeably.Specimen (Source)Anatomical Location / LateralityCollection Method / VolumeCollection TimeReceived TimeBloodBLOOD SPECIMEN / Unknown Venipuncture / Sqjkjib5511/09/2024 2:21 PM EDT11/09/2024 2:21 PM EDT Narrative Authorizing ProviderResult TypeResult StatusTy Amador MDLABORATORYFinal ResultPerforming OrganizationAddressCity/State/ZIP CodePhone Number [facility] [address] [place] [address], [place] from Last 3 Months Insurance * Guarantor: Kassandra Escobar AAccount TypeRelation to PatientDate of BirthPhone Billing AddressSelf [id number] 1945 [address] [place] [address] Care Teams Team MemberRelationshipSpecialtyStart DateEnd Date Ken Sy MD [address] [place] [phone] [facility]03/27/05
--- OUTSIDE RECORDS SUMMARY | 2025-01-29 20:53 | XMS_ITS | Encounter Summary ---
Author Organization [facility] Address [address] [place] [address] Care Team Providers Care Bilingual Office Assistant Name Role Phone Ken Sy MD Primary Care Provide r Source Comments In the event this information is protected by the Federal Confidentiality of Alcohol and Drug AbusePatient Records regulations: The Federal rules restrict any use of the information to criminally investigate or prosecute any alcohol or drug abuse patient.[facility] Encounter Details DateTypeDepartmentCare Team (Latest Contact Info)Dyvkrdgmzqn70/14/2025Clinical Document [facility] [place] [address] Provider, Ccf Social History Tobacco UseTypesPacks/DayYears UsedDateSmoking Tobacco: NeverPassive Smoke Exposure: PastSmokeless Tobacco: NeverAlcohol UseStandard Drinks/WeekCommentsNo0 (1 standard drink = 0.6 oz pure alcohol)PHQ-2AnswerDate RecordedPHQ-2 score0 5Area Deprivation IndexAnswerDate RecordedNational Score (1-100), lower number is lower dpid659103/21/2023State Score (1-10), lower number is lower risk4 4Data from: https://www.neighborhoodatlas.[facility]/. Last address used for [address] [facility]03/21/2023CommentsNoSex and Gender InformationValueDate RecordedSex Assigned at BirthNot on fileLegal YbrYugkhl57/02/2012 7:34 AM ESTGender CyifepyjGckfzo27/26/2024 11:11 PM EDT Sexual OrientationNot on filedocumented as of this encounter Functional Status * Are you deaf or do you have serious difficulty hearing?AnswerDate of QgprimlrxhUbanvjHj28/12/2014 1:43 PM Brenna Blackburn MA * Are you blind or do you have serious difficulty seeing, even when wearing glasses?AnswerDate of RrxrrpvltgOozqxmSh50/12/2014 1:43 PM Brenna Blackburn MA * Do you have serious difficulty walking or climbing stairs?AnswerDate of AtktianwiuVifxejUn69/12/2014 1:43 PM Brenna Blackburn MA * Do you have difficulty dressing or bathing?AnswerDate of AssessmentAuthorNo 02/12/2014 1:43 PM Brenna Blackburn MA * Because of a physical, mental, or emotional condition, do you have difficulty doing errands alone such as visiting a doctor's office or shopping?AnswerDate of LzgrjraqhxAeuccxDp50/12/2014 1:43 PM Brenna Blackburn MA documented as of this encounter Mental Status * Because of a physical, mental, or emotional condition, do you have serious difficulty concentrating, remembering, or making decisions?AnswerEntry Date GnjqgbCz18/12/2014 1:43 PM Brenna Blackburn MA documented in this encounter Plan of Treatment DateTypeDepartmentCare Team (Latest Contact Info)Ylqlaygzgen49/02/2026 2:00 PM ESTOffice Visit [facility] [address] [place] [address] [address] [place], [place] [address] 6 month follow up with lab05/03/2025 2:20 PM ESTVisit (SP) Office Hematology/Oncology [address] [place] [address] Ty Amador MD [address] [place] [address] 6 month follow up with labdocumented as of this encounter Visit Diagnoses Not on filedocumented in this encounter Care Teams Team MemberRelationshipSpecialtyStart DateEnd Date Ken Sy MD [address] [place] [id number] PCP - General03/27/05documented as of this encounter
--- OUTSIDE RECORDS SUMMARY | 2025-01-29 20:54 | XMS_ITS | Clinical Summary ---
Author Organization [facility] Address [address] [place] [address] Phone Care Team Providers Care Marine Diver Name Role Phone Ken Sy MD Primary Care Provider [phone] Lashanda Azar MD Unavailable [phone] Jacqui Hung LPN Unavailable Allergies No known active allergies Medications MedicationSigDispense QuantityRefillsLast FilledStart DateEnd DateStatus anastrozole (Arimidex) 1 mg tablet Take 1 tablet (1 mg total) by mouth once daily.4Active dapagliflozin propanediol (Farxiga) 10 mg tablet Indications:Congestive heart failure, unspecified HF chronicity, unspecified heart failure type (Multi)Take 1 tablet (10 mg) by mouth once every 24 hours. 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 Do not crush or chew. ctive amiodarone (Pacerone) 100 mg tablet Indications:Persistent atrial fibrillation (Multi)Take 2 tablets (200 mg) by mouth once daily. For 2 months after ablation then eaboliqoses64/17/2025tive pantoprazole (ProtoNix) 40 mg EC tablet Indications:Persistent atrial fibrillation (Multi)Take 1 tablet (40 mg) by mouth 2 times a day before meals. For 6 weeks after ablation then stop taking 84 tablet 01/18/2025 12:46 PM ESTtive apixaban (Eliquis) 2.5 mg tablet Indications:Other fluid overloadTake 1 tablet (2.5 mg) by mouth 2 times a day. 60 tablet 12:35 PM ESTctive losartan (Cozaar) 25 mg tablet Indications:Other fluid overloadTake 1 tablet (25 mg) by mouth once daily. 30 tablet ctive torsemide (Demadex) 100 mg tablet Indications:Congestive heart failure, unspecified HF chronicity, unspecified heart failure type (Multi),Hypervolemia, unspecified hypervolemia typeTake 1 tablet (100 mg) by mouth once daily. 30 tablet 01/27/2025 12:35 PM EST5Active potassium chloride CR (Klor-Con M20) 20 mEq ER tablet Indications:Congestive heart failure, unspecified HF chronicity, unspecified heart failure type (Multi)Take 1 tablet (20 mEq) by mouth 2 times a day. Do not crush or chew. 60 tablet 01/27/2025 12:35 PM EST5Active amiodarone (Pacerone) 200 mg tablet Indications:Congestive heart failure, unspecified HF chronicity, unspecified heart failure type (Multi)Take 1 tablet (200 mg) by mouth once daily. 30 tablet 01/27/2025 12:35 PM EST5Active hydrOXYzine HCL (Atarax) 25 mg tablet Indications:MAR (generalized anxiety disorder)Take 1 tablet (25 mg) by mouth every 6 hours if needed for anxiety. 60 tablet 12:35 PM EST5Active apixaban (Eliquis) 5 mg tablet Indications:Atrial fibrillation, unspecified type (Multi)Take 1 tablet (5 mg) by mouth 2 times a day. 180 tablet Discontinued(Stop Taking at Discharge) potassium chloride CR (Klor-Con) 10 mEq ER tablet Indications:Congestive heart failure, unspecified HF chronicity, unspecified heart failure type (Multi)Take 1 tablet (10 mEq) by mouth 2 times a day. Do not crush, chew, or split. 60 tablet Discontinued(Stop Taking at Discharge) losartan (Cozaar) 25 mg tablet Indications:Essential (primary) hypertensionTake 1 tablet (25 mg) by mouth 2 times a day. 180 tablet Discontinued(Stop Taking at Discharge) furosemide (Lasix) 80 mg tablet Indications:SOB (shortness of breath),Localized edemaTake 1 tablet (80 mg) by mouth see administration instructions. Take 1 tablet in the morning and extra half a tablet in the afternoon on Saturday, Saturday, and Saturday 145 tablet 308//Discontinued(Med List Cleanup) amiodarone (Pacerone) 200 mg tablet Indications:Persistent atrial fibrillation (Multi)Take 1 tablet (200 mg) by mouth 2 times a day for 30 days, THEN 1 tablet (200 mg) once daily.11/12/2024 01/05/2025Discontinued(Dose adjustment) furosemide (Lasix) 80 mg tablet Take 1 tablet (80 mg) by mouth once daily. Along with 20 mg tablet to equal 100 mg daily in the kxbcfrc4101/05/2025Discontinued(Therapy completed) furosemide (Lasix) 20 mg tablet Take 1 tablet (20 mg) by mouth once daily. Along with 80 mg tablet to equal 100 mg daily in the uedluqp7101/05/2025Discontinued(Therapy completed) amiodarone (Pacerone) 100 mg tablet Take 2 tablets (200 mg) by mouth once daily.01/18/2025Discontinued torsemide (Demadex) 20 mg tablet Indications:Other hypervolemiaTake 3 tablets (60 mg) by mouth once daily. 90 tablet Discontinued(Stop Taking at Discharge) Active Problems ProblemNoted DateDiagnosed DatePersistent atrial woairwhemawp34/18/2025 Paroxysmal atrial ykdojjvhxeho04/17/2025Volume bnqaqiyt99/04/2025Obstructive sleep apnea10/29/2024Incomplete RBBB10/29/2024Nonrheumatic aortic (valve) fvttzimttxvrj00/28/2025Edema, cdvbieztkfo58/03/2025Essential (primary) fitlhtvqsbla21/03/2025SOB (shortness of breath)08/06/2024High risk medication use07/30/2024 Assessment & Plan (07/30/2024 3:54 PM EDT): Flecainide 50 mg twice daily. Initiated June 30, 2024 hospitalization due to initial A-fib with RVR. She reportedly could not tolerate increased 200 mg twice daily dosing. Is on backup metoprolol 25 mg daily. July 2024 MPI no ischemia, no infarct. Never smoked ofiqlvemct55/08/2025MI 33.0-33.9,adult07/09/2024 Assessment & Plan (07/30/2024 3:57 PM EDT): 13 pound fluid retention Hospital discharge follow-up07/09/2024Long term current use of anticoagulant ahyfclc6607/09/2024 Assessment & Plan (07/30/2024 3:56 PM EDT): CHADS VASc 4 she has been compliant with full dose Eliquis age 78, weight 88 kg, creatinine 0.83. Start date July 01, 2024. Denies bleeding diatheses. Irritable bowel /08/2025nemia associated with nutritional deficiency 07/09/2024Family history of ischemic heart ucoelfb3707/09/2024Nonrheumatic tricuspid valve cfwuqhuetjfhm05/08/2025bnormal EKG007/09/2024Hyperglycemia 07/09/20249688Rwazjzb85/08/2025Other xvryxdi9107/09/2024Mitral valve regurgitation 07/09/20247175Zyxqgcpazno04/08/2025bnormal cardiovascular function study07/09/2024 Daytime esqdwfdoyk39/08/2025trial zvsqabhjaizx95/27/2025 Assessment & Plan (07/30/2024 3:55 PM EDT): Initial diagnosis June 30, 2024 hospitalization. EKG in office atrial fibrillation with controlled ventricular rate. QRS 76 ms. She is symptomatic with fluid retention, shortness of breath. LVH (left ventricular hypertrophy)06/28/2024 Assessment & Plan (07/30/2024 3:56 PM EDT): During June 2024 hospitalization she was diuresed approximately 4 kg. Discharged home on Lasix 20 mg daily. She had been maintaining euvolemia until approximately 10 days ago. Over the course of this time she is put on close to 13 pounds on her home scale. Has primary complaint of fatigability, mild dyspnea on exertion but no evidence orthopnea or PND. June 2024 TTE LVEF 50-55% Left atrium severely dilated Right atrium severely dilated MR mild TR moderate/severe RVSP 30-40 mmHg Dzwklrhwiovtpm67/15/2016History of malignant neoplasm of plguyu6302/17/2014 Encounters DateTypeDepartmentCare MwovTlflvgfvwsh85/28/2025Telephone [facility] [address] [facility] [address] [place] [address] Cheryl Meraz MA Bleeding/Ldrcvdga56/28/2025Patient Outreach [facility] [address] [facility] [address] [place] [address] Jacqui Hung LPN 01/29/2025Orders Only [facility] 8 Cardiac Intensive Care [address] [place] [address] Bernabe Laura, PROCESS PROJECT ENGINEER-PERSONNEL SECURITY ASSISTANT Other fluid /27/6583Qnnmfo97/26/2025Telephone [facility] [address] [place] [address] Kehinde Eli DO Home health wvdowtuh29/17/2025 7:46 AM ESTAnesthesia Event [facility] [address] [place] [facility] [address] Ansley Abreu MD 01/18/2025 7:45 AM EST - 01/18/2025 10:15 AM ESTSurgery [facility] [address] [place] [facility] [address] Lashanda Azar MD Ablation A-Fib Persistant [28079 (CPT??)]01/18/2025 5:30 AM EST - 01/27/2025 3:58 PM ESTHospital Encounter [facility] 8 Cardiac Intensive Care [address] [facility] [place] [address] Lashanda Azar MD Caicedo, Daniel, DO Mahmood, Mushtaq, MD Kher, Chirag L, MD Seffo, Firas, MD Persistent atrial fibrillation (Multi) (Primary Dx); Paroxysmal atrial fibrillation (Multi); Shortness of breath; Other fluid overload; Congestive heart failure, unspecified HF chronicity, unspecified heart failure type (Multi); Hypervolemia, unspecified hypervolemia type; MAR (generalized anxiety disorder); Requires continuous at home supplemental oxygen Discharge Disposition: Home Health Care - New01/18/2025Telephone [facility] Primary Care [address] [facility] [address] [place] [address] Lashanda Azar MD 01/18/20257579Glnfek69/16/9586Bbhzgr35/13/2025Telephone [address] [place] [address] Loyda Lara LPN lab wufdyeg2301/13/2025 1:20 PM ESTLab [facility] [address] [place] [address] 01/13/20252519Alnnxg97/10/2025Results Follow-Up [address] [place] [address] Muriel Iyer, TAPE KELLER OPERATOR [email or web address] Comprehensive Metabolic Panel01/08/2025Scanned Document [facility] [address] [place] [address] Scanning, Generic Provider 01/08/2025Orders Only [facility] [address] [place] [address] Balaji Arreola MD 01/07/2025Tephone [address] [place] [address] Rosalie Kasper LPN edema01/05/2025 11:30 AM ESTOffice Visit [address] [place] [address] Tamra Kenney, PROCESS PROJECT ENGINEER-PERSONNEL SECURITY ASSISTANT Other hypervolemia (Primary Dx); BMI 33.0-33.9,adult; Persistent atrial fibrillation (Multi) Discharge Disposition: Home01/05/20259255Jlthfa41/29/2025 9:15 AM EDTOffice Visit [facility] [address] [place] [address] Lashanda Azar MD Persistent atrial fibrillation (Multi) (Primary Dx) Discharge Disposition: Home12/30/2024Telephone [facility] [address] [place] [address] Kayleigh Stephenson MA Rlasnfpkwn88/29/2025Telephone [place] [address] [place] [address] Loyda Lara LPN Advice Only12/29/20249555Raomov10/25/2921Cewdto13/24/2025Scanned Document [facility] [address] [place] [address] Scanning, Generic Provider 12/14/2024Telephone [facility] [address] [address] Muriel Iyer LPN Medication Xximpkcu95/09/2025 2:45 PM EDTOffice Visit [address] [address] Balaji Arreola MD Persistent atrial fibrillation (Multi); prison current use of anticoagulant therapy; High risk medication use; Essential (primary) hypertension; Nonrheumatic tricuspid valve regurgitation; Nonrheumatic mitral valve regurgitation; Nonrheumatic aortic (valve) insufficiency; LVH (left ventricular hypertrophy); Incomplete RBBB; Abnormal EKG; SOB (shortness of breath); Localized edema; Mixed hyperlipidemia; Obstructive sleep apnea; Never smoked cigarettes; BMI 34.0-34.9,adult Discharge Disposition: Home12/10/20249063Pbnteg88/10/20246278Xdnzeg97/02/2025Scanned Document [facility] [address] [place] [address] Scanning, Generic Provider 12/03/20243670Mjbmne70/26/2025Orders Only [address] [address] ANATOLY (acute kidney injury)11/26/2024Telephone [address] [address] Payal Cuba RN 11/25/2024Telephone [address] [address] Muriel Iyer LPN Shortness of Breath; Edema11/23/2024 3:20 PM EDT - 11/23/2024 11:59 PM EDT Hospital Encounter [address] [address] Discharge Disposition: Home11/23/2024 2:26 PM EDTAnesthesia Event [address] [address] Ansley Abreu MD 11/23/2024 10:44 AM EDT - 11/23/2024 3:19 PM EDTHospital Encounter [facility] [address] [place] [facility] [place] [address] Discharge Disposition: Home11/23/2024 10:04 AM EDT - 11/23/2024 10:43 AM EDT Hospital Encounter [facility] [address] [place] [facility] [place] [address] Ansley Abreu MD Sharma, Esseim, MD ANATOLY (acute kidney injury) (Primary Dx); Persistent atrial fibrillation (Multi) Discharge Disposition: Home11/23/20242364Jhglwn61/21/1516Elivhw63/20/2025Travel 2024Telephone [facility] [address] [place] [facility] [place] [address] Deidra Olivo RN 11/19/2024Telephone [address] [place] [address] Stephanie Acevedo LPN [facility] labs11/09/2024Scanned Document [facility] [address] [place] [address] Scanning, Generic Provider 11/09/2024Telephone [address] [place] [address] Mary Grace Harding LPN /08/2025Refill [address] [place] [address] Mary Grace Harding LPN Atrial fibrillation, unspecified type (Multi)11/03/2024 3:00 PM EDTOffice Visit [facility] [address] [facility] [address] [facility] [address] [place] [address] Lashanda Azar MD Persistent atrial fibrillation (Multi) (Primary Dx); Atrial fibrillation, unspecified type (Multi) Discharge Disposition: Home11/03/2024Telephone [facility] [address] [place] [address] Emily Tovar RN Medication Zbzskixk76/02/2254Zozkga55/28/2025 9:30 AM EDTOffice Visit [address] [address] Balaji Arreola MD Persistent atrial fibrillation (Multi); prison current use of anticoagulant therapy; High risk medication use; Essential (primary) hypertension; Nonrheumatic tricuspid valve regurgitation; Nonrheumatic mitral valve regurgitation; Nonrheumatic aortic (valve) insufficiency; LVH (left ventricular hypertrophy); Incomplete RBBB; Mixed hyperlipidemia; SOB (shortness of breath); Localized edema; Obstructive sleep apnea; BMI 34.0-34.9,adult; Never smoked cigarettes Discharge Disposition: Home10/29/2024Travelfrom Last 3 Months Immunizations ImmunizationAdministration DatesNext DueFlu vaccine (IIV4), preservative free *Check age/dose*12/21/2014Flu vaccine, quadrivalent, high-dose, preservative free, age 65y+ (FLUZONE)01/03/2023,01/02/2022,01/09/2021,12/21/2019Flu vaccine, trivalent, preservative free, HIGH-DOSE, age 65y+ (Fluzone)12/18/2023,12/29/2018 Influenza, injectable, utdvtcijujie97/23/2018,12/19/2016Influenza, seasonal, intradermal, preservative free12/03/2016,12/01/2015Novel eigvgbsfl-W0R4-33, preservative-free01/13/2009Pneumococcal conjugate vaccine, 13-valent (PREVNAR 13)12/31/2016,12/03/2016Pneumococcal polysaccharide vaccine, 23-valent, age 2 years and older (PNEUMOVAX 23)12/23/2015RSV, 60 Years And Older (AREXVY) 01/08/2024Zoster, live08/18/2015 Family History Medical HistoryRelationNameCommentsCancerBrotherCoronary artery diseaseBrother Heart attackBrotherPTCABrotherMelanomaFatherDiabetesSisterSkin cancerSister RelationNameStatusCommentsBrotherFatherSister Social History Tobacco UseTypesPacks/DayYears UsedDateSmoking Tobacco: NeverSmokeless Tobacco: Never Tobacco Cessation:Counseling Given: Not Answered Alcohol UseStandard Drinks/WeekCommentsNever0 (1 standard drink = 0.6 oz pure alcohol)PHQ-2AnswerDate RecordedPatient Health Questionnaire-2 Cgqwc52703/21/2024 Humiliation, Afraid, Rape, and Kick questionnaireAnswerDate RecordedWithin the last year, have you been afraid of your partner or ex-partner?No01/19/2025Within the last year, have you been humiliated [...] were you homeless or living in a mcc (including now)?No 01/19/2025 UtilitiesAnswerDate RecordedIn the past 12 months has the [employer], gas, oil, or water [employer] threatened to shut off services in your home?No01/19/2025CommentsUnknownSex and Gender InformationValueDate RecordedSex Assigned at BirthNot on fileLegal DlpQkpoel77/25/2022 7:53 PM EST Gender IdentityNot on fileSexual OrientationNot on file Last Filed Vital Signs Vital SignReadingTime TakenCommentsBlood Tlzahukf690/56103/29/2024 10:46 AM EST Unlxg719101/27/2025 10:46 AM OYTLfyxnjujvhg10.7 ??C (98.1 ??F)01/27/2025 10:46 AM ESTRespiratory Fdlj669203/29/2024 10:46 AM ESTOxygen Jymkdiqjhi08%01/27/2025 12:08 PM ESTInhaled Oxygen Concentration--Shukdp77 kg (191 lb 11.4 oz)01/27/2025 6:00 AM QOGAosibm513.5 cm (5' 2 )01/18/2025 6:10 AM ESTBody Mass Index35.0601/18/2025 6:10 AM EST Plan of Treatment DateTypeDepartmentCare Team (Latest Contact Info)Ggvkbkuacyb23/02/2025 2:30 PM ESTOffice Visit [facility] [address] [phone] Girish Chapman MD [address] [facility] Medical [address], [address] [place], [place] [address] 02/02/2025 2:30 PM ESTOffice Visit [facility] [address] [address] [place] [address] [address] Department of Surgery-Cardiac [place], [facility]06 02/15/2025 2:00 PM ESTOffice Visit [facility] [address] [facility] [address] [place] [address] Sarah Jesus PA-C [address] [facility] Office Bl, [facility] [address] [place] [address] 04/19/2025 8:30 AM ESTAncillary Procedure [facility] [address] [place] [address] 05/18/2025 10:15 AM EDTOffice Visit [facility] [address] [place] [address] Lashanda Azar MD [address] [facility] Office [facility], [facility] [address] [place] [address] Health MaintenanceDue DateLast DoneCommentsLipid Panel1943TS Level 1943Welcome to Medicare Visit4DTaP/Tdap/Td Vaccines (1 - Tdap) 11/19/1965Zoster Vaccines (2 of 3)COVID-19 Vaccine (3 - Pfizer risk series)/, 01/18/2022one Density Scan01/05/2024 01/04/2022Influenza Vaccine (#1)/, 01/03/2023, 01/02/2022, Additional history eosqcyJqdaxhkpwjnpih64/18/202611/, 06/28/2024 Creatinine Level/, 01/26/2025, 01/25/2025, Additional history existsDiabetes Ruznwycxp20, 01/26/2025, 01/25/2025, Additional history existsPotassium Level, 01/26/2025, 01/25/2025, Additional history existsPneumococcal AlrecweOmglxjouz05/30/2017, 12/03/2016, 12/23/2015RSV High Risk: (Elderly (60+) or Population)Completed 01/08/2024HIB VaccinesAged OutNo longer eligible based on patient's age to complete this topicHPV VaccinesAged OutNo longer eligible based on patient's age to complete this topicHepatitis A VaccinesAged OutNo longer eligible based on patient's age to complete this topicHepatitis B VaccinesAged OutNo longer eligible based on patient's age to complete this topicIPV VaccinesAged OutNo longer eligible based on patient's age to complete this topicMeningococcal VaccineAged OutNo longer eligible based on patient's age to complete this topic Rotavirus VaccinesAged OutNo longer eligible based on patient's age to complete this topic Goals GoalPatient Goal TypeAssociated ProblemsRecent ProgressPatient-Stated?Author MyChart Post Discharge Mesh Worker Goal Template Care PlanMyChart Post Discharge Mesh Worker Problem TemplateNoMychart, Generic Procedures Procedure NamePriorityDate/TimeAssociated DiagnosisCommentsHOME O2 EVAL (DESATURATION SCREEN)Yktkjec9301/27/2025 11:16 AM ESTRENAL FUNCTION PANELPending Lptwdypfs09/26/2025 5:36 AM EST OWNTKMUAYCNapghhy89/25/2025 5:46 AM EST LMOGLQVESUbenvcn57/25/2025 5:46 AM EST COMPREHENSIVE METABOLIC OMVKJJaykllb32/25/2025 5:46 AM EST CBC WITH AUTO ESADTNNGFUFEMpytisq34/25/2025 5:46 AM EST DILTQDIYLCDmdedah32/24/2025 5:40 AM EST OIDBJUYFKVbsvzsl83/24/2025 5:40 AM EST COMPREHENSIVE METABOLIC ERZDVBrketpq09/24/2025 5:40 AM EST CBC WITH AUTO IAYUMFQBOAVBXrzffeo81/24/2025 5:40 AM EST NUKUROATJQOtvebru65/23/2025 5:33 AM EST COMPREHENSIVE METABOLIC OKPQLKtmntwh78/23/2025 5:33 AM EST CBC WITH AUTO PRBWKNKWUWHECagztif54/23/2025 5:33 AM EST EQKTGNOZQUpvznzp12/23/2025 5:33 AM EST ECG 12-UZWHSmeodhf30/22/2025 7:33 AM EST ENCWAOBCZGgscdmo74/22/2025 5:44 AM EST RENAL FUNCTION IQBNNTuxdqyn87/22/2025 5:44 AM EST WGJReadctd52/22/2025 5:44 AM EST ECG 12-XELGPitohpf91/21/2025 7:08 AM EST JLXDUWZCDQsuvuuh92/21/2025 6:07 AM EST RENAL FUNCTION LKJPOTsbpxpf93/21/2025 6:07 AM EST NPNBdbdqeu83/21/2025 6:07 AM EST XR CHEST 1 CCCMICQZ45/20/2025 8:26 AM EST BLOOD GAS ARTERIAL FULL PANELPending Rllmqximg74/20/2025 7:41 AM EST ECG 12-LPDFEbsjxch26/20/2025 7:22 AM EST B-TYPE NATRIURETIC PEPTIDEAdd-On01/21/2025 4:47 AM EST ZKMBSFLWLZksllnc85/20/2025 4:47 AM EST RENAL FUNCTION HIJHQVfsbhvf75/20/2025 4:47 AM EST YRELmebjtb79/20/2025 4:47 AM EST ECG 12-KBIZVquirxb40/19/2025 10:12 AM EST B-TYPE NATRIURETIC GUHGCBUFbgrrdu57/19/2025 5:57 AM EST WLDLRISJOLppkjzy58/19/2025 5:57 AM EST RENAL FUNCTION XCLYVLdqzqhz13/19/2025 5:57 AM EST MFWGvdfasg72/19/2025 5:[address] CHEST WO IV WDJEBEIRUVPE88/18/2025 1:50 PM EST TRANSTHORACIC ECHO (TTE) BJNXYVGFGwtlxvu80/18/2025 11:50 AM EST Paroxysmal atrial fibrillation (Multi) Shortness of breath Other fluid overload XR CHEST 2 VIEWSPriority Discharge or Pfbzkesxiwm32/18/2025 8:43 AM EST LAVENDER CJXZmccnwb81/18/2025 5:33 AM EST EXTRA COEPQBuxulnk33/18/2025 5:33 AM EST BASIC METABOLIC PANELPending Sgwppwbsi60/18/2025 5:33 AM EST RDPMKXSRXEVLG51/17/2025 4:51 PM EST COMPREHENSIVE METABOLIC OUZCUXJHM82/17/2025 4:51 PM EST ECG 12-GYXCFmmgris81/17/2025 11:46 AM EST PULSE OXIMETRY, JOXACVVMVACxwwkwu69/17/2025 9:48 AM ESTABLATION A-FIB PERSISTENT Rgzijnv2101/18/2025 9:27 AM EST Persistent atrial fibrillation (Multi) ACTIVATED CLOTTING TIME AFNRgwnrhv41/17/2025 8:57 AM EST ACTIVATED CLOTTING TIME LGSAfhvjsx64/17/2025 8:24 AM EST CA AN ELECTIVE ENDOTRACHEAL XTVJOWBjezhhq66/17/2025 7:54 AM EST ECG 12-QMWARJSJ65/17/2025 7:21 AM EST ANESTHESIA ARTERIAL LINE KWVGJIIYAPxfdtjy07/17/2025 7:18 AM EST TYPE AND METAESAFEJ75/17/2025 5:57 AM EST BASIC METABOLIC PGPIDSIQD55/17/2025 5:57 AM EST COAGULATION MJDPZYYBZU39/17/2025 5:57 AM EST CBC WITH AUTO HBAAVPBUZNKBSynrtfr78/12/2025 1:25 PM EST Persistent atrial fibrillation (Multi) COMPREHENSIVE METABOLIC VEPNPAaisofg10/12/2025 1:25 PM EST Persistent atrial fibrillation (Multi) TYPE AND NYWORIBlavttc01/12/2025 1:25 PM EST Persistent atrial fibrillation (Multi) NON-[facility] H[facility] THYROID STIMULATING NNOZEODAxyabhv78/07/2025 9:39 AM EST NON-[facility] H[facility] COMPLETE BLOOD COUNT AUTO FVPNNxokmxv06/07/2025 9:39 AM EST NON-[facility] HIE COMPREHENSIVE METABOLIC XLILJLinokng90/07/2025 9:38 AM EST ECG 12-MGLLLdsclcy49/04/2025 11:30 AM EST Persistent atrial fibrillation (Multi) ECG 12-TLCYAxskcwl03/29/2025 9:32 AM EDT Persistent atrial fibrillation (Multi) OUTSIDE LAB SCAN12/25/2024 ECG 12-NNMAAqeuxwd56/09/2025 2:46 PM EDT Persistent atrial fibrillation (Multi) prison current use of anticoagulant therapy High risk medication use Essential (primary) hypertension Nonrheumatic tricuspid valve regurgitation Nonrheumatic mitral valve regurgitation Nonrheumatic aortic (valve) insufficiency LVH (left ventricular hypertrophy) Incomplete RBBB Abnormal EKG SOB (shortness of breath) Localized edema Mixed hyperlipidemia Obstructive sleep apnea Never smoked cigarettes BMI 34.0-34.9,adult NON-[facility] HIE BASIC METABOLIC CWYYFJxezpbc20/26/2025 11:52 AM EDT ANATOLY (acute kidney injury) ECG 12-DQCCHeouuus60/22/2025 3:47 PM EDT CARDIOVERSION LIOGJWZOCgmihzp37/22/2025 2:37 PM EDT Persistent atrial fibrillation (Multi) ECG 12-GEAEULJN84/22/2025 10:44 AM EDT COAGULATION NQVQKAQHUD02/22/2025 10:44 AM EDT BASIC METABOLIC MWBUISVWX20/22/2025 10:44 AM EDT OUTSIDE LAB SCAN11/09/2024 ECG 12-SURRHwircpo49/28/2025 9:30 AM EDT Persistent atrial fibrillation (Multi) from Last 3 Months Results * (ABNORMAL) Renal Function Panel (01/27/2025 5:36 AM EST) Only the most recent of5 resultswithin the time period is included. ComponentValueRef RangeTest MethodAnalysis TimePerformed AtPathologist Signature Wpasqqs0207 - 99 mg/dL LAB CHEMISTRY METHOD 01/27/2025 6:45 AM [facility] JHVVdoixl602(L)136 - 145 mmol/L LAB CHEMISTRY METHOD 01/27/2025 6:45 AM [facility] LABPotassium4.03.5 - 5.3 mmol/L LAB CHEMISTRY METHOD 01/27/2025 6:45 AM [facility] AXHBljocphc89385 - 107 mmol/L LAB CHEMISTRY METHOD 01/27/2025 6:45 AM [facility] IPXZibpsgebslz0803 - 32 mmol/L LAB CHEMISTRY METHOD 01/27/2025 6:45 AM [facility] LABComment:Bicarbonate results may be falsely elevated when Lactate Dehydrogenase (LDH) concentrations exceed 2,000 U/L due to a temporary reagent manufacturing issue. If significantly elevated LDH levels are suspected, interpret bicarbonate results with caution, correlate with the patient???s clinical status, and consider confirming CO2 values using a blood gas analyzer.Anion Gap9(L)10 - 20 mmol/L LAB CHEMISTRY METHOD 01/27/2025 6:45 AM [facility] LABUrea Uorhjbzm98(H)6 - 23 mg/dL LAB CHEMISTRY METHOD 01/27/2025 6:45 AM [facility] LABCreatinine1.47(H)0.50 - 1.05 mg/dL LAB CHEMISTRY METHOD 01/27/2025 6:45 AM [facility] FPFiOTC40(L)>60 mL/min/1.73m*2 LAB CHEMISTRY METHOD 01/27/2025 6:45 AM [facility] LABComment: Calculations of estimated GFR are performed using the 2020 CKD-EPI Study Refit equation without therace variable for the IDMS-Traceable creatinine methods. https://jasn.asnjournals.org/content//ASN.8684308540 Calcium8.68.6 - 10.3 mg/dL LAB CHEMISTRY METHOD 01/27/2025 6:45 AM [facility] LABPhosphorus3.42.5 - 4.9 mg/dL LAB CHEMISTRY METHOD 01/27/2025 6:45 AM [facility] LABAlbumin3.43.4 - 5.0 g/dL LAB CHEMISTRY METHOD 01/27/2025 6:45 AM [facility] LABSpecimen (Source)Anatomical Location / LateralityCollection Method / VolumeCollection TimeReceived TimeBlood Venous blood specimen / UnknownVenipuncture / Fvntmwe5901/27/2025 5:36 AM EST 01/27/2025 6:18 AM EST Narrative Authorizing ProviderResult TypeResult StatusTy MILLER BLOOD ORDERABLESFinal ResultPerforming OrganizationAddressCity/State/ZIP CodePhone Number [facility] [address] [place] [address] * (ABNORMAL) CBC and Auto Differential (01/26/2025 5:46 AM EST) Only the most recent of4 resultswithin the time period is included. ComponentValueRef RangeTest MethodAnalysis TimePerformed AtPathologist Signature WBC4.3(L)4.4 - 11.3 x10*3/uL LAB HEMATOLOGY METHOD 01/26/2025 6:14 AM [facility] LABnRBC0.00.0 - 0.0 /100 WBCs LAB HEMATOLOGY METHOD 01/26/2025 6:14 AM [facility] LABRBC3.16(L)4.00 - 5.20 x10*6/uL LAB HEMATOLOGY METHOD 01/26/2025 6:14 AM [facility] LABHemoglobin9.8(L)12.0 - 16.0 g/dL LAB HEMATOLOGY METHOD 01/26/2025 6:14 AM [facility] YMVHvueodiads57.4(L)36.0 - 46.0 % LAB HEMATOLOGY METHOD 01/26/2025 6:14 AM [facility] KSAPCG2552 - 100 fL LAB HEMATOLOGY METHOD 01/26/2025 6:14 AM [facility] ZBWGKK86.026.0 - 34.0 pg LAB HEMATOLOGY METHOD 01/26/2025 6:14 AM [facility] TALEYUD12.232.0 - 36.0 g/dL LAB HEMATOLOGY METHOD 01/26/2025 6:14 AM [facility] OWFMNI75.3(H)11.5 - 14.5 % LAB HEMATOLOGY METHOD 01/26/2025 6:14 AM [facility] LJNSnsuhvxpg27(L)150 - 450 x10*3/uL LAB HEMATOLOGY METHOD 01/26/2025 6:14 AM [facility] LABNeutrophils %56.740.0 - 80.0 % LAB HEMATOLOGY METHOD 01/26/2025 6:14 AM [facility] LABImmature Granulocytes %, Automated0.50.0 - 0.9 % LAB HEMATOLOGY METHOD 01/26/2025 6:14 AM [facility] LABComment:Immature Granulocyte Count (IG) includes promyelocytes, myelocytes and metamyelocytes but does not i nclude bands. Percent differential counts (%) should be interpreted in the context of the absolute cell counts (cells/UL).Lymphocytes %20.513.0 - 44.0 % LAB HEMATOLOGY METHOD 01/26/2025 6:14 AM [facility] LABMonocytes %16.82.0 - 10.0 % LAB HEMATOLOGY METHOD 01/26/2025 6:14 AM [facility] LABEosinophils %4.80.0 - 6.0 % LAB HEMATOLOGY METHOD 01/26/2025 6:14 AM [facility] LABBasophils %0.70.0 - 2.0 % LAB HEMATOLOGY METHOD 01/26/2025 6:14 AM [facility] LABNeutrophils Absolute2.461.60 - 5.50 x10*3/uL LAB HEMATOLOGY METHOD 01/26/2025 6:14 AM [facility] LABComment:Percent differential counts (%) should be interpreted in the context of the absolute cell counts (ce lls/uL).Immature Granulocytes Absolute, Automated0.020.00 - 0.50 x10*3/uL LAB HEMATOLOGY METHOD 01/26/2025 6:14 AM [facility] LABLymphocytes Absolute0.890.80 - 3.00 x10*3/uL LAB HEMATOLOGY METHOD 01/26/2025 6:14 AM [facility] LABMonocytes Absolute0.730.05 - 0.80 x10*3/uL LAB HEMATOLOGY METHOD 01/26/2025 6:14 AM [facility] LABEosinophils Absolute0.210.00 - 0.40 x10*3/uL LAB HEMATOLOGY METHOD 01/26/2025 6:14 AM [facility] LABBasophils Absolute0.030.00 - 0.10 x10*3/uL LAB HEMATOLOGY METHOD 01/26/2025 6:14 AM [facility] LABSpecimen (Source)Anatomical Location / LateralityCollection Method / VolumeCollection TimeReceived TimeBlood Venous blood specimen / UnknownVenipuncture / Hpkthfw4301/26/2025 5:46 AM EST 01/26/2025 6:07 AM EST Narrative Authorizing ProviderResult TypeResult StatusMusspring Barnes [facility] BLOOD ORDERABLESFinal ResultPerforming OrganizationAddressCity/State/ZIP CodePhone Number [facility] [address] [place] [phone] * Phosphorus (01/26/2025 5:46 AM EST) Only the most recent of3 resultswithin the time period is included. ComponentValueRef RangeTest MethodAnalysis TimePerformed AtPathologist Signature Phosphorus3.52.5 - 4.9 mg/dL LAB CHEMISTRY METHOD 01/26/2025 6:35 AM [facility] LABSpecimen (Source)Anatomical Location / LateralityCollection Method / VolumeCollection TimeReceived TimeBlood Venous blood specimen / UnknownVenipuncture / Vsmbpah7101/26/2025 5:46 AM EST 01/26/2025 6:06 AM EST Narrative Authorizing ProviderResult TypeResult StatusTy Sweet [facility] BLOOD ORDERABLESFinal ResultPerforming OrganizationAddressCity/State/ZIP CodePhone Number [facility] [address] [place] [address] * Magnesium (01/26/2025 5:46 AM EST) Only the most recent of8 resultswithin the time period is included. ComponentValueRef RangeTest MethodAnalysis TimePerformed AtPathologist Signature Magnesium2.071.60 - 2.40 mg/dL LAB CHEMISTRY METHOD 01/26/2025 6:35 AM [facility] LABSpecimen (Source)Anatomical Location / LateralityCollection Method / VolumeCollection TimeReceived TimeBlood Venous blood specimen / UnknownVenipuncture / Hwwvtcl3201/26/2025 5:46 AM EST 01/26/2025 6:06 AM EST Narrative Authorizing ProviderResult TypeResult StatusMusspring MILLER BLOOD ORDERABLESFinal ResultPerforming OrganizationAddressCity/State/ZIP CodePhone Number [facility] [address] [place] [address] * (ABNORMAL) Comprehensive Metabolic Panel (01/26/2025 5:46 AM EST) Only the most recent of5 resultswithin the time period is included. ComponentValueRef RangeTest MethodAnalysis TimePerformed AtPathologist Signature Zlwbhdi4202 - 99 mg/dL LAB CHEMISTRY METHOD 01/26/2025 6:35 AM [facility] XEQNubust974924 - 145 mmol/L LAB CHEMISTRY METHOD 01/26/2025 6:35 AM [facility] LABPotassium3.93.5 - 5.3 mmol/L LAB CHEMISTRY METHOD 01/26/2025 6:35 AM [facility] VMZMkgcectu6601 - 107 mmol/L LAB CHEMISTRY METHOD 01/26/2025 6:35 AM [facility] EQYJuzyuoemdcn3740 - 32 mmol/L LAB CHEMISTRY METHOD 01/26/2025 6:35 AM [facility] LABComment:Bicarbonate results may be falsely elevated when Lactate Dehydrogenase (LDH) concentrations exceed 2,000 U/L due to a temporary reagent manufacturing issue. If significantly elevated LDH levels are suspected, interpret bicarbonate results with caution, correlate with the patient???s clinical status, and consider confirming CO2 values using a blood gas analyzer.Anion Nps4142 - 20 mmol/L LAB CHEMISTRY METHOD 01/26/2025 6:35 AM [facility] LABUrea Bcuoofsp24(H)6 - 23 mg/dL LAB CHEMISTRY METHOD 01/26/2025 6:35 AM [facility] LABCreatinine1.56(H)0.50 - 1.05 mg/dL LAB CHEMISTRY METHOD 01/26/2025 6:35 AM [facility] VLPiAOY68(L)>60 mL/min/1.73m*2 LAB CHEMISTRY METHOD 01/26/2025 6:35 AM [facility] LABComment: Calculations of estimated GFR are performed using the 2020 CKD-EPI Study Refit equation without therace variable for the IDMS-Traceable creatinine methods. https://jasn.asnjournals.org/content/early/ASN.7314441825 Calcium8.78.6 - 10.3 mg/dL LAB CHEMISTRY METHOD 01/26/2025 6:35 AM [facility] LABAlbumin3.43.4 - 5.0 g/dL LAB CHEMISTRY METHOD 01/26/2025 6:35 AM [facility] LABAlkaline Ysuuydwettq754(H)33 - 136 U/L LAB CHEMISTRY METHOD 01/26/2025 6:35 AM [facility] LABTotal Protein5.9(L)6.4 - 8.2 g/dL LAB CHEMISTRY METHOD 01/26/2025 6:35 AM [facility] RAWACS234 - 39 U/L LAB CHEMISTRY METHOD 01/26/2025 6:35 AM [facility] LABBilirubin, Total1.7(H)0.0 - 1.2 mg/dL LAB CHEMISTRY METHOD 01/26/2025 6:35 AM [facility] QTXRIF707 - 45 U/L LAB CHEMISTRY METHOD 01/26/2025 6:35 AM [facility] LABComment:Patients treated with Sulfasalazine may generate falsely decreased results for ALT.Specimen (Source) Anatomical Location / LateralityCollection Method / VolumeCollection Time Received TimeBloodVenous blood specimen / UnknownVenipuncture / Unknown 01/26/2025 5:46 AM EST01/26/2025 6:06 AM EST Narrative Authorizing ProviderResult TypeResult StatusMushtshukri MILLER BLOOD ORDERABLESFinal ResultPerforming OrganizationAddressCity/State/ZIP CodePhone Number [facility] [address] [place] [address] * ECG 12 Lead (01/23/2025 7:33 AM EST) Only the most recent of12 resultswithin the time period is included. ComponentValueRef RangeTest MethodAnalysis TimePerformed AtPathologist Signature Ventricular Auxa04AJKLZVIEzvjro Itsg87SNZKZBMGV Eqbjatyw875wsGTXKEWP Jfmdsxcl89 msMUSEQT Dwfsoqiy836gxXKGZGNV Calculation([place])472msMUSEP Agct96bpnxzdzFMIAN Oszr58migwciqTAABK Tnye842updlvjrBBOVKJT Nutba00qewrwZMCTF Symic072nwHQIJU Onset 145msMUSEP Wobkjv449enVFTAQ Qngkwy875yjGJWORPE Qqvsbcyywx713izCZGBObsajxtt (Source)Anatomical Location / LateralityCollection Method / VolumeCollection TimeReceived Time01/23/2025 7:03 AM EST01/25/2025 7:43 AM EST Narrative MUSE - 01/25/2025 7:44 AM EST Normal sinus rhythm Rightward axis ST & T wave abnormality, consider anterior ischemia Abnormal ECG When compared with ECG of 22-JAN-2025 06:40, (unconfirmed) No significant change was found Confirmed by Geoff Elliott ([id number]) on 01/25/2025 7:43:57 AM Procedure Note Geoff Elliott, - 01/25/2025 Normal sinus rhythm Rightward axis ST & T wave abnormality, consider anterior ischemia Abnormal ECG When compared with ECG of 22-JAN-2025 06:40, (unconfirmed) No significant change was found Confirmed by Geoff Elliott ([id number]) on 01/25/2025 7:43:57 AM Authorizing ProviderResult TypeResult StatusRandall Izabel Laura PROCESS PROJECT ENGINEER-CNPECG ORDERABLESFinal ResultPerforming OrganizationAddressCity/State/ZIP CodePhone Number MUSE * (ABNORMAL) CBC (01/23/2025 5:44 AM EST) Only the most recent of4 resultswithin the time period is included. ComponentValueRef RangeTest MethodAnalysis TimePerformed AtPathologist Signature WBC4.74.4 - 11.3 x10*3/uL LAB HEMATOLOGY METHOD 01/23/2025 6:31 AM [facility] LABnRBC0.00.0 - 0.0 /100 WBCs LAB HEMATOLOGY METHOD 01/23/2025 6:31 AM [facility] LABRBC3.26(L)4.00 - 5.20 x10*6/uL LAB HEMATOLOGY METHOD 01/23/2025 6:31 AM [facility] OXBSsvnunwtjb73.1(L)12.0 - 16.0 g/dL LAB HEMATOLOGY METHOD 01/23/2025 6:31 AM [facility] VNGUfzjywowtz76.4(L)36.0 - 46.0 % LAB HEMATOLOGY METHOD 01/23/2025 6:31 AM [facility] SGWMEK9183 - 100 fL LAB HEMATOLOGY METHOD 01/23/2025 6:31 AM [facility] WQHFJV62.026.0 - 34.0 pg LAB HEMATOLOGY METHOD 01/23/2025 6:31 AM [facility] AADFTRP35.232.0 - 36.0 g/dL LAB HEMATOLOGY METHOD 01/23/2025 6:31 AM [facility] SUMTFK55.6(H)11.5 - 14.5 % LAB HEMATOLOGY METHOD 01/23/2025 6:31 AM [facility] CXXXahympcam38(L)150 - 450 x10*3/uL LAB HEMATOLOGY METHOD 01/23/2025 6:31 AM [facility] LABSpecimen (Source)Anatomical Location / LateralityCollection Method / VolumeCollection TimeReceived TimeBlood Venous blood specimen / UnknownVenipuncture / Hhcktqo8601/23/2025 5:44 AM EST 01/23/2025 6:20 AM EST Narrative Authorizing ProviderResult TypeResult StatusDaniel Odessa DOLAB BLOOD ORDERABLESFinal ResultPerforming OrganizationAddressCity/State/ZIP CodePhone Number [facility] [address] [place] [address] * XR chest 1 view (01/21/2025 8:26 AM EST)Anatomical RegionLateralityModality Thoracic, ChestComputed RadiographySpecimen (Source)Anatomical Location / LateralityCollection Method / VolumeCollection TimeReceived Time01/21/2025 8:53 AM EST01/21/2025 8:53 AM EST Impressions 01/21/2025 8:52 AM EST Stable cardiomegaly with small-moderate left and small right pleural effusions and bibasilar opacities/atelectasis, similar to prior. ?? MACRO: None ?? Signed by: Acosta Bo 01/21/2025 8:52 AM Dictation workstation: ?? [id number] Narrative 01/21/2025 8:52 AM EST Interpreted By: Acosta Bo, STUDY: XR CHEST 1 VIEW; ??01/21/2025 8:26 am ?? INDICATION: Signs/Symptoms:worsening respiratory failure. ?? COMPARISON: XR chest and CT chest 01/19/2025 ?? ACCESSION NUMBER(S): [id number] ?? ORDERING CLINICIAN: KEHINDE ELI ?? FINDINGS: [...] chest and CT chest 01/19/2025 ACCESSION NUMBER(S): [id number] ORDERING CLINICIAN: KEHINDE ELI FINDINGS: CARDIOMEDIASTINAL SILHOUETTE: [...] Acosta Bo 01/21/2025 8:52 AM Dictation workstation: [id number] Authorizing ProviderResult TypeResult StatusDanijusto Eli DOIMG XR PROCEDURES Final Result * (ABNORMAL) Blood Gas Arterial Full Panel (01/21/2025 7:41 AM EST)Component ValueRef RangeTest MethodAnalysis TimePerformed AtPathologist SignaturePOCT pH, Arterial7.51(H)7.38 - 7.42 pH01/21/2025 7:58 AM [facility] LABPOCT pCO2, Ejdmzlue7226 - 42 mm Hg01/21/2025 7:58 AM [facility] LABPOCT pO2, Tsoqhhgu47(LL)85 - 95 mm Hg01/21/2025 7:58 AM [facility] LABPOCT SO2, Rkpqcukp42(L)94 - 100 %01/21/2025 7:58 AM [facility] LABPOCT Oxy Hemoglobin, Sofzliet04.1(L)94.0 - 98.0 % 01/21/2025 7:58 AM [facility] LABPOCT Hematocrit Calculated, Aapkhgie91.0(L)36.0 - 46.0 %01/21/2025 7:58 AM [facility] LAB POCT Sodium, Fzxsrsjc509(L)136 - 145 mmol/L103/23/2024 7:58 AM [facility] LABPOCT Potassium, Arterial3.73.5 - 5.3 mmol/L103/23/2024 7:58 AM [facility] LABPOCT Chloride, Voxbggqp3494 - 107 mmol/L 01/21/2025 7:58 AM [facility] LABPOCT Ionized Calcium, Arterial 1.181.10 - 1.33 mmol/L103/23/2024 7:58 AM [facility] LABPOCT Glucose, Yozjhtcl983(H)74 - 99 mg/dL01/21/2025 7:58 AM [facility] LABPOCT Lactate, Arterial1.00.4 - 2.0 mmol/L103/23/2024 7:58 AM [facility] LABPOCT Base Excess, Arterial8.2(H)-2.0 - 3.0 mmol/L 01/21/2025 7:58 AM [facility] LABPOCT HCO3 Calculated, Arterial 31.9(H)22.0 - 26.0 mmol/L103/23/2024 7:58 AM [facility] LABPOCT Hemoglobin, Oravrghp27.2(L)12.0 - 16.0 g/dL01/21/2025 7:58 AM [facility] LABPOCT Anion Gap, Arterial4(L)10 - 25 mmo/L103/23/2024 7:58 AM [facility] LOYGvC043%01/21/2025 7:58 AM [facility] LABTest WwdsbqlBGLFED55/20/2025 7:58 AM [facility] LABCritical Called YsPQZJHPQS97/20/2025 7:58 AM [facility] LABCritical Called SjBLTFDURVUV02/20/2025 7:58 AM [facility] LABCritical Call Pknr68694/20/2025 7:58 AM [facility] LABCritical Read BackY 01/21/2025 7:58 AM [facility] LABSite of Arterial PunctureVBG 01/21/2025 7:58 AM [facility] LABAllen's FcqaFHC7801/21/2025 7:58 AM [facility] LABSpecimen (Source)Anatomical Location / LateralityCollection Method / VolumeCollection TimeReceived TimeBloodArterial blood specimen / UnknownArterial Puncture / Rqtvxlb0901/21/2025 7:41 AM EST 01/21/2025 7:41 AM EST Narrative [facility] - 01/21/2025 7:58 AM EST VENOUS Authorizing ProviderResult TypeResult StatusDaniel Odessa DOLAB BLOOD ORDERABLESFinal ResultPerforming OrganizationAddressCity/State/ZIP CodePhone Number [facility] [address] [place] [address] * (ABNORMAL) B-type natriuretic peptide (01/21/2025 4:47 AM EST) Only the most recent of2 resultswithin the time period is included. ComponentValueRef RangeTest MethodAnalysis TimePerformed AtPathologist Signature AFK470(H)0 - 99 pg/mL LAB IMMUNOASSAY METHOD 01/21/2025 10:28 AM [facility] LABSpecimen (Source)Anatomical Location / LateralityCollection Method / VolumeCollection TimeReceived TimeBlood Venous blood specimen / UnknownVenipuncture / Tnqgxix8601/21/2025 4:47 AM EST 01/21/2025 5:25 AM EST Narrative [facility] - 01/21/2025 10:28 AM EST <100 pg/mL - Heart failure unlikely 100-299 pg/mL - Intermediate probability of acute heart ?failure exacerbation. Correlate with clinical ?context and patient history. >=300 pg/mL - Heart Failure likely. Correlate with clinical ?context and patient history. BNP testing is performed using different testing methodology at [facility] than at other [facility] hospitals. Direct result comparisons should only be made within the same method. Authorizing ProviderResult TypeResult StatusDaniel [facility] BLOOD ORDERABLESFinal ResultPerforming OrganizationAddressCity/State/ZIP CodePhone Number [facility] [address] [place] [address] * CT chest wo IV contrast (01/19/2025 [...] Carrero 01/19/2025 2:34 PM Dictation workstation: ?? [id number] Narrative 01/19/2025 2:34 PM EST Interpreted By: Cory Carrero, STUDY: CT CHEST WO IV CONTRAST; ??01/19/2025 1:50 pm ?? INDICATION: Signs/Symptoms:chest mass on cxr. ? COMPARISON: Two views of the chest, earlier same day 19 January 2025 ?? ACCESSION NUMBER(S): [id number] ?? ORDERING CLINICIAN: KEHINDE ELI ?? TECHNIQUE: [...] same day 19 January 2025 ACCESSION NUMBER(S): [id number] ORDERING CLINICIAN: KEHINDE ELI TECHNIQUE: Helical CT [...] Cory Carrero 01/19/2025 2:34 PM Dictation workstation: [id number] Authorizing ProviderResult TypeResult StatusDanijusto Odessa [facility] PROCEDURES Final Result * TRANSTHORACIC ECHO (TTE) COMPLETE (01/19/2025 11:50 AM EST)ComponentValueRef RangeTest MethodAnalysis TimePerformed AtPathologist SignatureAV mn uqvv3deXa SYNGOAV pk vel1.49m/sSYNGOLV Biplane EF61%SYNGOLVOT diam2.00cmSYNGOMV E/A ratio2.17SYNGOTricuspid annular plane systolic excursion1.2cmSYNGORV free wall pk S'7.70cm/fONCOIMKKU80rpRgPBCGQQNNGk1.80cmSYNGOAortic Valve Area by Continuity of Peak Velocity1.06az9IMBKOVC pk mahi4fzSqQTDVMTjgean Valve Area by Continuity of VTI1.99nj3CBKJJIC EF55%SYNGOLV A4C EF58.7SYNGOSpecimen (Source)Anatomical Location / LateralityCollection [...] SYNGO - 01/19/2025 2:38 PM EST ? [place] [address] TRANSTHORACIC ECHOCARDIOGRAM REPORT Patient Name: ? CARLOS LAZO ?? Reading Physician: ?[id number] Tellez ?VacanteDO Study Date: ? 01/19/2025 ?Ordering Provider: ?[id number] LIZZY LYNN MRN/PID: ?[id number] ?Fellow: Accession#: ? [id number] ?Nurse: Date of /Age: ??1945 / ?Tire And Tube Repairer: ?Asia Olguin ?years ? RDCS Gender Assigned at ??F ? Additional Staff: : Height: ? 157.48 cm ? Admit Date: ? 01/18/2025 Weight: ? 88.45 kg ?Admission Status: ? Inpatient - ?Routine BSA / BMI: ?1.89 m2 / 35.67 ? Department Location: ??[place] ?kg/m2 ? Echo Lab Blood Pressure: 100 /52 mmHg Study Type: ?TRANSTHORACIC ECHO (TTE) COMPLETE Diagnosis/ICD: Shortness of breath-R06.02; Other fluid overload-E87.79 Indication: ?Shortness of Breath, Fluid Overload CPT Codes: ? Echo Complete w Full Doppler-[id number] Patient History: Pertinent History: Cardiomyopathy and Lung [...] m/s ??(0.6-0.9m/s) PV Max PG: ?1.9 mmHg [id number] Geoff Elliott DO Electronically signed on 01/19/2025 at 2:38:31 PM Final Procedure Note Geoff Elliott DO - 01/19/2025 [place] [address] TRANSTHORACIC ECHOCARDIOGRAM REPORT Patient Name: CARLOS LAZO Reading Physician: Makeda Elliott DO Study Date: 01/19/2025 Ordering Provider: [id number] LIZZY SHEELAMADHAVI MRN/PID: [id number] Fellow: Nurse: Date of /Age: 7 1945 Tire And Tube Repairer: Sam hillman GAVI Gender Assigned at F Additional Staff: : Height: 157.48 cm Admit Date: 01/18/2025 Weight: 88.45 kg Admission Status: Inpatient- Routine BSA / BMI: 1.89 m2 / 35.67 Department Location: [place] [address] Echo Lab Blood Pressure: 100 /52 mmHg Study Type: TRANSTHORACIC ECHO (TTE) COMPLETE Diagnosis/ICD: Shortness of breath-R06.02; Other fluid overload-E87.79 Indication: Shortness of Breath, Fluid Overload CPT Codes: Echo Complete w Full Doppler-12404 Patient History: Pertinent History: Cardiomyopathy and Lung [...] 0.7 m/s (0.6-0.9m/s) PV Max P.9 mmHg [id number] Geoff Elliott DO Electronically signed on 01/19/2025 [...] 20 bubbles) was demonstrated. Authorizing ProviderResult TypeResult StatusAmy Bee Lynn PROCESS PROJECT ENGINEER-CNPCV ECHO PROCEDURESFinal ResultPerforming OrganizationAddressCity/State/ZIP CodePhone Number SYNGO [...] Carrero 01/19/2025 8:57 AM Dictation workstation: ?? [id number] Narrative 01/19/2025 8:57 AM EST Interpreted By: Cory Carrero, STUDY: XR CHEST 2 VIEWS; ??01/19/2025 8:43 am ?? INDICATION: Signs/Symptoms:shortness of breath. ? COMPARISON: None ?? ACCESSION NUMBER(S): [id number] ?? ORDERING CLINICIAN: LIZZY LYNN ?? TECHNIQUE: [...] Signs/Symptoms:shortness of breath. COMPARISON: None ACCESSION NUMBER(S): [id number] ORDERING CLINICIAN: LIZZY LYNN TECHNIQUE: Frontal and [...] Cory Carrero 01/19/2025 8:57 AM Dictation workstation: [id number] Authorizing ProviderResult TypeResult StatusLizzy Lynn PROCESS PROJECT ENGINEER-CNPIMG XR PROCEDURES Final Result * Lavender Top (01/19/2025 5:33 AM EST)ComponentValueRef RangeTest Method Analysis TimePerformed AtPathologist SignatureExtra TubeHold for add-ons. 01/20/2025 8:30 AM [facility] LABComment:Auto resulted.Specimen (Source)Anatomical Location / LateralityCollection Method / VolumeCollection TimeReceived TimeBloodVenous blood specimen / Qvxlnba4501/19/2025 5:33 AM EST 01/19/2025 6:10 AM EST Narrative Authorizing ProviderResult TypeResult StatusLashanda MILLER BLOOD ORDERABLES Final ResultPerforming OrganizationAddressCity/State/ZIP CodePhone Number [facility] [address] [place] [address] * (ABNORMAL) Basic Metabolic Panel (01/19/2025 5:33 AM EST) Only the most recent of3 resultswithin the time period is included. ComponentValueRef RangeTest MethodAnalysis TimePerformed AtPathologist Signature Edkymcc607(H)74 - 99 mg/dL LAB CHEMISTRY METHOD 01/19/2025 6:51 AM [facility] WMAQigyaz638874 - 145 mmol/L LAB CHEMISTRY METHOD 01/19/2025 6:51 AM [facility] LABPotassium4.03.5 - 5.3 mmol/L LAB CHEMISTRY METHOD 01/19/2025 6:51 AM [facility] UWCAyuszmgn25161 - 107 mmol/L LAB CHEMISTRY METHOD 01/19/2025 6:51 AM [facility] IOIDjdfcjpfbin7712 - 32 mmol/L LAB CHEMISTRY METHOD 01/19/2025 6:51 AM [facility] LABComment:Bicarbonate results may be falsely elevated when Lactate Dehydrogenase (LDH) concentrations exceed 2,000 U/L due to a temporary reagent manufacturing issue. If significantly elevated LDH levels are suspected, interpret bicarbonate results with caution, correlate with the patient???s clinical status, and consider confirming CO2 values using a blood gas analyzer.Anion Fhl3069 - 20 mmol/L LAB CHEMISTRY METHOD 01/19/2025 6:51 AM [facility] LABUrea Lzznfiir64(H)6 - 23 mg/dL LAB CHEMISTRY METHOD 01/19/2025 6:51 AM [facility] LABCreatinine1.56(H)0.50 - 1.05 mg/dL LAB CHEMISTRY METHOD 01/19/2025 6:51 AM [facility] DTSdMNU49(L)>60 mL/min/1.73m*2 LAB CHEMISTRY METHOD 01/19/2025 6:51 AM [facility] LABComment: Calculations of estimated GFR are performed using the 2020 CKD-EPI Study Refit equation without therace variable for the IDMS-Traceable creatinine methods. https://jasn.asnjournals.org/content//ASN.3358611565 Calcium8.88.6 - 10.3 mg/dL LAB CHEMISTRY METHOD 01/19/2025 6:51 AM [facility] LABSpecimen (Source)Anatomical Location / LateralityCollection Method / VolumeCollection TimeReceived TimeBlood Venous blood specimen / UnknownVenipuncture / Kvekdxr1501/19/2025 5:33 AM EST 01/19/2025 6:09 AM EST Narrative Authorizing ProviderResult TypeResult StatusAmy M Eastford PROCESS PROJECT ENGINEER-CNPLAB BLOOD ORDERABLESFinal ResultPerforming OrganizationAddressCity/State/ZIP CodePhone Number [facility] [address] [place] [address] * ABLATION A-FIB PERSISTENT (01/18/2025 9:27 AM [...] Atrial Fibrillation Ablation Procedures Pulmonary Vein Isolation (87765), LA Pacing and recording (12826), 3D Mapping (91034), Transeptal Catheterization (00229), His Bundle Recording (98603), Ultrasound Guided vascular access (81969), Intracardiac Echocardiogram (86427), Additional SVT Ablation (45690) and Direct current cardioversion (79580) Patient history: Please see attached H&P Procedure [...] the RVOT to evaluate for an effusion (mtods-na-filfnoxg circumferential effusion). ??After access was obtained, a [...] veins was constructed by use of the [employer] Sound mapping system and catheter manipulation in [...] and LV, was evaluated and a stable tsbpu-xh-wawismga circumferential effusion was visualized. Sheaths were removed [...] available during the non-critical portions. Narrative Authorizing ProviderSavanahult PaulineRestrish Azar [facility] ELECTROPHYSIOLOGY PROCEDURESEdited Result - FinalPerforming OrganizationAddressCity/State/ZIP Code Phone Number NAOMYO_SECTRA_CARDIOLAB_XPER * (ABNORMAL) ACTIVATED CLOTTING TIME LOW (01/18/2025 8:57 AM EST)ComponentValue Ref RangeTest MethodAnalysis TimePerformed AtPathologist SignaturePOCT Activated Clotting Time Low Range>397(H)83 - 199 sec01/18/2025 9:06 AM EST [facility] LABComment: ABOVE LIMIT FOR DEVICE Target ACT range will vary based on the patient population, clinical status, and surgical intervention occurring. Specimen (Source)Anatomical Location / LateralityCollection Method / Volume Collection TimeReceived TimeBloodVenous blood specimen / Euyciiz3001/18/2025 8:57 AM EST01/18/2025 9:06 AM EST Narrative Authorizing ProviderResult TypeResult Dylan MILLER POINT OF CARE TEST DOCKED DEVICE UNSOLICITED RESULTSFinal ResultPerforming OrganizationAddress City/State/ZIP CodePhone Number [facility] [address] [place] [phone] * (ABNORMAL) ACTIVATED CLOTTING TIME LOW (01/18/2025 8:24 AM EST)ComponentValue Ref RangeTest MethodAnalysis TimePerformed AtPathologist SignaturePOCT Activated Clotting Time Low Nfgfe700(H)83 - 199 sec01/18/2025 8:32 AM EST [facility] LABComment: Target ACT range will vary based on the patient population, clinical status, and surgical intervention occurring. Specimen (Source)Anatomical Location / LateralityCollection Method / Volume Collection TimeReceived TimeBloodVenous blood specimen / Zmjgaxp1901/18/2025 8:24 AM EST01/18/2025 8:32 AM EST Narrative Authorizing ProviderSimone TypeResult Dylan MILLER POINT OF CARE TEST DOCKED DEVICE UNSOLICITED RESULTSFinal ResultPerforming OrganizationAddress [facility]/ZIP CodePhone Number [facility] [address] [place] [address] * CA AN ELECTIVE ENDOTRACHEAL AIRWAY (01/18/2025 7:54 AM EST) Adalberto Judd APRN-CRNA - 01/18/2025 7:54 AM EST DAVID Flynn 01/18/2025 8:03 AM Airway Date/Time: 01/18/2025 7:54 AM Reason: elective Airway not difficult Staffing Performed: WOOD MOLDER Authorized by: Ansley Abreu MD ?? Performed [...] attempts at approach: 1 Authorizing ProviderResult TypeResult Ama ARGUELLO ORDERABLESFinal Result * ANESTHESIA ARTERIAL LINE PLACEMENT (01/18/2025 7:18 AM EST) Ansley Giron MD - 01/18/2025 7:18 AM EST Ansley Abreu MD 01/18/2025 9:21 AM Arterial Line: Date/Time: [...] procedure well with no complications. Authorizing ProviderResult Marcello ARGUELLO ORDERABLESFinal Result * (ABNORMAL) Coagulation Screen (01/18/2025 5:57 AM EST) Only the most recent of2 resultswithin the time period is included. ComponentValueRef RangeTest MethodAnalysis TimePerformed AtPathologist Signature Calfcjt02.5(H)9.8 - 12.4 seconds LAB COAGULATION METHOD 01/18/2025 6:30 AM [facility] LABINR1.9(H)0.9 - 1.1 LAB COAGULATION METHOD 01/18/2025 6:30 AM [facility] QJOgDCS7127 - 36 seconds LAB COAGULATION METHOD 01/18/2025 6:30 AM [facility] LABSpecimen (Source)Anatomical Location / LateralityCollection Method / VolumeCollection TimeReceived TimeBlood Venous blood specimen / UnknownVenipuncture / Jpjzlnz3101/18/2025 5:57 AM EST 01/18/2025 6:17 AM EST Narrative [facility] - 01/18/2025 6:30 AM EST The APTT is no longer used for monitoring Unfractionated Heparin Therapy. For monitoring Heparin Therapy, use the Heparin Assay. Authorizing ProviderResult TypeResult StatusLizzy Parks PROCESS PROJECT ENGINEERPlato Networks BLOOD ORDERABLESFinal ResultPerforming OrganizationAddressCity/State/ZIP CodePhone Number [facility] [address] [place] [address] * Type and screen (01/18/2025 5:57 AM EST) Only the most recent of2 resultswithin the time period is included. ComponentValueRef RangeTest MethodAnalysis TimePerformed AtPathologist Signature ABO TYPEA103/20/2024 11:49 AM ESTELYRIA BLOOD BANKRh ONLTEGJ0801/18/2025 11:49 AM ESTELYRIA BLOOD BANKANTIBODY EOJOHIVKN66/17/2025 11:49 AM ESTELYRIA [facility]ANK Specimen (Source)Anatomical Location / LateralityCollection Method / Volume Collection TimeReceived TimeBloodVenous blood specimen / UnknownVenipuncture / Iaaaoqg4001/18/2025 5:57 AM EST01/18/2025 6:16 AM EST Narrative Authorizing ProviderResult TypeResult StatusLizzy Parks PROCESS PROJECT ENGINEERPlato Networks BLOOD BANK TEST ORDERABLESFinal ResultPerforming OrganizationAddressCity/State/ZIP CodePhone Number [facility] [address] [phone], * (ABNORMAL) NON-[facility] HIE Complete Blood Count Auto Diff (01/08/2025 9:39 AM EST) ComponentValueRef RangeTest MethodAnalysis TimePerformed AtPathologist SignatureNON-[facility] HIE White Blood Count4.33.8 - 11.6 [CFU]/mLU[facility] HospitalNON-[facility] Uncorrected WBC4.33.8 - 11.6 10*3/uLUc [facility] HospitalNON- HIE Red Blood Count3.853.60 - 5.00 10*6/[facility] Exldgjbuit01.011.8 - 15.4 g/dLUc [facility] HospitalNON- HIE Xacdotnlpg13.134.0 - 46.4 %[facility] Mean Corpuscular Gechhp96.880 - 100 [facility] Mean Corpuscular Hvzgoiwazw91.224.7 - 34.3 pgFSelect Medical Specialty Hospital [facility] CtrNON-[facility] HIE Mean Corpuscular HGB Conc33.332.0 - 35.0 g/dLUc West [facility] HospitalNON- HIE Red Cell Distribution Width15.9(H)11.9 - 15.3 % [facility] Platelet Recid708(L)150 - 450 10*3/uL [facility] CtrNON- HIE Mean Platelet Czmpzr62.2(H)6.3 - 10.7 [facility] Neutrophils % (Auto)63.7. % [facility] CtrNON- HIE Lymphocytes % (Auto)15.3. %[facility] Monocytes % (Auto)17.7. %[facility] CtrNON- HIE Eosinophils % (Auto)2.5. %[facility] NON-[facility] HIE Basophils % (Auto)0.8. %[facility] NRBC%0.20 - 0.5 /100{WBC}[facility] Neutrophils # (Auto)2.81.8 - 7.7 10*3/[facility] CtrNON- HIE Lymphocytes # (Auto)0.7(L)1.00 - 4.8 10*3/[facility] CtrNON- HIE Monocytes # (Auto)0.80.0 - 0.8 10*3/[facility] NON-[facility] HIE Eosinophils # (Auto)0.10.0 - 0.45 10*3/[facility] CtrNON-[facility] HIE Basophils # (Auto)0.00.0 - 0.2 10*3/[facility] CtrComment:PERFORMED BY:[address] [place]DELARIOCaHardeepCONVERSE, [place] [phone] MEDICAL OLIVERIO FLOYD M.D.Specimen (Source)Anatomical Location / LateralityCollection Method / VolumeCollection TimeReceived TimeJACKSON COUNTY [facility] Whole blood pcnetjly28/07/2025 9:39 AM EST Narrative Authorizing ProviderResult TypeResult StatusBalaji MILLER BLOOD ORDERABLESFinal ResultPerforming OrganizationAddressCity/State/ZIP CodePhone Number [facility] [address] [place] [address], [facility] [address] [phone] * NON-[facility] HIE Thyroid Stimulating Hormone (01/08/2025 9:39 AM EST)ComponentValue Ref RangeTest MethodAnalysis TimePerformed AtPathologist SignatureNON- HIE Thyroid Stimulating Hormone4.690.45 - 5.33 u[iU]/mLCleveland Clinic South Pointe Hospital CtrComment:PERFORMED BY:[address] [address] [place], [place] [phone] MEDICAL DIRECTORBRANDIE FLOYD M.D.Specimen (Source)Anatomical Location / LateralityCollection Method / VolumeCollection TimeReceived TimeJACKSON COUNTY MEMORIAL [facility]OSP[facility] Plasma specimen or serum specimen or whole blood /07/2025 9:39 AM EST Narrative Authorizing ProviderResult TypeResult StatusBalaji MILLER BLOOD ORDERABLESFinal ResultPerforming OrganizationAddressCity/State/ZIP CodePhone Number [facility] [address] [place] [address], [facility] [address] [place] [address] * (ABNORMAL) NON-[facility] HIE Comprehensive Metabolic Panel (01/08/2025 9:38 AM EST) ComponentValueRef RangeTest MethodAnalysis TimePerformed AtPathologist SignatureNON- HIE Yrpycbw9668 - 100 mg/dLU[facility] Comment:Random Glucose Reference Range is dependent on time and content of last meal. Glucose of more than 200 mg/dL in a nonstressed, ambulatory subject supports the diagnosis of Diabetes Mellitus. ADA recommended reference range NON- HIE Blood Urea Hhhzpdie00(H)7 - 25 mg/dLUc [facility] NON- HIE Creatinine1.58(H)0.60 - 1.20 mg/dLUc [facility] Hospital NON-[email or web address]]E ESTIMATED GFR32.690[facility]E Sodium 282514 - 145 mmol/[facility] Potassium3.73.5 - 5.1 mmol/[facility] Nnpgapan79611 - 107 mmol/L [facility]E Carbon Ciubhgw50.821.0 - 31.0 mmol/L [facility] Anion Gap12.96.0 - 15.0[facility]E Calcium9.18.6 - 10.3 mg/dLMercy Health Springfield Regional Medical CenterE Total Protein6.86.4 - 8.9 g/dLMercy Health Springfield Regional Medical CenterE Albumin Level4.03.5 - 5.7 g/dLU[facility] NON-[email or web address]]E Globulin2.8g/dLMercy Health Springfield Regional Medical CenterE Albumin/Globulin Ratio1.4FMcKitrick HospitalE Bilirubin,Total1.6(H)0.3 - 1.0 mg/dLUc West Chester HospitalComment: Samples from patients who have taken Naproxen have shown spurious elevation in Total Bilirubin levels. A metabolite of Naproxen, O-desmethylnaproxen, has been shown to interfere with the JenArnoldo method for measuring Total Bilirubin.NON-[email or web address]]E Aspartate Amino Zznbfjmbcis0975 - 39 U/[facility]E Alanine Jmudqduuerzvqkoh209 - 52 U/[facility] Alkaline Clguberzkng532(H)34 - 104 U/[facility] CtrComment:PERFORMED BY:[facility] [place], [place] [phone] MEDICAL DIRECTORBRANDIE FLOYD M.D.Specimen (Source)Anatomical Location / Laterality Collection Method / VolumeCollection TimeReceived TimeFR Plasma specimen or serum specimen or whole blood mqagpnnj47/07/2025 9:38 AM EST Narrative Authorizing ProviderResult TypeResult StatusBalaji MILLER BLOOD ORDERABLESFinal ResultPerforming OrganizationAddressCity/State/ZIP CodePhone Number [facility] [address] [place] [address], [facility] [address] [place] [address] * OUTSIDE LAB SCAN (12/25/2024) Only the most recent of2 resultswithin the time period is included. Narrative 12/25/2024 Ordered by an unspecified provider. Authorizing ProviderResult TypeResult StatusGeneric Provider ScanningOUTSIDE SCANFinal Result * (ABNORMAL) NON-[facility] Basic Metabolic Panel (11/27/2024 11:52 AM EDT)Component ValueRef RangeTest MethodAnalysis TimePerformed AtPathologist SignatureNONWAYNE [facility] Lgujbbq8267 - 100 mg/dLCleveland Clinic South Pointe Hospital CtrComment:Random Glucose Reference Range is dependent on time and content of last meal. Glucose of more than 200 mg/dL in a nonstressed, ambulatory subject supports the diagnosis of Diabetes Mellitus. ADA recommended reference rangeNONWAYNE HEALTHCARE MAIN CAMPUS Blood Urea Tpuzwxjh552 - 25 mg/dLMercy Health Springfield Regional Medical CenterE Creatinine1.35(H)0.60 - 1.20 mg/dLThe [facility] ESTIMATED GFR39.482[facility] Gsxfsy566595 - 145 mmol/LFMcKitrick HospitalE Potassium4.03.5 - 5.1 mmol/L [facility] HIE Rskafekq25023 - 107 mmol/LFOhio State Health System HIE Carbon Actommq59.721.0 - 31.0 mmol/LFOhio State Health System HIE Anion Gap9.36.0 - 15.0[facility] CenterE Calcium9.08.6 - 10.3 mg/dLCleveland Clinic South Pointe Hospital Ctr Comment:PERFORMED BY:[facility] [place] [address] [phone] MEDICAL DIRECTORBRANDIE FLOYD M.D.Specimen (Source)Anatomical Location / LateralityCollection Method / VolumeCollection TimeReceived TimeFR Plasma specimen or serum specimen or whole blood eccabznh42/26/2025 11:52 AM EDT Narrative Authorizing ProviderResult TypeResult StatusAmy M [facility] HospitalN-CNPCOMANCHE COUNTY [facility] BLOOD ORDERABLESFinal ResultPerforming OrganizationAddressCity/State/ZIP CodePhone Number [facility] [address] [place] [address], [facility] [address] [place] [address] * Cardioversion external (11/23/2024 2:37 PM EDT)ComponentValueRef RangeTest MethodAnalysis TimePerformed AtPathologist SignatureBSA1.96m2SYNGO_SECTRA_XPER Specimen (Source)Anatomical Location / LateralityCollection Method / Volume Collection TimeReceived Time Narrative SYNGO_SECTRA_XPER - 11/23/2024 4:04 PM EDT Direct current Cardioversion Procedures Direct current cardioversion (35198) Patient history: Please refer to the detailed history and physical on the patient's medical chart. Procedure narrative: The risks, benefits, and alternatives to the procedure and sedation were explained to the patient, and informed consent was obtained. The patient was in the fasting state. A grounding pad was placed. Self-adhesive anterior-posterior defibrillation pads were applied. A defibrillator was used for monitoring and the defibrillator waveform was set to biphasic. The patient was set up for continuous monitoring of surface 12 lead ECG, capnography, and pulse oximetry. Blood pressure was monitored with automatic cuff measurements. The procedure was performed under IV conscious sedation supplemented with intermittent deep sedation. Patient reported taking their anticoagulation Apixaban 5mg BID without interruption in the last 4-6 weeks. When pt had been adequately sedated, they were cardioverted with a 200J biphasic shock. ??This restored sinus rhythm which was confirmed by tele and 12-lead ECG. ?? Summary: Patient successfully cardioverted from Atrial fibrillation to Sinus rhythm Discharge: The patient left the EP laboratory in stable condition. Follow up: Tentatively patient will be discharged Today, following bed rest and subsequent ambulation, provided the recovery parameters are appropriate. Resume AC Apixaban 5mg BID, DO NOT Stop your blood thinner unless emergency without checking in with your doctor. No driving, alcohol or making legal decisions for 24 hours. 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 Authorizing ProviderResult TypeResult StatusEsseibee Azar [facility] CARDIAC SERVICES PROCEDURESFinal ResultPerforming OrganizationAddressCity/State/ZIP CodePhone Number SYNGO_SECTRA_XPER from Last 3 Months Additional Health Concerns Active ProblemsNoted DateDiagnosed DateMyChart Post Discharge Mesh Worker Problem Fcobxdor42/27/2025 Insurance Advance Directives For more information, please contact: [phone] (Available ) * Full Code (Latest Code Status on File) Date ActivatedDate InactivatedComments11/23/2024 10:24 AMQuestionAnswerComments Plan of Care:* Code Status Discussion Not Completed Decision Maker:* Provider Rationale:* Patient condition does not warrant discussion Care Teams Team MemberRelationshipSpecialtyStart DateEnd Date Ken Sy MD [address] [place] [address] PCP - GeneralInternal Medicine07/09/24 Lashanda Azar MD [address] [facility] Medical Office [address]ldg, [address] [place], [place] [phone] CardiologistCardiology-Clinical Cardiac Electrophysiology10/21/24 Jacqui Hung, TAPE KELLER OPERATOR Care ManagerCase Jgnarhntmp42/28/25
--- OUTSIDE RECORDS SUMMARY | 2025-01-29 20:54 | XMS_ITS | Encounter Summary ---
Author Organization [facility] Address [address] [place] [address] Phone Care Team Providers Care Psychiatric Nursing Assistant Name Role Phone Ken Sy MD Primary Care Provider [phone] Lashanda Azar MD Unavailable [phone] Encounter Details DateTypeDepartmentCare Team (Latest Contact Info)Mhmwzkenyrc65/17/2025Telephone [facility] [address] [place] [address] Lashanda Azar MD [address] [facility] Medical Office [address], [address] [place], [place] [phone] Social History Tobacco UseTypesPacks/DayYears UsedDateSmoking Tobacco: NeverSmokeless [...] were you homeless or living in a residential (including now)?No 01/19/2025HC UtilitiesAnswerDate RecordedIn the past 12 months has the [employer], gas, oil, or water company threatened to shut off services in your home?No01/19/2025CommentsUnknownSex and Gender InformationValueDate RecordedSex Assigned at BirthNot on fileLegal ZioFbkesn28/25/2022 7:53 PM EST Gender IdentityNot on fileSexual OrientationNot on filedocumented as of this encounter Functional Status documented as of this encounter Miscellaneous Notes * Telephone Encounter - Maia Kelsey - 01/18/2025 10:53 AM EST 7 day zio patch [id number] no auth required per [employer] portal Transaction ID: [id number] documented in this encounter Plan of Treatment DateTypeDepartmentCare Team (Latest Contact Info)Tnxwvrydfla41/02/2025 2:30 PM ESTOffice Visit [facility] [address] [place] [address] [phone] Girish Chapman MD [address] [facility], [address] [place] [address] 02/02/2025 2:30 PM ESTOffice Visit [facility] [address] [place] [address] [place] [address] [facility] [place] [address] 02/15/2025 2:00 PM ESTOffice Visit [facility] [address] [place] [address] Sarah Jesus PA-C [address] [facility], [facility] [address] [place] [address] 04/19/2025 8:30 AM ESTAncillary Procedure [facility] [address] [place] [address] 05/18/2025 10:15 AM EDTOffice Visit [facility] [address] [facility] [address] [place] [address] Lashanda Azar MD [address] [facility] Office [facility], [facility] [address] [place] [address] documented as of this encounter Visit Diagnoses Not on filedocumented in this encounter Additional Health Concerns AssessmentNoted TimeA fall risk assessment has been completed for the patient 10/01/2024 9:29 AM EDTdocumented as of this encounter Care Teams Team MemberRelationshipSpecialtyStart DateEnd Date Ken Sy MD [address] [place] [address] PCP - GeneralInternal Medicine07/09/24 Lashanda Azar MD [address] [facility], [facility] [address] [place] [address] CardiologistCardiology-Clinical Cardiac Electrophysiology10/21/24documented as of this encounter
--- OUTSIDE RECORDS SUMMARY | 2025-01-29 20:54 | XMS_ITS | Encounter Summary ---
Author Organization [facility] Address [address] [place] [address] Phone Care Team Providers Care Machine Stone Polisher Apprentice Name Role Phone Ken Sy MD Primary Care Provider [phone] Lashanda Azar MD Unavailable [phone] Encounter Details DateTypeDepartmentCare Team (Latest Contact Info)Nigsaijvzch19/16/2025Travel Social History Tobacco UseTypesPacks/DayYears UsedDateSmoking Tobacco: NeverSmokeless Tobacco: NeverAlcohol UseStandard Drinks/WeekCommentsNever0 (1 standard drink = 0.6 oz pure alcohol)CommentsUnknownSex and Gender InformationValueDate Recorded Sex Assigned at BirthNot on fileLegal PulJtsiez79/25/2022 7:53 PM ESTGender IdentityNot on fileSexual OrientationNot on filedocumented as of this encounter Plan of Treatment DateTypeDepartmentCare Team (Latest Contact Info)Wmigsrzveck33/02/2025 2:30 PM ESTOffice Visit [facility] [address] [facility] [address] [place] [phone] Girish Chapman MD [address] [facility] Medical Office Bldg, [address] [place], [place] [phone] 02/02/2025 2:30 PM ESTOffice Visit [facility] [address] [place] [address] [place] [address] [facility] [place] [address] 02/15/2025 2:00 PM ESTOffice Visit [facility] [address] [facility] [address] [place] [address] Sarah Jesus PA-C [address] [facility] Office [facility], [address] [place] [address] 04/19/2025 8:30 AM ESTAncillary Procedure [facility] [address] [facility] [address] [place] [address] 05/18/2025 10:15 AM EDTOffice Visit [facility] [address] [facility] [address] [place] [address] Lashanda Azar MD [address] [facility] Office [facility], [address] [place] [address] documented as of this encounter Visit Diagnoses Not on filedocumented in this encounter Additional Health Concerns AssessmentNoted TimeA fall risk assessment has been completed for the patient 10/01/2024 9:29 AM EDTdocumented as of this encounter Care Teams Team MemberRelationshipSpecialtyStart DateEnd Date Ken Sy MD [address] [place] [address] PCP - GeneralInternal Medicine07/09/24 Lashanda Azar MD [address] [facility] Office [facility], [address] [place] [address] CardiologistCardiology-Clinical Cardiac Electrophysiology10/21/24documented as of this encounter
--- OUTSIDE RECORDS SUMMARY | 2025-01-29 20:54 | XMS_ITS | Encounter Summary ---
Author Organization [facility] Address [address] [place] [address] Phone Care Team Providers Care Lead Pourer Name Role Phone Ken Sy MD Primary Care Provider [phone] Lashanda Azar MD Unavailable [phone] Jacqui Hung LPN Unavailable Reason for Visit * ReasonOnset DateCommentsBleeding/Nybclhqf53/28/2025 Encounter Details DateTypeDepartmentCare Team (Latest Contact Info)Egrzjyhopkl22/28/2025Telephone [facility] [address] [facility] [address] [place] [address] Cheryl Meraz MA Bleeding/Bruising Social History Tobacco UseTypesPacks/DayYears UsedDateSmoking Tobacco: NeverSmokeless [...] were you homeless or living in a alf (including now)?No 01/19/2025 UtilitiesAnswerDate RecordedIn the past 12 months has the [employer], gas, oil, or water [employer] threatened to shut off services in your home?No01/19/2025CommentsUnknownSex and Gender InformationValueDate RecordedSex Assigned at BirthNot on fileLegal VaxLuhjrk56/25/2022 7:53 PM EST Gender IdentityNot on fileSexual OrientationNot on filedocumented as of this encounter Miscellaneous Notes * Telephone Encounter - Cheryl Meraz MA - 01/29/2025 11:52 AM EST Pt advised. * Telephone Encounter - Cheryl Meraz MA - 01/29/2025 10:31 AM EST Pt called stating she had an ablation on 01/18/[address] Azar. Pt was in the hospital for 10 days. Pt states she has slight bruising in the R groin area where they went in for the ablation. Pt is concerned because she has bruising on the left side of her abdomen. Her pubic area on the left side is tender and she thinks bruising may show up there as well. Pt asking if this is a concern. documented in this encounter Plan of Treatment DateTypeDepartmentCare Team (Latest Contact Info)Gdqsfttzzuk33/02/2025 2:30 PM ESTOffice Visit [facility] [address] [phone] Girish Chapman MD [address] [facility] [address], [address] [place] [address] 02/02/2025 2:30 PM ESTOffice Visit [facility] [address] [phone] [place] [address] [facility] [place] [address] 02/15/2025 2:00 PM ESTOffice Visit [facility] [address] [place] [address] Sarah Jesus PA-C [address] [facility], [address] [place] [address] 04/19/2025 8:30 AM ESTAncillary Procedure [facility] [address] [facility] [address] [place] [address] 05/18/2025 10:15 AM EDTOffice Visit [facility] [address] [place] [address] Lashanda Azar MD [address] [facility], [address] [place] [address] documented as of this encounter Goals GoalPatient Goal TypeAssociated ProblemsRecent ProgressPatient-Stated?Author MyChart Post Discharge Portfolio Accountant Goal Template Care PlanMyChart Post Discharge Portfolio Accountant Problem TemplateNoMychart, Genericdocumented as of this encounter Visit Diagnoses Not on filedocumented in this encounter Additional Health Concerns Active ProblemsNoted DateDiagnosed DateMyChart Post Discharge Portfolio Accountant Problem Mgghlxul23/27/2025ssessmentNoted TimeA fall risk assessment has been completed for the phwsell4410/01/2024 9:29 AM EDTdocumented as of this encounter Care Teams Team MemberRelationshipSpecialtyStart DateEnd Date Ken Sy MD [address] [place] [address] PCP - GeneralInternal Medicine07/09/24 Lashanda Azar MD [address] [facility], [address] [place] [address] CardiologistCardiology-Clinical Cardiac Electrophysiology10/21/24 Jacqui Hung, EDUCATIONAL PROGRAM ASSISTANT Care ManagerCase Lllgdsxcdv98/28/25documented as of this encounter
--- OUTSIDE RECORDS SUMMARY | 2025-01-29 20:54 | XMS_ITS | Encounter Summary ---
Author Organization [facility] Address [address] [place] [address] Phone Care Team Providers Care Manager Order Name Role Phone Ken Sy MD Primary Care Provider [phone] Lashanda Azar MD Unavailable [phone] Jacqui Hung LPN Unavailable [phone] Encounter Details DateTypeDepartmentCare Team (Latest Contact Info)Aegbtirdyxc01/28/2025Patient Outreach [facility] [address] [address] Jacqui Hung, FIELD MARKETING COORDINATOR Social History Tobacco UseTypesPacks/DayYears UsedDateSmoking Tobacco: NeverSmokeless [...] were you homeless or living in a fpc (including now)?No 01/19/2025HC UtilitiesAnswerDate RecordedIn the past 12 months has the electric, gas, oil, or water company threatened to shut off services in your home?No01/19/2025CommentsUnknownSex and Gender InformationValueDate RecordedSex Assigned at BirthNot on fileLegal RicHxxlfm30/25/2022 7:53 PM EST Gender IdentityNot on fileSexual OrientationNot on filedocumented as of this encounter Progress Notes * Jacqui Hung, FIELD MARKETING COORDINATOR - 01/29/2025 8:16 AM EST Discharge Facility: [facility] Discharge Diagnosis: Atrial fibrillation Acute hypoxic respiratory failure HFmrEF w Fluid overload Severe MV and tricuspid valve regurgitation Large PFO ANATOLY on CKD stage IIIb Admission Date: 01/18/25 Discharge Date: 01/27/25 PCP Appointment Date: 02/03/25 Specialist Appointment Date: TBD-nephrology Appointment with Girish Chapman MD (02/02/2025) Appointment with Krzysztof Blankenship MD (02/02/2025) 02/11/25 general surgery Appointment with Sarah Jesus PA-C (02/15/2025) Hospital Encounter and Summary Linked: Yes Admission (Discharged) with Kehinde Saxena DO (01/18/2025) Discharge Summary by Kehinde Saxena DO (01/27/2025 15:03) See discharge assessment below for further details Wrap Up Wrap Up Additional Comments: Successful transition of care outreach within 2 business days of discharge. CM introduced myself and the TCM program. CM gave my contact information and encouraged to call if needing assistance or has any further non-emergent questions prior to my next outreach. Reviewed hospital stay , discharge summary and answered any questions. Daily weights -weight has came down some. Pulse ox dropping to 84 when she had oxygen off. Educated to keep oxygen on . Stated that bruising in Right groin site is improving but did have some pain on left groin area that goes up to pubic area and a little hard she reported before discharge and they did not seem to be concerned but nowhas a bruise which she did not understand since access area was on other side. When asked about swelling she thought there might be some fluid/swelling . I asked her to call Dr. Azar [phone] to report and patient agreed to do when we hang up. Has not heard from [facility] yet and haslabs due today. I have pt the phone number for [facility] and she is also calling them now. Educated on imp ortance of follow-up appointments with both his primary care physician and specialists to assess treatment response. Reviewed all upcoming appts. Thanked me for outrach and calling [facility] and Doe's office now. Denies further discharge questions/concerns/needs at time of outreach call. (01/29/2025 8:56 AM) Medications Medications reviewed with patient/caregiver?: Yes (01/29/2025 8:56 AM) Is the patient having any side effects they believe may be caused by any medication additions or changes?: No (01/29/2025 8:56 AM) Does the patient have all medications ordered at discharge?: Yes (01/29/2025 8:56 AM) Care Management Interventions: Provided patient education (01/29/2025 8:56 AM) Prescription Comments: START taking: hydrOXYzine HCL (Atarax) Klor-Con M20 (potassium chloride CR) This replaces a similar medication. See the full medication list for instructions. pantoprazole (ProtoNix) CHANGE how you take: amiodarone (Pacerone) Eliquis (apixaban) losartan (Cozaar) torsemide (Demadex) STOP taking: potassium chloride CR 10 mEq ER tablet (Klor-Con) Replaced by a similar medication. Review your updated medication list b (01/29/2025 8:56 AM) Is the patient taking all medications as directed (includes completed medication regime)?: Yes (01/29/2025 8:56 AM) Care Management Interventions: Provided patient education (01/29/2025 8:56 AM) Medication Comments: CM discussed referencing discharge paperwork to follow detailed daily medication schedule. Endorses understanding & compliance with medications. Encouraged to reach out to office or CM with any medication questions in future. Reminded to bring all medications/med list to future appointments. (01/29/2025 8:56 AM) Appointments Does the patient have a primary care provider?: Yes (01/29/2025 8:56 AM) Care Management Interventions: Verified appointment date/time/provider (01/29/2025 8:56 AM) Has the patient kept scheduled appointments due by today?: Yes (01/29/2025 8:56 AM) Care Management Interventions: Educated on importance of keeping appointment (01/29/2025 8:56 AM) Self Management What is the home health agency?: [facility] [phone]-labs due 01/29/25 (01/29/2025 8:56 AM) Has home health visited the patient within 72 hours of discharge?: (S) No (Pt calling [facility] now for update -yesterday was thanksgiving) (01/29/2025 8:56 AM) What Durable Medical Equipment (DME) was ordered?: Oxygen 3 Litters and CPAP during sleep- medical services (01/29/2025 8:56 AM) Has all Durable Medical Equipment (DME) been delivered?: Yes (THey are bringing out more supplies) (01/29/2025 8:56 AM) Patient Teaching Does the patient have access to their discharge instructions?: Yes (01/29/2025 8:56 AM) Care Management Interventions: Reviewed instructions with patient (01/29/2025 8:56 AM) What is the patient's perception of their health status since discharge?: Same (01/29/2025 8:56 AM) Is the patient/caregiver able to teach back the hierarchy of who to call/visit for symptoms/problems? PCP, Specialist, Home Health nurse, Urgent Care, ED, 911: Yes (01/29/2025 8:56 AM) documented in this encounter Plan of Treatment DateTypeDepartmentCare Team (Latest Contact Info)Ruyjyjfammi40/02/2025 2:30 PM ESTOffice Visit [facility] [address] [facility] [address] [place] [phone] Girish Chapman MD [address] [facility] [address], [address] [place], [place] [phone] 02/02/2025 2:30 PM ESTOffice Visit [facility] [address] [facility] [address] [place] [phone] [place] [address] Department [place] [address] 02/15/2025 2:00 PM ESTOffice Visit [facility] [address] [facility] [address] [place] [address] Sarah Jesus PA-C [address] [facility] Office [facility], [address] [place] [address] 04/19/2025 8:30 AM ESTAncillary Procedure [facility] [address] [place] [address] 05/18/2025 10:15 AM EDTOffice Visit [facility] [address] [place] [address] Lashanda Azar MD [address] [facility], [address] [place] [address] documented as of this encounter Goals GoalPatient Goal TypeAssociated ProblemsRecent ProgressPatient-Stated?Author MyChart Post Discharge Superintendent Track Goal Template Care PlanMyChart Post Discharge Superintendent Track Problem TemplateNoMychart, Genericdocumented as of this encounter Visit Diagnoses Not on filedocumented in this encounter Additional Health Concerns Active ProblemsNoted DateDiagnosed DateMyChart Post Discharge Superintendent Track Problem Rzobfyyx11/27/2025ssessmentNoted TimeA fall risk assessment has been completed for the afohyij0910/01/2024 9:29 AM EDTdocumented as of this encounter Care Teams Team MemberRelationshipSpecialtyStart DateEnd Date Ken Sy MD [address] [place] [address] PCP - GeneralInternal Medicine07/09/24 Lashanda Azar MD [address] [facility], [address] [address] CardiologistCardiology-Clinical Cardiac Electrophysiology10/21/24 Jacqui Hung, FIELD MARKETING COORDINATOR Care ManagerCase Lakocjkdlr46/28/25documented as of this encounter
--- OUTSIDE RECORDS SUMMARY | 2025-01-29 20:55 | XMS_ITS | Encounter Summary ---
Author Organization [facility] Address [address] [place] [address] Phone Care Team Providers Care Rod Puller Name Role Phone Ken Sy MD Primary Care Provider [phone] Lashanda Azar MD Unavailable [phone] Encounter Details DateTypeDepartmentCare Team (Latest Contact Info)Tocpegdtfwz91/27/2025Travel Social History Tobacco UseTypesPacks/DayYears UsedDateSmoking Tobacco: NeverSmokeless [...] InformationValueDate RecordedSex Assigned at BirthNot on fileLegal CazFiwbdx63/25/2022 7:53 PM EST Gender IdentityNot on fileSexual OrientationNot on filedocumented as of this encounter Plan of Treatment DateTypeDepartmentCare Team (Latest Contact Info)Ozjswnvsffb02/02/2025 2:[address] [facility] [address] [facility] [address] [place] [address] Girish Chapman MD [address] [facility] [address], [address] [place] [address] 02/02/2025 2:[address] [facility] [address] [facility] [address] [place] [address] [place] [address] [facility] [place] [address] 02/15/2025 2:00 PM ESTOffice Visit [facility] [address] [facility] [address] [place] [address] Sarah Jesus PA-C [address] [facility] Office [facility], [address] [place] [address] 04/19/2025 8:30 AM ESTAncillary Procedure [facility] [address] [facility] [address] [place] [address] 05/18/2025 10:15 AM EDTOffice Visit [facility] [address] [place] [address] Lashanda Azar MD [address] [facility] Office [facility], [address] [place] [address] documented as of this encounter Goals GoalPatient Goal TypeAssociated ProblemsRecent ProgressPatient-Stated?Author MyChart Post Discharge Vaccine Key Customer Leader Goal Template Care PlanMyChart Post Discharge Vaccine Key Customer Leader Problem TemplateNoMychart, Genericdocumented as of this encounter Visit Diagnoses Not on filedocumented in this encounter Additional Health Concerns Active ProblemsNoted DateDiagnosed DateMyChart Post Discharge Vaccine Key Customer Leader Problem Wddafjra20/27/2025ssessmentNoted TimeA fall risk assessment has been completed for the derqyzp7710/01/2024 9:29 AM EDTdocumented as of this encounter Care Teams Team MemberRelationshipSpecialtyStart DateEnd Date Ken Sy MD [address] [place] [address] PCP - GeneralInternal Medicine07/09/24 Lashanda Azar MD [address] [facility] Medical [facility] Bl, [address] [place] [address] CardiologistCardiology-Clinical Cardiac Electrophysiology10/21/24documented as of this encounter
--- OUTSIDE RECORDS SUMMARY | 2025-01-29 20:55 | XMS_ITS | Encounter Summary ---
Author Organization [facility] Address [address] [place] [address] Phone Care Team Providers Care Validation Software Facilitator Name Role Phone Ken Sy MD Primary Care Provider [phone] Lashanda Azar MD Unavailable [phone] Encounter Details DateTypeDepartmentCare Team (Latest Contact Info)Mgamrmthfdz58/17/2025Travel Social History Tobacco UseTypesPacks/DayYears UsedDateSmoking Tobacco: NeverSmokeless [...] were you homeless or living in a chcf (including now)?No 01/19/2025HC UtilitiesAnswerDate RecordedIn the past 12 months has the electric, gas, oil, or water company threatened to shut off services in your home?No01/19/2025CommentsUnknownSex and Gender InformationValueDate RecordedSex Assigned at BirthNot on fileLegal WhfPfpgpi76/25/2022 7:53 PM EST Gender IdentityNot on fileSexual OrientationNot on filedocumented as of this encounter Functional Status * BPAnswerDate of AiadduoyalNmsril982/7201/18/2025 11:56 PM ESTInterface, Masimo Data In * PulseAnswerDate of YgpzvavdbcChnnif0019/17/2025 11:56 PM ESTInterface, Masimo Data In * QuestionAnswerDate of AssessmentAuthorHistory of Falling, Immediate or Within 3 Mxbjju449/17/2025 8:00 PM Concetta Sandoval RNMorse Fall Risk Score35 01/18/2025 8:00 PM Concetat Sandoval, RN * QuestionAnswerDate of AssessmentAuthorBraden Scale Jxzqt591901/18/2025 8:00 PM Concetta Sandoval, ANGELITO documented as of this encounter Plan of Treatment DateTypeDepartmentCare Team (Latest Contact Info)Dqpikwinafe00/02/2025 2:30 PM ESTOffice Visit [facility] [address] [place] [address] Girish Chapman MD [address] [facility] Office [facility], [address] [place] [address] 02/02/2025 2:30 PM ESTOffice Visit [facility] [address] [facility] [address] [place] [address] [place] [address] [facility] Department [place] [address] 02/15/2025 2:00 PM ESTOffice Visit [facility] [address] [place] [address] Sarah Jesus PA-C [address] [facility], [facility] [address] [place] [address] 04/19/2025 8:30 AM ESTAncillary Procedure [facility] [address] [place] [address] 05/18/2025 10:15 AM EDTOffice Visit [facility] [address] [address] [place] [address] Lashanda Azar MD [address] [facility] Office [facility], [facility] [address] [place], [place] [phone] documented as of this encounter Visit Diagnoses Not on filedocumented in this encounter Additional Health Concerns AssessmentNoted TimeA fall risk assessment has been completed for the patient 10/01/2024 9:29 AM EDTdocumented as of this encounter Care Teams Team MemberRelationshipSpecialtyStart DateEnd Date Ken Sy MD [address] [place] [address] PCP - GeneralInternal Medicine07/09/24 Lashanda Azar MD [address] [facility], [facility] [address] [place] [address] CardiologistCardiology-Clinical Cardiac Electrophysiology10/21/24documented as of this encounter
--- OUTSIDE RECORDS SUMMARY | 2025-01-29 20:55 | XMS_ITS | Encounter Summary ---
Author Organization [facility] Address [address] [place] [address] Phone Care Team Providers Care Melt Helper Name Role Phone Ken Sy MD Primary Care Provider [phone] Lashanda Azar MD Unavailable [phone] Jacqui Hung LPN Unavailable Encounter Details DateTypeDepartmentCare Team (Latest Contact Info)Ymwqivzverf73/28/2025Orders Only [facility] 8 Cardiac Intensive Care [address] [place] [address] Bernabe Laura, TRAINING ENGINEER-PARTS EXPEDITER [address] [facility] Medical Office Bldg, [address] [place], [place] [phone] Other fluid overload Social History Tobacco UseTypesPacks/DayYears UsedDateSmoking Tobacco: NeverSmokeless [...] were you homeless or living in a penitentiary (including now)?No 01/19/2025HC UtilitiesAnswerDate RecordedIn the past 12 months has the electric, gas, oil, or water company threatened to shut off services in your home?No01/19/2025CommentsUnknownSex and Gender InformationValueDate RecordedSex Assigned at BirthNot on fileLegal SqcTbdjvp41/25/2022 7:53 PM EST Gender IdentityNot on fileSexual OrientationNot on filedocumented as of this encounter Plan of Treatment DateTypeDepartmentCare Team (Latest Contact Info)Fmstdksqloh19/02/2025 2:30 PM ESTOffice Visit [facility] [address] [place] [address] Girish Chapman MD [address] [facility], [address] [place] [address] 02/02/2025 2:30 PM ESTOffice Visit [facility] [address] [place] [address] [phone] [place] [address] [facility] Department [place] [address] 02/15/2025 2:00 PM ESTOffice Visit [facility] [address] [place] [address] Sarah Jesus PA-C [address] [facility], [address] [place] [address] 04/19/2025 8:30 AM ESTAncillary Procedure [facility] [address] [place] [address] 05/18/2025 10:15 AM EDTOffice Visit [facility] [address] [place] [address] Lashanda Azar MD [address] [facility], [address] [place] [address] documented as of this encounter Goals GoalPatient Goal TypeAssociated ProblemsRecent ProgressPatient-Stated?Author MyChart Post Discharge Hvac Maintenance Technician Goal Template Care PlanMyChart Post Discharge Hvac Maintenance Technician Problem TemplateNoMychart, Genericdocumented as of this encounter Visit Diagnoses Diagnosis Other fluid overload documented in this encounter Additional Health Concerns Active ProblemsNoted DateDiagnosed DateMyChart Post Discharge Hvac Maintenance Technician Problem Vovomkgg98/27/2025ssessmentNoted TimeA fall risk assessment has been completed for the ocwwisq3310/01/2024 9:29 AM EDTdocumented as of this encounter Care Teams Team MemberRelationshipSpecialtyStart DateEnd Date Ken Sy MD [address] [place] [address] PCP - GeneralInternal Medicine07/09/24 Lashanda Azar MD [address] [facility] Medical Office Bldg, [address] [place] [address] CardiologistCardiology-Clinical Cardiac Electrophysiology10/21/24 Jacqui Hung, NON CATEGORICAL PRESCHOOL TEACHER Care ManagerCase Uqnvlehsid81/28/25documented as of this encounter
--- OUTSIDE RECORDS SUMMARY | 2025-01-29 20:55 | XMS_ITS | Encounter Summary ---
Author Organization [facility] Address [address] [place] [address] Phone Care Team Providers Care Financial Services Associate Name Role Phone Ken Sy MD Primary Care Provider [phone] Lashanda Azar MD Unavailable [phone] Encounter Details DateTypeDepartmentCare Team (Latest Contact Info)Rnuvhpxyhnk29/10/2025Results Follow-Up [facility] [address] [facility] [address] [place] [address] Muriel Iyer, BOW REHAIRER NON- HIE Comprehensive Metabolic Panel Social History Tobacco UseTypesPacks/DayYears UsedDateSmoking Tobacco: NeverSmokeless [...] were you homeless or living in a prison (including now)?No 01/19/2025 UtilitiesAnswerDate RecordedIn the past 12 months has the [employer], gas, oil, or water company threatened to shut off services in your home?No01/19/2025CommentsUnknownSex and Gender InformationValueDate RecordedSex Assigned at BirthNot on fileLegal BrjIrsfaf22/25/2022 7:53 PM EST Gender IdentityNot on fileSexual OrientationNot on filedocumented as of this encounter Functional Status * BPAnswerDate of VrzxtahsycOalvzn318/5201/19/2025 7:45 AM ESTInterface, Masimo Data In * PulseAnswerDate of TpcukekeycZgdmve5375/18/2025 7:45 AM ESTInterface, Masimo Data In * QuestionAnswerDate of AssessmentAuthorHistory of Falling, Immediate or Within 3 Prjdnc894/18/2025 8:00 AM Fouzia Schroeder RNMorse Fall Risk Score35 01/19/2025 8:00 AM Fouzia Schroeder RN * Alberto Scale ScoreAnswerDate of YchrsmqootPgndsp0039/18/2025 8:00 AM Fouzia Schroeder RN * AUDIT-C ScoreAnswerDate of IjtstzazulVnngxv377/18/2025 1:37 AM Concetta Sandoval RN * QuestionAnswerDate [...] Concetta Sandoval RN * QuestionAnswerDate of AssessmentAuthorMalnutrition Ucuxz39203/21/2024 1:39 AM Concetta Sandoval RN * QuestionAnswerDate of AssessmentAuthorLittle interest or pleasure in doing thingsNot at all01/19/2025 1:37 AM Concetta Sandvoal, RNFeeling down, depressed, or hopelessNot at all01/19/2025 1:37 AM Concetta Sandoval RN * Over the past 2 weeks, how often have you been bothered by any of the following problems?QuestionAnswerDate of AssessmentAuthorPatient Health Questionnaire-2 Llgfs59403/21/2024 1:37 AM Concetta Sandoval RN * 4. Active Suicidal Ideation with Some Intent to Act, Without Specific Plan (Lifetime)AnswerDate of MghwddhjuyPjtdzfZb13/18/2025 12:19 AM Concetta Sandoval RN * 5. Active Suicidal Ideation with Specific Plan and Intent (Lifetime)AnswerDate of VjlbjixkpqDycfahUz32/18/2025 12:19 AM Concetta Sandoval RN * Actual Attempt (Lifetime)AnswerDate of WoapznobcnRstchbMj35/18/2025 12:19 AM Concetta Sandoval RN * Interrupted Attempts (Lifetime)AnswerDate of NghdsrbvanEhiufaSz90/18/2025 12:19 AM Concetta Sandoval RN * Aborted or Self-Interrupted Attempt (Lifetime)AnswerDate of AssessmentAuthorNo 01/19/2025 12:19 AM Concetta Sandoval RN * Preparatory Acts or Behavior (Lifetime)AnswerDate of AssessmentAuthorNo 01/19/2025 12:19 AM Concetta Sandoval RN * Calculated C-SSRS Risk Score (Lifetime/Recent)AnswerDate of AssessmentAutrNo Risk Mejtbpeon70/18/2025 12:19 AM Concetta Sandoval RN * [place] Suicide Severity Rating Scale (Screener/Recent Self-Report)Question AnswerDate [...] Sandoval RN documented as of this encounter Miscellaneous Notes * Telephone Encounter - Rosalie Kasper LPN - 01/19/2025 10:34 AM EST Phoned patient is currently in [facility] S/P cardioversion and ablation. Notes in chart for review. To Dr. Balaji Arreola and Tamra Armstrong NP for review. * Telephone Encounter - Muriel Iyer LPN - 01/11/2025 11:38 AM EST Please follow up with patient to see what Dr. Sy does at her Appointment this afternoon. ToClinical * Telephone Encounter - Muriel Iyer LPN - 01/11/2025 10:16 AM EST Patient reports she has not noticed much in weight change, she reports she is staying in the 191-193 range. Patient states continued lower extremity edema, not much improvement even with the support hose on. Not much difference from the lasix to demadex per patient. She is also noting shortness of breath with minimal exertion. She is scheduled for ablation next Saturday. Patient reports she is due for more lab work this week per Dr. Azar office. Forwarding labs to PCP Dr. Sy, per patient she has an appointment with him this afternoon. To Tamra Armstrong NP * Telephone Encounter - Muriel Iyer LPN - 01/11/2025 10:16 AM EST Result Communication Resulted Orders NON-[facility] HIE Comprehensive Metabolic Panel Result Value Ref Range NON-[facility] HIE Glucose 87 70 - 100 mg/dL Comment: Random Glucose Reference Range is dependent on time and content of last meal. Glucose of more than 200 mg/dL in a nonstressed, ambulatory subject supports the diagnosis of Diabetes Mellitus. ADA recommended reference range NON-[facility] HIE Blood Urea Nitrogen 26 (H) 7 - 25 mg/dL NON-[facility] HIE Creatinine 1.58 (H) 0.60 - 1.20 mg/dL NON-[facility] HIE ESTIMATED GFR 32.690 NON-[facility] HIE Sodium 140 136 - 145 mmol/L NON-[facility] HIE Potassium 3.7 3.5 - 5.1 mmol/L NON-[facility] HIE Chloride 100 98 - 107 mmol/L NON-[facility] HIE Carbon Dioxide 30.8 21.0 - 31.0 mmol/L NON-[facility] HIE Anion Gap 12.9 6.0 - 15.0 NON-[facility] HIE Calcium 9.1 8.6 - 10.3 mg/dL NON-[facility] HIE Total Protein 6.8 6.4 - 8.9 g/dL NON-[facility] HIE Albumin Level 4.0 3.5 - 5.7 g/dL NON-[facility] HIE Globulin 2.8 g/dL NON-[facility] HIE Albumin/Globulin Ratio 1.4 NON-[facility] HIE Bilirubin,Total 1.6 (H) 0.3 - 1.0 mg/dL Comment: Samples from patients who have taken Naproxen have shown spurious elevation in Total Bilirubin levels. A metabolite of Naproxen, O-desmethylnaproxen, has been shown to interfere with the Re-Hany method for measuring Total Bilirubin. NON-[facility] HIE Aspartate Amino Transferase 23 13 - 39 U/L NON-[facility] HIE Alanine Aminotransferase 17 7 - 52 U/L NON-[facility] HIE Alkaline Phosphatase 322 (H) 34 - 104 U/L Comment: PERFORMED BY:[facility] [place] [address] [address] [place], [place] [phone] MEDICAL DIRECTORBRANDIE FLOYD M.D. 10:16 AM Results were successfully communicated with the patient and they acknowledged their understanding. * Telephone Encounter - Muriel Iyer LPN - 01/11/2025 10:16 AM EST ----- Message from Tamra Kenney sent at 01/11/2025 8:03 AM EST ----- See how she is doing on demadex. Some increase in kidney function, as long as she has diuresed and weight is dropping she can reducedemadex to 40mg daily. Please send elevated bilirubin and alk phos to PCP ----- Message ----- From: Interface, Clinisync - Lab Results In Sent: 01/08/2025 3:14 PM EST To: Tamra Kenney APRN-KM documented in this encounter Plan of Treatment DateTypeDepartmentCare Team (Latest Contact Info)Ndbmfmphowe65/02/2025 2:30 PM ESTOffice Visit [facility] [address] [facility] [address] [place] [address] Girish Chapman MD [address] [facility], [address] [place] [address] 02/02/2025 2:30 PM ESTOffice Visit [facility] [address] [facility] [address] [place] [address] [place] [address] [facility] Department [place] [address] 02/15/2025 2:00 PM ESTOffice Visit [facility] [address] [facility] [address] [place] [address] Sarah Jesus, DICKSONC [address] [facility], [facility] [address] [place] [address] 04/19/2025 8:30 AM ESTAncillary Procedure [facility] [address] [place] [address] 05/18/2025 10:15 AM EDTOffice Visit [facility] [address] [facility] [address] [place] [address] Lashanda Azar MD [address] [facility], [address] [place] [address] documented as of this encounter Visit Diagnoses Not on filedocumented in this encounter Additional Health Concerns AssessmentNoted TimeA fall risk assessment has been completed for the patient 10/01/2024 9:29 AM EDTdocumented as of this encounter Care Teams Team MemberRelationshipSpecialtyStart DateEnd Date Ken Sy MD [address] [place] [address] PCP - GeneralInternal Medicine07/09/24 Lashanda Azar MD [address] [facility] [address], [facility] [address] [place], [place] [phone] CardiologistCardiology-Clinical Cardiac Electrophysiology10/21/24documented as of this encounter
--- OUTSIDE RECORDS SUMMARY | 2025-01-29 20:55 | XMS_ITS | Patient Health Record ---
Author Organization [facility] Address [facility] [place] [address] Care Team Providers Care Attendant Sales Name Role Phone Ken Sy MD Primary Care Provider Go garcia ShannanJosafat Unavailable [phone] Reason For Referral No Information Medications Medication SIG (Take, Route, Frequency, Duration) Notes Start Date End Date Status Calcium + D ActiveVitamin OLnxqzmSacgiyuigklwVdaogvLksgznkhxk24 mg qdActive Social History Tobacco Use: Social History Observation Description Date Details (start date - stop date) Never Smoker NA - NA Social History Social HistorySocial InfoQuestionAnswerNotestobacco usePatient is a:non smoker Problems Problem Type SNOMED Code ICD Code Onset Dates Problem Status W/U Status Risk Notes Problem 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) (75697070539502195) Unspecified atherosclerosis of [place] arteries of extremities, bilateral legs (I70.203) ActiveconfirmedProblemSwelling of first metatarsophalangeal joint of hallux (077861645)Bunionette (acquired), right foot (M21.621)ActiveconfirmedProblem Swelling of first metatarsophalangeal joint of hallux (876449224)Hallux valgus (acquired), left foot (M21.612)ActiveconfirmedProblemPain in right foot (698008212456487)Pain in right foot (M79.671)ActiveconfirmedProblemCallosity (618282122)Corns and callosities (L84)Activeconfirmed Plan Of Treatment No Information Insurance Providers Payer Name Payer Address Payer Phone Subscriber Number Group Number Insured Name Patient Relationship to Insured Coverage Start Date Coverage End Date [employer] [address] [address] [place] [address] [id number], PatriciaShilary - patient is the [place] [id number], CharleyNabilaelf - patient is the insured Medical (General) History Medical History History ICD Code cancer hearing problemsvein problemshepatitisacid reflux (GERD)bowel disorder hemorrhoidsdiverticulitisfoot problems (flat feet, bunions)Surgical History Surgery Date(Month/Year) mastectomy L 1994 R breast biopsy 1197 Hospitalization History Reason Date(Month/Year) childbirth 1971 mastectomy 1994
--- OUTSIDE RECORDS SUMMARY | 2025-01-29 20:55 | XMS_ITS | Encounter Summary ---
Author Organization [facility] Address [address] [place] [address] Phone Care Team Providers Care Health Informatics Instructor Name Role Phone Ken Sy MD Primary Care Provider [phone] Lashanda Azar MD Unavailable [phone] Reason for Visit * ReasonOnset DateComments[facility] /26/2025 Encounter Details DateTypeDepartmentCare Team (Latest Contact Info)Lnanqyitezg19/26/2025[facility]phone [facility] [address] [place] [address] [place] [address] Department [place] [address] Home health referral Social History Tobacco UseTypesPacks/DayYears UsedDateSmoking Tobacco: NeverSmokeless [...] InformationValueDate RecordedSex Assigned at BirthNot on fileLegal QeaDzdsgv88/25/2022 7:53 PM EST Gender IdentityNot on fileSexual OrientationNot on filedocumented as of this encounter Functional Status * BPAnswerDate of IydzedzkgiAefgyd886/56103/29/2024 10:46 AM ESTInterface, Masimo Data In * PulseAnswerDate of IapamgsitcAlmzrb0617/26/2025 10:46 AM ESTInterface, Masimo Data In * QuestionAnswerDate of AssessmentAuthorHistory of Falling, Immediate or Within 3 Punnfc361 9:20 AM Annabelle Emerson LPNMorschristina Fall Risk Score35 01/27/2025 9:20 AM Annabelle Emerson LPN * QuestionAnswerDate of AssessmentAuthorBraden Scale Mkmrs7909/26/2025 9:20 AM Annabelle Emerson LPN documented as of this encounter Miscellaneous Notes * Telephone Encounter - Eneida Ward LPN - 01/27/2025 11:34 AM EST Home Care received a referral for Nursing and Physical Therapy. Unfortunately, we are unable to accept and process the referral at this time. Reason: Patient's Home is Outside of [facility] Service Area Patients, please reach out to the referring provider or your PCP to assist in obtaining an alternative home care agency and/or guidance to meet your needs. Providers, please reach out to Home Care at [phone] with any questions regarding the declined referral. documented in this encounter Plan of Treatment DateTypeDepartmentCare Team (Latest Contact Info)Mrgbdkozeia67/02/2025 2:30 PM ESTOffice Visit [facility] [address] [phone] Girish Chapman MD [address] [facility], [address] [place] [address] 02/02/2025 2:30 PM ESTOffice Visit [facility] [address] [facility] [address] [place] [address] [place] [address] [facility] Department [place] [address] 02/15/2025 2:00 PM ESTOffice Visit [facility] [address] [facility] [address] [place] [address] Sarah Jesus PA-C [address] [facility], [facility] [address] [place] [address] 04/19/2025 8:30 AM ESTAncillary Procedure [facility] [address] [facility] [address] [place] [address] 05/18/2025 10:15 AM EDTOffice Visit [facility] [address] [facility] [address] [place] [address] Lashanda Azar MD [address] [facility], [facility] [address] [place] [address] documented as of this encounter Visit Diagnoses Not on filedocumented in this encounter Additional Health Concerns AssessmentNoted TimeA fall risk assessment has been completed for the patient 10/01/2024 9:29 AM EDTdocumented as of this encounter Care Teams Team MemberRelationshipSpecialtyStart DateEnd Date Ken Sy MD [address] [place] [address] PCP - GeneralInternal Medicine07/09/24 Lashanda Azar MD [address] [facility], [facility] [address] [place] [address] CardiologistCardiology-Clinical Cardiac Electrophysiology10/21/24documented as of this encounter
--- OUTSIDE RECORDS SUMMARY | 2025-01-29 20:55 | XMS_ITS | Clinical Summary ---
Author Organization [facility] Address [address] [place] [address] Care Team Providers Care Letterset Press Set Up Operator Name Role Phone Ken Sy MD Primary Care Provider [phone] Allergies No known active allergies Medications MedicationSigDispense QuantityRefillsLast FilledStart DateEnd DateStatus cholecalciferol (Vitamin D-3) 50 MCG (1999) capsule Take 2,000 Units by mouth in the morning.Active Multiple Vitamins-Minerals (CENTRUM MINIS WOMEN 50+ PO) Active Calcium Carbonate-Vit D-Min (CALCIUM 600+D3 PLUS MINERALS PO) Active Cyanocobalamin (Vitamin B 12) 250 MCG lozenge Take by mouth Patient takes 2500 mcg.Active anastrozole (Arimidex) 1 MG chemo tablet Take 1 mg by mouth Daily.Active apixaban (Eliquis) 5 MG tablet Take 5 mg by mouth in the morning and 5 mg in the evening./ Active dapagliflozin (Farxiga) 10 MG Take 10 mg by mouth Dailyctive losartan (Cozaar) 25 MG tablet Take 25 mg by mouth in the morning and 25 mg in the evening. Active potassium chloride ER (Micro-K) 10 MEQ ER capsule Take 10 mEq by mouth DailyActive flecainide (Tambocor) 100 MG tablet Take 100 mg by mouth2026Active metoprolol succinate XL (Toprol-XL) 50 MG 24 hr tablet 5Active furosemide (Lasix) 80 MG tablet Take 1 tablet in the morning and half a tablet in the afternoon on Saturday, Saturday, and Zhmzwf215Active Active Problems ProblemNoted DateDiagnosed DateAge-related nuclear cataract of both eyes 09/18/2023Early dry stage nonexudative age-related macular degeneration of both eyes09/18/2023ry eyes09/18/2023Nevus of choroid of right eye09/18/2023 Blepharitis of upper and lower eyelids of both eyes09/18/2023ersonal history of breast jhoboz4407/04/2023Malignant neoplasm of upper-outer quadrant of right breast in female, estrogen receptor gigmluuv04/03/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 bphnqu3904/17/2023 Resolved Problems ProblemNoted DateDiagnosed DateResolved DateAbrasion of right conjunctiva /bsence of breast, acquired, left Acquired equinus deformity of footongenital valgus deformity of foot11/15/ontracture, unspecified ankle11/15/2022 11/15/2022Fibrocystic breast ogwuipq87Hallux valgus (acquired), left footHallux tgepfu86Other chronic paineripheral venous voxtavvlqhubg87/14/2023 11/15/2022Malignant neoplasm of upper-outer quadrant of left breast in female, estrogen receptor vjknjtof10Hyperlipidemia History of breast rngeqn01rthralgia04/22/ Malignant neoplasm of tahizn88/04/ Overview (11/15/2022): Left; Stage I-III; 0 nodes; ER/MT + Encounters DateTypeDepartmentCare DxffMsdljhxoque66/11/2025 9:00 AM ESTOffice Visit [facility] [address] [place] [address] Abebe Faulkner DO Dry eyes (Primary Dx); Blepharitis of upper and lower eyelids of both eyes, unspecified type01/12/2025 Bamboo flowsheet [facility] [address] [place] [address] Abebe Faulkner DO 01/12/20259774Kdcekm12/06/2025Travelfrom Last 3 Months Immunizations ImmunizationAdministration DatesNext DueInfluenza, High Dose Seasonal, Preservative Free12/29/2018Influenza, High-dose Seasonal, Quadrivalent, Preservative Free01/03/2023,01/02/2022,01/09/2021,12/21/2019Influenza, injectable, nkkgabjyhkua59/23/2018,12/19/2016Influenza, injectable, quadrivalent, preservative free12/21/2014Influenza, seasonal, intradermal, preservative free12/03/2016,12/01/2015Novel phzwobgrz-U6N9-00, preservative-free 01/13/2009Pneumococcal Conjugate PCV 131,12/03/2016Pneumococcal Polysaccharide JCSJ0789Zoster, live08/18/2015 Family History Medical HistoryRelationNameCommentsCancerBrotherLeevocal cordsMacular degenerationBrotherLeeCancerFatherLee Edaugie HillisMelanomaFatherLee Edaugie AlfordisColon cancerMaternal GrandfatherBreast cancerMaternal Grandmothermat gm CancerMaternal Great-GrandmotherCataractsMotherAliceGlaucomaMotherAlice HypertensionMotherAliceMacular degenerationMotherAliceBreast cancerMother's SisterJeanMacular degenerationSisterOvarian cancerNeg HxRelationNameStatus CommentsBrotherLeeFatherLee Remy HillisDeceasedMaternal GrandfatherMaternal Grandmothermat gmMaternal Great-GrandmotherMotherAliceDeceasedMother's Sister Adama Social History Tobacco UseTypesPacks/DayYears UsedDateSmoking Tobacco: NeverSmokeless Tobacco: Never Tobacco Cessation:Counseling Given: Not Answered Alcohol UseStandard Drinks/WeekCommentsNot Currently0 (1 standard drink = 0.6 oz pure alcohol)caffeine intake: 1-2 cups per dayAUDIT-CAnswerDate RecordedQ1: How often do you have a drink containing alcohol?Never01/07/2023Q2: How many drinks containing alcohol do you have on a typical day when you are drinking?Patient does not drink01/07/2023Q3: How often do you have six or more drinks on one occasion?Never01/07/2023HQ-2AnswerDate RecordedPatient Health Questionnaire-2 Jcgza24203/09/2022CommentsNoSex and Gender InformationValueDate Recorded Sex Assigned at BirthNot on fileLegal RffOkkyym11/15/2023 6:48 PM EDTGender IdentityNot on fileSexual OrientationNot on file Last Filed Vital Signs Vital SignReadingTime TakenCommentsBlood Jyzwlhqb614/7008 9:03 AM EDT Otlqx074204/24/2023 1:26 PM CGEUctczgbnkzj26.3 ??C (97.3 ??F)04/24/2023 1:26 PM ESTRespiratory Rate--Oxygen Saturation--Inhaled Oxygen Concentration--Umyasx79.9 kg (185 lb)10/09/2024 9:03 AM KRNCrhjkb921.5 cm (5' 2 )10/09/2024 9:03 AM EDT Body Mass Index33.8410/09/2024 9:03 AM EDT Plan of Treatment DateTypeDepartmentCare Team (Latest Contact Info)Lbaffsuugml63/11/2025 1:15 PM ESTOffice Visit [facility] [address] [address] Cnonor Gordon DO [address] [facility] [address] [place] [address] 09/22/2025 1:45 PM EDTOffice Visit [facility] [address] [place] [address] Abebe Faulkner, DO [address] [place] [address] Health MaintenanceDue DateLast DoneCommentsCOVID-19 Vaccine ( season) 5103/18/2022, 11/26/2020, 04/23/2020, Additional history existsInfluenza Vaccine (#1)51, 01/03/2023, 01/02/2022, Additional history existsPneumococcal Vaccine: 65+ TrufxPdzrqpozy97/30/2017, 12/03/2016, 12/23/2015 Insurance * Guarantor: Kassandra Escobar AAcconnieunt TypeRelation to PatientDate of BirthPhone Billing AddressPersonal/IvnmevRxoe65/18/1946 [address] [place] [address] Care Teams Team MemberRelationshipSpecialtyStart DateEnd Date Ken Sy MD [address] [place] [address] PCP - GeneralInternal Medicine09/16/24
[2025-01-29 22:08] LABS: Anion Gap 9.3; Blood Urea Nitrogen 27.0 mg/dL (7.0-18.0); Calcium 8.9 mg/dL (8.5-10.1); Carbon Dioxide 32.8 mmol/L (21.0-32.0); Chloride 101 mmol/L (98-107); Estimated GFR (African America 28 (>=60 mL/min/1.73m^2); Estimated GFR (Non-African Ame 23 (>=60 mL/min/1.73m^2); Glucose 92 mg/dL (74-106); Potassium 4.1 mmol/L (3.5-5.1); Sodium 139 mmol/L (136-145)
== END 2025-01-29 20:49 | disposition home or self-care (01) ==
LOC: LAB 20:48
PROVIDERS: PCP Internal Medicine; Visit Provider Internal Medicine
DX: I48.91 Unspecified atrial fibrillation (principal); I50.9 Heart failure, unspecified; J96.90 Respiratory failure, unspecified, unspecified whether with hypoxia or hypercapnia
CPT/HCPCS: 36415; 80048